=== PATIENT | male | born 1965 | race African-American/Black ===

== ENCOUNTER 2016-03-29 22:00 | Inpatient (IN) ==
[2016-03-29] MEDS ORDERED: 0.9 % Sodium Chloride 1,000 ML IVC ONE (22:26)
[2016-03-29] MEDS ORDERED: Ondansetron 4 MG/2 ML VIAL IVP ONE (22:26)
[2016-03-29 22:56] LABS: Basophils # 0.1 K/mcL (0.0-0.2); Basophils % 0.4 %; Eosinophils # 0.3 K/mcL (0.0-0.6); Eosinophils % 2.3 %; Hematocrit 42.6 % (37.5-50.1); Hemoglobin 14.6 g/dL (12.9-16.9); Immature Granulocytes % 0.2 % (0-4); Lymphocytes % 24.6 %; Mean Corpuscular HGB Conc 34.3 g/dL (31.6-35.5); Mean Corpuscular Hemoglobin 28.5 pg (28.0-33.3); Mean Platelet Volume 10.4 fL (9.4-12.4); Monocytes # 0.9 K/mcL (0.0-1.3); Monocytes % 7.5 %; Neutrophils # 7.9 K/mcL (1.6-8.9); Platelet Count 288 K/mcL (140-400); Red Blood Count 5.13 M/mcL (4.19-5.50); Red Cell Distribution Width 12.4 % (11.5-14.5)
[2016-03-29 23:09] LABS: Albumin 3.4 g/dL (3.5-5.0); Albumin/Globulin Ratio 0.7 (1.1-2.2); Bilirubin,Total 0.7 mg/dL (0.2-1.2); Calcium 10.3 mg/dL (8.6-10.8); Globulin 4.8 g/dL (2.4-3.5); Potassium 5.1 mEq/L (3.5-4.5); Total Protein 8.2 g/dL (6.0-8.3)
--- NOTE | 2016-03-29 23:47 | Emergency Department Note ---
Disposition Clinical Impression: Dehydration, Hyperglycemia, Viral syndrome, Elevated troponin Disposition: Admitted As Inpatient Referrals: Cy Turcios MD [Primary Care Provider] - Forms: ED Satisfaction Letter Time of Disposition: 00:40 General Adult HPI - General Chief complaint: ED Weakness Stated complaint: Weakness,vomiting Time Seen by Provider: 03/29/16 22:10 Source: patient Limitations: no limitations Nursing Notes Reviewed: Yes Vital Signs Reviewed: Yes - History of Present Illness HPI Narrative: Patient presents to emergency room with his for evaluation of generalized malaise of several days. He is at work and had weakness and felt like he was fatigued. He was not able to complete his work today and came home. He denies any other complaints. No chest pain or shortness of breath no headache vision changes no nausea vomiting or diarrhea. Main complaint is intermittent chills and generalized weakness is here for similar symptoms Onset (ago): day(s) Radiation: non-radiation Pain Severity: moderate Pain Scale: 8 Quality: aching Consistency: constant Improves with: nothing Worsens with: nothing Associated symptoms: Reports: fever/chills, malaise, weakness Treatments Prior to Arrival: none - Related Data Home Medications Medication Instructions Recorded Confirmed Albuterol Inhaler 03/20/16 Aliskiren/Amlodipine Besylate 03/20/16 Aspirin Buffered 325 mg Tab 03/20/16 Atorvastatin Calcium 03/20/16 03/20/16 Clopidogrel Bisulfate 03/20/16 Glucophage 03/20/16 Humalog Kwikpen U-100 03/20/16 Isosorbide Mononitrate 03/20/16 Lantus Solostar 03/20/16 Lisinopril-HCTZ 20-12.5 03/20/16 Neurontin 03/20/16 Nitroglycerin 03/20/16 Percocet 10-325 mg Tablet 03/20/16 Promethazine HCl 03/20/16 Promethazine HCl 03/20/16 Toprol Xl 03/20/16 Previous Rx's Medication Instructions Recorded Cefdinir [Omnicef] 300 mg PO DAILY #10 capsule 03/20/16 Ibuprofen [Motrin] 400 mg PO Q6-8H PRN #30 tablet 03/20/16 Polyethylene Glycol 3350 [MiraLAX] 17 gm PO DAILY #238 g 03/20/16 Allergies Allergy/AdvReac Type Severity Reaction Status Date / Time No Known Allergies Allergy Verified 03/29/16 22:08 All systems ED: reviewed and negative except as stated. Respiratory: Denies: dyspnea, wheezes Gastrointestinal: Denies: abdominal pain, nausea, vomiting, diarrhea Musculoskeletal: Denies: back pain, neck pain Neurological: Denies: headache, weakness Endocrine: Reports: fatigue Past Medical History - Past Medical History Attestation: Yes The following information was validated with the patient. Source: patient Medical history: Reports: arthritis, coronary artery disease, diabetes, hyperlipidemia, hypertension, renal disease Surgical history: Reports: angioplasty/stent, other Psychiatric history: Reports: no psych history - Social History Smoking Status: Never smoker Smokeless Tobacco Status: No Alcohol use: Reports: none Drug use: Reports: none Physical Exam - General Limitations: no limitations General appearance: alert, in no apparent distress - Neck Neck exam: Present: normal inspection - Chest Chest inspection: Present: normal inspection, symmetric chest wall rise - Respiratory Respiratory exam: Present: normal lung sounds bilaterally. Absent: respiratory distress, wheezes, accessory muscle use - Cardiovascular Cardiovascular exam: Present: regular rate, normal rhythm, normal heart sounds - Abdominal Exam Abdominal exam: Present: soft, Non-Tender, normal bowel sounds. Absent: tenderness, distention, guarding, rebound, rigidity, Pimentel's sign, Rovsing's sign, tenderness at McBurney's Point, mass, pulsatile mass - Extremities Exam Extremities exam: Present: normal inspection, full ROM, normal capillary refill. Absent: tenderness, pedal edema - Back Exam Back exam: Present: normal inspection, full ROM. Absent: tenderness - Neurological Exam Neurological exam: Present: alert, oriented X3, CN II-XII intact, normal gait - Psychiatric Psychiatric exam: Present: normal affect, normal mood - Skin Skin exam: Present: warm, dry, intact, normal color Course Course Narrative: Patient seen and examined on arrival. See history of present illness. 50-year- old male presents emergency room for evaluation of generalized malaise. Is also noted his glucose is been in the 400s over the last several days. He was at work today going up a ladder and fell he could not get up the ladder this is because he was so weak. He denied chest pain shortness of breath headache vision changes nausea vomiting or diarrhea. Denied fevers or chills. He does have generalized weakness according to him. There is no focal deficits on exam. Head is atraumatic pupils are equal round reactive to light. Extraocular muscles are intact his lungs are clear heart is regular. Abdomen is soft nontender nondistended no guarding no rigidity no peritoneal like symptoms. Capillary refill is appropriate. Good radial DP and PT pulses are noted bilaterally. Patient is mentating appropriately answering questions appropriately. He does appear to feel uncomfortable and looks generally ill. Patient is concerning for possible viral syndrome. Basic laboratory workup to address electrolytes along with EKG troponin and chest x-ray secondary to his weakness and symptoms. Patient does have a cardiac history. Disposition determined once his workup is completed. Nausea medications and fluid this time. We will continue to monitor as we continue medical management. Patient is stable resting codable in the bed afebrile - Reevaluation(s) Reevaluation #1: Markell have an elevated troponin at 0.4. This is the highest it ever been for this patient. Patient is denying any other symptoms and currently is still denying chest pain. Aspirin to be provided. Patient's vital signs are stable this point. We discussed the findings and concern for possible cardiac damage secondary to unknown etiology this time. Patient did say that he is cared for by Dr. Morataya and was requested to have a stress test performed as an outpatient. He did not complete that testing. At this point I discussed my recommendation for admission for cardiac evaluation and training of his troponins. Patient wished to think about being admitted at this time. We will reevaluate after patient has had time to think about his medical care. Aspirin to be provided this time. Time: 23:56 Reevaluation #2: Patient was discussed with the hospitalist . Reviewed the patient' s presentation symptoms and medical history. Only recommendation at this time is to have the patient get a BMP collected. Otherwise no other acute issues at this time the patient about the hospital for what appears to be a viral illness and elevated troponin of unknown etiology. Patient does not require aspirin at this time since he does not have chest pain does not appear to be acute coronary syndrome rule out. Patient stable he will be observed in the emergency room to the admission process is completed Time: 00:41 Vital Signs Temperature 98.0 F 03/29/16 22:04 Pulse Rate 95 03/29/16 22:04 Respiratory Rate 18 03/29/16 22:04 Blood Pressure 143/87 03/29/16 22:04 O2 Sat by Pulse Oximetry 98 03/29/16 22:04 Temperature 98.0 F 03/29/16 22:04 Pulse Rate 89 03/30/16 00:15 Respiratory Rate 14 03/30/16 00:15 Blood Pressure 160/101 03/30/16 00:15 O2 Sat by Pulse Oximetry 94 L 03/30/16 00:15 Oxygen Delivery Oxygen Delivery Room Air Medical Decision Making - MDM Narrative Medical decision making narrative: Generalized malaise, elevated troponin, hyperglycemia, viral syndrome - Medical Records Medical records reviewed: Yes I reviewed the patient's medical records. - Lab Data Lab results reviewed: Yes I reviewed the patient's lab results. Result diagrams: 03/29/16 22:48 03/29/16 22:48 Lab Results 03/29/16 03/29/16 03/29/16 Range/Units 22:19 22:48 22:48 WBC 12.1 H (4.3-11.1) K/mcL RBC 5.13 (4.19-5.50) M/mcL Hgb 14.6 (12.9-16.9) g/dL Hct 42.6 (37.5-50.1) % MCV 83.0 (83.0-100.0) fL MCH 28.5 (28.0-33.3) pg MCHC 34.3 (31.6-35.5) g/dL RDW 12.4 (11.5-14.5) % Plt Count 288 (140-400) K/mcL MPV 10.4 (9.4-12.4) fL Immature Gran % 0.2 (0-4) % Seg Neutrophils % 65.0 % Lymphocytes % 24.6 % Monocytes % 7.5 % Eosinophils % 2.3 % Basophils % 0.4 % Neutrophils # 7.9 (1.6-8.9) K/mcL Lymphocytes # 3.0 (0.6-4.6) K/mcL Monocytes # 0.9 (0.0-1.3) K/mcL Eosinophils # 0.3 (0.0-0.6) K/mcL Basophils # 0.1 (0.0-0.2) K/mcL Sodium 134 L (136-145) mEq/L Potassium 5.1 H (3.5-4.5) mEq/L Chloride 100 (98-109) mEq/L Carbon Dioxide 22 (19-29) mEq/L BUN 27 H (8-26) mg/dL Creatinine 2.07 H (0.72-1.25) mg/dL Est GFR ( Amer) 41 L (> 60) Est GFR (Non-Af Amer) 34 L (> 60) BUN/Creatinine Ratio 13 (6-26) Glucose 465 H (70-99) mg/dL POC Glucose 405 H* (58-89) Calculated Osmolality 303 H (280-300) Calcium 10.3 (8.6-10.8) mg/dL Total Bilirubin 0.7 (0.2-1.2) mg/dL AST 19 (5-34) Units/L ALT 22 (0-55) Units/L Alkaline Phosphatase 149 H (38-126) Units/L Troponin I (0-0.03) ng/mL Serum Total Protein 8.2 (6.0-8.3) g/dL Albumin 3.4 L (3.5-5.0) g/dL Globulin 4.8 H (2.4-3.5) g/dL Albumin/Globulin Ratio 0.7 L (1.1-2.2) Urine Color (Yellow) Urine Clarity (Clear) Urine pH (5.0-8.0) pH Units Ur Specific [place] (1.010-1.025) Urine Protein (Neg-Trace) mg/dL Urine Glucose (UA) (Normal) mg/dL Urine Ketones (Negative) mg/dL Urine Blood (Negative) Urine Nitrite (Negative) Urine Bilirubin (Negative) Urine Urobilinogen (Normal) mg/dL Ur Leukocyte Esterase (Negative) Urine Microscopic RBC (0-3) per hpf Urine Microscopic WBC (0-3) per hpf Ur Squamous Epith Cells (None-Few) per lpf Urine Bacteria (None-Few) per hpf Hyaline Casts (None-Few) per lpf Ur Culture Indicated? (NO) 03/29/16 03/30/16 Range/Units 22:48 00:05 WBC (4.3-11.1) K/mcL RBC (4.19-5.50) M/mcL Hgb (12.9-16.9) g/dL Hct (37.5-50.1) % MCV (83.0-100.0) fL MCH (28.0-33.3) pg MCHC (31.6-35.5) g/dL RDW (11.5-14.5) % Plt Count (140-400) K/mcL MPV (9.4-12.4) fL Immature Gran % (0-4) % Seg Neutrophils % % Lymphocytes % % Monocytes % % Eosinophils % % Basophils % % Neutrophils # (1.6-8.9) K/mcL Lymphocytes # (0.6-4.6) K/mcL Monocytes # (0.0-1.3) K/mcL Eosinophils # (0.0-0.6) K/mcL Basophils # (0.0-0.2) K/mcL Sodium (136-145) mEq/L Potassium (3.5-4.5) mEq/L Chloride (98-109) mEq/L Carbon Dioxide (19-29) mEq/L BUN (8-26) mg/dL Creatinine (0.72-1.25) mg/dL Est GFR ( Amer) (> 60) Est GFR (Non-Af Amer) (> 60) BUN/Creatinine Ratio (6-26) Glucose (70-99) mg/dL POC Glucose (58-89) Calculated Osmolality (280-300) Calcium (8.6-10.8) mg/dL Total Bilirubin (0.2-1.2) mg/dL AST (5-34) Units/L ALT (0-55) Units/L Alkaline Phosphatase (38-126) Units/L Troponin I 0.40 H* (0-0.03) ng/mL Serum Total Protein (6.0-8.3) g/dL Albumin (3.5-5.0) g/dL Globulin (2.4-3.5) g/dL Albumin/Globulin Ratio (1.1-2.2) Urine Color Yellow (Yellow) Urine Clarity Clear (Clear) Urine pH 5.5 (5.0-8.0) pH Units Ur Specific [place] > 1.030 H (1.010-1.025) Urine Protein >=300 H (Neg-Trace) mg/dL Urine Glucose (UA) >=1000 H (Normal) mg/dL Urine Ketones Negative (Negative) mg/dL Urine Blood Trace H (Negative) Urine Nitrite Negative (Negative) Urine Bilirubin Negative (Negative) Urine Urobilinogen Normal (Normal) mg/dL Ur Leukocyte Esterase Negative (Negative) Urine Microscopic RBC 3-5 H (0-3) per hpf Urine Microscopic WBC 0-3 (0-3) per hpf Ur Squamous Epith Cells Many H (None-Few) per lpf Urine Bacteria None Seen (None-Few) per hpf Hyaline Casts None Seen (None-Few) per lpf Ur Culture Indicated? NO (NO) - Radiology Data Radiology results reviewed: Yes I reviewed the patient's radiology results. Chest x-ray is stable no signs of acute pulmonary infiltrate. Reviewed by myself and confirmed by the radiologist - EKG Data EKG #1 EKG attestation: Yes I reviewed and interpreted this EKG. EKG shows normal: sinus rhythm, axis, intervals, QRS complexes, ST-T waves Rate: normal Rhythm: NSR [place]/QRS: normal When compared to previous EKG there are: no significant changes Interpretation: no acute changes, unchanged when compared to prior tracing (date ) (03/29/11) Attestation Statement - Attestation Attestation: I examined this patient and my medical decision-making was reviewed with the [facility]/PA/Advanced Practice Nurse/Resident Physician. I agree with the documented findings, disposition and treatment plan as described except to the extent set forth below. Patient presents to the emergency department the chief complaint of generalized weakness. Patient states he has not felt well today. He had to leave work early. Does complain of some mild epigastric tenderness but does not have a right now. On examination he is awake and alert pleasant conversant sitting in bed in no distress. He is eating goldfish crackers on my evaluation. His abdomen soft nontender. His lungs are clear. Plan. The patient has elevated troponin of 0.4. He is not having any chest pain or epigastric pain at this time. His lungs are clear. He is not tachycardic or hypoxic to suggest he has a pulmonary embolus. Patient be admitted for further workup.
[2016-03-29] MEDS ORDERED: 0.9 % Sodium Chloride 1,000 ML IV ONE (23:56)
[2016-03-29] MEDS ORDERED: Aspirin 81 MG TAB.CHEW PO ONE (23:56)
[2016-03-30 00:14] LABS: Bilirubin,Urine Negative (Negative); Blood,Urine Trace (Negative); Clarity,Urine Clear (Clear); Color,Urine Yellow (Yellow); Glucose,Urine (UA) >=1000 mg/dL (Normal); Ketones,Urine Negative (Negative); Leukocyte Esterase,Urine Negative (Negative); Nitrite,Urine Negative (Negative); PH,Urine 5.5 pH Units (5.0-8.0); Protein,Urine >=300 mg/dL (Neg-Trace); Specific Gravity,Urine > 1.030 (1.010-1.025); Urobilinogen,Urine Normal (Normal)
[2016-03-30 00:15] LABS: Bacteria,Urine None Seen per hpf (None-Few); Hyaline Casts,Urine None Seen per lpf (None-Few); Squamous Epithelial Cell,Urine Many per lpf (None-Few); WBC,Urine 0-3 per hpf (0-3)
[2016-03-30] MEDS ORDERED: Calcium Gluconate 1,000 MG in D5% in Water 100 ML IVPB ONE (01:32)
[2016-03-30] MEDS ORDERED: Pantoprazole 40 MG VIAL IVP SCH (03:00)
--- NOTE | 2016-03-30 03:00 | Internal Med History&Physical ---
Date of Encounter: 03/30/16 Time of Encounter: 02:54 Assessment and Plan (1) FREDDY (acute kidney injury) Current visit: Yes Status: Acute Will give the patient leader bolus of normal saline. Continuing normal saline 100 ml/hour. Patient is hyperkalemic potassium 5.2, this will be treated and rechecked in the morning (2) HHNC (hyperglycemic hyperosmolar nonketotic coma) Current visit: Yes Status: Acute Recheck his sugars is not improving he will be started on insulin drip. (3) NSTEMI (non-ST elevation myocardial infarction) Current visit: Yes Status: Acute He denies any active chest pain. EKG shows no ischemic changes. I suspect that this is NSTEMI type II due to acute renal failure. Serial troponin (4) Gastritis Current visit: Yes Status: Acute Likely related to recent ibuprofen use other possibilities include viral syndrome. However I suspect the former. I will place the patient IV Protonix. If no improvement in his symptoms would ask gastroenterology to see the patient for endoscopy. There is no evidence of G.I. bleeding. Qualifiers: Qualified Code(s): K29.70 - Gastritis, unspecified, without bleeding Internal Medicine - H&P: HPI Chief complaint: weakness and vomiting History of present illness: Mr. Ocasio is a 50 year old male with multiple medical problems presents to the emergency room today within plan of vomiting and weakness. For the past 2 days patient has been complaining over the gastric pain recurrent vomiting that was non-bloody nonbilous. He has been nauseous unable to eat to keep food down and even water. He has been getting progressively weak and lethargic. Was getting lightheaded when he stands up. He denies any diarrhea. He denies any hematemesis, melena or hematochezia. He has been having chills but no fever. He denies any change in the color of urine and stool or eyes. He denies any chest pain. No worsening shortness of breath or productive cough. He mentioned that on Friday 5 days ago he went to urgent care because of right hip pain and he was prescribed ibuprofen 400 mg of which she took 15 pills Past Med Surg Social Fam HX - Past Medical History Medical history: arthritis, coronary artery disease, diabetes, hyperlipidemia, hypertension, renal disease Psychiatric history: no psych history - Past Surgical History Surgical History: angioplasty/stent, other - Social History Smoking Status: Never smoker Smokeless Tobacco Status: No Alcohol use: none Drug use: none - Family History Brother Living Status: Still Living Hx Family Cardiac Disorders: No Hx Family Respiratory Disorders: No Hx Family Cancer: No Hx Family GI Disorders: No Hx Family Genitourinary Disorders: No Hx Family Endocrine Disorder: No Hx Family Musculoskeletal Disorders: Yes Hx Family Neuromuscular Disorders: No Hx Family Neurologic Disorders: No Hx Family HEENT Disorders: No Hx Family Autoimmune Disorders: No Hx Family Reproductive Disorders: No Hx Family Psychosocial Disorders: No Hx Family Medical Disorders: No Mother Adopted: No Family Member Ethnicity: Non- Living Status: Hx Family Cardiac Disorders: Yes (HTN) Hx Family Respiratory Disorders: No Hx Family Cancer: Yes (Colon) Hx Family GI Disorders: No Hx Family Genitourinary Disorders: No Hx Family Endocrine Disorder: Yes (DM) Hx Family Musculoskeletal Disorders: No Hx Family Neuromuscular Disorders: No Hx Family Neurologic Disorders: No Hx Family HEENT Disorders: No Hx Family Autoimmune Disorders: No Hx Family Reproductive Disorders: No Hx Family Psychosocial Disorders: No Hx Family Medical Disorders: No Father Living Status: Hx Family Cardiac Disorders: Yes (HTN) Hx Family Respiratory Disorders: No Hx Family Cancer: Yes (Lung) Hx Family GI Disorders: No Hx Family Endocrine Disorder: Yes (DM) Hx Family Neuromuscular Disorders: No Hx Family Neurologic Disorders: No Hx Family HEENT Disorders: No Hx Family Autoimmune Disorders: No Hx Family Reproductive Disorders: No Hx Family Psychosocial Disorders: No Hx Family Medical Disorders: No Internal Medicine - H&P: Meds Albuterol Inhaler 03/20/16 [History] Aliskiren/Amlodipine Besylate 03/20/16 [History] Aspirin Buffered 325 mg Tab 03/20/16 [History] Atorvastatin Calcium 03/20/16 [History] Cefdinir [Omnicef] 300 mg PO DAILY #10 capsule 03/20/16 [Rx] Clopidogrel Bisulfate 03/20/16 [History] Glucophage 03/20/16 [History] Humalog Kwikpen U-100 03/20/16 [History] Ibuprofen [Motrin] 400 mg PO Q6-8H PRN #30 tablet 03/20/16 [Rx] Isosorbide Mononitrate 03/20/16 [History] Lantus Solostar 03/20/16 [History] Lisinopril-HCTZ 20-12.5 03/20/16 [History] Neurontin 03/20/16 [History] Nitroglycerin 03/20/16 [History] Percocet 10-325 mg Tablet 03/20/16 [History] Polyethylene Glycol 3350 [MiraLAX] 17 gm PO DAILY #238 g 03/20/16 [Rx] Promethazine HCl 03/20/16 [History] Promethazine HCl 03/20/16 [History] Toprol Xl 03/20/16 [History] Allergies No Known Allergies Allergy (Verified 03/29/16 22:08) All Systems PM: A 10-system review of systems was performed and is negative for pertinent findings except as documented above in the HPI. Review of systems: 10 point ROS is negative except for HPI. - Constitutional Vitals: Temp Pulse Resp BP Pulse Ox 98.4 F 92 15 146/84 99 03/30/16 01:03 03/30/16 01:03 03/30/16 01:12 03/30/16 01:12 03/30/16 01:24 Exam: General: Alert and oriented x3. No distress Chest: Clear Abdomen: epigastric tenderness LE: Lax calf muscle Neuro: No focal deficits Pupil: 3 m reactive Internal Med - H&P Results - Labs CBC & Chem 7: 03/29/16 22:48 03/29/16 22:48
[2016-03-30] MEDS ORDERED: Insulin Human Regular 100 UNIT in 0.9 % Sodium Chloride 100 ML IVC SCH (03:15)
[2016-03-30] MEDS ORDERED: Insulin Regular, Human 100 UNIT/ML IV PRN (03:15)
[2016-03-30] MEDS: Pantoprazole 40 MG VIAL IVP SCH (03:56)
[2016-03-30] MEDS: 0.9 % Sodium Chloride 1,000 ML IVC SCH ×2 (04:06→12:18)
[2016-03-30] MEDS: *HR* HYDROcodone/Acet 5/325 mg TABLET PO PRN ×2 (04:24→22:54)
[2016-03-30 06:30] LABS: Basophils # 0.1 K/mcL (0.0-0.2); Basophils % 0.4 %; Eosinophils # 0.4 K/mcL (0.0-0.6); Eosinophils % 3.5 %; Hematocrit 36.6 % (37.5-50.1); Immature Granulocytes % 0.4 % (0-4); Lymphocytes # 3.6 K/mcL (0.6-4.6); Lymphocytes % 32.2 %; Mean Corpuscular HGB Conc 34.4 g/dL (31.6-35.5); Mean Corpuscular Hemoglobin 28.8 pg (28.0-33.3); Mean Corpuscular Volume 83.8 fL (83.0-100.0); Mean Platelet Volume 10.4 fL (9.4-12.4); Monocytes # 1.1 K/mcL (0.0-1.3); Monocytes % 9.4 %; Neutrophils # 6.1 K/mcL (1.6-8.9); Platelet Count 249 K/mcL (140-400); Red Blood Count 4.37 M/mcL (4.19-5.50); Red Cell Distribution Width 12.4 % (11.5-14.5); Segmented Neutrophils % 54.1 %
[2016-03-30 06:31] LABS: Hemoglobin 12.6 g/dL (12.9-16.9)
[2016-03-30 06:33] LABS: Beta-Hydroxybutyric Acid 0.16 mmol/L (0.02-0.27)
[2016-03-30 06:38] LABS: Hemoglobin A1C 13.4 %
[2016-03-30] MEDS: *HR* Heparin 5,000 UNIT/ML VIAL SQ SCH ×2 (06:38→17:03)
[2016-03-30 06:41] LABS: Calcium 9.3 mg/dL (8.6-10.8); Magnesium 1.6 mg/dL (1.6-2.6); Potassium 4.2 mEq/L (3.5-4.5)
[2016-03-30] MEDS ORDERED: *HR* Dextrose 50 % in Water (Syg) 50 ML SYRINGE IVP PRN (07:26)
[2016-03-30] MEDS ORDERED: D5% in Water 1,000 ML IV PRN (07:26)
[2016-03-30] MEDS ORDERED: Dextrose Gel 15 GM PO PRN ×2 (07:26)
[2016-03-30] MEDS: Insulin DETEMIR 100 UNIT/ML X5UNITS SQ SCH (08:30)
--- NOTE | 2016-03-30 09:59 | Event Note ---
Date of Encounter: 03/30/16 Time of Encounter: 09:43 50/M PMH : DM since last 15 years on insulin, CAD, CKD, HTN, HPI: Admitted with severe nausea and vomiting for last 36 hours. Recent consumption of more than 15 Ibuprofen along with some other OTC NSAIDs for back pain. Denies hematemesis, eran or chest pain. noted during past 12 hours his lood sugar was out of control and was placed on insulin drip. BHBA is normal and no evidence of acidosis. Vitals: 98.3, 82/m, 126/77, 15/m and 96%RA Examination : head,neck, oral cavity and cervical area with in normal limits. Air entry bilateral equal, S1S2 normal. abdominal examination is benign. brief neurological examination is woth innormal limits. Assessment : Severe gastritis secondary NSAID induced likely. Hyperglycemia ( uncontrolled blood sugar ) secondary to non compliance with insulin. Plan - since now his nausea and vomiting is well controlled, will d/c IV insulin and will resume home dose of insulin. ACHS - continue IV fluids - US abdomen. - Repeat labs in coming morning.
[2016-03-30] MEDS: Insulin LISPRO 300 UNITS/3 ML VIAL SQ SCH ×3 (12:14→17:04)
--- NOTE | 2016-03-30 13:07 | Cardiology Consult Note ---
<MeaganYrny R - Last Filed: 03/30/16 13:25> Date of Encounter: 03/30/16 Time of Encounter: 13:04 Assessment and Plan (1) NSTEMI (non-ST elevation myocardial infarction) Current Visit: Yes Status: Acute Troponin 0.40, 0.36. Could be secondary to demand ischemia from FREDDY on admission (now improved), n/v, but unable to rule out NSTEMI given pt's hx of CAD with PCI and multiple risk factors. Left heart catheterization 2011: 2 Vidhya placed in OM 2. 60-70% lesion noted in OM1 not intervened on. He then had Exercise nuclear stress test 02/2014. Imaging negative for ischemia or prior infarct. Exercise ECG borderline for ischemia at peak heart rate and positive for ischemia in recovery. Pt's diabetes is not well controlled. HGBA1C 13.4, Recommend [facility] to further evaluate ischemic cause of troponin elevation--pt agrees. R/B/A discussed. Resume ASA, Statin, BB, Plavix. Echocardiogram 02/2014: EF 60-65%. Mild concentric LVH. Mild diastolic dysfunction. No significant valvular disease. Recheck echo to evaluate EF. (2) CAD (coronary artery disease) Current Visit: Yes Status: Chronic ASA, Plavix, Statin, BB. Qualifiers: Coronary Disease-Associated Artery/Lesion type: [place] artery [place] vs. transplanted heart: [place] heart Associated angina: without angina Qualified Code(s): I25.10 - Atherosclerotic heart disease of [place] coronary artery without angina pectoris (3) CKD (chronic kidney disease) stage 3, GFR 30-59 ml/min Current Visit: Yes Status: Chronic FREDDY on admission with creatinine 2.07--was likely secondary to dehydration. Improved today with creatinine 1.54, near baseline. Discussion w patient/family: The assessment and plan as outlined above was discussed with the patient and/or family members who expressed understanding and agreement. All questions were answered. Thank you for involving us in the care of your patient. Please call with any questions. I will discuss all the above with Dr. Vasquez and make changes as necessary. History of Present Illness Consult date: 03/30/16 Requesting physician: Lei Bhagat Consult reason: Elevated troponon Chief complaint: n/v History of present illness: Mr. Ocasio is a 50 year old male with a significant history of CAD s/p PCI to OM2. Comorbidities include CKD, HTN, HLD, DM II. He presented with chief complaint of nausea/vomiting that started , has been unable to keep anything down. He was also experiencing epigastric pain. Denies chest pain or increased dyspnea from baseline. Was found to have glucose in 600s, was on insulin gtt overnight. HGBA1C 13.4. Troponins found to be 0.40, 0.36 and cardiology was consulted. FREDDY on admission with creatinine 2.07, now improved near baseline to 1.54. Pt last saw Dr. Morataya 01/2016, at which time he recommended a nuclear stress test that pt never had completed. Left heart catheterization 2011: 2 Vidhya placed in OM 2. 60-70% lesion noted in OM1. Exercise nuclear stress test 02/2014: Imaging negative for ischemia or prior infarct. Exercise ECG borderline for ischemia at peak heart rate and positive for ischemia in recovery. Echocardiogram 02/2014: EF 60-65%. Mild concentric LVH. Mild diastolic dysfunction. No significant valvular disease. Past Med Surg Social Fam HX - Past Medical History Medical history: arthritis, coronary artery disease, diabetes, hyperlipidemia, hypertension, renal disease Psychiatric history: no psych history - Past Surgical History Surgical History: angioplasty/stent, other - Social History Smoking Status: Never smoker Smokeless Tobacco Status: No Alcohol use: none Drug use: none - Family History Brother Living Status: Still Living Hx Family Cardiac Disorders: No Hx Family Respiratory Disorders: No Hx Family Cancer: No Hx Family GI Disorders: No Hx Family Genitourinary Disorders: No Hx Family Endocrine Disorder: No Hx Family Musculoskeletal Disorders: Yes Hx Family Neuromuscular Disorders: No Hx Family Neurologic Disorders: No Hx Family HEENT Disorders: No Hx Family Autoimmune Disorders: No Hx Family Reproductive Disorders: No Hx Family Psychosocial Disorders: No Hx Family Medical Disorders: No Mother Adopted: No Family Member Ethnicity: Non- Living Status: Hx Family Cardiac Disorders: Yes (HTN) Hx Family Respiratory Disorders: No Hx Family Cancer: Yes (Colon) Hx Family GI Disorders: No Hx Family Genitourinary Disorders: No Hx Family Endocrine Disorder: Yes (DM) Hx Family Musculoskeletal Disorders: No Hx Family Neuromuscular Disorders: No Hx Family Neurologic Disorders: No Hx Family HEENT Disorders: No Hx Family Autoimmune Disorders: No Hx Family Reproductive Disorders: No Hx Family Psychosocial Disorders: No Hx Family Medical Disorders: No Father Living Status: Hx Family Cardiac Disorders: Yes (HTN) Hx Family Respiratory Disorders: No Hx Family Cancer: Yes (Lung) Hx Family GI Disorders: No Hx Family Endocrine Disorder: Yes (DM) Hx Family Neuromuscular Disorders: No Hx Family Neurologic Disorders: No Hx Family HEENT Disorders: No Hx Family Autoimmune Disorders: No Hx Family Reproductive Disorders: No Hx Family Psychosocial Disorders: No Hx Family Medical Disorders: No Medications and Allergies Albuterol Inhaler 03/20/16 [History] Aliskiren/Amlodipine Besylate 03/20/16 [History] Aspirin Buffered 325 mg Tab 03/20/16 [History] Atorvastatin Calcium 03/20/16 [History] Cefdinir [Omnicef] 300 mg PO DAILY #10 capsule 03/20/16 [Rx] Clopidogrel Bisulfate 03/20/16 [History] Glucophage 03/20/16 [History] Humalog Kwikpen U-100 03/20/16 [History] Ibuprofen [Motrin] 400 mg PO Q6-8H PRN #30 tablet 03/20/16 [Rx] Isosorbide Mononitrate 03/20/16 [History] Lantus Solostar 03/20/16 [History] Lisinopril-HCTZ 20-12.5 03/20/16 [History] Neurontin 03/20/16 [History] Nitroglycerin 03/20/16 [History] Percocet 10-325 mg Tablet 03/20/16 [History] Polyethylene Glycol 3350 [MiraLAX] 17 gm PO DAILY #238 g 03/20/16 [Rx] Promethazine HCl 03/20/16 [History] Promethazine HCl 03/20/16 [History] Toprol Xl 03/20/16 [History] Allergies No Known Allergies Allergy (Verified 03/29/16 22:08) All Systems Review: A 10-system review of systems was performed and is negative for pertinent findings except as documented above in the HPI. - Constitutional Constitutional: chills, fatigue, weakness - Cardiovascular Cardiovascular: as per HPI, dyspnea on exertion - Gastrointestinal Gastrointestinal: abdominal pain, nausea Physical Examination Vital Signs, Last 4 Hours Temp Pulse Resp BP Pulse Ox 03/30/16 11:29 97.9 F 80 15 142/84 97 Vital Signs Temp Pulse Resp BP Pulse Ox 03/30/16 11:29 97.9 F 80 15 142/84 97 03/30/16 09:03 93 L 03/30/16 06:50 98.3 F 82 15 126/77 93 L 03/30/16 03:15 90 17 136/77 96 03/30/16 01:24 99 03/30/16 01:12 15 146/84 03/30/16 01:03 98.4 F 92 16 146/97 98 03/30/16 00:15 89 14 160/101 94 L 03/29/16 23:38 88 14 164/100 98 03/29/16 22:04 98.0 F 95 18 143/87 98 Intake and Output 03/29/16 03/30/16 03/30/16 23:59 07:59 15:59 Intake Total 806 / 806 1240 / 1240 Output Total 825 / 825 450 / 450 Balance -19 / -19 790 / 790 Intake: IV Fluids 6 / 6 1000 / 1000 0.9 % Sodium Chloride 1, 1000 / 1000 000 ML @ 100 mls/hr IVC . Q10H KHUSHI Rx#:[id number] HumuLIN R 100 UNIT In 0. 6 / 6 9 % Sodium Chloride 100 ML @ 0.1 UNIT/KG/HR 10.36 mls/hr IVC CONT KHUSHI Rx#: [id number] Oral 800 / 800 240 / 240 Output: Urine 825 / 825 450 / 450 Other: Meal Breakfast Percent of Meal Consumed 100% Weight 107.501 kg 102.6 kg Blood Glucose* 405 279 290 Patient Weight 03/30/16 23:59 Weight 102.6 kg General: Conversant, No Apparent Distress HEENT: Atraumatic, Normocephaly, Mucus Membranes Moist Neck: No JVD, Normal carotid pulses Cardiac: Reg Rate and Rhythm, Normal S1 and S2, No Murmur Lungs: Normal Breath Sounds, No Wheeze, Rales, Rhonchi Neuro: Alert and responsive, No focal deficits noted Abdomen: Soft, Non-Tender Skin: No rashes noted on visualized skin Musculoskeletal: No Chest Wall Tenderness Extremities: No Clubbing, No Cyanosis, No Edema, Normal Pulses Results 03/30/16 06:06 03/30/16 06:06 Lab Results 03/30/16 03/30/16 03/30/16 06:06 06:06 10:32 WBC 11.3 H Hgb 12.6 L D Hct 36.6 L Plt Count 249 Sodium 136 Potassium 4.2 Chloride 104 Carbon Dioxide 23 BUN 24 Creatinine 1.54 H Glucose 339 H Calcium 9.3 Magnesium 1.6 Troponin I 0.36 H* Short CBC 03/30/16 03/29/16 Range/Units 06:06 22:48 WBC 11.3 H 12.1 H (4.3-11.1) K/mcL Hgb 12.6 L D 14.6 (12.9-16.9) g/dL Hct 36.6 L 42.6 (37.5-50.1) % Plt Count 249 288 (140-400) K/mcL Neutrophils # 6.1 7.9 (1.6-8.9) K/mcL BMP 03/30/16 03/29/16 Range/Units 06:06 22:48 Sodium 136 134 L (136-145) mEq/L Potassium 4.2 5.1 H (3.5-4.5) mEq/L Chloride 104 100 (98-109) mEq/L Carbon Dioxide 23 22 (19-29) mEq/L BUN 24 27 H (8-26) mg/dL Creatinine 1.54 H 2.07 H (0.72-1.25) mg/dL Glucose 339 H 465 H (70-99) mg/dL Calcium 9.3 10.3 (8.6-10.8) mg/dL Cardiac Enzymes 03/30/16 03/29/16 Range/Units 10:32 22:48 Troponin I 0.36 H* 0.40 H* (0-0.03) ng/mL Liver Function 03/29/16 Range/Units 22:48 Total Bilirubin 0.7 (0.2-1.2) mg/dL AST 19 (5-34) Units/L ALT 22 (0-55) Units/L Alkaline Phosphatase 149 H (38-126) Units/L Albumin 3.4 L (3.5-5.0) g/dL Urine 03/30/16 Range/Units 00:05 Urine Color Yellow (Yellow) Urine Clarity Clear (Clear) Urine pH 5.5 (5.0-8.0) pH Units Ur Specific [place] > 1.030 H (1.010-1.025) Urine Protein >=300 H (Neg-Trace) mg/dL Urine Glucose (UA) >=1000 H (Normal) mg/dL Impressions Chest X-Ray 03/29/16 22:26 IMPRESSION: Chronic scarring at the right lung base. No acute cardiopulmonary disease. D/ / Edu Cook MD / Edu Cook MD Interpreting Provider: Edu Cook MD Abdomen Ultrasound 03/30/16 02:42 IMPRESSION: 1. Gallbladder sludge without evidence of acute cholecystitis. 2. Hepatic steatosis. D/ / 03/30/2016 10:17:36 Tobias Contreras MD / brandon Interpreting Provider: Tobias Contreras MD Active Medications Acetaminophen/Hydrocodone Bitart ([place] 5-325 Mg) 1 tab PO Q6HR PRN PRN Reason: Moderate Pain Stop: 09/29/16 04:14 Last Admin: 03/30/16 04:24 Dose: 1 tab Dextrose/Water (Dextrose 50% (Syg)) 25 ml IVP AD PRN PRN Reason: Hypoglycemia Stop: 09/29/16 07:27 Glucagon (Glucagen) 1 mg IM ONCE PRN PRN Reason: Hypoglycemia Stop: 09/29/16 07:27 Glucose (Gluctose) 15 gm PO ONCE PRN PRN Reason: Hypoglycemia Stop: 09/29/16 07:27 Glucose (Gluctose) 30 gm PO ONCE PRN PRN Reason: Hypoglycemia Stop: 09/29/16 07:27 Heparin Sodium (Porcine) (Heparin) 5,000 unit SQ Q8HCO KHUSHI Stop: 09/29/16 07:01 Last Admin: 03/30/16 06:38 Dose: 5,000 unit Sodium Chloride (0.9 % Sodium Chloride) 1,000 mls @ 100 mls/hr IVC .Q10H KHUSHI Stop: 09/29/16 02:46 Last Admin: 03/30/16 12:18 Dose: 100 mls/hr Dextrose (Dextrose 5%) 1,000 mls @ 100 mls/hr IV CONT PRN PRN Reason: HYPOGLYCEMIA Stop: 09/29/16 07:27 Insulin Detemir (Levemir) 70 unit SQ BID [facility] Stop: 09/29/16 09:01 Last Admin: 03/30/16 08:30 Dose: 70 unit Insulin Human Lispro (Humalog) 0 units SQ TIDAC KHUSHI PRN Reason: Protocol Stop: 09/29/16 07:31 Last Admin: 03/30/16 12:18 Dose: 10 units Insulin Human Lispro (Humalog) 0 units SQ HS KHUSHI PRN Reason: Protocol Stop: 09/29/16 21:01 Pantoprazole Sodium (Protonix) 40 mg IVP 0630 [facility] Stop: 09/29/16 03:01 Last Admin: 03/30/16 03:56 Dose: 40 mg - Imaging and Cardiology Chest Xray: report reviewed Stress Test: report reviewed Echo: report reviewed Cardiac cath: report reviewed - EKG Interpretation EKG results cardiology: personally reviewed, other (12 hour tele AVG HR 85, SR, no significant pauses or arrhythmias.) Consult Discharge Plan - Plan Referrals: Cy Turcios MD [Primary Care Provider] - <Solitario Vasquez - Last Filed: 03/30/16 13:32> Date of Encounter: 03/30/16 Assessment and Plan Discussion w patient/family: The assessment and plan as outlined above was discussed with the patient and/or family members who expressed understanding and agreement. All questions were answered. Thank you for involving us in the care of your patient. Please call with any questions. History of Present Illness History of present illness: Mr. Ocasio is a 50 year old male All Systems Review: A 10-system review of systems was performed and is negative for pertinent findings except as documented above in the HPI. Physical Examination Vital Signs, Last 4 Hours Temp Pulse Resp BP Pulse Ox 03/30/16 11:29 97.9 F 80 15 142/84 97 Results 03/30/16 06:06 03/30/16 06:06 Lab Results 03/30/16 03/30/16 03/30/16 06:06 06:06 10:32 WBC 11.3 H Hgb 12.6 L D Hct 36.6 L Plt Count 249 Sodium 136 Potassium 4.2 Chloride 104 Carbon Dioxide 23 BUN 24 Creatinine 1.54 H Glucose 339 H Calcium 9.3 Magnesium 1.6 Troponin I 0.36 H* Attestation: My signature below is to certify that this patient is under my care and that I, or nurse practitioner, or a physician's mail handler assistant working with me, has a face-to -face encounter with this patient. Patient seen and examined and agree with plan as outline. Elevated troponins in a poorly controlled diabetic Sxs seem aypical but in light of the troponins - recommend Angio Discussed in detail - risks/benefits/rationale and alternatives reviewed - patient is agreeable Cath later today Watch renal function closely.
[2016-03-30] MEDS: Aspirin 81 MG TAB.CHEW PO SCH (15:18)
[2016-03-30] MEDS: Metoprolol XL (24 HR) Succ 50 MG TAB.ER.24H PO SCH (15:18)
[2016-03-30] MEDS ORDERED: Heparin 1,000 UNITS/500 mL NS 500 ML ONE (17:31)
[2016-03-30] MEDS ORDERED: Nitroglycerin 1,000 MCG/10 ML VIAL IV ONE (17:31)
[2016-03-30] MEDS ORDERED: 0.9 % Sodium Chloride 1,000 ML ONE (17:31)
[2016-03-30] MEDS ORDERED: *HR* Heparin 10,000 UNIT/10 ML VIAL ONE (17:31)
[2016-03-30] MEDS ORDERED: *HR* FentaNYL (PF) 100 MCG/2 ML VIAL ONE (18:12)
[2016-03-30] MEDS ORDERED: *HR* Midazolam HCl 2 MG/2 ML VIAL ONE (18:12)
--- NOTE | 2016-03-30 18:12 | Pre-Sedation Evaluation ---
Pre-sedation evaluation - Pre-sedation checklist Date of procedure: 03/30/16 Procedure: Heart cath Recent Vitals: Last Vital Signs Temp 98.8 F 03/30/16 15:57 Pulse 86 03/30/16 15:57 Resp 15 03/30/16 15:57 BP 143/85 03/30/16 15:57 Pulse Ox 95 03/30/16 15:57 H&P (including ROS) documented in medical record: Yes Previous reaction to sedatives/anesthetics: No Dietary Status: No solid food in preceding 4 hrs and no liquid in preceding 2 hrs Dentition: No loose teeth or bridges Possible difficult airway: No ASA Classification *see protocol: CLASS II-Mild systemic disease Plan of Care: Pt appropriate candidate for procedure/moderate/conscious sedation , Risks/benefits of procedure/sedation discussed w/ patient/family, If not NPO; Risk of intake outweiged by necessity to perform procedure
[2016-03-30] MEDS ORDERED: *HR* Adenosine 6 MG/2 ML VIAL IVP ONE (18:52)
[2016-03-30] MEDS ORDERED: Nitroglycerin 0.4 MG TAB.SUBL SL PRN (19:08)
--- NOTE | 2016-03-30 19:20 | Invasive Diagnostic Lab ---
Name: Jeb Ocasio Date of Study: 03/30/2016 Date: 1965 Ht: 173.0 cm /68.1 in Medical Record#: [id number] Age: 50 Wt: 102. kg / 224.87 lb Account/Order#: [id number] Gender: Male BSA: 2.15 Order #: [id number] Fluoro Dose: 3553 mGy BMI: 34.08 Procedure Physician: Brant Connell MD Referring MD: Referring MD: Procedures Performed: CORONARY ANGIOGRAPHY Stent w/ PTCA Single Major Vessel IV Doppler BLD Flow 1st Vessel Indications: Non-Stemi Impressions: There is severe one vessel coronary artery disease. Patient had successful PTCA/Drug-Eluting Stent placement in the OM. FFR Measurement: 0.88 RCA Recommendations: Optimal medical therapy of patient's disease. Aggressive risk factor modification. History/Risk Factors: cad renal dx Diabetes Hypertension Dyslipidemia Procedure Access obtained in the right Femoral artery by percutaneous puncture Patient had successful PTCA/Drug-Eluting Stent placement in the OM. A pressure tipped wire was advanced through the catheter into the RCA. Measurements of FFR were made during hyperemia induced by intracoronary adenosine. FFR Measurement 0.88 Complications: None, None Contrast: Isovue 249ml Hemodynamics: Pressures Site Systolic/ A Wave Diastolic/ V Wave End Diastolic/ Mean HR AO 161 102 129 83 AO 136 96 116 89 AO 149 73 107 79 Wire 133 61 91 79 AO 0 Wire 0 AO 163 87 121 87 Wire 152 80 110 87 Coronary Dominance: right Lesion Findings/Interventions * Left Main Coronary Artery The LMCA is angiographically free of disease. * Left Anterior Descending There is a 20% stenosis in the Mid LAD. * Circumflex The 2nd Marginal has patent stents present from a previous procedure. There is a 24 mm long, 90% stenosis in the 1st Marginal. The lesion has no thrombus present. An intervention was performed on the 1st Marginal with a final stenosis of 0%. There were no lesion complications. * Right Coronary Artery There is a 60% stenosis in the Mid RCA. There is a 40% stenosis in the 1st RPL. Interventional Device(s) Vessel Segment Type Name Diameter (mm) Length (mm) 1st Marginal balloon Emerge Monorail 2 15 1st Marginal bioabsorbable stent Synergy 2.75 24 1st Marginal balloon NC Emerge 2.75 12 Mid RCA [place] Prime Wire Prestige Updated by RT Milo (R) on 03/30/2016 7:16:24 PM Brant Connell MD electronically signed on 03/30/2016 7:17:14 PM with status of Final
--- NOTE | 2016-03-30 19:33 | Invasive Diagnostic Lab Proc ---
Name: Jeb Ocasio Date of Study: 03/30/2016 Date: 1965 Ht: 68.1in Medical Record#: [id number] Age: 50 Wt: 224.87lb Gender: Male BSA: 2.15 Order #: [id number] BMI: 34.08 Physicians Procedure Physician: Brant Connell MD Referring MD: Cy Turcios MD Referring MD: Staff Name Position Time In Mar Lion RT Monitor 06:09 PM [facility], Shanta RT (R) Scrub 06:09 PM Nichelle Dominguez RN Material Specialist 06:09 PM Indications Indication Non-Stemi Procedures Performed Procedure CORONARY ARTERY ANGIO S\\T\\I PRQ CARD ANH STENT W/ANGIO 1 VSL IV Doppler BLD Flow 1st Vessel Pre-Procedure Checklist Informed consent is complete signed and on chart. H\\T\\P is on chart. ID band is on and ID verified with patient. Patient NPO for procedure The procedure was described for the patient and questions were answered. Blood Pressure: 169/99 ECG is on chart. Rhythm: NSR Plan of Care Patient will tolerate the procedure without complications. Adequate level of comfort will be maintained. Hemodynamics will remain stable Patient will recover from procedure without complications. Respiratory function will be maintained. Cardiac rhythm will remain stable. Patient temperature will be maintained. Patient and/or family have verbalized understanding of the procedure. Patient Education Chief Complaint/Reason for Test: Cardiac Cath Developmental Category: Geriatric (65+ years) Developmentally Appropriate for Age: Yes Learning Barriers: None Education Needs: Procedure Education Method: Verbal Information Taught: Cardiac Cath Educational Evaluation: Able to repeat information Intravenous Access Time IV Size Location DC'd Fluid/Drip Rate Units RN 05:38 PM 18g 1 02/20" Patent On Arrival Rt Antecubital 0.9NaCl Allergies No Known Allergies ketoconazole NO KNOWN DRUG ALLERGIES Vital Signs Time BP (mmHg) HR (bpm) O2 Sat. RR (bpm) LOC 05:39 PM 142 / 84 80 97 % 06:10 PM / % 5 = Fully awake and oriented or at pre-proc level 06:15 PM / % 5 = Fully awake and oriented or at pre-proc level 06:16 PM / % 4 = Oriented but drowsy 06:31 PM / % 4 = Oriented but drowsy 06:46 PM / % 4 = Oriented but drowsy 06:55 PM 174 / 102 85 98 % 15 07:00 PM 174 / 103 83 98 % 17 07:05 PM 169 / 99 84 99 % 07:10 PM 167 / 107 82 95 % 12 06:16 PM 182 / 107 90 98 % 26 06:20 PM 174 / 104 89 96 % 24 06:25 PM 184 / 107 87 96 % 06:30 PM 161 / 94 89 93 % 13 06:35 PM 138 / 97 87 95 % 22 06:40 PM 149 / 89 83 95 % 14 06:45 PM 160 / 105 85 97 % 16 06:50 PM 170 / 99 88 97 % 20 Procedural Medications Time Medication Dose Units Method Given By 06:15 PM Oxygen 2 L/min nasal cannula Nichelle Dominguez RN 06:16 PM Versed 1 mg Intravenous Nichelle Dominguez RN 06:17 PM Fentanyl 50 mcg Intravenous Nichelle Dominguez RN 06:24 PM Lidocaine 2% 18 ml Subcutaneous Brant Connell MD 06:26 PM Versed 1 mg Intravenous Nichelle Dominguez RN 06:26 PM Fentanyl 50 mcg Intravenous Nichelle Dominguez RN 06:30 PM Oxygen 4 L/min nasal cannula Nichelle Dominguez RN 06:33 PM Nitroglycerin 200 mcg Intracoronary Brant Connell MD 06:35 PM Angiomax 0.75mg/kg bolus: 16 ml Intravenous Nichelle Dominguez RN 06:37 PM Nitroglycerin 200 mcg Intracoronary Brant Connell MD 06:38 PM Angiomax 1.75mg/kg/hr: 37 ml Intravenous Nichelle Dominguez RN 06:59 PM Adenosine 80 mcg Intracoronary Brant Connell MD 07:03 PM Adenosine 80 mcg Intracoronary Brant Connell MD 07:03 PM Adenosine 80 mcg Intracoronary Brant Connell MD 07:08 PM Plavix 300 mg Orally Nichelle Dominguez RN ASA Classification: CLASS II- Mild systemic disease (i.e. well-controlled diabetes, hypertension, asthma, cigarette smoking) Naz[place]in Score Preprocedure Postprocedure Activity 2- Moves 4 extremities sustained head lift Activity 2- Moves 4 extremities sustained head lift Circulation 2- SBP +/= 20 points of pre-anesthetic level Circulation 2- SBP +/= 20 points of pre-anesthetic level Consciousness 2- Awake and alert oriented x 3 Consciousness 2- Awake and alert oriented x 3 O2 Saturation 2- Able to maintain O2 satruation of 92% on room air O2 Saturation 2- Able to maintain O2 satruation of 92% on room air Respiratory 2- Able to deep breathe and cough well Respiratory 2- Able to deep breathe and cough well Total Score 10 Total Score 10 Contrast Agent: Isovue Diagnostic Contrast: 249 ml Total Contrast: 249 ml Fluoro Dose: 3553 mGy Procedure Log Time Note Enter By 06:09 PM 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 scoates 06:10 PM Case Delayed No scoates 06:10 PM Hair removed from procedure site in procedure lab using clippers. Bilateral groin prepped with Chloraprep by Caitie Welch RN then patient draped. Skin intact. scoates 06:10 PM Physician arrived 18:10 scoates 06:10 PM ASA Class CLASS II- Mild systemic disease (i.e. well-controlled diabetes, hypertension, asthma, cigarette smoking) scoates 06:10 PM Meet and greet completed scoates 06:10 PM Sign in performed according to hospital policy. scoates 06:10 PM Procedure start 18:10 scoates 06:10 PM Time: 18:10 Patient comfortable and pain free: Yes scoates 06:10 PM Time: 18:10LOC: 5 = Fully awake and oriented or at pre-proc level scoates 06:11 PM CathStat 06:11 PM Clinical Presentation: Non-STEMI scoates 06:14 PM Vitals capture started with the following parameters, Patient=Adult, Interval=5 min, Initial Abggxsif=242 mmHg, Deflation Rate=5 mmHg, Cuff placed on Left Leg 06:15 PM Time: 18:15 Oxygen on at 2 L/min per nasal cannula by Nichelle Dominguez RN scoates 06:15 PM Time: 18:15 Patient comfortable and pain free: Yes 06:16 PM Time: 18:15LOC: 5 = Fully awake and oriented or at pre-proc level 06:16 PM HR=90 bpm, QSEG=942/107 mmhg, SpO2=98.0 %, Resp=26 B/min 06:17 PM Time: 18:16 Versed 1 mg Intravenous Given by Nichelle Dominguez RN 06:17 PM Time: 18:17 Fentanyl 50 mcg Intravenous Given by Nichelle Dominguez RN kathryn 06:20 PM HR=89 bpm, VVHO=887/104 mmhg, SpO2=96.0 %, Resp=24 B/min, Comment=sr 06:23 PM Time out performed according to hospital policy 06:25 PM Pressure channel 1 zeroed. 06:25 PM Time: 18:24 18 ml Lidocaine 2% to right groin Subcutaneous Given by Brant Connell MD 06:25 PM HR=87 bpm, IDKK=996/107 mmhg, SpO2=96.0 % 06:25 PM Access obtained by percutaneous puncture. 5Fr 10cm Terumo [place] sheath placed in right Femoral artery. [id number] :26 PM Time: 18:26 Versed 1 mg Intravenous Given by Nichelle Dominguez RN holly 06: PM 5Fr FL 4 catheter inserted over the wire [facility] 06: PM Time: 18:26 Fentanyl 50 mcg Intravenous Given by Nichelle Dominguez RN holly : PM wire removed :27 PM LCA angiography performed in multiple views. :27 PM Recorded Pressure: Ao, HR=83, Condition=Condition 1 (Aorta) Ao 161/102/129 06:30 PM Catheter removed 06:30 PM Time: 18:30 Oxygen on at 4 L/min per nasal cannula by Nichelle Dominguez RN holly 06:30 PM 5Fr FR 4 catheter inserted over the wire DNC 06:30 PM HR=89 bpm, AEKU=770/94 mmhg, SpO2=93.0 %, Resp=13 B/min 06:30 PM Recorded Pressure: Ao, HR=89, Condition=Condition 1 (Aorta) Ao 136/96/116 06:31 PM wire removed [email or web address] 06:31 PM Time: 18:16LOC: 4 = Oriented but drowsy kkallner 06:32 PM Catheter removed kkallner 06:32 PM 5Fr 3DRC catheter inserted over the wire [id number] kkallner 06:32 PM wire removed [email or web address] 06:32 PM Coronary Dominance: right [email or web address] 06:33 PM Lesion found in Mid LAD. Pre Stenosis: 20 Pre PAPO Flow: [email or web address] 06:33 PM Lesion found in 1st Marginal. Pre Stenosis: 90 Pre PAPO Flow: [email or web address] 06:33 PM Time: 18:33 Nitroglycerin 200 mcg Intracoronary Given by Brant Connell MD 06:34 PM Lesion found in Mid RCA. Pre Stenosis: 60 Pre PAPO Flow: [email or web address] 06:34 PM Lesion found in 1st RPL. Pre Stenosis: 40 Pre PAPO Flow: [email or web address] 06:35 PM Time: 18:35 Angiomax 0.75mg/kg bolus: 16 ml Intravenous Given by Nichelle Dominguez RN Watts pump kk 06:35 PM HR=87 bpm, NKSP=387/97 mmhg, SpO2=95.0 %, Resp=22 B/min 06:35 PM Catheter removed kkall 06:36 PM 6Fr XB3.5 [place] Bright-Tip guide catheter was used to cannulate the PCI vessel successfully. reused? No kkallner 06:36 PM wire removed kkallner 06:37 PM Mid/Distal Left Anterior Descending Coronary Artery and diagonal branches with 20% stenosis. If graft is supplying this area, % stenosis kkallner 06:37 PM Circumflex, Obtuse Marginal, Left Posterior Descending, and Left Posterolateral Coronary Arteries with 90 % stenosis. If graft is supplying this area, % stenosis kkallner 06:37 PM Right Coronary, Right Posterior Descending Arteries with Right Posterolateral and Acute Marginal branches with 70 % stenosis. If graft is supplying this area, % stenosis kkallner 06:37 PM Ramus with 40% stenosis. If graft is supplying this area, % stenosis kkallner 06:37 PM Time: 18:37 Nitroglycerin 200 mcg Intracoronary Given by Brant Connell MD 06:38 PM Time: 18:38 Angiomax 1.75mg/kg/hr: 37 ml Intravenous Given by Nichelle Dominguez RN Watts pump kkallner 06:39 PM .014 Prowater 180cm guide wire across target lesion- successful. reused? No OM kkallner 06:39 PM .014 Prowater 180cm guide wire across target lesion- successful. reused? No CIRC kkallner 06:40 PM HR=83 bpm, LRPK=766/89 mmhg, SpO2=95.0 %, Resp=14 B/min, Comment=sr 06:42 PM 2.0 mm x 15 mm Emerge Monorail balloon across target lesion- successful. reused? No kkallner 06:42 PM Balloon inflated @ 14 merissa for 9 seconds kkallner 06:43 PM Balloon inflated @ 12 merissa for 4 seconds kkallner 06:45 PM Balloon catheter removed intact. kkallner 06:45 PM HR=85 bpm, HALD=287/105 mmhg, SpO2=97.0 %, Resp=16 B/min, Comment=sr 06:46 PM 2.75mm x 24mm Synergy bioabsorbable stent across target lesion- successful Lot #[id number] [email or web address] 06:46 PM Time: 18:31 Patient comfortable and pain free: Yes [email or web address] 06:46 PM Time: 18:31LOC: 4 = Oriented but drowsy kkallner 06:47 PM Stent deployed @ 16 merissa for 9 seconds kkallner 06:50 PM 2.75 mm x 12mm NC Emerge balloon across target lesion- successful. reused? No kkallner 06:50 PM HR=88 bpm, XHXF=405/99 mmhg, SpO2=97.0 %, Resp=20 B/min 06:51 PM Balloon inflated @ 18 merissa for 10 seconds kkallner 06:52 PM Balloon inflated @ 18 merissa for 18 seconds kkallner 06:54 PM wire and balloon removed kkallner 06:54 PM Guide catheter removed intact. [email or web address] 06:54 PM 6Fr JR 4 [place] Bright-Tip guide catheter was used to cannulate the PCI vessel successfully. reused? No kkallner 06:54 PM wire removed kkallner 06:55 PM HR=85 bpm, ZAEZ=887/102 mmhg, SpO2=98 %, Resp=15 B/min 06:56 PM Pressure channel 1 zero failed. 06:56 PM Pressure channel 3 zeroed. 06:57 PM [place] Prime Wire Prestige advanced to target lesion. [email or web address] 06:59 PM Pressure channel 3 equalized to channel 1. 07:00 PM HR=83 bpm, KTSA=340/103 mmhg, SpO2=98 %, Resp=17 B/min 07:01 PM FFR: Value=0.72, Site=RCA Mid, Condition=Condition 1, Device=VOLCANO PRIME WIRE 07:01 PM Recorded Pressure: Ao, Wire, FFR=0.72, HR=79, Condition=Condition 1 (Aorta) Ao 149/73/107, (FFR Wire) Wire 133/61/91 07:02 PM Time: 18:59 Adenosine 80 mcg administered Intracoronary by Brant Connell MD [email or web address] 07:02 PM Time: 18:46 Patient comfortable and pain free: Yes [email or web address] 07:02 PM Time: 18:46LOC: 4 = Oriented but drowsy kkallner 07:02 PM Recorded Pressure: Ao, Wire, FFR=0.88, HR=84, Condition=Condition 1 (Aorta) Ao ?/?/?, (FFR Wire) Wire ?/?/? 07:02 PM FFR: Value=0.88, Condition=Condition 1, Device=VOLCANO PRIME WIRE 07:03 PM [ Incomplete Pressure Recording ] 07:03 PM [ Incomplete Pressure Recording ] 07:03 PM Time: 19:03 Adenosine 80 mcg administered Intracoronary by MD cris Leon 07:03 PM Time: 19:03 Adenosine 80 mcg administered Intracoronary by MD cris Leon 07:03 PM FFR Measurement: 0.88 [email or web address] 07:04 PM FFR: Value=0.90, Condition=Condition 1, Device=VOLCANO PRIME WIRE 07:04 PM Recorded Pressure: Ao, Wire, FFR=0.90, HR=87, Condition=Condition 1 (Aorta) Ao 163/87/121, (FFR Wire) Wire 152/80/110 07:04 PM FFR Measurement: 0.90 kkallner 07:04 PM Flow Wire removed intact kkallner 07:05 PM Bolus angiogram of right Femoral complete: 4 ml/sec for a total of 7 mls kkallner 07:05 PM Catheter removed kkallner 07:05 PM HR=84 bpm, ZBWU=833/99 mmhg, SpO2=99.0 %, Comment=sr 07:06 PM Procedure completed at 19:06 [email or web address] 07:06 PM Sign out completed: Radiation Dose 3553 mGy Fluoro Time: 8.8 Isovue 370 - 200ml contrast 249 ml given by Brant Connell MD. Complications: NoneCardiac Rehab Consult needed: YesConfirmed administered medications: Yes [email or web address] 07:07 PM Isovue 370 - 200ml,2 Bottle(s) used. [email or web address] 07:07 PM Sheath left in place to be pulled on floor/holding area kkallner 07:07 PM Post ECG NSR kkallner 07:08 PM Post Blood Pressure 169/99 kkallner 07:08 PM 19:08 Post Pulses Bilateral DP \\T\\ PT 1+ kkallner 07:08 PM Information taught Cardiac Cath and PCI kkallner 07:08 PM Education needs Procedure, Plan of Care, and Responsibilities of Patient in Care kkallner 07:08 PM Learning barriers :None kkallner 07:08 PM Education Methods Verbal kkallner 07:08 PM Education evaluation Able to repeat information [email or web address] 07:08 PM Site status No bleeding/hematoma - Rt Groin as reported by Sites, Shanta RT (R) at 19:08 [email or web address] 07:08 PM Opsite applied kkallner 07:08 PM Plavix, Effient or Brilinta given Yes kkall 07:08 PM Time: 19:08 Plavix 300 mg Orally Given by Nichelle Dominguez RN kkallner 07:09 PM Delay to floor No [email or web address] 07:09 PM Patient out of room: 19:09 kkallner 07:09 PM Family placed in consult room. [email or web address] 07:09 PM Complications: None kkallner 07:09 PM Fluoro Time: 8.8 kkallner 07:09 PM Isovue 370 - 200ml contrast 249 ml given by Brant Connell MD. kkallner 07:10 PM Radiation Dose 3553 mGy kkallner 07:10 PM HR=82 bpm, CPFM=236/107 mmhg, SpO2=95.0 %, Resp=12 B/min 07:20 PM Report given to Stephanie BLANCHARD Pt taken to 2N Room #13. 19:17 [email or web address] Complications Complication None None Hemodynamics Pressures Site Systolic/A Wave Diastolic/V Wave Mean AO 161 102 129 AO 136 96 116 AO 149 73 107 Wire 133 61 91 AO Wire AO 163 87 121 Wire 152 80 110 Post Procedure Information Blood Pressure: 169/99 mmHg Rhythm: NSR Post procedural instructions were given Site Checks Time Location Status Staff Sheath In? Note 07:08 PM Rt Groin No bleeding/hematoma Sites, Shanta RT (R) Pulses Time Site Pre-Procedure Post-Procedure Note 03/30/2016 5:39:00 PM Bilateral DP \\T\\ PT 2+ 7:08:00 PM Bilateral DP \\T\\ PT 1+ Updated by Mar Lion, RT (R) on 03/30/2016 7:26:10 PM electronically signed on 03/30/2016 7:27:23 PM with status of Final
[2016-03-30] MEDS ORDERED: Insulin LISPRO 300 UNITS/3 ML VIAL SQ SCH (21:00)
[2016-03-30] MEDS: *HR* Labetalol 20 MG/4 ML SYRINGE IVP PRN ×2 (22:16→23:58)
[2016-03-30] MEDS ORDERED: *HR* Atropine Sulfate 1 MG/10 ML SYRINGE ONE (22:45)
[2016-03-30] MEDS ORDERED: *HR* Morphine 2 MG/ML SYRINGE IVP ONE (23:18)
[2016-03-30] MEDS ORDERED: *HR* Morphine 2 MG/ML SYRINGE ONE (23:28)
[2016-03-31] MEDS: *HR* Heparin 5,000 UNIT/ML VIAL SQ SCH ×2 (05:09→06:40)
[2016-03-31] MEDS: Insulin DETEMIR 100 UNIT/ML X5UNITS SQ SCH ×2 (05:17→11:24)
[2016-03-31 06:34] LABS: Basophils % 0.4 %; Eosinophils # 0.4 K/mcL (0.0-0.6); Eosinophils % 3.5 %; Hematocrit 37.3 % (37.5-50.1); Hemoglobin 12.7 g/dL (12.9-16.9); Immature Granulocytes % 0.3 % (0-4); Lymphocytes # 3.1 K/mcL (0.6-4.6); Lymphocytes % 29.5 %; Mean Corpuscular Hemoglobin 28.7 pg (28.0-33.3); Mean Corpuscular Volume 84.4 fL (83.0-100.0); Mean Platelet Volume 10.2 fL (9.4-12.4); Monocytes # 0.8 K/mcL (0.0-1.3); Neutrophils # 6.1 K/mcL (1.6-8.9); Platelet Count 230 K/mcL (140-400); Red Blood Count 4.42 M/mcL (4.19-5.50); Red Cell Distribution Width 12.5 % (11.5-14.5); Segmented Neutrophils % 58.3 %
[2016-03-31] MEDS: Pantoprazole 40 MG VIAL IVP SCH (06:41)
[2016-03-31] MEDS: 0.9 % Sodium Chloride 1,000 ML IVC SCH ×2 (06:42→16:12)
[2016-03-31 07:01] LABS: Alanine Aminotransferase 16 Units/L (0-55); Albumin/Globulin Ratio 0.7 (1.1-2.2); Alkaline Phosphatase 114 Units/L (38-126); Aspartate Amino Transferase 17 Units/L (5-34); BUN/Creatinine Ratio 12 (6-26); Bilirubin,Total 0.5 mg/dL (0.2-1.2); Blood Urea Nitrogen 15 mg/dL (8-26); Calcium 9.2 mg/dL (8.6-10.8); Carbon Dioxide 22 mEq/L (19-29); Chloride 109 mEq/L (98-109); Globulin 3.8 g/dL (2.4-3.5); Glucose 160 mg/dL (70-99); Osmolality,Calculated 292 (280-300); Potassium 4.3 mEq/L (3.5-4.5); Sodium 139 mEq/L (136-145); eGFR For African Americans > 60 (> 60); eGFR For Non-African Americans > 60 (> 60)
[2016-03-31 07:18] LABS: Albumin 2.7 g/dL (3.5-5.0); Total Protein 6.5 g/dL (6.0-8.3)
[2016-03-31] MEDS ORDERED: Ondansetron 4 MG/2 ML VIAL IVP PRN (08:57)
[2016-03-31] MEDS ORDERED: Isosorbide MONOnitrate (24 HR) 60 MG TAB.ER.24H PO SCH (09:00)
[2016-03-31] MEDS ORDERED: Isosorbide MONOnitrate (24 HR) 30 MG TAB.ER.24H PO SCH (09:00)
--- NOTE | 2016-03-31 10:38 | Cardiology Progress Note ---
Date of Encounter: 03/31/16 Time of Encounter: 10:35 Assessment and Plan (1) NSTEMI (non-ST elevation myocardial infarction) Current Visit: Yes Status: Acute Troponin 0.40, 0.36. Left heart catheterization showed a 90% stenosis in his OM1 and he received a PTCA and drug-eluting stent with good results. There was a 20% stenosis in the mid LAD, 60% stenosis in the mid RCA (FFR 0.88) and a 40% stenosis in the first RPL remaining. Pt's diabetes is not well controlled. HGBA1C 13.4. Agressive risk factor modification. FREDDY resolved. Resume ASA, Statin, BB, Plavix. Importance of DAPT with asa and plavix for minimum of one year discussed and he voiced understanding. Echocardiogram 02/2014: EF 60-65%. Mild concentric LVH. Mild diastolic dysfunction. No significant valvular disease. Repeat echo pending. F/u in 7-10 days will be made by the cardiololgy office. Call with questions. (2) CAD (coronary artery disease) Current Visit: Yes Status: Chronic ASA, Plavix, Statin, BB. Qualifiers: Coronary Disease-Associated Artery/Lesion type: [place] artery [place] vs. transplanted heart: [place] heart Associated angina: without angina Qualified Code(s): I25.10 - Atherosclerotic heart disease of [place] coronary artery without angina pectoris (3) FREDDY (acute kidney injury) Current Visit: Yes Status: Acute FREDDY on CKD. Kidney function now back to normal. Discussion w patient/family: The assessment and plan as outlined above was discussed with the patient and/or family members who expressed understanding and agreement. All questions were answered. Thank you for involving us in the care of your patient. Please call with any questions. Subjective Principal diagnosis: NSTEMI Interval history: Mr. Ocasio is resting in bed quietly. He denies chest pain or shortness of breath. He denies problems with his right groin access site. Objective Vital Signs, Last 4 Hours Temp Pulse Resp BP Pulse Ox 03/31/16 08:04 82 03/31/16 07:28 98.2 F 82 16 169/99 92 L General: Conversant, No Apparent Distress HEENT: Atraumatic, Normocephaly, Mucus Membranes Moist Neck: No JVD, Normal carotid pulses Cardiac: Reg Rate and Rhythm, Normal S1 and S2, No Murmur Lungs: Normal Breath Sounds, No Wheeze, Rales, Rhonchi Neuro: Alert and responsive, No focal deficits noted Abdomen: Soft, Non-Tender Skin: No rashes noted on visualized skin Musculoskeletal: No Chest Wall Tenderness Extremities: No Clubbing, No Cyanosis, No Edema, Normal Pulses, Other (Right groin dressing removed no hematoma, redness, or drainage.) Results 03/31/16 05:59 03/31/16 05:59 Lab Results 03/30/16 03/31/16 03/31/16 10:32 05:59 05:59 WBC 10.4 Hgb 12.7 L Hct 37.3 L Plt Count 230 Sodium 139 Potassium 4.3 Chloride 109 Carbon Dioxide 22 BUN 15 Creatinine 1.21 Glucose 160 H Calcium 9.2 Total Bilirubin 0.5 AST 17 ALT 16 Alkaline Phosphatase 114 Troponin I 0.36 H* - Imaging and Cardiology Cardiac cath: report reviewed - EKG Interpretation EKG results cardiology: personally reviewed (Sinus rhythm with no acute ST changes.) Consult Discharge Plan - Plan Referrals: Cy Turcios MD [Primary Care Provider] -
[2016-03-31] MEDS: Insulin LISPRO 300 UNITS/3 ML VIAL SQ SCH ×2 (11:04→11:23)
[2016-03-31] MEDS: Metoprolol XL (24 HR) Succ 50 MG TAB.ER.24H PO SCH (11:24)
[2016-03-31] MEDS: Aspirin 81 MG TAB.CHEW PO SCH (11:24)
--- NOTE | 2016-03-31 13:48 | Electrocardiograph Report ---
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
--- NOTE | 2016-03-31 14:06 | Electrocardiograph Report ---
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
--- NOTE | 2016-03-31 15:18 | Discharge Summary ---
Date of Encounter: 03/31/16 Time of Encounter: 15:00 - Discharge Diagnosis (1) FREDDY (acute kidney injury) Priority: Primary Status: Acute (2) Dehydration Priority: Primary Status: Acute (3) Gastritis Priority: Primary Status: Acute Qualifiers: Gastritis type: other gastritis Chronicity: acute Gastritis bleeding: without bleeding Qualified Code(s): K29.00 - Acute gastritis without bleeding (4) Hyperglycemia Priority: Primary Status: Acute (5) NSTEMI (non-ST elevation myocardial infarction) Priority: Primary Status: Acute (6) Viral syndrome Priority: Primary Status: Acute (7) CAD (coronary artery disease) Priority: Primary Status: Chronic Qualifiers: Coronary Disease-Associated Artery/Lesion type: [place] artery [place] vs. transplanted heart: [place] heart Associated angina: without angina Qualified Code(s): I25.10 - Atherosclerotic heart disease of [place] coronary artery without angina pectoris - Discharge Medications Prescriptions: Ondansetron HCl [Zofran] 4 mg PO Q6H PRN #10 tablet PRN Reason: Nausea Home Medications: Albuterol Sulfate [Albuterol Inhaler] 2 puff IH Q4HR PRN 03/30/16 [History] Amlodipine [Norvasc] 10 mg PO DAILY 03/30/16 [History] Aspirin/Calcium Carbonate/Mag [Aspirin Buffered 325 mg Tab] 325 mg PO DAILY 01/03 [History] Atorvastatin Calcium [Lipitor] 80 mg PO DAILY 03/30/16 [History] Clopidogrel [Plavix] 75 mg PO DAILY 03/30/16 [History] Cyclobenzaprine [Flexeril] 5 mg PO TID PRN 03/30/16 [History] Dulaglutide [Trulicity] 1.5 mg SQ FR 03/30/16 [History] Gabapentin [Neurontin] 600 mg PO TID 03/30/16 [History] Insulin Glargine,Hum.rec.anlog [Lantus Solostar] 70 unit SQ BID 03/30/16 [ History] Insulin LISPRO [Humalog Kwikpen U-100] 30 - 38 unit SQ TIDWM 03/30/16 [History] Isosorbide MONOnitrate (24 HR) [Imdur] 120 mg PO DAILY 03/30/16 [History] Lisinopril/Hydrochlorothiazide [Zestoretic 20-12.5 mg Tablet] 2 tab PO DAILY 01/03 [History] Metformin [Glucophage] 1,000 mg PO BID 03/30/16 [History] Metoprolol XL (24 HR) Succ [Toprol Xl] 50 mg PO DAILY 03/30/16 [History] Nitroglycerin [Nitrostat] 0.4 mg SL Q5M PRN 03/30/16 [History] Oxycodone HCl/Acetaminophen [Percocet 10-325 mg Tablet] 1 - 2 tab PO QID PRN 01/03 [History] Promethazine [Phenergan] 12.5 mg PO Q6HR PRN 03/30/16 [History] Ondansetron HCl [Zofran] 4 mg PO Q6H PRN #10 tablet 03/31/16 [Rx] Allergies/Adverse Reactions: Allergies ketoconazole Adverse Reaction (Verified 03/30/16 15:11) Redness of Skin Procedures/tests Complete & Pending: Procedures Performed prior 72 hours Category Date Time Status CL Cardiac Catheterization [CL] 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 Bhagat Call Completed: Yes 03/30/16 13:35 Consult to Cardiac Rehabilitation-Phase1 [CONS] Routine Comment: Reason for Consult: NSTEMI Call Completed: No 03/30/16 19:08 Consult to Cardiac Rehabilitation-Phase1 [CONS] Routine Comment: Reason for Consult: post op cath Call Completed: Yes Discharging clinician: Beverley Madrigal Anticipated date of discharge: 03/31/16 - Patient Status Disposition: Home, Self-Care Condition: Good Functional capacity at discharge: independent ambulation Overall status at discharge: patient is back to baseline - Discharge Instructions Follow Up With: Cy Turcios MD [Primary Care Provider] - - Diet and Activity Activity: increase activity as tolerated Diet: diabetic diet Interval History: Mr. Ocasio is a 50 year old male with multiple medical problems presents to the emergency room today within plan of vomiting and weakness. For the past 2 days patient has been complaining over the gastric pain recurrent vomiting that was non-bloody nonbilous. He has been nauseous unable to eat to keep food down and even water. He has been getting progressively weak and lethargic. Was getting lightheaded when he stands up. He denies any diarrhea. He denies any hematemesis, melena or hematochezia. He has been having chills but no fever. He denies any change in the color of urine and stool or eyes. He denies any chest pain. No worsening shortness of breath or productive cough. He mentioned that on Friday 5 days ago he went to urgent care because of right hip pain and he was prescribed ibuprofen 400 mg of which she took 15 pills Hospital course: Mr. Ocasio is a 50 year old male admitted as nausea, vomiting. Patient has no abdominal pain or diarrhea. He was found uncontrolled diabetes, acute renal failure, and the severe dehydration. He was also found elevated troponin, cardiology consult was called and patient had catheterization and stent placement. Patient was also given IV fluid and insulin treatment. After treatment, his blood sugar is getting down, FREDDY has improved, creatinine level get down to normal. His symptoms has improved, has only minimal nausea, no further vomiting. Has fair appetite and eat generally well. Cardiology saw patient this morning and cleared to discharge patient home. Patient was discharged home today. I saw and examined patient, he is awake alert, oriented 3, eager to be discharged home. He had minimal nausea, no vomiting since this morning, denies abdominal pain or diarrhea. No chest pain or shortness of breath. BP is high but patient did not take his BP medication this morning. We will give him regular blood pressure medication now and place a conditional discharge order at systolic blood pressure lower than 150. Patient was educated that ibuprofen can cause gastritis or even GI bleeding. Patient promises he will hold ibuprofen use now. Patient will follow-up with his PCP as outpatient upon discharge. - Time Spent with Patient Total time spent providing and/or coordinating discharge services: 40 minutes Greater than 30 minutes - Constitutional Vitals: Temp Pulse Resp BP Pulse Ox 98.5 F 85 16 170/92 94 L 03/31/16 11:16 03/31/16 12:00 03/31/16 11:16 03/31/16 11:16 03/31/16 11:16 General appearance: Present: A&O X 3, no acute distress, answers questions appropriately - Head Head exam: Present: atraumatic, normocephalic - Eye Eye exam: Present: PERRL, conjuntiva pink, sclera anicteric Pupils: Present: PERRL - Neck Neck exam general surgery: Present: supple, trachea midline. Absent: lymphadenopathy - Respiratory Respiratory exam: Present: CTAB. Absent: accessory muscle use, rales, rhonchi, wheezes - Cardiovascular Cardiovascular exam: Present: RRR, +S1, +S2. Absent: diastolic murmur, gallop, rubs, systolic murmur - GI/Abdominal GI/Abdominal exam: Present: normal bowel sounds, soft, no peritoneal signs. Absent: distended, tenderness - Extremities Exam Extremities exam: Present: warm, radial pulses palpable and symetrical. Absent : calf tenderness, cyanotic, pedal edema - Neurological Exam Neurological exam: Present: CN II-XII intact, oriented X3, no focal deficits. Absent: pronater drift, facial droop, speech deficit - Skin Skin exam: Present: dry, intact
[2016-03-31] MEDS ORDERED: amLODIPine 5 MG TABLET PO SCH (15:30)
[2016-03-31] MEDS ORDERED: Lisinopril 20 MG TABLET PO ONE (15:44)
[2016-03-31 16:42] VITALS: BP 130/73
[2016-04-03 17:14] LABS: CK-BB (CK isoenzymes) 0 % (0-0); CK-MB (CK isoenzymes) 0 % (0-4); CK-MM (CK-isoenzymes) 100 % (96-100)
[2016-04-04 11:13] LABS: CK Total (Ck Isoenzymes) 124 U/L (20-200)
== END 2016-03-31 17:25 | disposition home or self-care (01) | DRG 174 ==
LOC: 2NENU 22:00 → EMEROO 22:00 → 2NENU 03-30 01:13 → SUATTDRO 03-30 02:40 → 2NNU 03-30 19:15
PROVIDERS: ADMIT Hospitalist; ATTEND Internal Medicine

== ENCOUNTER 2016-06-02 19:13 | Observation (INO) ==
[2016-06-02] MEDS ORDERED: *HR* HYDROmorphone 2 MG/ML SYRINGE IV ONE (19:41)
[2016-06-02] MEDS ORDERED: Ondansetron 4 MG/2 ML VIAL IVP ONE (19:42)
[2016-06-02 20:05] LABS: Basophils # 0.1 K/mcL (0.0-0.2); Basophils % 0.4 %; Eosinophils # 0.3 K/mcL (0.0-0.6); Eosinophils % 1.8 %; Hematocrit 33.7 % (37.5-50.1); Hemoglobin 11.2 g/dL (12.9-16.9); Immature Granulocytes % 0.5 % (0-4); Lymphocytes # 2.9 K/mcL (0.6-4.6); Lymphocytes % 19.7 %; Mean Corpuscular HGB Conc 33.2 g/dL (31.6-35.5); Mean Corpuscular Hemoglobin 28.4 pg (28.0-33.3); Mean Corpuscular Volume 85.3 fL (83.0-100.0); Mean Platelet Volume 9.6 fL (9.4-12.4); Monocytes # 1.7 K/mcL (0.0-1.3); Monocytes % 11.3 %; Neutrophils # 9.9 K/mcL (1.6-8.9); Platelet Count 309 K/mcL (140-400); Red Blood Count 3.95 M/mcL (4.19-5.50); Red Cell Distribution Width 12.3 % (11.5-14.5); Segmented Neutrophils % 66.3 %
[2016-06-02 20:22] LABS: Calcium 8.9 mg/dL (8.6-10.8)
--- NOTE | 2016-06-02 20:24 | Emergency Department Note ---
Disposition Clinical Impression: Gangrene of toe Sepsis Qualifiers: Sepsis type: sepsis due to unspecified organism Qualified Code(s): A41.9 - Sepsis, unspecified organism Disposition: Admitted As Inpatient Condition: Serious Time of Disposition: 21:03 Extremity Problem HPI - General Chief complaint: ED Extremity Problem,Nontraumatic Stated complaint: Right leg swelling Time Seen by Provider: 06/02/16 19:32 Source: patient Limitations: no limitations Nursing Notes Reviewed: Yes Vital Signs Reviewed: Yes - History of Present Illness HPI Narrative: History of present illness: Patient is a 50-year-old male history of diabetes, CAD [address] Morataya. Last stent was mopping a half ago. Patient presents with left lower extremity pain and swelling 5 days. Patient states that he had devitalized tissue of his right great toe for the past 2-3 weeks. No apparent infection was seen. Patient saw Dr. Roman 5 days ago and the debrided of devitalized tissue to prevent infection. Patient supposed to see Dr. Roman and 3 days. He started having pain in his leg 5 days ago has gone from slight irritation to 10 out of 10 pain with weightbearing. At rest pain is 6 out of 10. Patient states that he has been feeling warm and has nausea and vomiting several days ago. No nausea or vomiting today. Has not checked temperatures. Patient states he saw his PCP week ago and stated that he has some irregularities on his blood work that might be infectious but patient was not placed on any antibiotics. Pt Subjective Complaint: extremity pain, extremity swelling Consistency: Worsening Injury Location: right, lower extremity Pain Scale: 10 Quality: stabbing, sharp Improves with: nothing Worsens with: weight bearing, walking, palpation Associated symptoms: Reports: fever, swelling, redness. Denies: chest pain, shortness of breath, abdominal pain - Related Data Home Medications Medication Instructions Recorded Confirmed Albuterol Sulfate [Albuterol 2 puff IH Q4HR PRN 03/30/16 03/30/16 Inhaler] Amlodipine [Norvasc] 10 mg PO DAILY 03/30/16 03/30/16 Atorvastatin Calcium [Lipitor] 80 mg PO DAILY 03/30/16 03/30/16 Clopidogrel [Plavix] 75 mg PO DAILY 03/30/16 03/30/16 Cyclobenzaprine [Flexeril] 5 mg PO TID PRN 03/30/16 03/30/16 Dulaglutide [Trulicity] 1.5 mg SQ FR 03/30/16 03/30/16 Gabapentin [Neurontin] 600 mg PO TID 03/30/16 03/30/16 Insulin Glargine,Hum.rec.anlog 60 unit SQ BID 03/30/16 03/30/16 [Lantus Solostar] Insulin LISPRO [Humalog Kwikpen 30 - 38 unit SQ TIDWM 03/30/16 03/30/16 U-100] Isosorbide MONOnitrate (24 HR) 120 mg PO DAILY 03/30/16 03/30/16 [Imdur] Lisinopril/Hydrochlorothiazide 2 tab PO DAILY 03/30/16 03/30/16 [Zestoretic 20-12.5 mg Tablet] Metformin [Glucophage] 1,000 mg PO BID 03/30/16 03/30/16 Metoprolol XL (24 HR) Succ [Toprol 50 mg PO DAILY 03/30/16 03/30/16 Xl] Nitroglycerin [Nitrostat] 0.4 mg SL Q5M PRN 03/30/16 03/30/16 Oxycodone HCl/Acetaminophen 1 - 2 tab PO QID PRN 03/30/16 03/30/16 [Percocet 10-325 mg Tablet] Promethazine [Phenergan] 12.5 mg PO Q6HR PRN 03/30/16 03/30/16 Aspirin Enteric Coated [Aspirin EC] 325 mg PO DAILY 06/02/16 06/02/16 Furosemide [Lasix] 20 mg PO DAILY 06/02/16 06/02/16 Vitamin D 50,000 unit PO 2XW 06/02/16 06/02/16 Previous Rx's Medication Instructions Recorded Ondansetron HCl [Zofran] 4 mg PO Q6H PRN #10 tablet 03/31/16 Ondansetron ODT [Zofran ODT] 4 mg SL Q8HR PRN #15 tab.rapdis 05/27/16 Allergies Allergy/AdvReac Type Severity Reaction Status Date / Time ketoconazole AdvReac Redness of Verified 05/27/16 21:06 Skin All systems ED: reviewed and negative except as stated. Constitutional: Reports: fever, chills ENT ED: Denies: throat pain, congestion Cardiovascular: Denies: chest pain, palpitations Respiratory: Denies: cough, dyspnea, wheezes Gastrointestinal: Reports: nausea, vomiting. Denies: abdominal pain, diarrhea Genitourinary: Denies: urgency, dysuria Musculoskeletal: Denies: back pain, neck pain Integumentary: Denies: rash Neurological: Denies: headache, weakness Psychiatric: Denies: anxiety Endocrine: Reports: fatigue Past Medical History - Past Medical History Attestation: Yes The following information was validated with the patient. Source: patient Medical history: Reports: arthritis, coronary artery disease, diabetes, hyperlipidemia, hypertension, renal disease Surgical history: Reports: angioplasty/stent, other Psychiatric history: Reports: no psych history - Social History Smoking Status: Never smoker Smokeless Tobacco Status: No Alcohol use: Reports: none Drug use: Reports: none Physical Exam - General Limitations: no limitations General appearance: alert, in no apparent distress - Head Head exam: atraumatic, normocephalic, normal inspection - Eye Eye exam: Present: normal appearance, PERRL, EOMI - ENT ENT exam: normal exam, normal oropharynx, mucous membranes moist - Neck Neck exam: Present: normal inspection - Chest Chest inspection: Present: normal inspection, symmetric chest wall rise. Absent : tenderness - Respiratory Respiratory exam: Present: normal lung sounds bilaterally. Absent: respiratory distress, wheezes - Cardiovascular Cardiovascular exam: Present: regular rate, normal rhythm - Abdominal Exam Abdominal exam: Present: soft, Non-Tender. Absent: tenderness, distention, guarding, rebound, rigidity - Extremities Exam Extremities exam: Present: normal inspection (Left lower extremity), full ROM, normal capillary refill. Absent: pedal edema - Expanded Lower Extremity Exam Knee exam: Present: normal inspection, full ROM. Absent: tenderness Lower leg exam: Present: full ROM, tenderness, swelling (Right lower extremity at the Ear measures 39.5 cm compared to the left lower leg of 38.0 cm and has areas of erythema and is tender to palpation.) Foot/toe exam: Present: tenderness, swelling, other (Right great Toe has open area of ulceration with lateral areas of dark devitalized tissue concerning for gangrene. Toe has a very sickly sweet odor) Course - Reevaluation(s) Reevaluation #1: Assessment: Sepsis secondary to infection of right great toe with area of local cellulitis possible gangrene. Also assess for DKA and any cardiac issues secondary to patient's history of heart stents, osteomyelitis Plan: CBC, BMP, peripheral cultures, lactate, x-ray of the foot to assess for osteomyelitis, control patient's pain and start patient on IV antibiotics once cultures were drawn. IV normal saline as well. Patient is SIRS negative at this time but given his history I suspect possible sepsis. Patient is currently not fluid overloaded so plan to add fluids as necessary. He will receive 2 L normal saline initially and plan for third if patient tolerates fluid challenge if labs indicate septicemia Time: 19:41 Reevaluation #2: Patient's CBC shows an elevated as a CBC of 14.9, given patient's history and source of likely infection of great toe, in addition of elevated CRP and ESR. I think the patient has septicemia and will start on antibiotics. Cultures have already been drawn. Patient's pain currently under control after dose of Dilaudid. Patient will receive 2 L IV normal saline. If tolerates fluid challenge he will receive a third liter to give him the 30 ML's per kilogram per sepsis protocol. We will monitor patient. Time: 20:35 Reevaluation #3: Patient has no complaints at this time. He accepts decision to admit hospital. Patient has been admitted - Consultations Consultation #1: Dr. Morin's accepted patient for admission at 2102 hrs. Time: 21:02 Vital Signs Temperature 99.1 F 06/02/16 19:19 Pulse Rate 95 06/02/16 19:19 Respiratory Rate 14 06/02/16 19:19 Blood Pressure 133/79 06/02/16 19:19 O2 Sat by Pulse Oximetry 96 06/02/16 19:19 Temperature 98.5 F 06/02/16 22:41 Pulse Rate 86 06/02/16 22:41 Respiratory Rate 14 06/02/16 22:41 Blood Pressure 143/79 06/02/16 22:41 O2 Sat by Pulse Oximetry 95 06/02/16 22:41 Oxygen Delivery Oxygen Delivery Room Air Extremity Problem, Nontraumati - Medical Records Medical records reviewed: Yes I reviewed the patient's medical records. - Lab Data Lab results reviewed: Yes I reviewed the patient's lab results. Lab results narrative: Short CBC 06/02/16 Range/Units 19:55 WBC 14.9 H (4.3-11.1) K/mcL Hgb 11.2 L (12.9-16.9) g/dL Hct 33.7 L (37.5-50.1) % Plt Count 309 (140-400) K/mcL Neutrophils # 9.9 H (1.6-8.9) K/mcL BMP 06/02/16 Range/Units 19:55 Sodium 138 (136-145) mEq/L Potassium 4.0 (3.5-4.5) mEq/L Chloride 104 (98-109) mEq/L Carbon Dioxide 23 (19-29) mEq/L BUN 24 (8-26) mg/dL Creatinine 1.80 H (0.72-1.25) mg/dL Glucose 177 H (70-99) mg/dL Calcium 8.9 (8.6-10.8) mg/dL Result diagrams: 06/02/16 19:55 06/02/16 19:55 - Radiology Data Radiology results reviewed: Yes I reviewed the patient's radiology results. Foot X-Ray 06/02/16 19:47 IMPRESSION: No acute abnormality. D/ / Forrest José MD / Forrest José MD Interpreting Provider: Forrest José MD Chest X-Ray 06/02/16 20:36 IMPRESSION: 1. No acute cardiopulmonary disease. D/ / Anthony Ramon MD / Anthony Ramon MD Interpreting Provider: Anthony Ramon MD - EKG Data EKG attestation: Yes I reviewed and interpreted this EKG. EKG results narrative: EKG taken 06/02/2016 at 2046 hrs. shows a sinus rhythm at a rate of 90 bpm with no acute ST elevations or depressions in any leads EKG shows incomplete right bundle branch block. Previous EKG taken 03/30/2016 shows a sinus rhythm at a rate of 82 beats a minute with incomplete right bundle branch block and no ischemic changes. Attestation Statement - Attestation Attestation: I, Moses Black MD, personally evaluated this patient and discussed their management with the resident physician. I reviewed the resident's note and agree with the documented findings, medical decision making, and plan of care. 50-year-old male with history of diabetes presents with a complaint of pain and swelling of the right lower leg today. 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 This morning he noticed pain in the right anterior lower leg with increasing swelling and pain throughout the day. Examination patient is well-developed well-nourished male in no acute distress. He is alert and oriented 3. There is no diaphoresis. Breath sounds are clear and equal bilaterally. Heart regular rate and rhythm. Abdomen is soft and nontender with normal bowel sounds. There is some swelling of the right lower extremity with the right calf measuring 1.5 cm larger than the left. Swelling seems to be mostly over the anterior tibia. Neurovascular function intact distally. Large open ulceration over the right great toe. No drainage noted. Labs reviewed. Chest x-ray negative. X-ray of the right foot was negative. The hospitalist, Dr. Morin, was consulted and accepted admission of the patient.
[2016-06-02] MEDS ORDERED: Piperacillin/Tazobactam 3.375 GM in D5% in Water (Mini-Bag+) 100 ML IVPB ONE (20:35)
[2016-06-02] MEDS ORDERED: D5 IVPB ONE (20:35)
[2016-06-02] MEDS ORDERED: WATER IVPB ONE (20:35)
[2016-06-02] MEDS ORDERED: VANCOMYCIN IVPB ONE (20:35)
[2016-06-02] MEDS: 0.9 % Sodium Chloride 1,000 ML IVC SCH ×2 (20:52→23:27)
[2016-06-02] MEDS ORDERED: Vancomycin 1,500 MG in D5% in Water 250 ML IVPB ONE (21:00)
[2016-06-02 21:37] LABS: INR 1.1; Prothrombin Time 12.3 Seconds (9.4-12.1)
[2016-06-02 21:40] LABS: Activated Partial Thrombo Time 27.6 Seconds (26.0-36.0)
[2016-06-02 21:46] LABS: Albumin 2.6 g/dL (3.5-5.0); Albumin/Globulin Ratio 0.6 (1.1-2.2); Bilirubin,Direct 0.2 mg/dL (0.0-0.5); Bilirubin,Indirect 0.3 mg/dL (0.0-1.2); Bilirubin,Total 0.5 mg/dL (0.2-1.2); Globulin 4.6 g/dL (2.4-3.5); Magnesium 1.8 mg/dL (1.6-2.6); Phosphorous 3.2 mg/dL (2.3-4.7); Total Protein 7.2 g/dL (6.0-8.3)
[2016-06-02 22:14] LABS: Bilirubin,Urine Negative (Negative); Blood,Urine Negative (Negative); Clarity,Urine Clear (Clear); Color,Urine Yellow (Yellow); Glucose,Urine (UA) 100 mg/dL (Normal); Ketones,Urine Negative (Negative); Leukocyte Esterase,Urine Negative (Negative); Nitrite,Urine Negative (Negative); Protein,Urine >=300 mg/dL (Neg-Trace); Specific Gravity,Urine 1.019 (1.010-1.025); Urobilinogen,Urine Normal (Normal)
[2016-06-02] MEDS ORDERED: Benzonatate 100 MG CAPSULE PO PRN (22:16)
[2016-06-02] MEDS ORDERED: *HR* HYDROmorphone (PF) 1 MG/ML SYRINGE IVP PRN (22:16)
[2016-06-02] MEDS ORDERED: Naloxone 0.4 MG/ML INJ IVP PRN (22:16)
[2016-06-02] MEDS ORDERED: *HR* Dextrose 50 % in Water (Syg) 50 ML SYRINGE IVP PRN (22:16)
[2016-06-02] MEDS ORDERED: *HR* Promethazine 25 MG/ML VIAL IVP PRN (22:16)
[2016-06-02] MEDS ORDERED: Pantoprazole 40 MG VIAL IVP STA (22:16)
[2016-06-02] MEDS ORDERED: Acetaminophen 325 MG TABLET PO PRN (22:16)
[2016-06-02] MEDS ORDERED: D5% in Water 1,000 ML IVC PRN (22:16)
[2016-06-02] MEDS ORDERED: Ipratropium/Albuterol Neb 3 ML IH PRN (22:16)
[2016-06-02] MEDS ORDERED: Dextrose Gel 15 GM PO PRN ×2 (22:16)
[2016-06-02 22:18] LABS: Bacteria,Urine None Seen per hpf (None-Few); Hyaline Casts,Urine None Seen per lpf (None-Few); Squamous Epithelial Cell,Urine Many per lpf (None-Few); WBC,Urine 0-3 per hpf (0-3)
[2016-06-02] MEDS ORDERED: Nitroglycerin 0.4 MG TAB.SUBL SL PRN (22:26)
[2016-06-02] MEDS ORDERED: Insulin DETEMIR 100 UNIT/ML X5UNITS SQ SCH (22:30)
--- NOTE | 2016-06-02 22:32 | Internal Med History&Physical ---
Date of Encounter: 06/02/16 Time of Encounter: 22:00 Assessment and Plan (1) Great toe pain Current visit: Yes Status: Acute . Qualifiers: Laterality: right Qualified Code(s): M79.674 - Pain in right toe(s) (2) Gangrene associated with type 2 diabetes mellitus Current visit: Yes Status: Acute . (3) Gangrene of toe Current visit: Yes Status: Acute . (4) Sepsis Current visit: Yes Status: Acute . Qualifiers: Sepsis type: sepsis due to unspecified organism Qualified Code(s): A41.9 - Sepsis, unspecified organism (5) Onychomycosis Current visit: Yes Status: Chronic . (6) Pre-ulcerative calluses Current visit: Yes Status: Chronic . (7) CAD (coronary artery disease) Current visit: Yes Status: Chronic . Qualifiers: Coronary Disease-Associated Artery/Lesion type: [place] artery [place] vs. transplanted heart: [place] heart Associated angina: without angina Qualified Code(s): I25.10 - Atherosclerotic heart disease of [place] coronary artery without angina pectoris (8) CKD (chronic kidney disease) stage 3, GFR 30-59 ml/min Current visit: Yes Status: Chronic . (9) Hyperlipemia Current visit: Yes Status: Chronic . Qualifiers: Hyperlipidemia type: mixed hyperlipidemia Qualified Code(s): E78.2 - Mixed hyperlipidemia (10) Hypertension Current visit: Yes Status: Chronic . Qualifiers: Hypertension type: unspecified secondary hypertension Qualified Code(s): I15.9 - Secondary hypertension, unspecified; I15 - Secondary hypertension (11) Sleep apnea, obstructive Current visit: Yes Status: Suspected . (12) Obesity (BMI 30-39.9) Current visit: Yes Status: Chronic . (13) SIRS due to infectious process with acute organ dysfunction Current visit: Yes Status: Acute . Internal Medicine - H&P: HPI Chief complaint: Pain and swelling right leg and foot. Admitted From: Emergency Dept Plans for Post Hospital Care: Home History of present illness: Mr. Ocasio is a 50 year old male with history significant of type II DM, CKD III , ED, DM periheral neuropathy, hypertension, dyslipidemia, CAD/PTCA stentsx3/ CABG/AMIs, chronic MSK pain syndrome, osteoarthritis, vitamin D deficiency, secondary hyperparathyroidism, diabetic nephropathy with proteinuria, chronic sinusitis, DDD lumbar spine/ right sciatica, obesity, nonsmoker. Patient is admitted to the [facility] emergency department with complaints of right foot and leg swelling and pain. The patient reports right lower extremity pain and swelling of roughly 5 days duration. He acknowledges devitalized tissue of his great toe for the past 2-3 weeks. No apparent infection had been seen. He had been followed by podiatry in the else patient' s setting with an appointment approximately 5 days prior to this presentation and debridement of devitalized tissue infection or recurrence of infection was performed. He is scheduled to see his subspecialist in follow-up within the week however he started having pain in his left foot and leg beginning after the procedure 5 days ago with gradual progression. He now describes the pain as severe at a 10/10 in severity with any movement or weightbearing. Followed rest it still is a throbbing to sharp pain at a 5-6/10 level. His evaluation feeling of subjective warmth/fever, nauseous and and an episode of acute emesis. Denies nausea vomiting or abdominal distress today. He has not recorded any formal temperatures. Findings in the ED: Temperature 99.1. Pulse 95 respirations 14. BP 133/79. O2 saturation 96% on room air. WBC 14.9 hemoglobin 11.2 platelets 309,000. Differential showed an increase in neutrophils and monocytes. Sedimentation rate 106. CRP 89. PT 11.3 INR 1.1. PTT 27.6. Comprehensive metabolic panel normal except creatinine 1.8 with BUN 24. GFR 40. Glucose 177 with osmolality 294. Lactic acid 1.9. Albumin 2.6. Right foot x-ray series demonstrated no acute periostitis or bony destruction. Joint spaces and alignment appeared to be maintained. Minimal first MTP joint osteoarthritis noted. Chest x-ray demonstrated no active cardiopulmonary process. Preliminary impression suggests acute on chronic, worsening of diabetic foot wounds with gangrenous changes apparent of the right great toe. No acute evidence at x-ray for osteomyelitis. SIRS/sepsis criteria present at the time of admission. Patient presents risk for acute clinical decline given presenting comorbidities. Workup and treatment will proceed comprehensively. The patient was visited and interviewed and examined. Cumulative laboratory and radiographic database was reviewed and considered and discussed. Consultative opinions will be sought as clinical circumstances justify. Initial consultative opinion has been requested of podiatry. Plan of care has been discussed in detail with the patient. Questions addressed. Hospital course will be dependent upon clinical findings, treatment response and potential consultative interventions. Given the patient's presenting concerns, past medical history, clinical findings and symptoms, he is admitted at this time to undergo further evaluation and disposition. Orders were written as per the computerized physician order intravenous system Condition is serious. Prognosis is guarded. CODE STATUS is full. Past Med Surg Social Fam HX - Past Medical History Source: old records reviewed Medical history: arthritis, asthma, coronary artery disease, diabetes, GERD, hyperlipidemia, hypertension, myocardial infarction, osteoporosis (Vitamin D Deficiency.), peripheral artery disease, renal disease (CKD III. Secondary hyperparathyroidism.), other (DM peripheral neuropathy. Chronic MSK pain syndrome. ED. Chronic sinusitis) Psychiatric history: no psych history, other - Past Surgical History Surgical History: angioplasty/stent, other - Social History Smoking Status: Never smoker Smokeless Tobacco Status: No Alcohol use: none, unknown Drug use: none, unknown Occupational status: employed Current living situation: Home, With Family Activity Level: Independent ambulation, Mostly sedentary Recent Out of Country Travel Within the Last 8 Weeks: No Exposure or Possible Exposure to Illness During Travel: No - Family History Brother Living Status: Still Living Hx Family Cardiac Disorders: No Hx Family Respiratory Disorders: No Hx Family Cancer: No Hx Family GI Disorders: No Hx Family Endocrine Disorder: No Hx Family Neuromuscular Disorders: No Hx Family Neurologic Disorders: No Hx Family HEENT Disorders: No Hx Family Autoimmune Disorders: No Mother Adopted: No Family Member Ethnicity: Non- Living Status: Hx Family Cardiac Disorders: Yes (HTN) Hx Family Respiratory Disorders: No Hx Family Cancer: Yes (Colon) Hx Family GI Disorders: No Hx Family Endocrine Disorder: Yes (DM) Hx Family Neuromuscular Disorders: No Hx Family Neurologic Disorders: No Hx Family HEENT Disorders: No Hx Family Autoimmune Disorders: No Father Adopted: No Living Status: Hx Family Cardiac Disorders: Yes Hx Family Respiratory Disorders: Yes Hx Family Cancer: Yes (Liver/lung) Hx Family GI Disorders: No Hx Family Endocrine Disorder: Yes Hx Family Neuromuscular Disorders: No Hx Family Neurologic Disorders: No Hx Family HEENT Disorders: No Hx Family Autoimmune Disorders: No Internal Medicine - H&P: Meds Albuterol Sulfate [Albuterol Inhaler] 2 puff IH Q4HR PRN 03/30/16 [History] Amlodipine [Norvasc] 10 mg PO DAILY 03/30/16 [History] Atorvastatin Calcium [Lipitor] 80 mg PO DAILY 03/30/16 [History] Clopidogrel [Plavix] 75 mg PO DAILY 03/30/16 [History] Cyclobenzaprine [Flexeril] 5 mg PO TID PRN 03/30/16 [History] Dulaglutide [Trulicity] 1.5 mg SQ FR 03/30/16 [History] Gabapentin [Neurontin] 600 mg PO TID 03/30/16 [History] Insulin Glargine,Hum.rec.anlog [Lantus Solostar] 60 unit SQ BID 03/30/16 [ History] Insulin LISPRO [Humalog Kwikpen U-100] 30 - 38 unit SQ TIDWM 03/30/16 [History] Isosorbide MONOnitrate (24 HR) [Imdur] 120 mg PO DAILY 03/30/16 [History] Lisinopril/Hydrochlorothiazide [Zestoretic 20-12.5 mg Tablet] 2 tab PO DAILY 01/03 [History] Metformin [Glucophage] 1,000 mg PO BID 03/30/16 [History] Metoprolol XL (24 HR) Succ [Toprol Xl] 50 mg PO DAILY 03/30/16 [History] Nitroglycerin [Nitrostat] 0.4 mg SL Q5M PRN 03/30/16 [History] Oxycodone HCl/Acetaminophen [Percocet 10-325 mg Tablet] 1 - 2 tab PO QID PRN 01/03 [History] Promethazine [Phenergan] 12.5 mg PO Q6HR PRN 03/30/16 [History] Ondansetron HCl [Zofran] 4 mg PO Q6H PRN #10 tablet 03/31/16 [Rx] Ondansetron ODT [Zofran ODT] 4 mg SL Q8HR PRN #15 tab.rapdis 05/27/16 [Rx] Aspirin Enteric Coated [Aspirin EC] 325 mg PO DAILY 06/02/16 [History] Furosemide [Lasix] 20 mg PO DAILY 06/02/16 [History] Vitamin D 50,000 unit PO 2XW 06/02/16 [History] Allergies ketoconazole Adverse Reaction (Verified 05/27/16 21:06) Redness of Skin All Systems PM: A 10-system review of systems was performed and is negative for pertinent findings except as documented above in the HPI. - Constitutional Constitutional: as per HPI, chills, fatigue, fever(s), malaise, other, no night sweats - EENT Eyes: as per HPI, no change in vision, no discharge, no pain, no photophobia Ears: as per HPI, no ear discharge, no ear pain, no tinnitus Nose, mouth and throat: as per HPI, no dysphagia, no nasal discharge, no neck pain, no sore throat - Cardiovascular Cardiovascular ROS IM: as per HPI, no chest pain, no diaphoresis, no dyspnea, no lightheadedness, no palpitations, no syncope - Respiratory Respiratory: as per HPI, no cough, no dyspnea, no wheezing, no excessive phlegm production - Gastrointestinal Gastrointestinal: as per HPI, nausea, vomiting, no abdominal pain, no diarrhea, no hematemesis, no hematochezia, no melena - Genitourinary Genitourinary ROS male: as per HPI - Musculoskeletal Musculoskeletal ROS IM: as per HPI, other, no numbness, no tingling - Integumentary Integumentary IM: as per HPI, erythema, new lesions, non-healing lesions, skin ulcer, other, no rash, no unusual bruising - Neurological Neurological ROS: as per HPI, other, no confusion, no convulsions, no focal weakness, no numbness, no tingling, no tremor(s) - Psychiatric Psychiatric: as per HPI - Endocrine Endocrine IM: as per HPI, fatigue, other - Hematologic/Lymphatic Hematologic/Lymphatic: as per HPI, no easy bruising - Allergic/Immunologic Allergic/Immunologic: as per HPI - Constitutional Vitals: Temp Pulse Resp BP Pulse Ox 99.1 F 95 14 133/79 96 06/02/16 19:19 06/02/16 19:19 06/02/16 19:19 06/02/16 19:19 06/02/16 19:19 Vital Signs Temp Pulse Resp BP Pulse Ox 06/02/16 19:19 99.1 F 95 14 133/79 96 Intake and Output 06/02/16 06/02/16 06/02/16 07:59 15:59 23:59 Other: Weight 103.419 kg Patient Weight 06/02/16 23:59 Weight 103.419 kg General appearance: Present: cooperative, mild distress, A&O X 3, obese, answers questions appropriately - Head Head exam: Present: atraumatic, normal inspection, normocephalic - Eye Eye exam: Present: EOMI, PERRL, conjuntiva pink, sclera anicteric Pupils: Present: normal accommodation, PERRL - ENT ENT exam: Present: mucous membranes moist, normal external ear exam, normal oropharynx - Neck Neck exam general surgery: Present: full ROM, supple, trachea midline. Absent: lymphadenopathy, nuchal rigidity - Respiratory Respiratory exam: Present: decreased breath sounds, CTAB. Absent: accessory muscle use, rales, rhonchi, wheezes - Cardiovascular Cardiovascular exam: Present: distant heart sounds, RRR, +S1, +S2. Absent: diastolic murmur, gallop, rubs, systolic murmur - GI/Abdominal GI/Abdominal exam: Present: normal bowel sounds, soft, no peritoneal signs. Absent: distended, tenderness - Extremities Exam Extremities exam: Present: joint swelling (Right great toe edema with evident necrotic ulceration, necrotic base, erythema and tenderness. No active purulent drainage apparent.), pedal edema, tenderness, warm, radial pulses palpable and symetrical. Absent: calf tenderness, cyanotic, normal inspection - Expanded Lower Extremities Exam Lower Leg exam: Present: swelling. Absent: normal inspection Ankle exam: Present: swelling. Absent: normal inspection Foot/Toe exam: Present: crepitus, deformity, ecchymosis, erythema, swelling, tenderness. Absent: full ROM, normal inspection Gait: Present: not tested/not observed - Neurological Exam Neurological exam: Present: alert, CN II-XII intact, oriented X3, no focal deficits. Absent: pronater drift, facial droop, speech deficit - Psychiatric Psychiatric exam: Present: normal affect, normal mood - Skin Skin exam: Present: cyanosis, dry, erythema, intact, warm. Absent: urticaria, vesicles Internal Med - H&P Results - Labs CBC & Chem 7: 06/02/16 19:55 06/03/16 03:55 Labs: Urine 06/02/16 Range/Units 22:04 Urine Color Yellow (Yellow) Urine Clarity Clear (Clear) Urine pH 6.0 (5.0-8.0) pH Units Ur Specific [place] 1.019 (1.010-1.025) Urine Protein >=300 H (Neg-Trace) mg/dL Urine Glucose (UA) 100 H (Normal) mg/dL Short CBC 06/02/16 Range/Units 19:55 WBC 14.9 H (4.3-11.1) K/mcL Hgb 11.2 L (12.9-16.9) g/dL Hct 33.7 L (37.5-50.1) % Plt Count 309 (140-400) K/mcL Neutrophils # 9.9 H (1.6-8.9) K/mcL BMP 06/02/16 Range/Units 19:55 Sodium 138 (136-145) mEq/L Potassium 4.0 (3.5-4.5) mEq/L Chloride 104 (98-109) mEq/L Carbon Dioxide 23 (19-29) mEq/L BUN 24 (8-26) mg/dL Creatinine 1.80 H (0.72-1.25) mg/dL Glucose 177 H (70-99) mg/dL Calcium 8.9 (8.6-10.8) mg/dL Cardiac Enzymes 06/02/16 Range/Units 21:26 Troponin I 0.00 (0-0.03) ng/mL Liver Function 06/02/16 Range/Units 21:26 Total Bilirubin 0.5 (0.2-1.2) mg/dL Direct Bilirubin 0.2 (0.0-0.5) mg/dL AST 24 (5-34) Units/L ALT 32 (0-55) Units/L Alkaline Phosphatase 107 (38-126) Units/L Albumin 2.6 L (3.5-5.0) g/dL Urine 06/02/16 Range/Units 22:04 Urine Color Yellow (Yellow) Urine Clarity Clear (Clear) Urine pH 6.0 (5.0-8.0) pH Units Ur Specific [place] 1.019 (1.010-1.025) Urine Protein >=300 H (Neg-Trace) mg/dL Urine Glucose (UA) 100 H (Normal) mg/dL Abnormal lab results WBC 14.9 K/mcL (4.3-11.1) H 06/02/16 19:55 RBC 3.95 M/mcL (4.19-5.50) L 06/02/16 19:55 Hgb 11.2 g/dL (12.9-16.9) L 06/02/16 19:55 Hct 33.7 % (37.5-50.1) L 06/02/16 19:55 Neutrophils # 9.9 K/mcL (1.6-8.9) H 06/02/16 19:55 Monocytes # 1.7 K/mcL (0.0-1.3) H 06/02/16 19:55 ESR 106 mm/hr (0-10) H 06/02/16 19:55 PT 12.3 Seconds (9.4-12.1) H 06/02/16 21:26 Creatinine 1.80 mg/dL (0.72-1.25) H 06/02/16 19:55 Est GFR ( Amer) 48 (> 60) L 06/02/16 19:55 Est GFR (Non-Af Amer) 40 (> 60) L 06/02/16 19:55 Glucose 177 mg/dL (70-99) H 06/02/16 19:55 C-Reactive Protein 89 mg/L (Less than 5) H 06/02/16 19:55 Albumin 2.6 g/dL (3.5-5.0) L 06/02/16 21:26 Globulin 4.6 g/dL (2.4-3.5) H 06/02/16 21:26 Albumin/Globulin Ratio 0.6 (1.1-2.2) L 06/02/16 21:26 Urine Protein >=300 mg/dL (Neg-Trace) H 06/02/16 22:04 Urine Glucose (UA) 100 mg/dL (Normal) H 06/02/16 22:04 Urine Microscopic RBC 5-15 per hpf (0-3) H 06/02/16 22:04 Ur Squamous Epith Cells Many per lpf (None-Few) H 06/02/16 22:04 Laboratory Results WBC 14.9 K/mcL (4.3-11.1) H 06/02/16 19:55 RBC 3.95 M/mcL (4.19-5.50) L 06/02/16 19:55 Hgb 11.2 g/dL (12.9-16.9) L 06/02/16 19:55 Hct 33.7 % (37.5-50.1) L 06/02/16 19:55 MCV 85.3 fL (83.0-100.0) 06/02/16 19:55 MCH 28.4 pg (28.0-33.3) 06/02/16 19:55 MCHC 33.2 g/dL (31.6-35.5) 06/02/16 19:55 RDW 12.3 % (11.5-14.5) 06/02/16 19:55 Plt Count 309 K/mcL (140-400) 06/02/16 19:55 MPV 9.6 fL (9.4-12.4) 06/02/16 19:55 Immature Gran % 0.5 % (0-4) 06/02/16 19:55 Seg Neutrophils % 66.3 % 06/02/16 19:55 Lymphocytes % 19.7 % 06/02/16 19:55 Monocytes % 11.3 % 06/02/16 19:55 Eosinophils % 1.8 % 06/02/16 19:55 Basophils % 0.4 % 06/02/16 19:55 Neutrophils # 9.9 K/mcL (1.6-8.9) H 06/02/16 19:55 Lymphocytes # 2.9 K/mcL (0.6-4.6) 06/02/16 19:55 Monocytes # 1.7 K/mcL (0.0-1.3) H 06/02/16 19:55 Eosinophils # 0.3 K/mcL (0.0-0.6) 06/02/16 19:55 Basophils # 0.1 K/mcL (0.0-0.2) 06/02/16 19:55 ESR 106 mm/hr (0-10) H 06/02/16 19:55 PT 12.3 Seconds (9.4-12.1) H 06/02/16 21:26 INR 1.1 06/02/16 21:26 APTT 27.6 Seconds (26.0-36.0) 06/02/16 21:26 Sodium 138 mEq/L (136-145) 06/02/16 19:55 Potassium 4.0 mEq/L (3.5-4.5) 06/02/16 19:55 Chloride 104 mEq/L (98-109) 06/02/16 19:55 Carbon Dioxide 23 mEq/L (19-29) 06/02/16 19:55 BUN 24 mg/dL (8-26) 06/02/16 19:55 Creatinine 1.80 mg/dL (0.72-1.25) H 06/02/16 19:55 Est GFR ( Amer) 48 (> 60) L 06/02/16 19:55 Est GFR (Non-Af Amer) 40 (> 60) L 06/02/16 19:55 BUN/Creatinine Ratio 13 (6-26) 06/02/16 19:55 Glucose 177 mg/dL (70-99) H 06/02/16 19:55 Calculated Osmolality 294 (280-300) 06/02/16 19:55 Lactic Acid 1.9 mmol/L (0.5-2.2) 06/02/16 21:26 Calcium 8.9 mg/dL (8.6-10.8) 06/02/16 19:55 Phosphorus 3.2 mg/dL (2.3-4.7) 06/02/16 21:26 Magnesium 1.8 mg/dL (1.6-2.6) 06/02/16 21:26 Total Bilirubin 0.5 mg/dL (0.2-1.2) 06/02/16 21:26 Direct Bilirubin 0.2 mg/dL (0.0-0.5) 06/02/16 21:26 Indirect Bilirubin 0.3 mg/dL (0.0-1.2) 06/02/16 21:26 AST 24 Units/L (5-34) 06/02/16 21:26 ALT 32 Units/L (0-55) 06/02/16 21:26 Alkaline Phosphatase 107 Units/L (38-126) 06/02/16 21:26 Troponin I 0.00 ng/mL (0-0.03) 06/02/16 21:26 C-Reactive Protein 89 mg/L (Less than 5) H 06/02/16 19:55 Serum Total Protein 7.2 g/dL (6.0-8.3) 06/02/16 21:26 Albumin 2.6 g/dL (3.5-5.0) L 06/02/16 21:26 Globulin 4.6 g/dL (2.4-3.5) H 06/02/16 21:26 Albumin/Globulin Ratio 0.6 (1.1-2.2) L 06/02/16 21:26 Urine Color Yellow (Yellow) 06/02/16 22:04 Urine Clarity Clear (Clear) 06/02/16 22:04 Urine pH 6.0 pH Units (5.0-8.0) 06/02/16 22:04 Ur Specific [place] 1.019 (1.010-1.025) 06/02/16 22:04 Urine Protein >=300 mg/dL (Neg-Trace) H 06/02/16 22:04 Urine Glucose (UA) 100 mg/dL (Normal) H 06/02/16 22:04 Urine Ketones Negative mg/dL (Negative) 06/02/16 22:04 Urine Blood Negative (Negative) 06/02/16 22:04 Urine Nitrite Negative (Negative) 06/02/16 22:04 Urine Bilirubin Negative (Negative) 06/02/16 22:04 Urine Urobilinogen Normal mg/dL (Normal) 06/02/16 22:04 Ur Leukocyte Esterase Negative (Negative) 06/02/16 22:04 Urine Microscopic RBC 5-15 per hpf (0-3) H 06/02/16 22:04 Urine Microscopic WBC 0-3 per hpf (0-3) 06/02/16 22:04 Ur Squamous Epith Cells Many per lpf (None-Few) H 06/02/16 22:04 Urine Bacteria None Seen per hpf (None-Few) 06/02/16 22:04 Hyaline Casts None Seen per lpf (None-Few) 06/02/16 22:04 Ur Culture Indicated? NO (NO) 06/02/16 22:04 Impressions Foot X-Ray 06/02/16 19:47 IMPRESSION: No acute abnormality. D/ / Forrest José MD / Forrest José MD Interpreting Provider: Forrest José MD Chest X-Ray 06/02/16 20:36 IMPRESSION: 1. No acute cardiopulmonary disease. D/ / Anthony Ramon MD / Anthony Ramon MD Interpreting Provider: Anthony Ramon MD
[2016-06-02] MEDS ORDERED: Vancomycin 1,500 MG in D5% in Water 250 ML IVPB SCH (23:00)
[2016-06-03 00:46] LABS: Bilirubin,Urine Negative (Negative); Blood,Urine Trace (Negative); Clarity,Urine Clear (Clear); Color,Urine Yellow (Yellow); Glucose,Urine (UA) Normal (Normal); Ketones,Urine Negative (Negative); Leukocyte Esterase,Urine Negative (Negative); Nitrite,Urine Negative (Negative); Protein,Urine 100 mg/dL (Neg-Trace); Specific Gravity,Urine 1.014 (1.010-1.025); Urobilinogen,Urine Normal (Normal)
[2016-06-03 00:47] LABS: Bacteria,Urine None Seen per hpf (None-Few); Hyaline Casts,Urine None Seen per lpf (None-Few); RBC,Urine 0-3 per hpf (0-3); Squamous Epithelial Cell,Urine Moderate per lpf (None-Few); WBC,Urine 0-3 per hpf (0-3)
[2016-06-03] MEDS: 0.9 % Sodium Chloride 1,000 ML IVC SCH ×2 (00:54)
[2016-06-03 05:24] LABS: INR 1.1; Prothrombin Time 12.2 Seconds (9.4-12.1)
[2016-06-03 05:26] LABS: Activated Partial Thrombo Time 26.2 Seconds (26.0-36.0)
[2016-06-03 05:31] LABS: Hemoglobin A1C 8.2 %
[2016-06-03 05:36] LABS: Albumin 2.2 g/dL (3.5-5.0); Albumin/Globulin Ratio 0.5 (1.1-2.2); Bilirubin,Total 0.5 mg/dL (0.2-1.2); Calcium 8.2 mg/dL (8.6-10.8); Globulin 4.1 g/dL (2.4-3.5); Magnesium 1.6 mg/dL (1.6-2.6); Phosphorous 2.6 mg/dL (2.3-4.7); Potassium 3.9 mEq/L (3.5-4.5); Total Protein 6.3 g/dL (6.0-8.3)
[2016-06-03] MEDS: *HR* Enoxaparin 40 MG/0.4 ML SYRINGE SQ SCH (05:40)
[2016-06-03] MEDS: Piperacillin/Tazobactam 3.375 GM in D5% in Water (Mini-Bag+) 100 ML IVPB SCH ×3 (05:40→17:45)
[2016-06-03] MEDS: *HR* OxyCODONE Immed Rel 5 MG TABLET PO PRN (05:40)
[2016-06-03] MEDS: Isosorbide MONOnitrate (24 HR) 60 MG TAB.ER.24H PO SCH (07:53)
[2016-06-03] MEDS: amLODIPine 5 MG TABLET PO SCH (07:53)
[2016-06-03] MEDS: Lisinopril-HCTZ 20-12.5mg TABLET PO SCH (07:53)
[2016-06-03] MEDS: Gabapentin 300 MG CAPSULE PO SCH ×3 (07:53→20:33)
[2016-06-03] MEDS: Metoprolol XL (24 HR) Succ 50 MG TAB.ER.24H PO SCH (07:53)
[2016-06-03] MEDS: Insulin LISPRO 300 UNITS/3 ML VIAL SQ SCH ×3 (08:01→17:46)
[2016-06-03] MEDS ORDERED: Aspirin Enteric Coated 81 MG Tablet PO SCH (09:00)
--- NOTE | 2016-06-03 11:10 | Internal Med Progress Note ---
Date of Encounter: 06/03/16 Time of Encounter: 09:00 - Assessment and plan (1) Foot ulcer due to secondary DM Current Visit: No Status: Acute Assessment and plan: With leukocytosis. - Continue treatment with Vanco and Zosyn. - Follow up the blood culture. - Podiatry consult. High risk because of vancomycin use, needed close monitoring. (2) Hypertension Current Visit: Yes Status: Chronic Assessment and plan: BP is stable continue home medication Qualifiers: Hypertension type: unspecified secondary hypertension Qualified Code(s): I15.9 - Secondary hypertension, unspecified; I15 - Secondary hypertension (3) Diabetes Current Visit: No Status: Chronic Assessment and plan: Poorly controlled diabetes. Hemoglobin A1c 8.2 (improved from previous 13.4 on 03/30/16). Will continue basal and a sliding scale insulin. Qualifiers: Diabetes mellitus type: type 2 Diabetes mellitus complication status: with kidney complications Diabetes mellitus complication detail: with chronic kidney disease Diabetes mellitus nursing home insulin use: with nursing home use Chronic kidney disease stage: stage 3 (moderate) Qualified Code(s): E11.22 - Type 2 diabetes mellitus with diabetic chronic kidney disease; N18.3 - Chronic kidney disease, stage 3 (moderate); Z79.4 - skilled nursing (current) use of insulin (4) CAD (coronary artery disease) Current Visit: Yes Status: Chronic Assessment and plan: Stable. Continue home medication aspirin, Plavix, beta inocente, atorvastatin, and nitrate. Qualifiers: Coronary Disease-Associated Artery/Lesion type: [place] artery [place] vs. transplanted heart: [place] heart Associated angina: without angina Qualified Code(s): I25.10 - Atherosclerotic heart disease of [place] coronary artery without angina pectoris (5) Obesity (BMI 30-39.9) Current Visit: Yes Status: Chronic Assessment and plan: Patient in need lifestyle modification and diet control - Time Spent With Patient Greater than 35 minutes - Subjective Interval history: Patient is a 50-year-old male admitted for right foot toe pain and swelling. His past medical history is significant for diabetes with CKD and neuropathy, CAD. Patient was seen and examined. He is awake alert, oriented 3. No fever, not complaining of any pain. Vital signs stable. We will continue antibiotic treatment. Closely monitor and control blood sugar level. Will ask podiatry consult. - Constitutional Vitals: Temp Pulse Resp BP Pulse Ox 98.2 F 77 16 140/76 90 06/03/16 10:39 06/03/16 10:39 06/03/16 10:39 06/03/16 10:39 06/03/16 10:39 General appearance: Present: cooperative, mild distress, A&O X 3, obese, answers questions appropriately - Head Head exam: Present: atraumatic, normocephalic - Eye Eye exam: Present: PERRL, conjuntiva pink, sclera anicteric Pupils: Present: PERRL - Neck Neck exam general surgery: Present: supple, trachea midline. Absent: lymphadenopathy - Respiratory Respiratory exam: Present: CTAB. Absent: accessory muscle use, rales, rhonchi, wheezes - Cardiovascular Cardiovascular exam: Present: RRR, +S1, +S2. Absent: diastolic murmur, gallop, rubs, systolic murmur - GI/Abdominal GI/Abdominal exam: Present: normal bowel sounds, soft, no peritoneal signs. Absent: distended, tenderness - Extremities Exam Extremities exam: Present: warm, radial pulses palpable and symetrical. Absent : calf tenderness, cyanotic, pedal edema Additional comments: Right foot great toe swelling with ulcer, no discharge. - Neurological Exam Neurological exam: Present: CN II-XII intact, oriented X3, no focal deficits. Absent: pronater drift, facial droop, speech deficit - Skin Skin exam: Present: dry, intact Internal Medicine: Result - Labs CBC & Chem 7: 06/02/16 19:55 06/03/16 03:55 Labs: BMP 06/03/16 03:55 Sodium 137 Potassium 3.9 Chloride 108 Carbon Dioxide 21 BUN 21 Creatinine 1.56 H Glucose 168 H Calcium 8.2 L Liver Function 06/03/16 Range/Units 03:55 Total Bilirubin 0.5 (0.2-1.2) mg/dL AST 18 (5-34) Units/L ALT 27 (0-55) Units/L Alkaline Phosphatase 89 (38-126) Units/L Albumin 2.2 L (3.5-5.0) g/dL Urine 06/02/16 06/03/16 Range/Units 22:04 00:05 Urine Color Yellow Yellow (Yellow) Urine Clarity Clear Clear (Clear) Urine pH 6.0 6.0 (5.0-8.0) pH Units Ur Specific [place] 1.019 1.014 (1.010-1.025) Urine Protein >=300 H 100 H (Neg-Trace) mg/dL Urine Glucose (UA) 100 H Normal (Normal) mg/dL - ABG Interpretation ABG results: PT/INR, D-dimer PT 12.2 Seconds (9.4-12.1) H 06/03/16 03:55 Consult Discharge Plan - Plan Referrals: Lashaun Connor CNP [Primary Care Provider] - 06/11/16 10:00 am
--- NOTE | 2016-06-03 11:39 | Podiatry Consult Note ---
Date of Encounter: 06/03/16 Time of Encounter: 11:00 Assessment and Plan (1) Right calf pain Current visit: Yes Status: Acute Positive homans sign RLE, venous duplex ordered. (2) Foot ulcer due to secondary DM Current visit: No Status: Acute Xray of right foot negative for osteomyelitis. Will obtain ABIs of BLE, diminished pedal pulse to right foot with ulceration to right great toe. Loose edges removed with tissue nipper, surrounding skin is warm and dry, no pus , no odor, no ascending cellulitis, no fluctuance, no evidence of bacterial infection. Wound care: cleanse right great toe twice daily with mild soap and water pat dry , apply saline moistened gauze with nickel thick amount of Santyl to the ulcer of the right great toe. Will follow back up with patient tomorrow once ANUPAM results and venous duplex results are back. If everything is normal, will recommend patient follow up with Dr. Roman in wound care with in a week of discharge and the continuation of santyl ointment twice daily to the ulceration of the right great toe. History of Present Illness HPI: Mr. Ocasio is a 50 year old male admitted to [facility] with an open wound of the right great toe. Patient has a medical history significant for diabetes mellitus with neuropathy, hypertension, dyslipidemia, CAD, PTCA stent 3/CABG, AMI, OA, CKD stage III, DDD, chronic MSK pain syndrome. The patient was evaluated in wound care last week for a blister to the right great toe. Dr. Roman performed a bedside debridement to the right great toe on 05/29/2016. No evidence of bacterial infection at that time. Patient was instructed to use Santyl ointment to the ulceration of the right great toe twice daily to allow the wound to demarcate. Patient states he came to the ED last night due to calf pain of the right lower extremity. Rates pain currently at a 5 out of 10 and states that pain is a 10 out of 10 when he stands up. No fever, chills, n/v overnight. He states he had nausea prior to admission. Xray obtained in the ED , no evidence of osteomyelitis. ESR:106 and CRP: 89 upon arrival. Past Med Surg Social Fam HX - Past Medical History Medical history: arthritis, asthma, coronary artery disease, diabetes, GERD, hyperlipidemia, hypertension, myocardial infarction, osteoporosis (Vitamin D Deficiency.), peripheral artery disease, renal disease (CKD III. Secondary hyperparathyroidism.), other (DM peripheral neuropathy. Chronic MSK pain syndrome. ED. Chronic sinusitis) Psychiatric history: no psych history, other - Past Surgical History Surgical History: angioplasty/stent, other - Social History Smoking Status: Never smoker Smokeless Tobacco Status: No Alcohol use: none, unknown Drug use: none, unknown - Family History Brother Living Status: Still Living Hx Family Cardiac Disorders: No Hx Family Respiratory Disorders: No Hx Family Cancer: No Hx Family GI Disorders: No Hx Family Endocrine Disorder: No Hx Family Neuromuscular Disorders: No Hx Family Neurologic Disorders: No Hx Family HEENT Disorders: No Hx Family Autoimmune Disorders: No Mother Adopted: No Family Member Ethnicity: Non- Living Status: Hx Family Cardiac Disorders: Yes (HTN) Hx Family Respiratory Disorders: No Hx Family Cancer: Yes (Colon) Hx Family GI Disorders: No Hx Family Endocrine Disorder: Yes (DM) Hx Family Neuromuscular Disorders: No Hx Family Neurologic Disorders: No Hx Family HEENT Disorders: No Hx Family Autoimmune Disorders: No Father Adopted: No Living Status: Hx Family Cardiac Disorders: Yes Hx Family Respiratory Disorders: Yes Hx Family Cancer: Yes (Liver/lung) Hx Family GI Disorders: No Hx Family Endocrine Disorder: Yes Hx Family Neuromuscular Disorders: No Hx Family Neurologic Disorders: No Hx Family HEENT Disorders: No Hx Family Autoimmune Disorders: No Medications and Allergies Albuterol Sulfate [Albuterol Inhaler] 2 puff IH Q4HR PRN 03/30/16 [History] Amlodipine [Norvasc] 10 mg PO DAILY 03/30/16 [History] Atorvastatin Calcium [Lipitor] 80 mg PO DAILY 03/30/16 [History] Clopidogrel [Plavix] 75 mg PO DAILY 03/30/16 [History] Cyclobenzaprine [Flexeril] 5 mg PO TID PRN 03/30/16 [History] Dulaglutide [Trulicity] 1.5 mg SQ FR 03/30/16 [History] Gabapentin [Neurontin] 600 mg PO TID 03/30/16 [History] Insulin Glargine,Hum.rec.anlog [Lantus Solostar] 60 unit SQ BID 03/30/16 [ History] Insulin LISPRO [Humalog Kwikpen U-100] 30 - 38 unit SQ TIDWM 03/30/16 [History] Isosorbide MONOnitrate (24 HR) [Imdur] 120 mg PO DAILY 03/30/16 [History] Lisinopril/Hydrochlorothiazide [Zestoretic 20-12.5 mg Tablet] 2 tab PO DAILY 01/03 [History] Metformin [Glucophage] 1,000 mg PO BID 03/30/16 [History] Metoprolol XL (24 HR) Succ [Toprol Xl] 50 mg PO DAILY 03/30/16 [History] Nitroglycerin [Nitrostat] 0.4 mg SL Q5M PRN 03/30/16 [History] Oxycodone HCl/Acetaminophen [Percocet 10-325 mg Tablet] 1 - 2 tab PO QID PRN 01/03 [History] Promethazine [Phenergan] 12.5 mg PO Q6HR PRN 03/30/16 [History] Ondansetron ODT [Zofran ODT] 4 mg SL Q8HR PRN #15 tab.rapdis 05/27/16 [Rx] Aspirin Enteric Coated [Aspirin EC] 325 mg PO DAILY 06/02/16 [History] Ergocalciferol (VITAMIN D2) [Vitamin D2] 50,000 unit PO 2XW 06/02/16 [History] Furosemide [Lasix] 20 mg PO DAILY 06/02/16 [History] Diclofenac Sodium [Voltaren] 1 appl TP BID 06/03/16 [History] Allergies ketoconazole Adverse Reaction (Verified 05/27/16 21:06) Redness of Skin All Systems Reviewed: A 10-system review of systems was performed and is negative for pertinent findings except as documented above in the HPI. Physical Exam - Constitutional Vitals: Temp Pulse Resp BP Pulse Ox 98.2 F 77 16 140/76 90 06/03/16 10:39 06/03/16 10:39 06/03/16 10:39 06/03/16 10:39 06/03/16 10:39 General appearance: cooperative, no acute distress - Head Head exam: Present: atraumatic, normal inspection - Extremities Exam Extremities exam: Present: calf tenderness (right, no warmth, no erythema, no swelling to calf. ), normal capillary refill, pedal edema (+1/4) Additional comments: Unstageable deep tissue injury to the medial aspect of the right great toe measuring 3 cm in length x 4 cm in width x 0.1 cm in depth. Base of wound with eschar. Proximal wound edges are loose, no purulent drainage, no odor, no tunneling, no sinus tracts, no exposed bone, no ligament, no tendon, ascending cellulitis, no pus, no odor, no active drainage. - Neurological Exam Neurological exam: Present: alert, oriented X3 - Vascular Capillary Refill: less than 3 seconds Lower Extremity Vascular: pulse deficit (2+/4 left DP, 1+/4 DP right) - Ankle & Foot Tests: DVT tests: positive (+ homans sign right) Results - Labs Result Diagrams: 06/02/16 19:55 06/03/16 03:55 Labs: Abnormal lab results WBC 14.9 K/mcL (4.3-11.1) H 06/02/16 19:55 RBC 3.95 M/mcL (4.19-5.50) L 06/02/16 19:55 Hgb 11.2 g/dL (12.9-16.9) L 06/02/16 19:55 Hct 33.7 % (37.5-50.1) L 06/02/16 19:55 Neutrophils # 9.9 K/mcL (1.6-8.9) H 06/02/16 19:55 Monocytes # 1.7 K/mcL (0.0-1.3) H 06/02/16 19:55 ESR 80 mm/hr (0-10) H 06/03/16 03:55 PT 12.2 Seconds (9.4-12.1) H 06/03/16 03:55 Creatinine 1.56 mg/dL (0.72-1.25) H 06/03/16 03:55 Est GFR ( Amer) 57 (> 60) L 06/03/16 03:55 Est GFR (Non-Af Amer) 47 (> 60) L 06/03/16 03:55 Glucose 168 mg/dL (70-99) H 06/03/16 03:55 POC Glucose 166 (58-89) H 06/03/16 10:42 Hemoglobin A1c 8.2 % (-5.6) H 06/03/16 03:55 Calcium 8.2 mg/dL (8.6-10.8) L 06/03/16 03:55 C-Reactive Protein 87 mg/L (Less than 5) H 06/03/16 03:55 Albumin 2.2 g/dL (3.5-5.0) L 06/03/16 03:55 Globulin 4.1 g/dL (2.4-3.5) H 06/03/16 03:55 Albumin/Globulin Ratio 0.5 (1.1-2.2) L 06/03/16 03:55 LDL Cholesterol, Calc 104 mg/dL (0-99) H 06/03/16 03:55 HDL Cholesterol 25 mg/dL (40-59) L 06/03/16 03:55 Cholesterol/HDL Ratio 6.0 (0-4.9) H 06/03/16 03:55 Urine Protein 100 mg/dL (Neg-Trace) H 06/03/16 00:05 Urine Blood Trace (Negative) H 06/03/16 00:05 Ur Squamous Epith Cells Moderate per lpf (None-Few) H 06/03/16 00:05 All other labs normal. Consult Discharge Plan - Plan Referrals: Lashaun Connor, NICOLASA [Primary Care Provider] - 06/11/16 10:00 am
[2016-06-03] MEDS ORDERED: Vancomycin 1,750 MG in D5% in Water 500 ML IVPB SCH (18:00)
[2016-06-03] MEDS: Insulin DETEMIR 100 UNIT/ML X5UNITS SQ SCH (20:33)
[2016-06-03] MEDS ORDERED: Insulin LISPRO 300 UNITS/3 ML VIAL SQ SCH (21:00)
[2016-06-04 05:25] LABS: Basophils # 0.1 K/mcL (0.0-0.2); Basophils % 0.5 %; Eosinophils # 0.5 K/mcL (0.0-0.6); Eosinophils % 3.6 %; Hematocrit 31.8 % (37.5-50.1); Hemoglobin 10.5 g/dL (12.9-16.9); Immature Granulocytes % 0.9 % (0-4); Lymphocytes # 2.7 K/mcL (0.6-4.6); Lymphocytes % 21.4 %; Mean Corpuscular Hemoglobin 28.2 pg (28.0-33.3); Mean Corpuscular Volume 85.3 fL (83.0-100.0); Mean Platelet Volume 9.6 fL (9.4-12.4); Monocytes # 1.5 K/mcL (0.0-1.3); Monocytes % 11.9 %; Neutrophils # 7.9 K/mcL (1.6-8.9); Platelet Count 309 K/mcL (140-400); Red Blood Count 3.73 M/mcL (4.19-5.50); Red Cell Distribution Width 12.1 % (11.5-14.5); Segmented Neutrophils % 61.7 %
[2016-06-04 05:42] LABS: BUN/Creatinine Ratio 10 (6-26); Blood Urea Nitrogen 14 mg/dL (8-26); Calcium 9.1 mg/dL (8.6-10.8); Carbon Dioxide 24 mEq/L (19-29); Chloride 107 mEq/L (98-109); Glucose 200 mg/dL (70-99); Osmolality,Calculated 290 (280-300); Potassium 4.1 mEq/L (3.5-4.5); Sodium 137 mEq/L (136-145); eGFR For African Americans > 60 (> 60); eGFR For Non-African Americans 55 (> 60)
[2016-06-04] MEDS: 0.9 % Sodium Chloride 1,000 ML IVC SCH (06:33)
[2016-06-04] MEDS: *HR* Enoxaparin 40 MG/0.4 ML SYRINGE SQ SCH (06:34)
--- NOTE | 2016-06-04 06:35 | Electrocardiograph Report ---
[address] [place], [place] [address] Test Date: 2016-06-02 Pat Name: Jeb Ocasio Department: 104 Room: 3B45 Gender: M Employment Counselor: DEEPIKA : 1965 Requested By: Aníbal Valdes Order Number: [id number] Reading MD: Fidel Yanez MD Measurements Intervals [place] Rate: 90 P: 23 NE: 173 QRS: -9 QRSD: 105 T: 16 QT: 362 QTc: 409 Interpretive Statements SINUS RHYTHM INCOMPLETE RIGHT BUNDLE BRANCH BLOCK Electronically Signed On 06-04-2016 6:33:12 EDT by Fidel Yanez MD
[2016-06-04] MEDS ORDERED: Piperacillin/Tazobactam 3.375 GM in D5% in Water (Mini-Bag+) 100 ML IVPB SCH (07:00)
--- NOTE | 2016-06-04 07:23 | Venous Imaging Report ---
LE Venous Duplex Patient Name:Jeb Ocasio Order Number:[id number] Procedure Date:06/03/2016 Date:1965Age:50 yrs Gender:Male Location:[facility] Room #: 3B45 Service Writer Advisor:Barbara Paz Referring MD:Catarino Florence MD wet process miller head:Lashaun Connor, WATER TENDER Reading MD:Adonis Patel MD Primary Indications:right calf pain Secondary Indications: Risk Factors Yes/No Anticoagulants Yes Impressions: Right lower extremity: normal superficial and deep exam. Recommendations: After imaging the patient returned to their room. Findings Venous Duplex Results: Right: Venous imaging of the lower extremity reveals full patency and normal vessel compressibility of the right distal iliac, right common femoral, right superficial femoral, right popliteal, right posterior tibial, right peroneal, right great saphenous and right lesser saphenous. Doppler signals in the evaluated veins were normal. Left: Venous imaging of the lower extremity reveals full patency and normal vessel compressibility of the left common femoral. Doppler signals in the evaluated veins were normal. Lower Extremity Venous Duplex Side Vein Compress Spontaneous Flow Augment Diameter (cm) Depth (cm) Right Distal Iliac Normal Yes Phasic Yes Right Common Femoral Normal Yes Phasic Yes Right Superficial Femoral Normal Yes Phasic Yes Right Popliteal Normal Yes Phasic Yes Right Posterior Tibial Normal Yes Phasic Yes Right Peroneal Normal Yes Phasic Yes Right Great Saphenous Normal Yes Phasic Yes Right Lesser Saphenous Normal Yes Phasic Yes Left Common Femoral Normal Yes Phasic Yes Updated by Adonis Paetl MD on 06/04/2016 7:17:11 AM electronically signed on 06/04/2016 7:17:31 AM with status of Approved electronically signed on 06/04/2016 7:17:39 AM with status of Final
[2016-06-04] MEDS ORDERED: Aspirin Enteric Coated 81 MG Tablet PO SCH (09:00)
[2016-06-04] MEDS: Insulin LISPRO 300 UNITS/3 ML VIAL SQ SCH ×2 (09:33→12:07)
[2016-06-04] MEDS: Gabapentin 300 MG CAPSULE PO SCH (09:34)
[2016-06-04] MEDS: Metoprolol XL (24 HR) Succ 50 MG TAB.ER.24H PO SCH (09:35)
[2016-06-04] MEDS: Isosorbide MONOnitrate (24 HR) 60 MG TAB.ER.24H PO SCH (09:35)
[2016-06-04] MEDS: Lisinopril-HCTZ 20-12.5mg TABLET PO SCH (09:35)
[2016-06-04] MEDS: amLODIPine 5 MG TABLET PO SCH (09:36)
[2016-06-04] MEDS: Insulin DETEMIR 100 UNIT/ML X5UNITS SQ SCH (09:39)
--- NOTE | 2016-06-04 11:44 | Arterial Study Report ---
LE Arterial Physiologic Study Patient Name:Jeb Ocasio Order Number:[id number] Procedure Date:06/03/2016 Date:1965Age:50 yrs Gender:Male Lt BP:126 / mmHg Rt.BP:120 / mmHgHeart Rate: Location:[facility] Room #: [facility] Joiners Supervisor:Barbara Paz Referring MD:Catarino Florence MD veterans adviser:Lashaun Connor, PSYCHOLOGIST ENGINEERING Reading MD:Adonis Patel MD Primary Indications:ulcer of right great toe Impressions: 1) Bilateral lower extremities waveform demonstrates normal hemodynamics. 2) bilateral Ankle Brachial Index is normal. 3) Overall Impression: Arterial hemodynamics are well maintained at rest. Recommendations: After imaging the patient returned to their room. Findings LE Arterial Physiologic Exam: Segmental Pressures: Right: The right posterior tibial pressure is 190 mmHg with an index of 1.51. The right dorsalis pedis pressure is 163 mmHg with an index of 1.29. Left: The left posterior tibial pressure is 194 mmHg with an index of 1.54. The left dorsalis pedis pressure is 182 mmHg with an index of 1.44. PVR: Right: The PVR waveforms are normal in the right ankle. Left: The PVR waveforms are normal in the left ankle. Prior Study: No prior study available for comparison. Segmental Pressures Side Location Pressure Index Result Right Posterior Tibial 190 1.51 Right Dorsalis Pedis 163 1.29 Left Posterior Tibial 194 1.54 Left Dorsalis Pedis 182 1.44 Ankle Brachial Index Right Systolic Diastolic ANUPAM Brachial 120 1.51 Dorsalis Pedis 163 1.29 Posterior Tibial 190 1.51 Left Systolic Diastolic ANUPAM Brachial 126 1.54 Dorsalis Pedis 182 1.44 Posterior Tibial 194 1.54 Updated by Adonis Patel MD on 06/04/2016 11:39:56 AM with Status of Final electronically signed on 06/04/2016 11:40:14 AM with status of Final
--- NOTE | 2016-06-04 11:49 | Podiatry Progress Note ---
Date of Encounter: 06/04/16 Time of Encounter: 09:00 - Assessment and Plan (1) Right calf pain Current Visit: Yes Status: Acute Venous duplex negative for DVT of RLE. (2) Foot ulcer due to secondary DM Current Visit: No Status: Acute Ulcer of right great toe unchanged over the past 24 hours. Dry eschar present to wound bed. WBC trending down and 12.7 today. Xray of right foot negative for osteomyelitis. ABIs of BLE completed on 06/03/16 and abnormal: ANUPAM right-1.51 ANUPAM left-1.54 Due to ANUPAM >1.3, ANUPAM with toe pressures ordered and TCPO2. Vascular consulted and spoke with Dr. Patel. Continue wound care as ordered. Diabetic cast boot ordered for RLE. Will continue to follow patient closely. Subjective Interval history: Podiatry is lying in bed with a dressing intact to the right great toe. Podiatry was consulted yesterday for an ulcer to the right great toe. Wound care orders were written for BID dressing changes with Brad. ABIs were ordered of BLE came back abnormal, ANUPAM right-1.51 ANUPAM left-1.54. A venous duplex of the RLE was ordered due to right calf pain and was negative for a DVT. Ulcer is unchanged over the past 24 hours. Patient states he continue to have RLE pain medial aspect of the lower leg. No c/o fever, chills, n/v overnight. Objective - Vital Signs Vital Signs: Vital Signs Temp Pulse Resp BP Pulse Ox 06/04/16 10:49 98.4 F 83 16 148/88 93 06/04/16 07:53 98.1 F 81 17 144/78 06/04/16 04:16 99.1 F 81 17 128/77 94 06/03/16 23:46 98.8 F 81 14 145/71 95 06/03/16 19:41 95 06/03/16 19:16 98.4 F 80 15 124/64 93 06/03/16 14:55 98.1 F 83 16 160/81 94 Intake and Output 06/03/16 06/04/16 06/04/16 23:59 07:59 15:59 Intake Total 600 / 600 1000 / 1000 450 / 450 Output Total 600 / 600 700 / 700 650 / 650 Balance 0 / 0 300 / 300 -200 / -200 Intake: IV Fluids 600 / 600 1000 / 1000 0.9 % Sodium Chloride 1, 1000 / 1000 000 ML @ 75 mls/hr IVC . [id number] Rx#: [id number] Zosyn 3.375 GM In 100 / 100 Dextrose 5% (Minibag+) 100 ML 100 ML @ 25 mls/hr IVPB Q8HR KHUSHI Rx#: [id number] Vancocin 1,750 MG In 500 / 500 Dextrose 5% 500 ML @ 333. 34 mls/hr IVPB Q24H [facility] Rx#:[id number] Oral 0 / 0 450 / 450 Output: Urine 600 / 600 700 / 700 650 / 650 Other: Meal Breakfast Percent of Meal Consumed 100% Weight 105.4 kg Blood Glucose* 339 132 246 Patient Weight 06/04/16 23:59 Weight 105.4 kg - Exam Exam: General appearance: alert awake oriented X 3. Calm and pleasant, no acute distress.. Vascular: Pedal pulses +2/4 DP/PT left and +1/4 right , Skin Temperature warm, No calf pain with manual compression. capillary refill time is immediate to digits Ulcer: Unstageable deep tissue injury to the medial aspect of the right great toe measuring 3 cm in length x 4 cm in width x 0.1 cm in depth. Base of wound with eschar and dry. Wound edges are connected no purulent drainage, no odor, no tunneling, no sinus tracts, no exposed bone, no ligament, no tendon, no ascending cellulitis, no pus, no odor, no active drainage. Mild edema to the right foot and leg. - Lab Result Diagrams: 06/04/16 04:09 06/04/16 04:09 Labs: Abnormal lab results WBC 12.7 K/mcL (4.3-11.1) H 06/04/16 04:09 RBC 3.73 M/mcL (4.19-5.50) L 06/04/16 04:09 Hgb 10.5 g/dL (12.9-16.9) L 06/04/16 04:09 Hct 31.8 % (37.5-50.1) L 06/04/16 04:09 Monocytes # 1.5 K/mcL (0.0-1.3) H 06/04/16 04:09 ESR 80 mm/hr (0-10) H 06/03/16 03:55 PT 12.2 Seconds (9.4-12.1) H 06/03/16 03:55 Creatinine 1.37 mg/dL (0.72-1.25) H 06/04/16 04:09 Est GFR (Non-Af Amer) 55 (> 60) L 06/04/16 04:09 Glucose 200 mg/dL (70-99) H 06/04/16 04:09 POC Glucose 246 (58-89) H 06/04/16 10:46 Hemoglobin A1c 8.2 % (-5.6) H 06/03/16 03:55 C-Reactive Protein 87 mg/L (Less than 5) H 06/03/16 03:55 Albumin 2.2 g/dL (3.5-5.0) L 06/03/16 03:55 Globulin 4.1 g/dL (2.4-3.5) H 06/03/16 03:55 Albumin/Globulin Ratio 0.5 (1.1-2.2) L 06/03/16 03:55 LDL Cholesterol, Calc 104 mg/dL (0-99) H 06/03/16 03:55 HDL Cholesterol 25 mg/dL (40-59) L 06/03/16 03:55 Cholesterol/HDL Ratio 6.0 (0-4.9) H 06/03/16 03:55 Urine Protein 100 mg/dL (Neg-Trace) H 06/03/16 00:05 Urine Blood Trace (Negative) H 06/03/16 00:05 Ur Squamous Epith Cells Moderate per lpf (None-Few) H 06/03/16 00:05 Consult Discharge Plan - Plan Referrals: Lashaun Connor, TENTER FEEDER [Primary Care Provider] - 06/11/16 10:00 am
[2016-06-04] MEDS: *HR* OxyCODONE Immed Rel 5 MG TABLET PO PRN (12:07)
--- NOTE | 2016-06-04 13:57 | Vascular/Endovasc Consult Note ---
Date of Encounter: 06/04/16 Time of Encounter: 13:50 Assessment and Plan (1) Foot ulcer due to secondary DM Current Visit: No Status: Acute With currrent ANUPAM's and waveforms, arterial flow to the foot is within normal limits. I would recommend antibiotic and well as local wound care with debridement. No further arterial workup is necessary. Likely local pressure on an area of neuropathy as the etiology with poor healing due to diabetes - History of Present Illness Consult date: 06/04/16 Requesting physician: Cy Roman Consult reason: Right Great Toe Ulcer Chief complaint: Right Great toe ulcer History of present illness: Mr. Ocasio is a 50 year old male diabetic with forefoot neuropathy. He recently developed an escgar on the medial aspect of his right great toe. He is admitted for treatment of diabetic foot infection. As part of his evaluation, ANUPAM"s were ordered. The right ANUPAM is 1.4 and the left ANUPAM is 1.5. He does have edema of the right ankle , but the pedal pulses are palpable. No previous history of diabetic foot infections or tissue loss. No previous vascular surgery. Past Med Surg Social Fam HX - Past Medical History Medical history: arthritis, asthma, coronary artery disease, diabetes, GERD, hyperlipidemia, hypertension, myocardial infarction, osteoporosis (Vitamin D Deficiency.), peripheral artery disease, renal disease (CKD III. Secondary hyperparathyroidism.), other (DM peripheral neuropathy. Chronic MSK pain syndrome. ED. Chronic sinusitis) Psychiatric history: no psych history, other - Past Surgical History Surgical History: angioplasty/stent, other - Social History Smoking Status: Never smoker Smokeless Tobacco Status: No Alcohol use: none, unknown Drug use: none, unknown - Family History Brother Living Status: Still Living Hx Family Cardiac Disorders: No Hx Family Respiratory Disorders: No Hx Family Cancer: No Hx Family GI Disorders: No Hx Family Endocrine Disorder: No Hx Family Neuromuscular Disorders: No Hx Family Neurologic Disorders: No Hx Family HEENT Disorders: No Hx Family Autoimmune Disorders: No Mother Adopted: No Family Member Ethnicity: Non- Living Status: Hx Family Cardiac Disorders: Yes (HTN) Hx Family Respiratory Disorders: No Hx Family Cancer: Yes (Colon) Hx Family GI Disorders: No Hx Family Endocrine Disorder: Yes (DM) Hx Family Neuromuscular Disorders: No Hx Family Neurologic Disorders: No Hx Family HEENT Disorders: No Hx Family Autoimmune Disorders: No Father Adopted: No Living Status: Hx Family Cardiac Disorders: Yes Hx Family Respiratory Disorders: Yes Hx Family Cancer: Yes (Liver/lung) Hx Family GI Disorders: No Hx Family Endocrine Disorder: Yes Hx Family Neuromuscular Disorders: No Hx Family Neurologic Disorders: No Hx Family HEENT Disorders: No Hx Family Autoimmune Disorders: No Medications and Allergies Albuterol Sulfate [Albuterol Inhaler] 2 puff IH Q4HR PRN 03/30/16 [History] Amlodipine [Norvasc] 10 mg PO DAILY 03/30/16 [History] Atorvastatin Calcium [Lipitor] 80 mg PO DAILY 03/30/16 [History] Clopidogrel [Plavix] 75 mg PO DAILY 03/30/16 [History] Cyclobenzaprine [Flexeril] 5 mg PO TID PRN 03/30/16 [History] Dulaglutide [Trulicity] 1.5 mg SQ FR 03/30/16 [History] Gabapentin [Neurontin] 600 mg PO TID 03/30/16 [History] Insulin Glargine,Hum.rec.anlog [Lantus Solostar] 60 unit SQ BID 03/30/16 [ History] Insulin LISPRO [Humalog Kwikpen U-100] 30 - 38 unit SQ TIDWM 03/30/16 [History] Isosorbide MONOnitrate (24 HR) [Imdur] 120 mg PO DAILY 03/30/16 [History] Lisinopril/Hydrochlorothiazide [Zestoretic 20-12.5 mg Tablet] 2 tab PO DAILY 01/03 [History] Metformin [Glucophage] 1,000 mg PO BID 03/30/16 [History] Metoprolol XL (24 HR) Succ [Toprol Xl] 50 mg PO DAILY 03/30/16 [History] Nitroglycerin [Nitrostat] 0.4 mg SL Q5M PRN 03/30/16 [History] Oxycodone HCl/Acetaminophen [Percocet 10-325 mg Tablet] 1 - 2 tab PO QID PRN 01/03 [History] Promethazine [Phenergan] 12.5 mg PO Q6HR PRN 03/30/16 [History] Ondansetron ODT [Zofran ODT] 4 mg SL Q8HR PRN #15 tab.rapdis 05/27/16 [Rx] Aspirin Enteric Coated [Aspirin EC] 325 mg PO DAILY 06/02/16 [History] Ergocalciferol (VITAMIN D2) [Vitamin D2] 50,000 unit PO 2XW 06/02/16 [History] Furosemide [Lasix] 20 mg PO DAILY 06/02/16 [History] Diclofenac Sodium [Voltaren] 1 appl TP BID 06/03/16 [History] Allergies ketoconazole Adverse Reaction (Verified 05/27/16 21:06) Redness of Skin All Systems Review: A 10-system review of systems was performed and is negative for pertinent findings except as documented above in the HPI. Exam Vital Signs, Last 4 Hours Temp Pulse Resp BP Pulse Ox 06/04/16 10:49 98.4 F 83 16 148/88 93 General: Present: No Apparent Distress HEENT: Present: Trachea midline, Pupils equal Cardiac: Present: Reg Rate and Rhythm, Normal S1 and S2, No Murmur Lungs: Present: Normal Breath Sounds, No Wheeze, Rales, Rhonchi Neuro: Present: Alert and responsive, No focal deficits noted, Other (Forefoot neuropathy) Abdomen: Present: Soft, Non-tender Vascular: Present: Pulse, normal (Palpable DP/PT both lower extremities), Edema (right ankle) Consult Discharge Plan - Plan Referrals: Lashaun Connor CNP [Primary Care Provider] - 06/11/16 10:00 am
--- NOTE | 2016-06-04 14:20 | Discharge Summary ---
Date of Encounter: 06/04/16 Time of Encounter: 09:30 - Discharge Diagnosis (1) Foot ulcer due to secondary DM Priority: Primary Status: Acute Comments: Podiatry was on board during this admission. Vascular brought on board as well and cleared him for outpatient follow-up. Of note, there were no indications of sepsis or SIRS during this admission. Heart rate and blood pressure remained stable. Leukocytosis trended down. No lactic acidosis. (2) Right calf pain Priority: Primary Status: Acute Comments: DVT ruled out (3) Hypertension Priority: Secondary Status: Chronic Comments: controlled/borderline hypertensive at times. No indication to adjust his medications at this time, recommend daily blood pressure checks at home, keeping a log, and following up outpatient Qualifiers: Hypertension type: unspecified secondary hypertension Qualified Code(s): I15.9 - Secondary hypertension, unspecified; I15 - Secondary hypertension (4) Diabetes Priority: Secondary Status: Chronic Comments: Relatively well controlled with an A1c of 8.2%. He was seen by educator senior clinical during this admission, follow-up outpatient Qualifiers: Diabetes mellitus type: type 2 Diabetes mellitus complication status: with kidney complications Diabetes mellitus complication detail: with chronic kidney disease Diabetes mellitus billet driller insulin use: with penitentiary use Chronic kidney disease stage: stage 3 (moderate) Qualified Code(s): E11.22 - Type 2 diabetes mellitus with diabetic chronic kidney disease; N18.3 - Chronic kidney disease, stage 3 (moderate); Z79.4 - assisted (current) use of insulin (5) Leukocytosis Priority: Primary Status: Acute Comments: Trended down throughout this admission. Mild. Treated with vancomycin and Zosyn while admitted, will discharge with 1 week's worth of Keflex (6) Hyperlipemia Priority: Secondary Status: Chronic Comments: Lipid panel unremarkable, recommend continue high-dose statin and low cholesterol diet Qualifiers: Hyperlipidemia type: mixed hyperlipidemia Qualified Code(s): E78.2 - Mixed hyperlipidemia (7) CAD (coronary artery disease) Priority: Secondary Status: Chronic Qualifiers: Coronary Disease-Associated Artery/Lesion type: [place] artery [place] vs. transplanted heart: [place] heart Associated angina: without angina Qualified Code(s): I25.10 - Atherosclerotic heart disease of [place] coronary artery without angina pectoris (8) Sleep apnea, obstructive Priority: Secondary Status: Chronic (9) CKD (chronic kidney disease) stage 3, GFR 30-59 ml/min Priority: Secondary Status: Chronic Comments: Initial acute kidney injury superimposed on chronic kidney disease resolved, consistent with his baseline on day of discharge (10) Obesity (BMI 30-39.9) Priority: Secondary Status: Chronic - Discharge Medications Prescriptions: Cephalexin [Keflex] 500 mg PO BID #14 capsule Collagenase Oint [Santyl] 30 appl TP BID #1 tube Home Medications: Albuterol Sulfate [Albuterol Inhaler] 2 puff IH Q4HR PRN 03/30/16 [History] Amlodipine [Norvasc] 10 mg PO DAILY 03/30/16 [History] Atorvastatin Calcium [Lipitor] 80 mg PO DAILY 03/30/16 [History] Clopidogrel [Plavix] 75 mg PO DAILY 03/30/16 [History] Cyclobenzaprine [Flexeril] 5 mg PO TID PRN 03/30/16 [History] Dulaglutide [Trulicity] 1.5 mg SQ FR 03/30/16 [History] Gabapentin [Neurontin] 600 mg PO TID 03/30/16 [History] Insulin Glargine,Hum.rec.anlog [Lantus Solostar] 60 unit SQ BID 03/30/16 [ History] Insulin LISPRO [Humalog Kwikpen U-100] 30 - 38 unit SQ TIDWM 03/30/16 [History] Isosorbide MONOnitrate (24 HR) [Imdur] 120 mg PO DAILY 03/30/16 [History] Lisinopril/Hydrochlorothiazide [Zestoretic 20-12.5 mg Tablet] 2 tab PO DAILY 01/03 [History] Metformin [Glucophage] 1,000 mg PO BID 03/30/16 [History] Metoprolol XL (24 HR) Succ [Toprol Xl] 50 mg PO DAILY 03/30/16 [History] Nitroglycerin [Nitrostat] 0.4 mg SL Q5M PRN 03/30/16 [History] Oxycodone HCl/Acetaminophen [Percocet 10-325 mg Tablet] 1 - 2 tab PO QID PRN 01/03 [History] Promethazine [Phenergan] 12.5 mg PO Q6HR PRN 03/30/16 [History] Ondansetron ODT [Zofran ODT] 4 mg SL Q8HR PRN #15 tab.rapdis 05/27/16 [Rx] Aspirin Enteric Coated [Aspirin EC] 325 mg PO DAILY 06/02/16 [History] Ergocalciferol (VITAMIN D2) [Vitamin D2] 50,000 unit PO 2XW 06/02/16 [History] Furosemide [Lasix] 20 mg PO DAILY 06/02/16 [History] Diclofenac Sodium [Voltaren] 1 appl TP BID 06/03/16 [History] Cephalexin [Keflex] 500 mg PO BID #14 capsule 06/04/16 [Rx] Collagenase Oint [Santyl] 30 appl TP BID #1 tube 06/04/16 [Rx] Allergies/Adverse Reactions: Allergies ketoconazole Adverse Reaction (Verified 05/27/16 21:06) Redness of Skin Procedures/tests Complete & Pending: Procedures Performed prior 72 hours Category Date Time Status EV ankle brachial index Routine Y 06/03/16 Completed EV ankle brachial index Stat Y 06/04/16 09:37 Ordered EV tcpo2 Stat Y 06/04/16 09:34 Ordered Venous Doppler [EV venous imaging LE RT] Stat Y 06/03/16 11:36 Completed Date of admission: 06/02/16 21:41 Primary care physician: Lashaun Connor CNP Consults: 06/02/16 22:16 Consult to Food Service Counter Clerk [CONS] Routine Comment: 06/03/16 08:00 Consult to Physician [CONS] Routine Consulting Provider: Cy Roman Reason for Consult: Poorly controlled diabetes mellitus with presentation of diabetic foot wound and gangrene on for right great toe. Please evaluate and advise. Time Notified: 22:23 Call Completed: Yes 06/03/16 09:00 Consult to Wound Care [CONS] Routine Reason for Consult: Diabetic foot wound with gangrenous changes. Please evaluate and advise. Time Notified: 22:59 Call Completed: No 06/04/16 09:45 Consult to Physician [CONS] Routine Consulting Provider: Adonis Patel Reason for Consult: Elevated ANUPAM, right great toe ulcer. Time Notified: 09:45 Call Completed: Yes Discharging clinician: Natalie Baird Anticipated date of discharge: 06/04/16 - Patient Status Disposition: Home, Self-Care Condition: Fair Functional capacity at discharge: independent ambulation Overall status at discharge: patient is progressing back to baseline - Discharge Instructions Follow Up With: Lashaun Connor CNP [Primary Care Provider] - 06/11/16 10:00 am Cy Roman DPM [Partnered Physician] - Additional Instructions: Follow-up with primary care provider as scheduled. Follow-up with Dr. Roman in the wound clinic next Friday as scheduled - Diet and Activity Activity: increase activity as tolerated Diet: diabetic diet, low fat, low cholesterol, low salt diet Hospital course: Mr. Ocasio is a 50 year old male with past medical history of diabetes, chronic kidney disease stage III, ED, DM with peripheral neuropathy, hypertension, hyperlipidemia, CAD status post stents and CABG, chronic musculoskeletal pain. Patient was admitted to the emergency department chief complaint right foot and leg pain associated with swelling. Patient reported his right lower extremity pain and swelling started 5 days prior to presentation. He also neurologist devitalized tissue of his great toe for the past 2-3 weeks. Patient stating the pain was severe with any movement or weightbearing activities. Workup in the emergency department unremarkable except for an elevated ESR. Plain films of foot negative. Chest x-ray negative. No indication of SIRS or sepsis. Mild leukocytosis noted however heart rate and blood pressure were stable. No lactic acidosis. Blood cultures were negative. Urinalysis negative. He had right calf pain and venous Doppler examination ruled out a DVT. ABIs were obtained per podiatry recommendations. Vascular was then brought on board who cleared the patient for outpatient follow-up. Podiatry was on board during this admission and the patient was fitted with a diabetic cast boot prior to discharge. He will also follow-up with wound clinic within 1 week of discharge. He was discharged home in stable condition with close outpatient follow-up recommended. Of note, he was not given a prescription for pain medication at discharge as his OAR[facility] report indicates he received a 22 day supply of Endocet 10 mg on 06/01/16. ITS Impressions Foot X-Ray 06/02/16 19:47 IMPRESSION: No acute abnormality. D/ / Forrest José MD / Forrest José MD Interpreting Provider: Forrest José MD Chest X-Ray 04/16/17 20:36 IMPRESSION: 1. No acute cardiopulmonary disease. D/ / Anthony Ramon MD / Anthony Ramon MD Interpreting Provider: Anthony Ramon MD - Time Spent with Patient Total time spent providing and/or coordinating discharge services: - Constitutional Vitals: Temp Pulse Resp BP Pulse Ox 98.4 F 83 16 148/88 93 06/04/16 10:49 06/04/16 10:49 06/04/16 10:49 06/04/16 10:49 06/04/16 10:49 General appearance: Present: cooperative, A&O X 3, pleasant, no acute distress, obese, answers questions appropriately - Head Head exam: Present: atraumatic, normocephalic - Eye Eye exam: Present: PERRL, conjuntiva pink, sclera anicteric Pupils: Present: PERRL - Neck Neck exam general surgery: Present: supple, trachea midline. Absent: lymphadenopathy - Respiratory Respiratory exam: Present: CTAB. Absent: accessory muscle use, rales, respiratory distress, rhonchi, wheezes - Cardiovascular Cardiovascular exam: Present: RRR, +S1, +S2. Absent: diastolic murmur, gallop, rubs, systolic murmur - GI/Abdominal GI/Abdominal exam: Present: normal bowel sounds, soft, no peritoneal signs. Absent: distended, tenderness - Extremities Exam Extremities exam: Present: warm, radial pulses palpable and symetrical. Absent : calf tenderness, cyanotic, pedal edema - Neurological Exam Neurological exam: Present: alert, CN II-XII intact, oriented X3, no focal deficits, strengths equal and symetr throughout. Absent: pronater drift, facial droop, speech deficit - Skin Skin exam: Present: dry, intact, normal color, warm
[2016-06-04 14:35] VITALS: BP 114/66
[2016-06-04] MEDS ORDERED: Aminoglycoside Consult 1 EACH MC ONE (17:11)
== END 2016-06-04 17:12 | disposition home or self-care (01) ==
LOC: 3BNU 19:13 → EMEROO 19:13 → SUATTDRO 21:41 → 3BNU 22:15
PROVIDERS: ADMIT Internal Medicine; ATTEND Nurse Practitioner Family

== ENCOUNTER 2016-06-19 14:18 | Inpatient (IN) ==
[2016-06-19 19:51] LABS: Basophils # 0.1 K/mcL (0.0-0.2); Basophils % 0.5 %; Eosinophils # 0.4 K/mcL (0.0-0.6); Eosinophils % 2.9 %; Hematocrit 37.1 % (37.5-50.1); Hemoglobin 12.1 g/dL (12.9-16.9); Immature Granulocytes % 0.4 % (0-4); Lymphocytes # 3.4 K/mcL (0.6-4.6); Lymphocytes % 23.6 %; Mean Corpuscular HGB Conc 32.6 g/dL (31.6-35.5); Mean Corpuscular Hemoglobin 27.4 pg (28.0-33.3); Mean Corpuscular Volume 83.9 fL (83.0-100.0); Mean Platelet Volume 9.1 fL (9.4-12.4); Monocytes # 1.4 K/mcL (0.0-1.3); Monocytes % 9.7 %; Platelet Count 493 K/mcL (140-400); Red Blood Count 4.42 M/mcL (4.19-5.50); Red Cell Distribution Width 12.4 % (11.5-14.5); Segmented Neutrophils % 62.9 %
[2016-06-19 20:20] LABS: Calcium 10.3 mg/dL (8.6-10.8); Potassium 4.3 mEq/L (3.5-4.5)
[2016-06-20] MEDS ORDERED: Nitroglycerin 0.4 MG TAB.SUBL SL PRN ×2 (00:48→11:59)
[2016-06-20] MEDS ORDERED: *HR* OxyCODONE/APAP 10/325 TABLET PO PRN ×2 (00:48→11:59)
[2016-06-20] MEDS ORDERED: D5% in Water 1,000 ML IVC PRN ×2 (00:51→11:59)
[2016-06-20] MEDS ORDERED: *HR* Dextrose 50 % in Water (Syg) 50 ML SYRINGE IVP PRN ×2 (00:51→11:59)
[2016-06-20] MEDS ORDERED: Dextrose Gel 15 GM PO PRN ×4 (00:51→11:59)
--- NOTE | 2016-06-20 00:54 | Internal Medicine Consult Note ---
Date of Encounter: 06/20/16 Time of Encounter: 00:53 - Assessment and Plan (1) Osteomyelitis of toe of right foot Current Visit: Yes Status: Acute Assessment and plan: Pt is suspected to have osteomyelitis of the distal phalanx of the 1st toe. Resin Coater is expected to surgically explore. No antibiotics at this time per software quality assurance analyst (2) Foot ulcer Current Visit: Yes Status: Chronic Qualifiers: Laterality: right Non-pressure ulcer stage: unspecified non-pressure ulcer stage Qualified Code(s): L97.519 - Non-pressure chronic ulcer of other part of right foot with unspecified severity (3) CKD (chronic kidney disease) stage 3, GFR 30-59 ml/min Current Visit: Yes Status: Chronic Assessment and plan: Monitor renal function (4) Diabetes Current Visit: Yes Status: Chronic Assessment and plan: Sliding scale insulin; can resume insulin at home dose, post surgery. Qualifiers: Diabetes mellitus type: type 2 Diabetes mellitus complication status: with kidney complications Diabetes mellitus complication detail: with chronic kidney disease Diabetes mellitus penitentiary insulin use: with associate store manager use Chronic kidney disease stage: stage 3 (moderate) Qualified Code(s): E11.22 - Type 2 diabetes mellitus with diabetic chronic kidney disease; N18.3 - Chronic kidney disease, stage 3 (moderate); Z79.4 - mixing machine tender cork gasket (current) use of insulin (5) Hyperlipemia Current Visit: Yes Status: Chronic Assessment and plan: Continue home medications Qualifiers: Hyperlipidemia type: mixed hyperlipidemia Qualified Code(s): E78.2 - Mixed hyperlipidemia (6) Hypertension Current Visit: Yes Status: Chronic Assessment and plan: Continue antihypertensives Qualifiers: Hypertension type: unspecified secondary hypertension Qualified Code(s): I15.9 - Secondary hypertension, unspecified; I15 - Secondary hypertension (7) Obesity (BMI 30-39.9) Current Visit: Yes Status: Chronic Assessment and plan: Supportive care (8) DVT prophylaxis Current Visit: Yes Status: Acute Assessment and plan: subcutaneous heparin Internal Medicine - CN: HPI - Data of Consult Patient: known to practice within the last 3 years Consult date: 06/20/16 Requesting Physician: Cy Roman, - Consult Narrative Reason for consult: Medical management History of present illness: Mr. Ocasio is a 50 year old male with past medical history of diabetes mellitus, chronic kidney disease stage III, peripheral neuropathy, hypertension, hyperlipidemia, CAD status post stents. He has h/o ulcer over the right great toe. X-ray of the right toes reported comminuted intra-articular fracture of the first toe distal phalanx and proximal phalanx in near anatomic alignment. Bony resorption of the first toe distal phalanx along the plantar surface, suspicious for osteomyelitis. He is admitted to the Podiatry service for possible surgery / amputation. Hospitalist team is consulted for medical management. Resin Coater recommended not to start antibiotics at this time. Pt denies chest pain, shortness of breath, cough, expectation, fever, chills, nausea, vomiting, abdominal pain, dysuria, hematuria, change in bowel habits. He has a dressing to the right foot and denies significant pain at this time. Past Med Surg Social Fam HX - Past Medical History Medical history: arthritis, asthma, coronary artery disease, diabetes, GERD, hyperlipidemia, hypertension, peripheral artery disease, renal disease, valvular heart disease Psychiatric history: no psych history - Past Surgical History Surgical History: angioplasty/stent - Social History Smoking Status: Never smoker Smokeless Tobacco Status: No Alcohol use: none Drug use: none - Family History Brother Living Status: Still Living Hx Family Cardiac Disorders: No Hx Family Respiratory Disorders: No Hx Family Cancer: No Hx Family GI Disorders: No Hx Family Endocrine Disorder: No Hx Family Neuromuscular Disorders: No Hx Family Neurologic Disorders: No Hx Family HEENT Disorders: No Hx Family Autoimmune Disorders: No Mother Adopted: [place]: zenia ocasio Family Member Ethnicity: Non- Living Status: Age at : 63 Cause of : cancer Hx Family Cardiac Disorders: Yes (HTN) Hx Family Respiratory Disorders: No Hx Family Cancer: Yes (colon) Hx Family GI Disorders: No Hx Family Endocrine Disorder: Yes (DM) Hx Family Neuromuscular Disorders: No Hx Family Neurologic Disorders: No Hx Family HEENT Disorders: No Hx Family Autoimmune Disorders: No Father Adopted: [place]: [facility] bimal Family Member Ethnicity: Non- Living Status: Age at : 66 Cause of : cancer Hx Family Cardiac Disorders: Yes Hx Family Respiratory Disorders: Yes Hx Family Cancer: Yes (lung cancer) Hx Family GI Disorders: No Hx Family Endocrine Disorder: Yes Hx Family Neuromuscular Disorders: No Hx Family Neurologic Disorders: No Hx Family HEENT Disorders: No Hx Family Autoimmune Disorders: No Review of systems: 10 point review of systems done and is negative except for those mentioned in the HPI Internal Medicine - CN: Meds Albuterol Sulfate [Albuterol Inhaler] 2 puff IH Q4HR PRN 03/30/16 [History] Amlodipine [Norvasc] 10 mg PO DAILY 03/30/16 [History] Atorvastatin Calcium [Lipitor] 80 mg PO DAILY 03/30/16 [History] Clopidogrel [Plavix] 75 mg PO DAILY 03/30/16 [History] Dulaglutide [Trulicity] 1.5 mg SQ FR 03/30/16 [History] Gabapentin [Neurontin] 600 mg PO TID 03/30/16 [History] Insulin Glargine,Hum.rec.anlog [Lantus Solostar] 60 unit SQ BID 03/30/16 [ History] Insulin LISPRO [Humalog Kwikpen U-100] 30 - 38 unit SQ TIDWM 03/30/16 [History] Isosorbide MONOnitrate (24 HR) [Imdur] 120 mg PO DAILY 03/30/16 [History] Lisinopril/Hydrochlorothiazide [Zestoretic 20-12.5 mg Tablet] 2 tab PO DAILY 01/03 [History] Metformin [Glucophage] 1,000 mg PO BID 03/30/16 [History] Metoprolol XL (24 HR) Succ [Toprol Xl] 50 mg PO DAILY 03/30/16 [History] Nitroglycerin [Nitrostat] 0.4 mg SL Q5M PRN 03/30/16 [History] Oxycodone HCl/Acetaminophen [Percocet 10-325 mg Tablet] 1 - 2 tab PO QID PRN 01/03 [History] Ondansetron ODT [Zofran ODT] 4 mg SL Q8HR PRN #15 tab.rapdis 05/27/16 [Rx] Aspirin Enteric Coated [Aspirin EC] 325 mg PO DAILY 06/02/16 [History] Ergocalciferol (VITAMIN D2) [Vitamin D2] 50,000 unit PO 2XW 06/02/16 [History] Furosemide [Lasix] 20 mg PO DAILY 06/02/16 [History] Collagenase Oint [Santyl] 30 appl TP BID #1 tube 06/04/16 [Rx] Clindamycin [Cleocin] 300 mg PO Q6HR 06/19/16 [History] Levofloxacin [Levofloxacin] 500 mg PO DAILY 06/19/16 [History] Allergies ketoconazole Adverse Reaction (Verified 06/19/16 20:48) Redness of Skin Internal Medicine - CN: Exam - Constitutional Vitals: Temp Pulse Resp BP Pulse Ox 98.7 F 95 16 152/84 94 06/20/16 00:10 06/20/16 00:10 06/20/16 00:10 06/20/16 00:10 06/20/16 00:10 Exam: General: Not in acute distress at the time of my evaluation HEENT: Oral mucosa is moist. No conjunctival palor or scleral icterus Neck: No obvious neck swellings Lungs: Clear to auscultation Cardiac: Regular rate and rhythm. No significant murmurs Abdomen: Soft, non tender. Bowel sounds present Genitourinary: No mai catheter Neurological: Alert and oriented. No gross localizing deficits Psych: Not aggressive or agitated Extremities: There is dressing over the right foot Skin: No generalized rash Internal Medicine - CN: Reslt - Labs CBC & Chem 7: 06/19/16 19:24 06/19/16 19:24 Labs: Short CBC 06/19/16 Range/Units 19:24 WBC 14.3 H (4.3-11.1) K/mcL Hgb 12.1 L (12.9-16.9) g/dL Hct 37.1 L (37.5-50.1) % Plt Count 493 H (140-400) K/mcL Neutrophils # 9.0 H (1.6-8.9) K/mcL BMP 06/19/16 19:24 Sodium 140 Potassium 4.3 Chloride 107 Carbon Dioxide 23 BUN 24 Creatinine 1.57 H Glucose 97 Calcium 10.3 - EKG Data -: EKG Interpreted by Myself EKG shows normal: sinus rhythm - EKG Data EKG comments: No acute ST-T changes 06/20/16 05:00 Consult Discharge Plan - Plan Referrals: Lashaun Connor, LACQUER MACHINE FEEDER [Primary Care Provider] -
[2016-06-20] MEDS ORDERED: Insulin DETEMIR 100 UNIT/ML X5UNITS SQ ONE (06:00)
--- NOTE | 2016-06-20 07:16 | Podiatry History & Physical ---
History of Present Illness Chief complaint: right great toe ulcer HPI: Mr. Wallis is a 50 year old male admitted to [facility] for cellulitis of the right great toe with a necrotic ulceration. Patient has a medical history significant for diabetes mellitus with neuropathy, hypertension, dyslipidemia, CAD, PAD, PTCA stent 3/CABG, AMI, OA, CKD stage III, DDD, chronic MSK pain syndrome, chronic sinusitis, secondary hyperparathyroidism, CAD, asthma, and GERD. Patient was admitted two weeks ago for cellulitis and ulceration of the right great toe after patient had a bedside debridement performed by Dr. Roman on 05/29/16 in Wound Care. X-rays at that time were within normal limits. Patient was instructed on daily wound care with Santyl ointment to apply to the ulceration to the medial aspect of the right great toe. Patient was discharged on oral antibiotics and was instructed to follow up in wound care with Dr. Roman. Patient states he was seen by Dr. Roman in wound care on Friday06/17/16 and had Xrays of the right great toe taken due to regression in ulceration. X- ray of the right great toe showed a comminuted minimally displaced fracture of the first toe proximal phalanx and comminuted intra articular fracture first toe distal phalanx, right foot. Patient was evaluated in wound care yesterday and sent over for admission to the hospital for an amputation of the right great toe. Patient denies any fever, chills, chest pain, shortness of breath, or flu like symptoms. Patient denies any injury or trauma, to the right great toe over the past 2 weeks. Patient denies any pain to the right great toe. Patient states he has pain to the right anterior tibial region of the right lower extremity rates it an 8 out of 10. Patient had a venous duplex of the right lower extremity 2 weeks ago for right calf pain and was negative for a DVT. Patient denies any complications with anesthesia in the past. No family history of complications from anesthesia, no family pr medical history of malignant hypertension. All Systems Reviewed: A 10-system review of systems was performed and is negative for pertinent findings except as documented above in the HPI. - Constitutional Constitutional: as per HPI Past Med Surg Social Fam HX - Past Medical History Medical history: arthritis, asthma, coronary artery disease, diabetes, GERD, hyperlipidemia, hypertension, peripheral artery disease, renal disease, valvular heart disease Psychiatric history: no psych history - Past Surgical History Surgical History: angioplasty/stent - Social History Smoking Status: Never smoker Smokeless Tobacco Status: No Alcohol use: none Drug use: none - Family History Brother Living Status: Still Living Hx Family Cardiac Disorders: No Hx Family Respiratory Disorders: No Hx Family Cancer: No Hx Family GI Disorders: No Hx Family Endocrine Disorder: No Hx Family Neuromuscular Disorders: No Hx Family Neurologic Disorders: No Hx Family HEENT Disorders: No Hx Family Autoimmune Disorders: No Mother Adopted: [place]: zenia wallis Family Member Ethnicity: Non- Living Status: Age at : 63 Cause of : cancer Hx Family Cardiac Disorders: Yes (HTN) Hx Family Respiratory Disorders: No Hx Family Cancer: Yes (colon) Hx Family GI Disorders: No Hx Family Endocrine Disorder: Yes (DM) Hx Family Neuromuscular Disorders: No Hx Family Neurologic Disorders: No Hx Family HEENT Disorders: No Hx Family Autoimmune Disorders: No Father Adopted: [place]: yanni wallis Family Member Ethnicity: Non- Living Status: Age at : 66 Cause of : cancer Hx Family Cardiac Disorders: Yes Hx Family Respiratory Disorders: Yes Hx Family Cancer: Yes (lung cancer) Hx Family GI Disorders: No Hx Family Endocrine Disorder: Yes Hx Family Neuromuscular Disorders: No Hx Family Neurologic Disorders: No Hx Family HEENT Disorders: No Hx Family Autoimmune Disorders: No Medications and Allergies Albuterol Sulfate [Albuterol Inhaler] 2 puff IH Q4HR PRN 03/30/16 [History] Amlodipine [Norvasc] 10 mg PO DAILY 03/30/16 [History] Atorvastatin Calcium [Lipitor] 80 mg PO DAILY 03/30/16 [History] Clopidogrel [Plavix] 75 mg PO DAILY 03/30/16 [History] Dulaglutide [Trulicity] 1.5 mg SQ FR 03/30/16 [History] Gabapentin [Neurontin] 600 mg PO TID 03/30/16 [History] Insulin Glargine,Hum.rec.anlog [Lantus Solostar] 60 unit SQ BID 03/30/16 [ History] Insulin LISPRO [Humalog Kwikpen U-100] 30 - 38 unit SQ TIDWM 03/30/16 [History] Isosorbide MONOnitrate (24 HR) [Imdur] 120 mg PO DAILY 03/30/16 [History] Lisinopril/Hydrochlorothiazide [Zestoretic 20-12.5 mg Tablet] 2 tab PO DAILY 01/03 [History] Metformin [Glucophage] 1,000 mg PO BID 03/30/16 [History] Metoprolol XL (24 HR) Succ [Toprol Xl] 50 mg PO DAILY 03/30/16 [History] Nitroglycerin [Nitrostat] 0.4 mg SL Q5M PRN 03/30/16 [History] Oxycodone HCl/Acetaminophen [Percocet 10-325 mg Tablet] 1 - 2 tab PO QID PRN 01/03 [History] Ondansetron ODT [Zofran ODT] 4 mg SL Q8HR PRN #15 tab.rapdis 05/27/16 [Rx] Aspirin Enteric Coated [Aspirin EC] 325 mg PO DAILY 06/02/16 [History] Ergocalciferol (VITAMIN D2) [Vitamin D2] 50,000 unit PO 2XW 06/02/16 [History] Furosemide [Lasix] 20 mg PO DAILY 06/02/16 [History] Collagenase Oint [Santyl] 30 appl TP BID #1 tube 06/04/16 [Rx] Clindamycin [Cleocin] 300 mg PO Q6HR 06/19/16 [History] Levofloxacin [Levofloxacin] 500 mg PO DAILY 06/19/16 [History] Allergies ketoconazole Adverse Reaction (Verified 06/19/16 20:48) Redness of Skin Physical Exam - Constitutional Vitals: Temp Pulse Resp BP Pulse Ox 98.7 F 95 16 152/84 94 06/20/16 00:10 06/20/16 00:10 06/20/16 00:10 06/20/16 00:10 06/20/16 00:10 General appearance: no acute distress - Head Head exam: Present: atraumatic, normal inspection - Eye Eye exam: Present: EOMI, normal appearance, PERRL - ENT ENT exam: Present: normal exam - Neck Neck exam: Present: full ROM - Respiratory Respiratory exam: Present: CTAB - Cardiovascular Cardiovascular exam: Present: RRR, +S1, +S2 - GI/Abdominal GI/Abdominal exam: Present: normal bowel sounds, soft - Extremities Exam Extremities exam: Present: normal capillary refill, pedal edema (1+) - Neurological Exam Neurological exam: Present: oriented X3, strengths equal and symetr throughout - Vascular Capillary Refill: less than 3 seconds - Ankle & Foot Exam: Ulcer: necrotic ulceration to the dorsal, medial, plantar aspect of the right great toe. Malodorous, with scant amount of purulent drainage. Right great toe is globally erythematous and edematous. Results - Labs Result Diagrams: 06/19/16 19:24 06/19/16 19:24 Labs: Abnormal lab results WBC 14.3 K/mcL (4.3-11.1) H 06/19/16 19:24 Hgb 12.1 g/dL (12.9-16.9) L 06/19/16 19:24 Hct 37.1 % (37.5-50.1) L 06/19/16 19:24 MCH 27.4 pg (28.0-33.3) L 06/19/16 19:24 Plt Count 493 K/mcL (140-400) H 06/19/16 19:24 MPV 9.1 fL (9.4-12.4) L 06/19/16 19:24 Neutrophils # 9.0 K/mcL (1.6-8.9) H 06/19/16 19:24 Monocytes # 1.4 K/mcL (0.0-1.3) H 06/19/16 19:24 ESR >= 130 mm/hr (0-10) H 06/19/16 19:24 Creatinine 1.57 mg/dL (0.72-1.25) H 06/19/16 19:24 Est GFR ( Amer) 57 (> 60) L 06/19/16 19:24 Est GFR (Non-Af Amer) 47 (> 60) L 06/19/16 19:24 POC Glucose 346 (58-89) H 06/20/16 01:35 C-Reactive Protein 63 mg/L (Less than 5) H 06/19/16 19:24 H & H 06/19/16 Range/Units 19:24 Hgb 12.1 L (12.9-16.9) g/dL Hct 37.1 L (37.5-50.1) % All other labs normal. Assessment and Plan (1) Toe ulcer Current visit: No Status: Acute Necrotic ulceration to the right great toe with fractures to the distal and proximal phalanx secondary to infection. Admit for empiric IV antibiotics. Dr. Roman to plan on taking patient to surgery today for amputation of the right great toe. Continue NPO order. Qualifiers: Laterality: right Non-pressure ulcer stage: unspecified non-pressure ulcer stage Qualified Code(s): L97.519 - Non-pressure chronic ulcer of other part of right foot with unspecified severity (2) CKD (chronic kidney disease) stage 3, GFR 30-59 ml/min Current visit: Yes Status: Chronic (3) Hyperlipemia Current visit: Yes Status: Chronic Qualifiers: Hyperlipidemia type: mixed hyperlipidemia Qualified Code(s): E78.2 - Mixed hyperlipidemia (4) Hypertension Current visit: Yes Status: Chronic Qualifiers: Hypertension type: unspecified secondary hypertension Qualified Code(s): I15.9 - Secondary hypertension, unspecified; I15 - Secondary hypertension
[2016-06-20] MEDS ORDERED: Insulin LISPRO 300 UNITS/3 ML VIAL SQ SCH ×2 (07:30→21:00)
[2016-06-20] MEDS: amLODIPine 5 MG TABLET PO SCH ×2 (07:58→08:01)
[2016-06-20] MEDS ORDERED: Naloxone 0.4 MG/ML INJ IVP PRN ×2 (08:17→11:59)
[2016-06-20] MEDS ORDERED: *HR* Midazolam HCl 2 MG/2 ML VIAL ONE (08:51)
[2016-06-20] MEDS ORDERED: *HR* FentaNYL (PF) 100 MCG/2 ML VIAL ONE (08:51)
[2016-06-20] MEDS ORDERED: Lidocaine -MPF 2% 2 ML VIAL ONE (08:51)
[2016-06-20] MEDS ORDERED: Propofol 500 MG/50 ML INFUS..BTL ONE (08:51)
[2016-06-20] MEDS ORDERED: Ondansetron 4 MG/2 ML VIAL ONE (08:51)
[2016-06-20] MEDS ORDERED: Metoprolol XL (24 HR) Succ 50 MG TAB.ER.24H PO SCH (09:00)
[2016-06-20] MEDS ORDERED: Aspirin Enteric Coated 325 MG Tablet PO SCH (09:00)
[2016-06-20] MEDS ORDERED: Gabapentin 300 MG CAPSULE PO SCH (09:00)
[2016-06-20] MEDS ORDERED: Isosorbide MONOnitrate (24 HR) 60 MG TAB.ER.24H PO SCH (09:00)
[2016-06-20] MEDS ORDERED: Insulin DETEMIR 100 UNIT/ML X5UNITS SQ SCH (09:00)
--- NOTE | 2016-06-20 09:10 | Anesthesia Evaluation PreOp ---
Date of Encounter: 06/20/16 Time of Encounter: 09:08 - Past History Planned Operation: amp r great toe Cardiac History: HTN, Hyperlipidemia, Cardiac Stent (x 2 2011), Other (PAD) Pulmonary History: [employer]ore [employer] DEVELOPER History: Denies Any Significant HX Other Medical History: Renal (stage III), Diabetes Type II (231 at 7:11), GERD, Other (OA) Anesthesia History: No Prior Anesthetic Complications, Past Anesthesia Alcohol Use: none Drug use: none Medications and Allergies Albuterol Sulfate [Albuterol Inhaler] 2 puff IH Q4HR PRN 03/30/16 [History] Amlodipine [Norvasc] 10 mg PO DAILY 03/30/16 [History] Atorvastatin Calcium [Lipitor] 80 mg PO DAILY 03/30/16 [History] Clopidogrel [Plavix] 75 mg PO DAILY 03/30/16 [History] Dulaglutide [Trulicity] 1.5 mg SQ FR 03/30/16 [History] Gabapentin [Neurontin] 600 mg PO TID 03/30/16 [History] Insulin Glargine,Hum.rec.anlog [Lantus Solostar] 60 unit SQ BID 03/30/16 [ History] Insulin LISPRO [Humalog Kwikpen U-100] 30 - 38 unit SQ TIDWM 03/30/16 [History] Isosorbide MONOnitrate (24 HR) [Imdur] 120 mg PO DAILY 03/30/16 [History] Lisinopril/Hydrochlorothiazide [Zestoretic 20-12.5 mg Tablet] 2 tab PO DAILY 01/03 [History] Metformin [Glucophage] 1,000 mg PO BID 03/30/16 [History] Metoprolol XL (24 HR) Succ [Toprol Xl] 50 mg PO DAILY 03/30/16 [History] Nitroglycerin [Nitrostat] 0.4 mg SL Q5M PRN 03/30/16 [History] Oxycodone HCl/Acetaminophen [Percocet 10-325 mg Tablet] 1 - 2 tab PO QID PRN 01/03 [History] Ondansetron ODT [Zofran ODT] 4 mg SL Q8HR PRN #15 tab.rapdis 05/27/16 [Rx] Aspirin Enteric Coated [Aspirin EC] 325 mg PO DAILY 06/02/16 [History] Ergocalciferol (VITAMIN D2) [Vitamin D2] 50,000 unit PO 2XW 06/02/16 [History] Furosemide [Lasix] 20 mg PO DAILY 06/02/16 [History] Collagenase Oint [Santyl] 30 appl TP BID #1 tube 06/04/16 [Rx] Clindamycin [Cleocin] 300 mg PO Q6HR 06/19/16 [History] Levofloxacin [Levofloxacin] 500 mg PO DAILY 06/19/16 [History] Allergies ketoconazole Adverse Reaction (Verified 06/19/16 20:48) Redness of Skin - Meds/Allergy Pre-op Review Medications Reviewed: Yes Allergies Reviewed: Yes Beta Blockers on Current Med List: Yes If Beta Blockers taken, Date/Time (Last Dose taken): metoprolol at 08:01 Anesthesia Results - Labs 06/19/16 19:24 06/19/16 19:24 - Imaging EKG: report reviewed (sr) Anesthesia Exam Vital Signs/O2 Sat/Glucose, Most Current Temp Pulse Resp BP Pulse Ox 06/20/16 07:11 98.3 F 80 16 169/88 94 Height: 1.73 Weight: 103 NPO (# of Hours): >8 - HEENT Pupil (Motor): Pupils equal, EOMI Mallampati: III Teeth: Poor dentition Oral Opening: Greater than 3 - LEAD [employer] DEVELOPER LOC: Oriented [employer]PLICATION DEVELOPER Motor: Normal RUE, Normal LUE, Normal RLE, Normal LLE, Normal Face [employer] DEVELOPER Sensory: Normal: RUE, LUE, RLE, LLE, Face - Cardiac Rhythm: Regular Murmur: None - Pulmonary Breath Sounds: bilateral Clear Respiratory Effort: Symmetrical Anesthesia Assess/Plan ASA Score: 3 Modified [place] Scale for Level of Consciousness: Cooperative, oriented, and tranquil Anesthetic Plan: Regional, MAC Monitoring Plan: Standard Monitors Recovery Plan: Other
[2016-06-20] MEDS ORDERED: 0.9 % Sodium Chloride 1,000 ML IVC SCH ×2 (09:30→11:59)
[2016-06-20] MEDS ORDERED: Lidocaine 1% 20 ML MDV ONE (09:55)
[2016-06-20] MEDS ORDERED: Bupivacaine/Clonidine Syringe 1 EACH SYRINGE ONE (09:56)
--- NOTE | 2016-06-20 10:37 | Electrocardiograph Report ---
[place] [id number] Test Date: 2016-06-20 Pat Name: Jeb Ocasio Department: 114 Room: [facility] Gender: M Section Maintainer: [facility] : 1965 Requested By: Barrera Briceño Order Number: [id number] Reading MD: Cy Fish Measurements Intervals [place] Rate: 84 P: 32 VA: 181 QRS: -2 QRSD: 86 T: 9 QT: 370 QTc: 411 Interpretive Statements SINUS RHYTHM Electronically Signed On 06-20-2016 10:36:10 EDT by Cy Fish
[2016-06-20] MEDS ORDERED: Piperacillin/Tazobactam 3.375 GM in D5% in Water (Mini-Bag+) 100 ML IVPB ONE ×2 (11:00→11:59)
--- NOTE | 2016-06-20 11:50 | Orthopedic Operative Note ---
Date of procedure: 06/20/16 Pre-op diagnosis: #1 gangrene right great toe. #2 osteomyelitis right great toe Post-op diagnosis: same Procedure: 06/20/16 11:42 #1 incision to bone/cortex for osteomyelitis #2 amputation right great toe at level of MTPJ Implants: None Complications: None Anesthesia: MAC, local Local Anesthetics: 0.25% Sensorcaine HCL SubQ (cc) Surgeon: Cy Roman Estimated blood loss (cc): 10 Tourniquet Time (Minutes): 0 Specimen: Right great toe. Bone for culture. Aerobic and anaerobe swabs for culture Condition: stable Disposition: floor Procedure in Detail: 06/20/16 11:43 Details in summary of procedure: Patient brought to surgical suite. A sign in procedure was performed. Patient was then positioned properly safely and securely on the bed. The right foot was elevated on a foam block. The right ankle was then prepped with alcohol 3 times. Anesthetic timeout was taken. Patient underwent modified ankle block without difficulty or complication. The right foot was then prepped and draped in usual sterile manner. Surgical timeout was taken. The right great toe was identified because clinically infected with necrosis of the soft tissue, seeing the dorsal medial and medial plantar aspect of the right great toe. Anticipated incision line was drawn with a skin scribe beginning at the medial aspect first MTPJ and brought distally and dorsally across the aspect of the IPJ of the right great toe just proximal to the line of necrosis and then at the junction of the lateral plantar skin was brought proximally to the webspace. The plantar incision was then planned and drawn distally and proximally beginning at the medial aspect of the first MTPJ distally laterally and then meeting the dorsal incision in the first webspace. Satisfied with profound anesthesia the operation began. Using a #15 scalpel blade the incisions were placed dorsal incision first Gianni down to bone distally and then transversely across the great toe bleeding at the lateral webspace plan incision was then made creating a dorsal and plantar flap. The extensor flexor tendons were divided cleanly. The bone which noted to be have a pathologic fracture secondary to the infection on the distal aspect of proximal phalanx was not abnormal color texture and density. It was friable and zaragoza. Dividing the soft tissue and the bone cleanly with a # 15 scalpel blade the toe was then extirpated. This leave the distal aspect of the proximal phalanx exposed within the wound. Small amount of purulent exudate was noted on the dorsal lateral aspect of the wound itself and was immediately cultured aerobic and anaerobic. The proximal phalanx was then isolated at the level of periosteum to the metatarsophalangeal joint. The capsular structures were divided cleanly with a fresh 15 scalpel blade not scoring the capsular structure whatsoever. After extirpation of the proximal phalanx it was then sent for culture. The bone was obviously not abnormal color texture density or would be considered normal character of the bone itself. The remainder of the wound was unremarkable and free of any purulent drainage. Any nonviable tissue or suspicious tissue was gently debrided using Metzenbaum and pickup. At that juncture a ultrasonic Misonix debrider was used to completely debride the wound. No complications ensued bleeders encountered were bovied and tied with a 4-0 Vicryl ligature. Satisfied the soft tissue was completely clean and devoid of any suspicious nonviable tissue the wound was then remodeled the dorsal flap was then placed against the plantar flap and any redundant tissue was then removed accordingly with a #15 scalpel blade creating a fresh skin edge. There is no redundancy of the tissue. Skin edges were noted to coapt without tension. The wound was flushed with copious amounts sterile saline and inspection of the soft tissue once again revealed no complications or suspicious tissue. The wound was sprayed with PRP closure was uneventful using 3-0 Prolene running sutures. Skin edges were coaptated without tension Or rebound time of the skin edges was normal as and 3 seconds. There is no active bleeding hemostasis was achieved prior to closure. The wound was dressed with Adaptic 4 x 4's and Kerlix and a mild compressive dressing complications encountered none estimated blood loss less than 10 mL. Patient was sent to holding room in good condition with vital signs stable. Cultures aerobic and anaerobic Gram stain and bone culture. The patient was then given appropriate antibiotics after the toe was amputated and cultures were performed.
[2016-06-20] MEDS ORDERED: Ondansetron 4 MG/2 ML VIAL IVP PRN (12:24)
--- NOTE | 2016-06-20 14:35 | Event Note ---
Date of Encounter: 06/20/16 Time of Encounter: 14:35 50-year-old male with history of diabetes, hypertension, CAD, PVD, chronic kidney disease, was referred by podiatry clinic due to worsening right great toe infection. Right foot x-ray shows possible osteomyelitis in the distal phalanx with pathological intra-articular fractures involving right great toe. Patient has been admitted to podiatry service and underwent amputation of right great toe today, postoperative day 0. Intraoperative wound cultures have been sent. Patient is seen and examined. Resting comfortably in bed, denies right foot pain. Chest-S1-S2 heard. Lungs are clear to auscultation. Right great toe osteomyelitis- status post amputation of right great toe. Local wound care per podiatry. Follow-up blood and intraoperative wound cultures. Patient has been started on IV Zosyn after surgery. We will consult infectious disease for recommendations on duration of IV antibiotics. Continue management of other medical comorbidities.
[2016-06-20] MEDS: Gabapentin 300 MG CAPSULE PO SCH ×2 (15:18→20:57)
[2016-06-20] MEDS: Insulin LISPRO 300 UNITS/3 ML VIAL SQ SCH ×2 (16:59→20:56)
[2016-06-20] MEDS: *HR* Heparin 5,000 UNIT/ML VIAL SQ SCH (17:00)
[2016-06-20] MEDS ORDERED: *HR* Heparin 5,000 UNIT/ML VIAL SQ SCH (18:00)
[2016-06-20] MEDS: Insulin DETEMIR 100 UNIT/ML X5UNITS SQ SCH (20:56)
[2016-06-21 04:09] LABS: Basophils # 0.1 K/mcL (0.0-0.2); Basophils % 0.5 %; Eosinophils # 0.4 K/mcL (0.0-0.6); Eosinophils % 3.3 %; Hematocrit 32.3 % (37.5-50.1); Immature Granulocytes % 0.5 % (0-4); Lymphocytes # 3.3 K/mcL (0.6-4.6); Lymphocytes % 25.4 %; Mean Corpuscular HGB Conc 32.5 g/dL (31.6-35.5); Mean Corpuscular Hemoglobin 27.3 pg (28.0-33.3); Mean Corpuscular Volume 83.9 fL (83.0-100.0); Monocytes # 1.3 K/mcL (0.0-1.3); Monocytes % 10.1 %; Neutrophils # 7.8 K/mcL (1.6-8.9); Platelet Count 418 K/mcL (140-400); Red Blood Count 3.85 M/mcL (4.19-5.50); Red Cell Distribution Width 12.3 % (11.5-14.5); Segmented Neutrophils % 60.2 %
[2016-06-21 04:15] LABS: Hemoglobin 10.5 g/dL (12.9-16.9)
[2016-06-21 04:32] LABS: BUN/Creatinine Ratio 14 (6-26); Blood Urea Nitrogen 18 mg/dL (8-26); Calcium 9.3 mg/dL (8.6-10.8); Carbon Dioxide 24 mEq/L (19-29); Chloride 107 mEq/L (98-109); Glucose 165 mg/dL (70-99); Osmolality,Calculated 292 (280-300); Potassium 4.4 mEq/L (3.5-4.5); Sodium 138 mEq/L (136-145); eGFR For African Americans > 60 (> 60); eGFR For Non-African Americans 56 (> 60)
[2016-06-21] MEDS: *HR* Heparin 5,000 UNIT/ML VIAL SQ SCH ×3 (06:30→21:58)
[2016-06-21] MEDS: Insulin LISPRO 300 UNITS/3 ML VIAL SQ SCH ×4 (07:46→21:55)
[2016-06-21] MEDS ORDERED: Dulaglutide [Trulicity] 1.5 MG SQ SCH ×2 (09:00)
[2016-06-21] MEDS: Aspirin Enteric Coated 325 MG Tablet PO SCH (09:29)
[2016-06-21] MEDS: Cholecalciferol (D-3) 1,000 UNIT TABLET PO SCH (09:29)
[2016-06-21] MEDS: Isosorbide MONOnitrate (24 HR) 60 MG TAB.ER.24H PO SCH (09:29)
[2016-06-21] MEDS: Metoprolol XL (24 HR) Succ 50 MG TAB.ER.24H PO SCH (09:29)
[2016-06-21] MEDS: Gabapentin 300 MG CAPSULE PO SCH ×3 (09:29→21:49)
[2016-06-21] MEDS: amLODIPine 5 MG TABLET PO SCH (09:29)
[2016-06-21] MEDS: Insulin DETEMIR 100 UNIT/ML X5UNITS SQ SCH ×2 (09:30→21:58)
--- NOTE | 2016-06-21 11:38 | Infectious Disease Consult ---
Date of Encounter: 06/21/16 Time of Encounter: 11:34 Assessment and Plan (1) Osteomyelitis of toe of right foot Status: Acute Assessment and plan: Location: Right foot, great toe. Causative organism unclear. Likely E. faecalis and C. koseri based on wound culture obtained 06/17/16. Toe x-ray completed 06/17/16 showed comminuted fracture of the 1st toe distal phalanx and proximal phalanx in neat-anatomic alignment and OM of the 1st toe distal phalanx. Started oral Clindamycin 06/17/16 by the podiatry team. Status post incision to bone/cortex for OM and amputation of the right great toe at the MTPJ 06/20/[address] Roman. Operative report reviewed. Distal aspect of the proximal phalanx was friable and [place] and a small amount of purulent exudate was norted on the dorsal lateral aspect of the wound. Intra-operative cultures obtained and are pending. Gram stain shows abundant GNR. Await final ID and sensitivities. Given that the patient does have leukocytosis and evidence of infection, recommened starting broad-spectrum IV antibiotics until cultures come back. Start Zosyn 3.375 grams IV Q8H. Start Vancomycin IV. Pharmacy to dose. Goal trough approximately 15. De-escalate based on intra-operative cultures. Duration of treatment based on the clinical picture. IV vs. PO at discharge to be determined based on clinical picture. Will discuss with Dr. Roman. Monitor renal function and for drug toxicity and dose-adjust antibiotics. Wound care and activity restrictions as outlined by the primary team. (2) Right calf pain Status: Resolved Assessment and plan: Likely secondary to the right foot infection. Resolved. (3) Diabetic foot ulcer Status: Acute Assessment and plan: Location: Right great toe. Etiology unknown. Wound care as outlined by the podiatry team. Qualifiers: Diabetic foot ulcer location: toe Diabetes mellitus type: type 2 Laterality: right Non-pressure ulcer stage: unspecified non-pressure ulcer stage Qualified Code(s): E11.621 - Type 2 diabetes mellitus with foot ulcer; L97.519 - Non-pressure chronic ulcer of other part of right foot with unspecified severity (4) CKD (chronic kidney disease) stage 3, GFR 30-59 ml/min Status: Chronic Assessment and plan: Appears at baseline. Avoid nephrotoxins as able. Monitor renal function and dose-adjust antibiotics. (5) Obesity (BMI 30-39.9) Status: Chronic (6) Diabetes Status: Chronic Assessment and plan: Most recent A1C 8.2. Recommend aggressive glucose monitoring and treatment to promote wound healing and prevent re-infection. Management per the hospitalist team. 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 Ocasio is a 50 year old male with a past medical history of diabetes, see Avis stage III, peripheral neuropathy, hypertension, hyperlipidemia, GERD, PAD , and degenerative disc disease. The patient was admitted to the hospital June 21 for right great toe osteomyelitis. We are consulted June 21 for further evaluation and treatment recommendations regarding right great toe osteomyelitis. The patient's 50-year-old male with past medical history as stated above. The patient states that approximately 2 weeks ago he developed a blister of unknown etiology to the plantar aspect of his right great toe. He states he was seen by Dr. Roman in the wound clinic and ultimately ended up being admitted to the hospital. He received a short course of IV antibiotics and was subsequent switch to by mouth Keflex on discharge. The patient CT follow-up with Dr. Roman the wound clinic and underwent a toe x-ray that showed a comminuted intra- articular fracture of the first toe distal phalanx and proximal phalanx in near anatomic alignment. There was also evidence of bony resorption of the first toe distal phalanx along the plantar surface, suspicious for osteomyelitis. Wound culture obtained in the wound clinic was positive for Enterococcus faecalis and Citrobacter koseri. The patient was contacted by the podiatry service and instructed to come to the hospital for admission an amputation of the toe. Upon arrival, the patient was afebrile and was hemodynamically stable. Laboratory studies revealed a white blood cell count of 14.3 thousand with an ESR of greater than 130. The patient was taken to the operating room on June 20 and underwent incision to bone/cortex for osteomyelitis and amputation of the right great toe at the MTP joint. Intraoperative cultures were obtained and Gram stain shows gram-negative rods. The patient received 1 dose of IV Zosyn postoperatively. His white blood cell count is down to 13,000 today. He is currently not on any antibiotics. We've been asked to evaluate make further recommendations. During my exam today, the patient endorses a history as stated above. He reported some subjective fevers as well as chills and shivers prior to admission. He denied any headache or neck pain. He denies any chest pain, shortness of breath, or cough. He denied any nausea, vomiting, diarrhea, or constipation. He denied any elevation of his blood sugars and states that his fasting blood glucose has been less than 130. He reports that he was not having any pain in the foot, but was having pain in the distal portion of the lower extremity. He states that there are some swelling and discoloration of the affected toe, but no purulent drainage or foul odor. He states that since surgery, the pain in his lower extremity has resolved. He denies any new rashes or skin lesions. The patient lives at home with his and son and grandchild. He reports he has one outside dog. He denies recent travel. He denies any tobacco, alcohol, or illicit drug use. CC: Lexie Steele MD Past Med Surg Social Fam HX - Past Medical History Attestation: Yes The following information was validated with the patient. Source: patient, old records reviewed, nursing notes reviewed Medical history: arthritis, asthma, coronary artery disease, diabetes, GERD, hyperlipidemia, hypertension, peripheral artery disease, renal disease, valvular heart disease Psychiatric history: no psych history - Past Surgical History Surgical History: angioplasty/stent, other (Right lung decortication) - Social History Smoking Status: Never smoker Smokeless Tobacco Status: No Alcohol use: none Drug use: none Occupational status: disabled Current living situation: Home - Independent Activity Level: Independent ambulation Recent Out of Country Travel Within the Last 8 Weeks: No Exposure or Possible Exposure to Illness During Travel: No - Family History Brother Living Status: Still Living Hx Family Cardiac Disorders: No Hx Family Respiratory Disorders: No Hx Family Cancer: No Hx Family GI Disorders: No Hx Family Endocrine Disorder: No Hx Family Neuromuscular Disorders: No Hx Family Neurologic Disorders: No Hx Family HEENT Disorders: No Hx Family Autoimmune Disorders: No Mother Adopted: [place]: zenia ocasio Family Member Ethnicity: Non- Living Status: Age at : 63 Cause of : cancer Hx Family Cardiac Disorders: Yes (HTN) Hx Family Respiratory Disorders: No Hx Family Cancer: Yes (colon) Hx Family GI Disorders: No Hx Family Endocrine Disorder: Yes (DM) Hx Family Neuromuscular Disorders: No Hx Family Neurologic Disorders: No Hx Family HEENT Disorders: No Hx Family Autoimmune Disorders: No Father Adopted: [place]: yanni ocasio Family Member Ethnicity: Non- Living Status: Age at : 66 Cause of : cancer Hx Family Cardiac Disorders: Yes Hx Family Respiratory Disorders: Yes Hx Family Cancer: Yes (lung cancer) Hx Family GI Disorders: No Hx Family Endocrine Disorder: Yes Hx Family Neuromuscular Disorders: No Hx Family Neurologic Disorders: No Hx Family HEENT Disorders: No Hx Family Autoimmune Disorders: No Infectious Disease-CN:Meds Albuterol Sulfate [Albuterol Inhaler] 2 puff IH Q4HR PRN 03/30/16 [History] Amlodipine [Norvasc] 10 mg PO DAILY 03/30/16 [History] Atorvastatin Calcium [Lipitor] 80 mg PO DAILY 03/30/16 [History] Clopidogrel [Plavix] 75 mg PO DAILY 03/30/16 [History] Dulaglutide [Trulicity] 1.5 mg SQ FR 03/30/16 [History] Gabapentin [Neurontin] 600 mg PO TID 03/30/16 [History] Insulin Glargine,Hum.rec.anlog [Lantus Solostar] 60 unit SQ BID 03/30/16 [ History] Insulin LISPRO [Humalog Kwikpen U-100] 30 - 38 unit SQ TIDWM 03/30/16 [History] Isosorbide MONOnitrate (24 HR) [Imdur] 120 mg PO DAILY 03/30/16 [History] Lisinopril/Hydrochlorothiazide [Zestoretic 20-12.5 mg Tablet] 2 tab PO DAILY 01/03 [History] Metformin [Glucophage] 1,000 mg PO BID 03/30/16 [History] Metoprolol XL (24 HR) Succ [Toprol Xl] 50 mg PO DAILY 03/30/16 [History] Nitroglycerin [Nitrostat] 0.4 mg SL Q5M PRN 03/30/16 [History] Oxycodone HCl/Acetaminophen [Percocet 10-325 mg Tablet] 1 - 2 tab PO QID PRN 01/03 [History] Ondansetron ODT [Zofran ODT] 4 mg SL Q8HR PRN #15 tab.rapdis 05/27/16 [Rx] Aspirin Enteric Coated [Aspirin EC] 325 mg PO DAILY 06/02/16 [History] Ergocalciferol (VITAMIN D2) [Vitamin D2] 50,000 unit PO 2XW 06/02/16 [History] Furosemide [Lasix] 20 mg PO DAILY 06/02/16 [History] Collagenase Oint [Santyl] 30 appl TP BID #1 tube 06/04/16 [Rx] Clindamycin [Cleocin] 300 mg PO Q6HR 06/19/16 [History] Levofloxacin [Levofloxacin] 500 mg PO DAILY 06/19/16 [History] Allergies ketoconazole Adverse Reaction (Verified 06/19/16 20:48) Redness of Skin All systems: reviewed and no additional remarkable complaints except as stated Exam - Constitutional Vitals: Temp Pulse Resp BP Pulse Ox 98.1 F 78 16 134/79 97 06/21/16 11:29 06/21/16 11:29 06/21/16 11:29 06/21/16 11:29 06/21/16 11:29 General appearance: cooperative, no acute distress, obese - Head Head exam: Present: atraumatic, normal inspection, normocephalic - Eye Eye exam: Present: EOMI, normal appearance, PERRL Pupils: Present: normal accommodation - ENT ENT exam: Present: mucous membranes moist - Neck Neck exam: Present: normal inspection - Respiratory Respiratory exam: Present: CTAB. Absent: rales, respiratory distress, rhonchi, wheezes - Cardiovascular Cardiovascular exam: Present: RRR, +S1, +S2 - GI/Abdominal GI/Abdominal exam: Present: normal bowel sounds, soft. Absent: distended, tenderness - Extremities Exam Extremities exam: Present: normal inspection. Absent: joint swelling, pedal edema, tenderness Additional comments: Right foot post-op dressing with moderate amount of shadow drainage noted over the surgical site. No tenderness noted. No edema noted of the surrounding portions of the extremity. - Neurological Exam Neurological exam: Present: alert, oriented X3, no focal deficits - Psychiatric Psychiatric exam: Present: normal affect, normal mood - Skin Skin exam: Present: dry, intact, normal color, warm Infectious Disease CN: Results - Labs CBC & Chem 7: 06/21/16 03:49 06/21/16 03:49 Cultures: Cultures 06/20/16 11:05 Wound Culture - Preliminary Right Great Toe Gram Negative Slava - VTE Documentation of Mechanical Device: Venous foot pump, device Consult Discharge Plan - Plan Referrals: Lashaun Connor, USER EXPERIENCE RESEARCHER [Primary Care Provider] -
[2016-06-21] MEDS: Vancomycin 1,500 MG in D5% in Water 250 ML IVPB SCH (15:13)
--- NOTE | 2016-06-21 16:48 | Internal Med Progress Note ---
Date of Encounter: 06/21/16 Time of Encounter: 14:00 - Assessment and plan (1) Osteomyelitis of toe of right foot Current Visit: Yes Status: Acute Assessment and plan: Patient has been following with podiatry for chronic right great toe ulcer. Recent right foot x-ray showed possible osteomyelitis of distal phalanx of great toe. Patient has been admitted by podiatry and underwent amputation of right great toe. Outpatient wound culture from 06/17/2016 grew Citrobacter koseri and Enterococcus faecalis. Intraoperative wound culture from 06/20/2016 so far grows abundant gram-negative rods, follow up final culture. Patient has been started on IV Zosyn after surgery. ID consult appreciated, recommend adding IV vancomycin until culture results are available. Duration of antibiotics to be determined. Continue pain control and supportive care. (2) Hypertension Current Visit: Yes Status: Chronic Assessment and plan: Blood pressure noted to be well controlled. Continue home medications. Qualifiers: Hypertension type: essential hypertension Qualified Code(s): I10 - Essential (primary) hypertension (3) Diabetes Current Visit: Yes Status: Chronic Assessment and plan: Blood sugars noted to be uncontrolled as patient has not been receiving his home insulin dose. Will increase Levemir to 70 units twice daily per his home regimen and continue sliding scale insulin. Accu-Chek blood glucose monitoring. Diabetic diet. Qualifiers: Diabetes mellitus type: type 2 Diabetes mellitus complication status: with kidney complications Diabetes mellitus complication detail: with chronic kidney disease Diabetes mellitus penitentiary insulin use: with penitentiary use Chronic kidney disease stage: stage 3 (moderate) Qualified Code(s): E11.22 - Type 2 diabetes mellitus with diabetic chronic kidney disease; N18.3 - Chronic kidney disease, stage 3 (moderate); Z79.4 - penitentiary (current) use of insulin (4) CAD (coronary artery disease) Current Visit: Yes Status: Chronic Assessment and plan: Continue home medications. Qualifiers: Coronary Disease-Associated Artery/Lesion type: [place] artery [place] vs. transplanted heart: [place] heart Associated angina: without angina Qualified Code(s): I25.10 - Atherosclerotic heart disease of [place] coronary artery without angina pectoris (5) CKD (chronic kidney disease) stage 3, GFR 30-59 ml/min Current Visit: Yes Status: Chronic Assessment and plan: Serum creatinine noted to be stable, at baseline. Avoid nephrotoxic agents and dose antibiotics according to current creatinine clearance. (6) Obesity (BMI 30-39.9) Current Visit: Yes Status: Chronic - Subjective Interval history: No new complaints. No nausea, vomiting, improved right foot pain. - Constitutional Vitals: Temp Pulse Resp BP Pulse Ox 98.1 F 85 16 126/69 94 06/21/16 15:14 06/21/16 15:14 06/21/16 15:14 06/21/16 15:14 06/21/16 15:14 General appearance: Present: A&O X 3, answers questions appropriately - Respiratory Respiratory exam: Present: CTAB. Absent: accessory muscle use, rales, rhonchi, wheezes - Cardiovascular Cardiovascular exam: Present: RRR, +S1, +S2. Absent: diastolic murmur, gallop, rubs, systolic murmur - GI/Abdominal GI/Abdominal exam: Present: normal bowel sounds, soft, no peritoneal signs. Absent: distended, tenderness - Extremities Exam Extremities exam: Present: warm, radial pulses palpable and symetrical. Absent : calf tenderness, cyanotic, pedal edema Additional comments: Right foot surgical dressing intact. Noted to be in special boot; Internal Medicine: Result - Labs CBC & Chem 7: 06/21/16 03:49 06/21/16 03:49 Labs: Short CBC 06/21/16 Range/Units 03:49 WBC 13.0 H (4.3-11.1) K/mcL Hgb 10.5 L D (12.9-16.9) g/dL Hct 32.3 L (37.5-50.1) % Plt Count 418 H (140-400) K/mcL Neutrophils # 7.8 (1.6-8.9) K/mcL BMP 06/21/16 03:49 Sodium 138 Potassium 4.4 Chloride 107 Carbon Dioxide 24 BUN 18 Creatinine 1.33 H Glucose 165 H Calcium 9.3 - VTE Documentation of Mechanical Device: Venous foot pump, device Consult Discharge Plan - Plan Referrals: Lashaun Connor CNP [Primary Care Provider] -
[2016-06-21] MEDS: Piperacillin/Tazobactam 3.375 GM in D5% in Water (Mini-Bag+) 100 ML IVPB SCH ×2 (16:52→21:50)
--- NOTE | 2016-06-21 16:54 | Podiatry Progress Note ---
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) use of insulin (2) Foot ulcer Current Visit: Yes Status: Chronic Dressing removed Incision line intact Cleansed with saline adaptic 4x4 and kerlex applied May ambulate with CAM boot when able to tolerate Await cultures prior to discharge ID recommendations for antibiotic coverage is appreciated Will follow up in 1 week with or LAPELER's in clinic Call with any issues or concerns Qualifiers: Laterality: right Non-pressure ulcer stage: unspecified non-pressure ulcer stage Qualified Code(s): L97.519 - Non-pressure chronic ulcer of other part of right foot with unspecified severity Subjective Interval history: Patient day 1 post op #1 incision to bone/cortex for osteomyelitis #2 amputation right great toe at level of MTPJ per On arrival patient is sleeping and dressing intact Patient denies any pain, states everything feels fine Patient denies any fevers, chills, n/v or flu like symptoms Denies any calf pain Objective - Vital Signs Vital Signs: Vital Signs Temp Pulse Resp BP Pulse Ox 06/21/16 15:14 98.1 F 85 16 126/69 94 06/21/16 11:29 98.1 F 78 16 134/79 97 06/21/16 07:09 98.3 F 74 16 146/87 97 06/21/16 05:12 98.2 F 80 16 137/77 96 06/21/16 01:07 98.6 F 79 16 145/83 97 06/20/16 21:09 98.9 F 84 16 150/87 93 Intake and Output 06/21/16 06/21/16 06/21/16 07:59 15:59 23:59 Output Total 750 / 750 Balance -750 / -750 Output: Urine 750 / 750 Other: Blood Glucose* 134 342 295 - Exam Exam: Podiatry General Exam: General appearance: alert awake oriented X 3. Calm and pleasant, no acute distress.. Vascular: Pedal pulses +2/4 DP/PT , No evidence of cyanosis, pallor or rubor, Edema graded at 1+/4, Skin Temperature warm, No calf pain with manual compression. capillary refill time is immediate to digits. Neurologic: Sensation intact with light touch to foot. . Postop Exam: S/P #1 incision to bone/cortex for osteomyelitis #2 amputation right great toe at level of MTPJ Sutures intact to incision line, no signs of dehiscence. Slight area of maceration noted to medial aspect of incision line. No open area, no drainage, no odor, no erythema, no streaking. Minimal edema. No pain with palpation. - Lab Result Diagrams: 06/21/16 03:49 06/21/16 03:49 Labs: Abnormal lab results WBC 13.0 K/mcL (4.3-11.1) H 06/21/16 03:49 RBC 3.85 M/mcL (4.19-5.50) L 06/21/16 03:49 Hgb 10.5 g/dL (12.9-16.9) L D 06/21/16 03:49 Hct 32.3 % (37.5-50.1) L 06/21/16 03:49 MCH 27.3 pg (28.0-33.3) L 06/21/16 03:49 Plt Count 418 K/mcL (140-400) H 06/21/16 03:49 MPV 9.0 fL (9.4-12.4) L 06/21/16 03:49 ESR >= 130 mm/hr (0-10) H 06/19/16 19:24 Creatinine 1.33 mg/dL (0.72-1.25) H 06/21/16 03:49 Est GFR (Non-Af Amer) 56 (> 60) L 06/21/16 03:49 Glucose 165 mg/dL (70-99) H 06/21/16 03:49 POC Glucose 295 (58-89) H 06/21/16 16:10 C-Reactive Protein 63 mg/L (Less than 5) H 06/19/16 19:24 Microbiology, Last 48 Hours 05/04/17 11:05 Wound Culture - Preliminary Right Great Toe Gram Negative Slava - VTE Documentation of Mechanical Device: Venous foot pump, device Consult Discharge Plan - Plan Referrals: Lashaun Connor, RESIDENTIAL DRIVER [Primary Care Provider] -
[2016-06-22] MEDS: Vancomycin 1,500 MG in D5% in Water 250 ML IVPB SCH ×3 (01:36→14:39)
[2016-06-22 04:43] LABS: Basophils # 0.1 K/mcL (0.0-0.2); Basophils % 0.4 %; Eosinophils # 0.5 K/mcL (0.0-0.6); Eosinophils % 3.9 %; Hematocrit 29.8 % (37.5-50.1); Immature Granulocytes % 0.5 % (0-4); Lymphocytes # 3.3 K/mcL (0.6-4.6); Lymphocytes % 27.2 %; Mean Corpuscular HGB Conc 33.6 g/dL (31.6-35.5); Mean Corpuscular Hemoglobin 28.1 pg (28.0-33.3); Mean Corpuscular Volume 83.7 fL (83.0-100.0); Mean Platelet Volume 9.3 fL (9.4-12.4); Monocytes # 1.4 K/mcL (0.0-1.3); Monocytes % 11.3 %; Neutrophils # 6.9 K/mcL (1.6-8.9); Platelet Count 388 K/mcL (140-400); Red Blood Count 3.56 M/mcL (4.19-5.50); Red Cell Distribution Width 12.3 % (11.5-14.5); Segmented Neutrophils % 56.7 %
[2016-06-22] MEDS: Piperacillin/Tazobactam 3.375 GM in D5% in Water (Mini-Bag+) 100 ML IVPB SCH ×2 (06:08→14:17)
[2016-06-22] MEDS: *HR* Heparin 5,000 UNIT/ML VIAL SQ SCH ×3 (06:09→21:58)
[2016-06-22] MEDS: Insulin LISPRO 300 UNITS/3 ML VIAL SQ SCH ×5 (08:04→21:59)
[2016-06-22] MEDS: Gabapentin 300 MG CAPSULE PO SCH ×3 (08:56→21:58)
[2016-06-22] MEDS: Metoprolol XL (24 HR) Succ 50 MG TAB.ER.24H PO SCH (08:57)
[2016-06-22] MEDS: Isosorbide MONOnitrate (24 HR) 60 MG TAB.ER.24H PO SCH (08:57)
[2016-06-22] MEDS: Aspirin Enteric Coated 325 MG Tablet PO SCH (08:57)
[2016-06-22] MEDS: Cholecalciferol (D-3) 1,000 UNIT TABLET PO SCH (08:57)
[2016-06-22] MEDS: amLODIPine 5 MG TABLET PO SCH (08:57)
[2016-06-22] MEDS: Insulin DETEMIR 100 UNIT/ML X5UNITS SQ SCH ×2 (09:05→21:59)
--- NOTE | 2016-06-22 15:18 | Internal Med Progress Note ---
Date of Encounter: 06/22/16 Time of Encounter: 12:00 - Assessment and plan (1) Osteomyelitis of toe of right foot Current Visit: Yes Status: Acute Assessment and plan: Patient has been following with podiatry for chronic right great toe ulcer. Recent right foot x-ray showed possible osteomyelitis of distal phalanx of great toe. Patient has been admitted by podiatry and underwent amputation of right great toe, postoperative day 2. Outpatient wound culture from 06/17/2016 grew Citrobacter koseri and Enterococcus faecalis. Intraoperative wound culture from 06/20/2016 grows Citrobacter koseri, bone culture grows gram- positive cocci and gram-negative rods so far, probably Citrobacter and enterococcus. Continue IV vancomycin and Zosyn for now. Leukocytosis noted to be improving. Case discussed with ID, patient may be able to be discharged home on oral antibiotics given that he underwent complete amputation of great toe. Follow up final cultures. Continue pain control and supportive care. (2) Hypertension Current Visit: Yes Status: Chronic Assessment and plan: Blood pressure noted to be well controlled. Continue home medications. Qualifiers: Hypertension type: essential hypertension Qualified Code(s): I10 - Essential (primary) hypertension (3) Diabetes Current Visit: Yes Status: Chronic Assessment and plan: Blood sugars noted to be better controlled. Continue basal bolus insulin regimen and Accu-Chek blood glucose monitoring. Accu-Chek blood glucose monitoring. Diabetic diet. 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 transplanted heart: [place] heart Associated angina: without angina Qualified Code(s): I25.10 - Atherosclerotic heart disease of [place] coronary artery without angina pectoris (5) CKD (chronic kidney disease) stage 3, GFR 30-59 ml/min Current Visit: Yes Status: Chronic (6) Obesity (BMI 30-39.9) Current Visit: Yes Status: Chronic - Subjective Interval history: No new complaints. No nausea, vomiting, improved right foot pain. Anxious to be discharged as he wants to be at the [employer] [facility] [employer] in [place]. - Constitutional Vitals: Temp Pulse Resp BP Pulse Ox 98.2 F 79 18 158/84 97 06/22/16 15:08 06/22/16 15:08 06/22/16 15:08 06/22/16 15:08 06/22/16 15:08 General appearance: Present: A&O X 3, answers questions appropriately - Respiratory Respiratory exam: Present: CTAB. Absent: accessory muscle use, rales, rhonchi, wheezes - Cardiovascular Cardiovascular exam: Present: RRR, +S1, +S2. Absent: diastolic murmur, gallop, rubs, systolic murmur - GI/Abdominal GI/Abdominal exam: Present: normal bowel sounds, soft, no peritoneal signs. Absent: distended, tenderness Internal Medicine: Result - Labs CBC & Chem 7: 06/22/16 04:19 06/21/16 03:49 Labs: Short CBC 06/22/16 Range/Units 04:19 WBC 12.2 H (4.3-11.1) K/mcL Hgb 10.0 L (12.9-16.9) g/dL Hct 29.8 L (37.5-50.1) % Plt Count 388 (140-400) K/mcL Neutrophils # 6.9 (1.6-8.9) K/mcL - VTE Documentation of Mechanical Device: Venous foot pump, device Consult Discharge Plan - Plan Referrals: Lashaun Connor, CASE FINISHING MACHINE ADJUSTER [Primary Care Provider] -
--- NOTE | 2016-06-22 21:12 | Discharge Summary ---
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 transplanted heart: [place] heart Associated angina: without angina Qualified Code(s): I25.10 - Atherosclerotic heart disease of [place] coronary artery without angina pectoris (5) Sleep apnea, obstructive Priority: Secondary Status: Chronic (6) CKD (chronic kidney disease) stage 3, GFR 30-59 ml/min Priority: Secondary Status: Chronic (7) Near syncope Priority: Secondary Status: Acute (8) Hypotension Priority: Secondary Status: Acute Qualifiers: Hypotension type: unspecified hypotension type Qualified Code(s): I95.9 - Hypotension, unspecified (9) Pre-ulcerative calluses Priority: Secondary Status: Chronic (10) Ingrown right big toenail Priority: Secondary Status: Acute (11) Ingrown toenail without infection Priority: Secondary Status: Acute (12) Onychomycosis Priority: Secondary Status: Chronic (13) Foot ulcer Priority: Secondary Status: Chronic Qualifiers: Laterality: right Non-pressure ulcer stage: unspecified non-pressure ulcer stage Qualified Code(s): L97.519 - Non-pressure chronic ulcer of other part of right foot with unspecified severity (14) Foot ulcer due to secondary DM Priority: Secondary Status: Acute (15) Dehydration Priority: Secondary Status: Acute (16) Hyperglycemia Priority: Secondary Status: Acute (17) Viral syndrome Priority: Secondary Status: Acute (18) Elevated troponin Priority: Secondary Status: Acute (19) FREDDY (acute kidney injury) Priority: Secondary Status: Acute (20) HHNC (hyperglycemic hyperosmolar nonketotic coma) Priority: Secondary Status: Acute (21) NSTEMI (non-ST elevation myocardial infarction) Priority: Secondary Status: Acute (22) Gastritis Priority: Secondary Status: Acute Qualifiers: Gastritis type: other gastritis Chronicity: acute Gastritis bleeding: without bleeding Qualified Code(s): K29.00 - Acute gastritis without bleeding (23) Toe ulcer Priority: Secondary Status: Acute Qualifiers: Laterality: right Non-pressure ulcer stage: unspecified non-pressure ulcer stage Qualified Code(s): L97.519 - Non-pressure chronic ulcer of other part of right foot with unspecified severity (24) Sepsis Priority: Secondary Status: Acute Qualifiers: Sepsis type: sepsis due to unspecified organism Qualified Code(s): A41.9 - Sepsis, unspecified organism (25) Gangrene of toe Priority: Secondary Status: Acute (26) Great toe pain Priority: Secondary Status: Acute Qualifiers: Laterality: right Qualified Code(s): M79.674 - Pain in right toe(s) (27) Gangrene associated with type 2 diabetes mellitus Priority: Secondary Status: Acute (28) Obesity (BMI 30-39.9) Priority: Secondary Status: Chronic (29) SIRS due to infectious process with acute organ dysfunction Priority: Secondary Status: Acute (31) Osteomyelitis of toe of right foot Priority: Secondary Status: Acute (32) DVT prophylaxis Priority: Secondary Status: Acute (33) Diabetic foot ulcer Priority: Primary Status: Acute Qualifiers: Diabetic foot ulcer location: toe Diabetes mellitus type: type 2 Laterality: right Non-pressure ulcer stage: unspecified non-pressure ulcer stage Qualified Code(s): E11.621 - Type 2 diabetes mellitus with foot ulcer; L97.519 - Non-pressure chronic ulcer of other part of right foot with unspecified severity - Discharge Medications Prescriptions: Sulfamethoxazole/Trimeth DS [Bactrim DS] 1 each PO BID #20 tablet Home Medications: Albuterol Sulfate [Albuterol Inhaler] 2 puff IH Q4HR PRN 03/30/16 [History] Amlodipine [Norvasc] 10 mg PO DAILY 03/30/16 [History] Atorvastatin Calcium [Lipitor] 80 mg PO DAILY 03/30/16 [History] Clopidogrel [Plavix] 75 mg PO DAILY 03/30/16 [History] Dulaglutide [Trulicity] 1.5 mg SQ FR 03/30/16 [History] Gabapentin [Neurontin] 600 mg PO TID 03/30/16 [History] Insulin Glargine,Hum.rec.anlog [Lantus Solostar] 60 unit SQ BID 03/30/16 [ History] Insulin LISPRO [Humalog Kwikpen U-100] 30 - 38 unit SQ TIDWM 03/30/16 [History] Isosorbide MONOnitrate (24 HR) [Imdur] 120 mg PO DAILY 03/30/16 [History] Lisinopril/Hydrochlorothiazide [Zestoretic 20-12.5 mg Tablet] 2 tab PO DAILY 01/03 [History] Metformin [Glucophage] 1,000 mg PO BID 03/30/16 [History] Metoprolol XL (24 HR) Succ [Toprol Xl] 50 mg PO DAILY 03/30/16 [History] Nitroglycerin [Nitrostat] 0.4 mg SL Q5M PRN 03/30/16 [History] Oxycodone HCl/Acetaminophen [Percocet 10-325 mg Tablet] 1 - 2 tab PO QID PRN 01/03 [History] Ondansetron ODT [Zofran ODT] 4 mg SL Q8HR PRN #15 tab.rapdis 05/27/16 [Rx] Aspirin Enteric Coated [Aspirin EC] 325 mg PO DAILY 06/02/16 [History] Ergocalciferol (VITAMIN D2) [Vitamin D2] 50,000 unit PO 2XW 06/02/16 [History] Furosemide [Lasix] 20 mg PO DAILY 06/02/16 [History] Collagenase Oint [Santyl] 30 appl TP BID #1 tube 06/04/16 [Rx] Clindamycin [Cleocin] 300 mg PO Q6HR 06/19/16 [History] Levofloxacin 500 mg PO DAILY 06/19/16 [History] Sulfamethoxazole/Trimeth DS [Bactrim DS] 1 each PO BID #20 tablet 06/22/16 [Rx] Allergies/Adverse Reactions: Allergies ketoconazole Adverse Reaction (Verified 06/19/16 20:48) Redness of Skin Labs on day of discharge: Labs from last 24 hours 06/22/16 06/22/16 06/22/16 16:43 11:23 07:54 WBC RBC Hgb Hct MCV MCH MCHC RDW Plt Count MPV Immature Gran % Seg Neutrophils % Lymphocytes % Monocytes % Eosinophils % Basophils % Neutrophils # Lymphocytes # Monocytes # Eosinophils # Basophils # POC Glucose 376 H 246 H 129 H 06/22/16 06/21/16 04:19 19:57 WBC 12.2 H RBC 3.56 L Hgb 10.0 L Hct 29.8 L MCV 83.7 MCH 28.1 MCHC 33.6 RDW 12.3 Plt Count 388 MPV 9.3 L Immature Gran % 0.5 Seg Neutrophils % 56.7 Lymphocytes % 27.2 Monocytes % 11.3 Eosinophils % 3.9 Basophils % 0.4 Neutrophils # 6.9 Lymphocytes # 3.3 Monocytes # 1.4 H Eosinophils # 0.5 Basophils # 0.1 POC Glucose 315 H Preliminary micro results at discharge 06/20/16 11:05 Wound Culture - Preliminary Right Great Toe Gram Negative Slava Gram Positive Cocci - Impressions Patient improving, cultures are back and we will send him on PO antibiotics. - Additional Comments Minimize weightbearing and use cam boot. Keep dressings intact. Follow up in one week. Take Bactrim. Date of admission: 06/19/16 18:51 Primary care physician: Lashaun Connor CNP Consults: 06/19/16 19:51 Consult to Nutrition [CONS] Routine Comment: Consulting Provider: NUTRITION Reason for Dietary Consult: Diet Education 06/20/16 14:35 Consult to Infectious Diseases [CONS] Routine Consulting Provider: Infectious Disease [place] Reason for Consult: Right great toe osteomyelitis Call Completed: Yes Discharging clinician: Bryan Monk Anticipated date of discharge: 06/22/16 - Patient Status Disposition: Home, Self-Care Condition: Good Functional capacity at discharge: independent ambulation Overall status at discharge: patient is back to baseline - Discharge Instructions Follow Up With: Lashaun Connor CNP [Primary Care Provider] - Additional Instructions: Follow up with Dr. Roman in 1 week. Keep dressings clean, dry, and intact, do not remove. Use CAM boot for ambulation. Use Bactrim DS BID until follow up. - Diet and Activity Activity: resume usual activities as tolerated Diet: diabetic diet - Hospital Course Hospital course: Mr. Ocasio is a 50 year old male - Time Spent with Patient Total time spent providing and/or coordinating discharge services: - VTE Documentation of Mechanical Device: Venous foot pump, device
[2016-06-22 21:20] VITALS: BP 150/86
[2016-06-22] MEDS ORDERED: Aminoglycoside Consult 1 EACH MC ONE (22:16)
== END 2016-06-22 22:17 | disposition home or self-care (01) | DRG 314 ==
LOC: SUATTDRO 18:51 → 3NENU 18:51
PROVIDERS: ADMIT Podiatrist Foot Surgery; ATTEND Internal Medicine

== ENCOUNTER 2016-07-29 16:07 | Inpatient (IN) ==
[~2016-07-29 16:07] MED LIST: Adenosine 90 MG/30 ML MLS IV ONE
--- NOTE | 2016-07-29 16:15 | Emergency Department Note ---
Disposition Clinical Impression: NSTEMI (non-ST elevation myocardial infarction) Chest pain Qualifiers: Chest pain type: unspecified Qualified Code(s): R07.9 - Chest pain, unspecified Disposition: Admitted As Inpatient Condition: Fair Referrals: Lashaun Connor CNP [Primary Care Provider] - Forms: ED Satisfaction Letter General Adult HPI - General Chief complaint: ED Chest Pain Stated complaint: Chest Pain Time Seen by Provider: 07/29/16 16:11 Source: patient, EMS Limitations: no limitations Nursing Notes Reviewed: Yes Vital Signs Reviewed: Yes - History of Present Illness Pain Scale: 2 - Related Data Home Medications Medication Instructions Recorded Confirmed Albuterol Sulfate [Albuterol 2 puff IH Q4HR PRN 03/30/16 07/29/16 Inhaler] Atorvastatin Calcium [Lipitor] 80 mg PO DAILY 03/30/16 07/29/16 Clopidogrel [Plavix] 75 mg PO DAILY 03/30/16 07/29/16 Dulaglutide [Trulicity] 1.5 mg SQ FR 03/30/16 07/29/16 Gabapentin [Neurontin] 600 mg PO TID 03/30/16 07/29/16 Insulin Glargine,Hum.rec.anlog 60 unit SQ BID 03/30/16 07/29/16 [Lantus Solostar] Insulin LISPRO [Humalog Kwikpen 30 - 38 unit SQ TIDWM 03/30/16 07/29/16 U-100] Isosorbide MONOnitrate (24 HR) 120 mg PO DAILY 03/30/16 07/29/16 [Imdur] Lisinopril/Hydrochlorothiazide 2 tab PO DAILY 03/30/16 07/29/16 [Zestoretic 20-12.5 mg Tablet] Metoprolol XL (24 HR) Succ [Toprol 50 mg PO DAILY 03/30/16 07/29/16 Xl] Nitroglycerin [Nitrostat] 0.4 mg SL Q5M PRN 03/30/16 07/29/16 Oxycodone HCl/Acetaminophen 1 - 2 tab PO QID PRN 03/30/16 07/29/16 [Percocet 10-325 mg Tablet] amLODIPine [Norvasc] 10 mg PO DAILY 03/30/16 07/29/16 metFORMIN [Glucophage] 1,000 mg PO BID 03/30/16 07/29/16 Aspirin Enteric Coated [Aspirin EC] 325 mg PO DAILY 06/02/16 07/29/16 Ergocalciferol (VITAMIN D2) 50,000 unit PO 2XW 06/02/16 07/29/16 [Vitamin D2] Allergies Allergy/AdvReac Type Severity Reaction Status Date / Time ketoconazole AdvReac Redness of Verified 06/19/16 20:48 Skin Past Medical History - Past Medical History Medical history: Reports: arthritis, asthma, coronary artery disease, diabetes, GERD, hyperlipidemia, hypertension, peripheral artery disease, renal disease, valvular heart disease Surgical history: Reports: angioplasty/stent, other Psychiatric history: Reports: no psych history - Social History Smoking Status: Never smoker Smokeless Tobacco Status: No Alcohol use: Reports: none Drug use: Reports: none Physical Exam - General Limitations: no limitations General appearance: alert, in no apparent distress Course Vital Signs Temperature 98.6 F 07/29/16 16:08 Pulse Rate 76 07/29/16 16:08 Respiratory Rate 16 07/29/16 16:08 Blood Pressure 143/78 07/29/16 16:08 O2 Sat by Pulse Oximetry 96 07/29/16 16:08 Temperature 98.6 F 07/29/16 16:08 Pulse Rate 78 07/29/16 17:30 Respiratory Rate 16 07/29/16 17:30 Blood Pressure 149/83 07/29/16 17:30 O2 Sat by Pulse Oximetry 96 07/29/16 17:30 Oxygen Delivery Oxygen Delivery Room Air Medical Decision Making - MDM Narrative Medical decision making narrative: I examined this patient and my medical decision-making was reviewed with the DAIRY NUTRITIONIST/PA/Advanced Practice Nurse/Resident Physician. I agree with the documented findings, disposition and treatment plan as described except to the extent set forth below. Patient arrived by EMS, was seen on arrival by Dr. Matias and myself, I agree with his evaluation and management plan, I supervised the care of the patient states. Patient had chest pressure and fluttering started about 30 minutes prior to arrival while he was getting blood drawn. He stated that he was stressed by the blood drawn does not think has a negative visit. The symptoms are resolved. He has a history of diabetes and coronary disease, he does have 3 stents were placed in the past by cardiology here. He states right now he is having no symptoms. Medics did not administer medication time. He does state he takes is aspirin daily. Going to check an EKG a cardiac workup and reassess. His plan. 1715 hrs.: Going to repeat an EKG on him. His pain is gone. He said he also chest pain and Friday used one nitroglycerin make ago and its likely may have had some chest pressure yesterday also. His troponin is positive here. He did have aspirin here, today so not repeat that. He does see cardiology here and has stents in place. This was done probably in 2009 and his estimate. When repeat EKG bring him into the hospital for admission he is in agreement impression is non-STEMI. With history of ACS in the past. And cardiac stents. And diabetes. With elevated troponin today. 1720 hrs. patient had a repeat EKG showed a sinus rhythm, rate is 74, QRS is 104 , QTC is 404, no signs of acute ischemia still has a flattening of the T waves in II, III, and F aVF. Patient cardiology discuss case and then most likely admission through hospitalist. 1745 hrs.: Went ahead and spoke with Dr. Fish is on for cardiology he agreed with admission with hospitalist will start him on heparin here repeat EKG was done patient pain-free in agreement with plan impression is #1 is chest pain with N STEMI, #2 is hypertension, #3 is diabetes in both of those conditions are chronic. Patient's critical care time excised separately billable procedures is 35 minutes. 1843 hrs: Patient has been accepted for admission by Dr. garza the hospitalist patient's in agreement with plan and is pain-free at this time. - Lab Data Result diagrams: 07/29/16 16:24 07/29/16 16:24 Lab Results 07/29/16 07/29/16 07/29/16 Range/Units 16:24 16:24 16:24 WBC 9.7 (4.3-11.1) K/mcL RBC 3.92 L (4.19-5.50) M/mcL Hgb 11.0 L (12.9-16.9) g/dL Hct 33.7 L (37.5-50.1) % MCV 86.0 (83.0-100.0) fL MCH 28.1 (28.0-33.3) pg MCHC 32.6 (31.6-35.5) g/dL RDW 13.8 (11.5-14.5) % Plt Count 294 (140-400) K/mcL MPV 9.9 (9.4-12.4) fL Immature Gran % 0.4 (0-4) % Seg Neutrophils % 57.8 % Lymphocytes % 29.3 % Monocytes % 9.2 % Eosinophils % 2.9 % Basophils % 0.4 % Neutrophils # 5.6 (1.6-8.9) K/mcL Lymphocytes # 2.9 (0.6-4.6) K/mcL Monocytes # 0.9 (0.0-1.3) K/mcL Eosinophils # 0.3 (0.0-0.6) K/mcL Basophils # 0.0 (0.0-0.2) K/mcL PT (9.4-12.1) Seconds INR APTT (26.0-36.0) Seconds Sodium 139 (136-145) mEq/L Potassium 4.2 (3.5-4.5) mEq/L Chloride 107 (98-109) mEq/L Carbon Dioxide 24 (19-29) mEq/L BUN 23 (8-26) mg/dL Creatinine 1.58 H (0.72-1.25) mg/dL Est GFR ( Amer) 56 L (> 60) Est GFR (Non-Af Amer) 46 L (> 60) BUN/Creatinine Ratio 15 (6-26) Glucose 200 H (70-99) mg/dL Calculated Osmolality 297 (280-300) Calcium 9.2 (8.6-10.8) mg/dL Troponin I 0.50 H* (0-0.03) ng/mL 07/29/16 Range/Units 16:24 WBC (4.3-11.1) K/mcL RBC (4.19-5.50) M/mcL Hgb (12.9-16.9) g/dL Hct (37.5-50.1) % MCV (83.0-100.0) fL MCH (28.0-33.3) pg MCHC (31.6-35.5) g/dL RDW (11.5-14.5) % Plt Count (140-400) K/mcL MPV (9.4-12.4) fL Immature Gran % (0-4) % Seg Neutrophils % % Lymphocytes % % Monocytes % % Eosinophils % % Basophils % % Neutrophils # (1.6-8.9) K/mcL Lymphocytes # (0.6-4.6) K/mcL Monocytes # (0.0-1.3) K/mcL Eosinophils # (0.0-0.6) K/mcL Basophils # (0.0-0.2) K/mcL PT 11.9 (9.4-12.1) Seconds INR 1.1 APTT 26.8 (26.0-36.0) Seconds Sodium (136-145) mEq/L Potassium (3.5-4.5) mEq/L Chloride (98-109) mEq/L Carbon Dioxide (19-29) mEq/L BUN (8-26) mg/dL Creatinine (0.72-1.25) mg/dL Est GFR ( Amer) (> 60) Est GFR (Non-Af Amer) (> 60) BUN/Creatinine Ratio (6-26) Glucose (70-99) mg/dL Calculated Osmolality (280-300) Calcium (8.6-10.8) mg/dL Troponin I (0-0.03) ng/mL
[2016-07-29 16:48] LABS: Basophils % 0.4 %; Eosinophils # 0.3 K/mcL (0.0-0.6); Eosinophils % 2.9 %; Hematocrit 33.7 % (37.5-50.1); Immature Granulocytes % 0.4 % (0-4); Lymphocytes # 2.9 K/mcL (0.6-4.6); Lymphocytes % 29.3 %; Mean Corpuscular HGB Conc 32.6 g/dL (31.6-35.5); Mean Corpuscular Hemoglobin 28.1 pg (28.0-33.3); Mean Platelet Volume 9.9 fL (9.4-12.4); Monocytes # 0.9 K/mcL (0.0-1.3); Monocytes % 9.2 %; Neutrophils # 5.6 K/mcL (1.6-8.9); Platelet Count 294 K/mcL (140-400); Red Blood Count 3.92 M/mcL (4.19-5.50); Red Cell Distribution Width 13.8 % (11.5-14.5); Segmented Neutrophils % 57.8 %
[2016-07-29 16:58] LABS: Calcium 9.2 mg/dL (8.6-10.8); Potassium 4.2 mEq/L (3.5-4.5)
--- NOTE | 2016-07-29 17:31 | Emergency Department Note ---
Disposition Clinical Impression: NSTEMI (non-ST elevation myocardial infarction) Chest pain Qualifiers: Chest pain type: unspecified Qualified Code(s): R07.9 - Chest pain, unspecified Disposition: Admitted As Inpatient Condition: Fair Referrals: Lashaun Connor CNP [Primary Care Provider] - Forms: ED Satisfaction Letter General Adult HPI - General Chief complaint: ED Chest Pain Stated complaint: Chest Pain Time Seen by Provider: 07/29/16 16:11 Source: patient, EMS Limitations: no limitations Nursing Notes Reviewed: Yes Vital Signs Reviewed: Yes - History of Present Illness HPI Narrative: Patient here for evaluation of palpitations. Patient states that he had chest pain described as palpitations 30 minutes prior to arrival. Chest pain symptoms currently resolved. Patient had an episode 2 days ago that was similar in nature and relieved with nitroglycerin. Different from previous WI symptoms in regards to the characteristic of the pain. Previous WI described as a pressure. He feels this is "flipping and flopping of his heart. No associated diaphoresis or shortness of breath. Pain Scale: 2 - Related Data Home Medications Medication Instructions Recorded Confirmed Albuterol Sulfate [Albuterol 2 puff IH Q4HR PRN 03/30/16 07/10/16 Inhaler] Atorvastatin Calcium [Lipitor] 80 mg PO DAILY 03/30/16 07/10/16 Clopidogrel [Plavix] 75 mg PO DAILY 03/30/16 07/10/16 Dulaglutide [Trulicity] 1.5 mg SQ FR 03/30/16 07/10/16 Gabapentin [Neurontin] 600 mg PO TID 03/30/16 07/10/16 Insulin Glargine,Hum.rec.anlog 60 unit SQ BID 03/30/16 07/10/16 [Lantus Solostar] Insulin LISPRO [Humalog Kwikpen 30 - 38 unit SQ TIDWM 03/30/16 07/10/16 U-100] Isosorbide MONOnitrate (24 HR) 120 mg PO DAILY 03/30/16 07/10/16 [Imdur] Lisinopril/Hydrochlorothiazide 2 tab PO DAILY 03/30/16 07/10/16 [Zestoretic 20-12.5 mg Tablet] Metoprolol XL (24 HR) Succ [Toprol 50 mg PO DAILY 03/30/16 07/10/16 Xl] Nitroglycerin [Nitrostat] 0.4 mg SL Q5M PRN 03/30/16 07/10/16 Oxycodone HCl/Acetaminophen 1 - 2 tab PO QID PRN 03/30/16 07/10/16 [Percocet 10-325 mg Tablet] amLODIPine [Norvasc] 10 mg PO DAILY 03/30/16 07/10/16 metFORMIN [Glucophage] 1,000 mg PO BID 03/30/16 07/10/16 Aspirin Enteric Coated [Aspirin EC] 325 mg PO DAILY 06/02/16 07/10/16 Ergocalciferol (VITAMIN D2) 50,000 unit PO 2XW 06/02/16 07/10/16 [Vitamin D2] Clindamycin [Cleocin] 300 mg PO Q6HR 06/19/16 07/10/16 Previous Rx's Medication Instructions Recorded Ondansetron ODT [Zofran ODT] 4 mg SL Q8HR PRN #15 tab.rapdis 05/27/16 Allergies Allergy/AdvReac Type Severity Reaction Status Date / Time ketoconazole AdvReac Redness of Verified 06/19/16 20:48 Skin Review of Systems: CONSTITUTIONAL: No weight loss, fever, chills, weakness or fatigue. HEENT: Eyes: No visual changes. Ears, Nose, Throat: No hearing loss, difficulty talking or unable to swallow. SKIN: No rash or itching. CARDIOVASCULAR: Palpitations and chest pain RESPIRATORY: No shortness of breath, cough or sputum. GASTROINTESTINAL: No anorexia, nausea, vomiting or diarrhea. No abdominal pain or blood. GENITOURINARY: No burning on urination or hematuria. NEUROLOGICAL: No headache, dizziness, syncope, paralysis, ataxia, numbness or tingling in the extremities. No change in bowel or bladder control. MUSCULOSKELETAL: No muscle pain, back pain, joint pain or stiffness. Past Medical History - Past Medical History Medical history: Reports: arthritis, asthma, coronary artery disease, diabetes, GERD, hyperlipidemia, hypertension, peripheral artery disease, renal disease, valvular heart disease Surgical history: Reports: angioplasty/stent, other Psychiatric history: Reports: no psych history - Social History Smoking Status: Never smoker Smokeless Tobacco Status: No Alcohol use: Reports: none Drug use: Reports: none Physical Exam General appearance: NAD, conversant Eyes: anicteric sclerae, moist conjunctivae; PERRL HENT: Atraumatic; oropharynx clear with moist mucous membranes and no mucosal ulcerations Neck: Normal inspection; Trachea midline; FROM, supple Lungs: CTA, with normal respiratory effort and no intercostal retractions CV: RRR, no MRGs Abdomen: Soft, non-tender; no rebound or gaurding Extremities: No peripheral edema or extremity lymphadenopathy Skin: Normal temperature; no rash, ulcers or lesions Psych: Appropriate mood and affect Neuro: alert and oriented to person, place and time - General Limitations: no limitations General appearance: alert, in no apparent distress Course - Reevaluation(s) Reevaluation #1: Patient with elevated troponin. Coags ordered. Dr. Casillas will talk with cardiology as well as the hospitalist. Patient signed out to Dr. Casillas. Vital Signs Temperature 98.6 F 07/29/16 16:08 Pulse Rate 76 07/29/16 16:08 Respiratory Rate 16 07/29/16 16:08 Blood Pressure 143/78 07/29/16 16:08 O2 Sat by Pulse Oximetry 96 07/29/16 16:08 Temperature 98.6 F 07/29/16 16:08 Pulse Rate 73 07/29/16 16:45 Respiratory Rate 16 07/29/16 16:45 Blood Pressure 130/83 07/29/16 16:45 O2 Sat by Pulse Oximetry 96 07/29/16 16:45 Oxygen Delivery Oxygen Delivery Room Air Medical Decision Making - Lab Data Result diagrams: 07/29/16 16:24 07/29/16 16:24 Lab Results 07/29/16 07/29/16 07/29/16 Range/Units 16:24 16:24 16:24 WBC 9.7 (4.3-11.1) K/mcL RBC 3.92 L (4.19-5.50) M/mcL Hgb 11.0 L (12.9-16.9) g/dL Hct 33.7 L (37.5-50.1) % MCV 86.0 (83.0-100.0) fL MCH 28.1 (28.0-33.3) pg MCHC 32.6 (31.6-35.5) g/dL RDW 13.8 (11.5-14.5) % Plt Count 294 (140-400) K/mcL MPV 9.9 (9.4-12.4) fL Immature Gran % 0.4 (0-4) % Seg Neutrophils % 57.8 % Lymphocytes % 29.3 % Monocytes % 9.2 % Eosinophils % 2.9 % Basophils % 0.4 % Neutrophils # 5.6 (1.6-8.9) K/mcL Lymphocytes # 2.9 (0.6-4.6) K/mcL Monocytes # 0.9 (0.0-1.3) K/mcL Eosinophils # 0.3 (0.0-0.6) K/mcL Basophils # 0.0 (0.0-0.2) K/mcL Sodium 139 (136-145) mEq/L Potassium 4.2 (3.5-4.5) mEq/L Chloride 107 (98-109) mEq/L Carbon Dioxide 24 (19-29) mEq/L BUN 23 (8-26) mg/dL Creatinine 1.58 H (0.72-1.25) mg/dL Est GFR ( Amer) 56 L (> 60) Est GFR (Non-Af Amer) 46 L (> 60) BUN/Creatinine Ratio 15 (6-26) Glucose 200 H (70-99) mg/dL Calculated Osmolality 297 (280-300) Calcium 9.2 (8.6-10.8) mg/dL Troponin I 0.50 H* (0-0.03) ng/mL
[2016-07-29] MEDS ORDERED: *HR* Heparin 5,000 UNIT/ML VIAL IVP ONE (17:44)
[2016-07-29] MEDS ORDERED: Heparin 25,000 UNIT/500 ML D5W 25,000 UNIT/500 ML MLS IVC SCH (17:45)
[2016-07-29 17:51] LABS: INR 1.1; Prothrombin Time 11.9 Seconds (9.4-12.1)
[2016-07-29 17:53] LABS: Activated Partial Thrombo Time 26.8 Seconds (26.0-36.0)
[2016-07-29] MEDS ORDERED: *HR* OxyCODONE/APAP 10/325 TABLET PO PRN (19:46)
[2016-07-29] MEDS ORDERED: Nitroglycerin 0.4 MG TAB.SUBL SL PRN (19:46)
[2016-07-29] MEDS ORDERED: Ipratropium/Albuterol Neb 3 ML IH PRN (19:48)
[2016-07-29] MEDS ORDERED: Dextrose Gel 15 GM PO PRN ×2 (19:49)
[2016-07-29] MEDS ORDERED: Ondansetron 4 MG/2 ML VIAL IVP PRN (19:49)
[2016-07-29] MEDS ORDERED: *HR* Dextrose 50 % in Water (Syg) 50 ML SYRINGE IVP PRN (19:49)
[2016-07-29] MEDS ORDERED: D5% in Water 1,000 ML IVC PRN (19:49)
[2016-07-29] MEDS ORDERED: *HR* Morphine 2 MG/ML SYRINGE IVP PRN (19:49)
[2016-07-29] MEDS ORDERED: Acetaminophen 325 MG TABLET PO PRN (19:49)
[2016-07-29] MEDS ORDERED: Naloxone 0.4 MG/ML INJ IVP PRN (19:49)
--- NOTE | 2016-07-29 19:59 | Internal Med History&Physical ---
Date of Encounter: 07/29/16 Time of Encounter: 19:57 Assessment and Plan (1) NSTEMI (non-ST elevation myocardial infarction) Current visit: Yes Status: Acute Continue aspirin, metoprolol, heparin drip, Lipitor, check lipid panel Continue Imdur, nitroglycerin glycerin as needed, morphine as needed Cardiology consult Nothing by mouth after midnight for possible cardiac catheterization Trend troponins, continue telemetry Omeprazole for GI prophylaxis and heparin drip for DVT prophylaxis. The patient will be admitted as inpatient, expected stay more than 2 midnights. Full code. Time spent on this admission 45 minutes (2) Chronic kidney disease, stage III (moderate) Current visit: Yes Status: Acute Stable (3) Diabetes Current visit: No Status: Chronic Continue insulin sliding scale and home dose of long-acting insulin Hold metformin Qualifiers: Diabetes mellitus type: type 2 Diabetes mellitus complication status: with kidney complications Diabetes mellitus complication detail: with chronic kidney disease Diabetes mellitus breakfast hostess insulin use: with custodial use Chronic kidney disease stage: stage 3 (moderate) Qualified Code(s): E11.22 - Type 2 diabetes mellitus with diabetic chronic kidney disease; N18.3 - Chronic kidney disease, stage 3 (moderate); Z79.4 - alf (current) use of insulin (4) Hyperlipemia Current visit: No Status: Chronic Qualifiers: Hyperlipidemia type: mixed hyperlipidemia Qualified Code(s): E78.2 - Mixed hyperlipidemia (5) Hypertension Current visit: No Status: Chronic Accelerated hypertension Order hydralazine as needed Qualifiers: Hypertension type: essential hypertension Qualified Code(s): I10 - Essential (primary) hypertension (6) Obesity (BMI 30-39.9) Current visit: No Status: Chronic Internal Medicine - H&P: HPI Chief complaint: Chest pain Admitted From: Emergency Dept History of present illness: Mr. Ocasio is a 51 year old male with a past medical history of diabetes type 2 insulin-dependent, CAD status post 3 stents, peripheral artery disease, chronic kidney disease stage III. Patient came complaining of chest pressure that started at 2:30 AM and today. It lasted for about 20 minutes and he was very similar to his prior events. He describes this episode as left chest pressure radiating to his head and felt like flattering. His troponin is 0.5 Dr. Fish was called by the ER physician and recommended starting heparin drip. The patient's creatinine is 1.58 at baseline. EKG shows flattening of the T waves inferior leads. Chest x-ray is unremarkable with no acute changes. Patient received aspirin in the emergency room. He describes he took nitroglycerin the other day which helped with the pain. Blood pressure is 149/83. He complained of some dizziness and lightheadedness as well. Past Med Surg Social Fam HX - Past Medical History Medical history: arthritis, asthma, coronary artery disease (Status post 3 stents), diabetes (Insulin-dependent), GERD, hyperlipidemia, hypertension, peripheral artery disease, renal disease (Chronic kidney disease stage III), valvular heart disease, other (Obstructive sleep apnea, foot ulcer, hyperglycemic hyper osmolar nonketotic state, toe gangrene, GERD, PAD, vitamin D deficiency) Psychiatric history: no psych history - Past Surgical History Surgical History: angioplasty/stent, other (Right-sided thoracotomy due to prior empyema, chest tube removed) - Social History Smoking Status: Never smoker Smokeless Tobacco Status: No Alcohol use: none Drug use: none - Family History Brother Living Status: Still Living Hx Family Cardiac Disorders: No Hx Family Respiratory Disorders: No Hx Family Cancer: No Hx Family GI Disorders: No Hx Family Endocrine Disorder: No Hx Family Neuromuscular Disorders: No Hx Family Neurologic Disorders: No Hx Family HEENT Disorders: No Hx Family Autoimmune Disorders: No Mother Adopted: No Family Member Ethnicity: Non- Living Status: Hx Family Cardiac Disorders: Yes (HTN) Hx Family Respiratory Disorders: No Hx Family Cancer: Yes (Colon) Hx Family GI Disorders: No Hx Family Endocrine Disorder: Yes (DM) Hx Family Neuromuscular Disorders: No Hx Family Neurologic Disorders: No Hx Family HEENT Disorders: No Hx Family Autoimmune Disorders: No Father Adopted: No Family Member Ethnicity: Non- Living Status: Hx Family Cardiac Disorders: Yes Hx Family Respiratory Disorders: Yes Hx Family Cancer: Yes (Liver/lung) Hx Family GI Disorders: No Hx Family Endocrine Disorder: Yes Hx Family Neuromuscular Disorders: No Hx Family Neurologic Disorders: No Hx Family HEENT Disorders: No Hx Family Autoimmune Disorders: No - Additional Family History Additional family history: Father with a myocardial infarction, lung cancer. Mother with hypertension and diabetes Internal Medicine - H&P: Meds Albuterol Sulfate [Albuterol Inhaler] 2 puff IH Q4HR PRN 03/30/16 [History] Atorvastatin Calcium [Lipitor] 80 mg PO DAILY 03/30/16 [History] Clopidogrel [Plavix] 75 mg PO DAILY 03/30/16 [History] Dulaglutide [Trulicity] 1.5 mg SQ FR 03/30/16 [History] Gabapentin [Neurontin] 600 mg PO TID 03/30/16 [History] Insulin Glargine,Hum.rec.anlog [Lantus Solostar] 60 unit SQ BID 03/30/16 [ History] Insulin LISPRO [Humalog Kwikpen U-100] 30 - 38 unit SQ TIDWM 03/30/16 [History] Isosorbide MONOnitrate (24 HR) [Imdur] 120 mg PO DAILY 03/30/16 [History] Lisinopril/Hydrochlorothiazide [Zestoretic 20-12.5 mg Tablet] 2 tab PO DAILY 01/03 [History] Metoprolol XL (24 HR) Succ [Toprol Xl] 50 mg PO DAILY 03/30/16 [History] Nitroglycerin [Nitrostat] 0.4 mg SL Q5M PRN 03/30/16 [History] Oxycodone HCl/Acetaminophen [Percocet 10-325 mg Tablet] 1 - 2 tab PO QID PRN 01/03 [History] amLODIPine [Norvasc] 10 mg PO DAILY 03/30/16 [History] metFORMIN [Glucophage] 1,000 mg PO BID 03/30/16 [History] Aspirin Enteric Coated [Aspirin EC] 325 mg PO DAILY 06/02/16 [History] Ergocalciferol (VITAMIN D2) [Vitamin D2] 50,000 unit PO 2XW 06/02/16 [History] Allergies ketoconazole Adverse Reaction (Verified 06/19/16 20:48) Redness of Skin All Systems PM: A 10-system review of systems was performed and is negative for pertinent findings except as documented above in the HPI. Review of systems: Denies any chest pain at the moment. Other systems out of the 10 reviewed were negative - Constitutional Vitals: Temp Pulse Resp BP Pulse Ox 98.6 F 74 20 127/87 97 07/29/16 16:08 07/29/16 19:00 07/29/16 19:49 07/29/16 19:49 07/29/16 19:00 General appearance: Present: A&O X 3 - Head Head exam: Present: atraumatic, normocephalic - Eye Eye exam: Present: PERRL, conjuntiva pink, sclera anicteric Pupils: Present: PERRL - Neck Neck exam general surgery: Present: supple, trachea midline. Absent: lymphadenopathy - Respiratory Respiratory exam: Present: decreased breath sounds, CTAB. Absent: accessory muscle use, rales, rhonchi, wheezes - Cardiovascular Cardiovascular exam: Present: RRR, +S1, +S2. Absent: diastolic murmur, gallop, rubs, systolic murmur - GI/Abdominal GI/Abdominal exam: Present: normal bowel sounds, soft, no peritoneal signs. Absent: distended, tenderness - Extremities Exam Extremities exam: Present: warm, radial pulses palpable and symetrical. Absent : calf tenderness, cyanotic, pedal edema - Neurological Exam Neurological exam: Present: CN II-XII intact, oriented X3, no focal deficits. Absent: pronater drift, facial droop, speech deficit - Skin Skin exam: Present: dry. Absent: intact (Right foot wound last ulcer covered by dressing) Internal Med - H&P Results - Labs CBC & Chem 7: 07/29/16 16:24 07/29/16 16:24
[2016-07-29] MEDS: Gabapentin 300 MG CAPSULE PO SCH (22:32)
[2016-07-29] MEDS: Insulin LISPRO 300 UNITS/3 ML VIAL SQ SCH (22:33)
[2016-07-29] MEDS: 0.9 % Sodium Chloride 1,000 ML IVC SCH (22:34)
[2016-07-30 03:39] LABS: Calcium 9.1 mg/dL (8.6-10.8); Chol/HDL Ratio 8.3 (0-4.9); Potassium 3.9 mEq/L (3.5-4.5)
[2016-07-30] MEDS ORDERED: *HR* Heparin 5,000 UNIT/ML VIAL IVP PRN ×2 (04:39→04:56)
[2016-07-30] MEDS ORDERED: *HR* Heparin 10,000 UNIT/10 ML VIAL IVP PRN (04:43)
[2016-07-30] MEDS ORDERED: Perflutren Lipid Microsphere 1.3 ML in 0.9 % Sodium Chloride 8.7 ML IVP ONE (08:19)
[2016-07-30] MEDS ORDERED: Aspirin Enteric Coated 325 MG Tablet PO SCH (09:00)
--- NOTE | 2016-07-30 09:17 | Internal Med Progress Note ---
<Samara Ceja - Last Filed: 07/30/16 09:15> Date of Encounter: 07/30/16 Time of Encounter: 09:15 - Assessment and plan (1) NSTEMI (non-ST elevation myocardial infarction) Current Visit: Yes Status: Acute Assessment and plan: cardio consulted [facility] planned for today trop. .52>.43 flattening of T waves in inferior leads continue heparin drip, nitro, morphin, imdur as needed continue tele monitoring (2) Chronic kidney disease, stage III (moderate) Current Visit: Yes Status: Acute Assessment and plan: 1.53, near baseline (3) Diabetes Current Visit: No Status: Chronic Assessment and plan: monitor and sliding scale currently NPO for [facility] Qualifiers: Diabetes mellitus type: type 2 Diabetes mellitus complication status: with kidney complications Diabetes mellitus complication detail: with chronic kidney disease Diabetes mellitus senior care insulin use: with intermediate accountant use Chronic kidney disease stage: stage 3 (moderate) Qualified Code(s): E11.22 - Type 2 diabetes mellitus with diabetic chronic kidney disease; N18.3 - Chronic kidney disease, stage 3 (moderate); Z79.4 - prison (current) use of insulin (4) Hyperlipemia Current Visit: No Status: Chronic Qualifiers: Hyperlipidemia type: mixed hyperlipidemia Qualified Code(s): E78.2 - Mixed hyperlipidemia (5) Hypertension Current Visit: No Status: Chronic Assessment and plan: 138/83, currently controlled continue telemetry Qualifiers: Hypertension type: essential hypertension Qualified Code(s): I10 - Essential (primary) hypertension (6) Obesity (BMI 30-39.9) Current Visit: No Status: Chronic (7) DVT prophylaxis Current Visit: No Status: Acute Assessment and plan: on heparin drip - Subjective Interval history: Mr. Ocasio is a 51 yo m with a PMHx of diabetes type 2 insulin-dependent, CAD status post 3 stents, peripheral artery disease, chronic kidney disease stage III. Patient came complaining of chest pressure that started at 2:30 AM and today. It lasted for about 20 minutes and he was very similar to his prior events. With toponin elevation .52>.43, cariology consulted and started heparin drip. EKG shows flattening of the T waves inferior leads. Cardiac cath planned for today. - Constitutional Vitals: Temp Pulse Resp BP Pulse Ox 98.1 F 71 18 138/83 95 07/30/16 06:47 07/30/16 06:47 07/30/16 06:47 07/30/16 06:47 07/30/16 04:00 General appearance: Present: A&O X 3 - Head Head exam: Present: atraumatic, normocephalic - Eye Eye exam: Present: PERRL, conjuntiva pink, sclera anicteric Pupils: Present: PERRL - Neck Neck exam general surgery: Present: supple, trachea midline. Absent: lymphadenopathy - Respiratory Respiratory exam: Present: CTAB. Absent: accessory muscle use, rales, rhonchi, wheezes - Cardiovascular Cardiovascular exam: Present: RRR, +S1, +S2. Absent: diastolic murmur, gallop, rubs, systolic murmur - GI/Abdominal GI/Abdominal exam: Present: normal bowel sounds, soft, no peritoneal signs. Absent: distended, tenderness - Extremities Exam Extremities exam: Present: warm, radial pulses palpable and symetrical. Absent : calf tenderness, cyanotic, pedal edema - Neurological Exam Neurological exam: Present: CN II-XII intact, oriented X3, no focal deficits. Absent: pronater drift, facial droop, speech deficit - Skin Skin exam: Present: dry, intact Internal Medicine: Result - Labs CBC & Chem 7: 07/29/16 16:24 07/30/16 01:14 Labs: BMP 07/30/16 01:14 Sodium 134 L Potassium 3.9 Chloride 102 Carbon Dioxide 24 BUN 23 Creatinine 1.61 H Glucose 375 H Calcium 9.1 Cardiac Enzymes 07/30/16 Range/Units 01:14 Troponin I 0.43 H* (0-0.03) ng/mL - ABG Interpretation ABG results: PT/INR, D-dimer PT 11.9 Seconds (9.4-12.1) 07/29/16 16:24 Consult Discharge Plan - Plan Referrals: Lashaun Connor, DIRECTOR OF SPECIAL SERVICES [Primary Care Provider] - <Jules Patel - Last Filed: 07/30/16 14:27> Date of Encounter: 07/30/16 - Assessment and plan (1) NSTEMI (non-ST elevation myocardial infarction) Current Visit: Yes Status: Acute (2) Hypertension Current Visit: No Status: Chronic Qualifiers: Hypertension type: essential hypertension Qualified Code(s): I10 - Essential (primary) hypertension (3) Sleep apnea, obstructive Current Visit: No Status: Chronic (4) Chronic kidney disease, stage III (moderate) Current Visit: Yes Status: Acute (5) Obesity (BMI 30-39.9) Current Visit: No Status: Chronic (6) Hyperlipemia Current Visit: No Status: Chronic Qualifiers: Hyperlipidemia type: mixed hyperlipidemia Qualified Code(s): E78.2 - Mixed hyperlipidemia - Constitutional Vitals: Temp Pulse Resp BP Pulse Ox 97.6 F 78 16 135/85 98 07/30/16 11:58 07/30/16 11:58 07/30/16 11:58 07/30/16 11:58 07/30/16 11:58 Internal Medicine: Result - Labs CBC & Chem 7: 07/29/16 16:24 07/30/16 01:14 Labs: BMP 07/30/16 01:14 Sodium 134 L Potassium 3.9 Chloride 102 Carbon Dioxide 24 BUN 23 Creatinine 1.61 H Glucose 375 H Calcium 9.1 Cardiac Enzymes 07/30/16 07/30/16 Range/Units 01:14 09:50 Troponin I 0.43 H* 0.49 H* (0-0.03) ng/mL - ABG Interpretation ABG results: PT/INR, D-dimer PT 11.9 Seconds (9.4-12.1) 07/29/16 16:24 - Attending Attestation I examined this patient and my medical decision-making was reviewed with the Resident Physician on 07/30/16. I agree with the documented findings, disposition and treatment plan as described except to the extent set forth below. Mr. Ocasio is currently admitted for acute NSTEMI. He is moderate to high risk due to potential for worsening cardiac symptoms. Mr. Ocasio feels OK. He has no CP at this time. No fever or chills. No cough. No dyspnea. He has agreed to have cardiac cath and is waiting for the procedure. Exam Alert. Comfortable Heart reg No wheeze I/P 1. Acute NSTEMI Cath today Further diagnoses and plan as above.
[2016-07-30] MEDS: Isosorbide MONOnitrate (24 HR) 60 MG TAB.ER.24H PO SCH (09:36)
[2016-07-30] MEDS: Metoprolol XL (24 HR) Succ 50 MG TAB.ER.24H PO SCH (09:36)
[2016-07-30] MEDS: Insulin LISPRO 300 UNITS/3 ML VIAL SQ SCH ×2 (09:36→16:50)
[2016-07-30] MEDS: amLODIPine 5 MG TABLET PO SCH (09:36)
[2016-07-30] MEDS: Gabapentin 300 MG CAPSULE PO SCH ×3 (09:37→23:31)
[2016-07-30] MEDS: Lisinopril-HCTZ 20-12.5mg TABLET PO SCH (09:37)
[2016-07-30] MEDS: Insulin DETEMIR 100 UNIT/ML X5UNITS SQ SCH (09:37)
--- NOTE | 2016-07-30 09:52 | Cardiology Consult Note ---
Date of Encounter: 07/30/16 Time of Encounter: 09:00 Assessment and Plan (1) NSTEMI (non-ST elevation myocardial infarction) Current Visit: Yes Status: Acute Peak troponin 0.54, no acute ischemic ECG changes noted. Reports chest "fluttering" for the past 3-4 days, related with exertion. Pain free upon exam. Echocardiogram pending. On heparin gtt, asa, statin, betablocker, and nitrates. Cardiac rehab ordered placed. Recommend C with possible PCI; patient is agreeable to proceed. Will start IVF prior to cath given hx of CKD. Kidney function stable. Further recommendations to follow. (2) CKD (chronic kidney disease) stage 3, GFR 30-59 ml/min Current Visit: Yes Status: Chronic Stable, SCr range 1.3-1.6. Kidney function within baseline. Discussion w patient/family: The assessment and plan as outlined above was discussed with the patient and/or family members who expressed understanding and agreement. All questions were answered. Thank you for involving us in the care of your patient. Please call with any questions. The patient will be discussed and reviewed with Dr. Cy Fish; changes to be made accordingly. History of Present Illness Consult date: 07/30/16 Requesting physician: Leeroy Apodaca Consult reason: NSTEMI Chief complaint: Chest fluttering History of present illness: Mr. Ocasio is a 51 year old male with PMHx significant for CAD s/p PCI (most recent 03/2016), CKD, HTN, HLD, DM II., and recent right great toe amputation who presented to the ED with 2-3 day history of intermittent "chest fluttering. " Denies assoicated symptoms, states symptoms are different from previous NC. Chest "fluttering" seems to occur with exertion and improves with rest. Upon arrival to ED, troponin was 0.50. Reports compliance with all medications including DAPT, states A1c has went from 13 to 8 due to lifestyle modification. Upon exam, he is chest pain free. Previous cardiovascular studies: Left heart catheterization 2012: 2 Vidhya placed in OM 2. 60-70% lesion noted in OM1. Exercise nuclear stress test 02/2014: Imaging negative for ischemia or prior infarct. Exercise ECG borderline for ischemia at peak heart rate and positive for ischemia in recovery. Echocardiogram 02/2014: EF 60-65%. Mild concentric LVH. Mild diastolic dysfunction. No significant valvular disease. [facility] 03/31/2016: Left main normal. LAD mid 20% stenosis. OM 2 patent stents. OM1 90% stenosis (bioabsorbable placed). RCA mid 60% stenosis (FFR 0.88). RPL 40 % stenosis. Past Med Surg Social Fam HX - Past Medical History Attestation: Yes The following information was validated with the patient. Source: patient, old records reviewed Medical history: arthritis, asthma, coronary artery disease, diabetes, GERD, hyperlipidemia, hypertension, peripheral artery disease, renal disease, valvular heart disease Psychiatric history: no psych history - Past Surgical History Surgical History: angioplasty/stent, other (right great toe amputation) - Social History Smoking Status: Never smoker Smokeless Tobacco Status: No Alcohol use: none Drug use: none - Family History Brother Living Status: Still Living Hx Family Cardiac Disorders: No Hx Family Respiratory Disorders: No Hx Family Cancer: No Hx Family GI Disorders: No Hx Family Endocrine Disorder: No Hx Family Neuromuscular Disorders: No Hx Family Neurologic Disorders: No Hx Family HEENT Disorders: No Hx Family Autoimmune Disorders: No Mother Adopted: [place]: Rosaura ocasio Family Member Ethnicity: Non- Living Status: Age at : 63 Cause of : cancer Hx Family Cardiac Disorders: Yes (HTN) Hx Family Respiratory Disorders: No Hx Family Cancer: Yes (Colon) Hx Family GI Disorders: No Hx Family Endocrine Disorder: Yes (DM) Hx Family Neuromuscular Disorders: No Hx Family Neurologic Disorders: No Hx Family HEENT Disorders: No Hx Family Autoimmune Disorders: No Father Adopted: [place]: [facility] Family Member Ethnicity: Non- Living Status: Age at : 63 Cause of : cancer Hx Family Cardiac Disorders: Yes Hx Family Respiratory Disorders: Yes Hx Family Cancer: Yes (Liver/lung) Hx Family GI Disorders: No Hx Family Endocrine Disorder: Yes Hx Family Neuromuscular Disorders: No Hx Family Neurologic Disorders: No Hx Family HEENT Disorders: No Hx Family Autoimmune Disorders: No Medications and Allergies Albuterol Sulfate [Albuterol Inhaler] 2 puff IH Q4HR PRN 03/30/16 [History] Atorvastatin Calcium [Lipitor] 80 mg PO DAILY 03/30/16 [History] Clopidogrel [Plavix] 75 mg PO DAILY 03/30/16 [History] Dulaglutide [Trulicity] 1.5 mg SQ FR 03/30/16 [History] Gabapentin [Neurontin] 600 mg PO TID 03/30/16 [History] Insulin Glargine,Hum.rec.anlog [Lantus Solostar] 60 unit SQ BID 03/30/16 [ History] Insulin LISPRO [Humalog Kwikpen U-100] 30 - 38 unit SQ TIDWM 03/30/16 [History] Isosorbide MONOnitrate (24 HR) [Imdur] 120 mg PO DAILY 03/30/16 [History] Lisinopril/Hydrochlorothiazide [Zestoretic 20-12.5 mg Tablet] 2 tab PO DAILY 01/03 [History] Metoprolol XL (24 HR) Succ [Toprol Xl] 50 mg PO DAILY 03/30/16 [History] Nitroglycerin [Nitrostat] 0.4 mg SL Q5M PRN 03/30/16 [History] Oxycodone HCl/Acetaminophen [Percocet 10-325 mg Tablet] 1 - 2 tab PO QID PRN 01/03 [History] amLODIPine [Norvasc] 10 mg PO DAILY 03/30/16 [History] metFORMIN [Glucophage] 1,000 mg PO BID 03/30/16 [History] Aspirin Enteric Coated [Aspirin EC] 325 mg PO DAILY 06/02/16 [History] Ergocalciferol (VITAMIN D2) [Vitamin D2] 50,000 unit PO 2XW 06/02/16 [History] Allergies ketoconazole Adverse Reaction (Verified 06/19/16 20:48) Redness of Skin All Systems Review: A 10-system review of systems was performed and is negative for pertinent findings except as documented above in the HPI. - Cardiovascular Cardiovascular: as per HPI Physical Examination Vital Signs, Last 4 Hours Temp Pulse Resp BP 07/30/16 06:47 98.1 F 71 18 138/83 General: Conversant, No Apparent Distress HEENT: Atraumatic, Normocephaly Neck: No JVD Cardiac: Reg Rate and Rhythm, Normal S1 and S2 Lungs: Normal Breath Sounds Neuro: Alert and responsive Abdomen: Soft Skin: No rashes noted on visualized skin Musculoskeletal: No Chest Wall Tenderness Extremities: No Edema, Normal Pulses, Other (right great toe amputation) Results 07/29/16 16:24 07/30/16 01:14 Lab Results 07/30/16 07/30/16 07/30/16 01:14 01:14 01:14 APTT 40.6 H D Sodium 134 L Potassium 3.9 Chloride 102 Carbon Dioxide 24 BUN 23 Creatinine 1.61 H Glucose 375 H Calcium 9.1 Troponin I 0.43 H* Active Medications Acetaminophen (Tylenol) 650 mg PO Q6HR PRN PRN Reason: Mild Pain (1-3) Stop: 01/28/17 19:50 Albuterol/Ipratropium (Duoneb) 3 ml IH [id number] PRN; Protocol PRN Reason: Shortness Of Breath/Wheezing Stop: 01/28/17 19:49 Amlodipine Besylate (Norvasc) 10 mg PO DAILY [facility]HI PRN Reason: Protocol Stop: 01/29/17 09:01 Last Admin: 07/30/16 09:36 Dose: 10 mg Aspirin (Aspirin Ec) 325 mg PO DAILY KHUSHI Stop: 01/29/17 09:01 Last Admin: 07/30/16 09:36 Dose: 325 mg Atorvastatin Calcium (Lipitor) 80 mg PO DAILY [facility] Stop: 01/29/17 09:01 Last Admin: 07/30/16 09:37 Dose: 80 mg Clopidogrel Bisulfate (Plavix) 75 mg PO DAILY K[facility]USHI Stop: 01/29/17 09:01 Last Admin: 07/30/16 09:37 Dose: 75 mg Dextrose/Water (Dextrose 50% (Syg)) 25 ml IVP AD PRN PRN Reason: Hypoglycemia Stop: 01/28/17 19:50 Gabapentin (Neurontin) 600 mg PO TID [facility] Stop: 01/28/17 21:01 Last Admin: 07/30/16 09:37 Dose: 600 mg Glucagon (Glucagen) 1 mg IM ONCE PRN PRN Reason: Hypoglycemia Stop: 01/28/17 19:50 Glucose (Gluctose) 15 gm PO ONCE PRN PRN Reason: Hypoglycemia Stop: 01/28/17 19:50 Glucose (Gluctose) 30 gm PO ONCE PRN PRN Reason: Hypoglycemia Stop: 01/28/17 19:50 Lisinopril/HCTZ (Prinzide 20-12.5) 2 each PO DAILY K[facility]USHI Stop: 01/29/17 09:01 Last Admin: 07/30/16 09:37 Dose: 2 each Heparin Sodium (Porcine) (Heparin) 4,000 unit IVP Q8HCO PRN PRN Reason: Per low dose heparin protocol Stop: 01/29/17 06:01 Last Admin: 07/30/16 04:58 Dose: 4,000 unit Heparin Sodium (Porcine) (Heparin) 2,000 unit IVP PROTOCOL PRN PRN Reason: Per low dose heparin protocol Stop: 01/29/17 04:46 Hydralazine HCl (Hydralazine) 10 mg IVP Q6HR PRN PRN Reason: Hypertension Stop: 01/28/17 19:49 Heparin Sodium/Dextrose (Heparin 25,000 Unit/500 Ml D5w) 25,000 unit in 500 mls @ 19.992 mls/hr IVC .Q24H KHUSHI; 9.54 UNIT/KG/HR PRN Reason: Protocol Stop: 01/28/17 17:46 Last Titration: 07/30/16 10:43 Dose: 13.53 unit/kg/hr, 28.374 mls/hr Sodium Chloride (0.9 % Sodium Chloride) 1,000 mls @ 75 mls/hr IVC .[id number] [facility] Stop: 01/28/17 20:01 Last Admin: 07/29/16 22:34 Dose: 75 mls/hr Dextrose (Dextrose 5%) 1,000 mls @ 100 mls/hr IVC .Q10H PRN PRN Reason: HYPOGLYCEMIA Stop: 01/28/17 19:50 Insulin Detemir (Levemir) 60 unit SQ BID [facility] Stop: 01/29/17 09:01 Last Admin: 07/30/16 09:37 Dose: 60 unit Insulin Human Lispro (Humalog) 0 units SQ TIDAC [facility] PRN Reason: Protocol Stop: 01/29/17 07:31 Last Admin: 07/30/16 09:36 Dose: 8 units Insulin Human Lispro (Humalog) 0 units SQ HS [facility] PRN Reason: Protocol Stop: 01/28/17 21:01 Last Admin: 07/29/16 22:33 Dose: 4 units Isosorbide Mononitrate (Imdur) 120 mg PO DAILY [facility] Stop: 01/29/17 09:01 Last Admin: 07/30/16 09:36 Dose: 120 mg Metoprolol Succinate (Toprol Xl) 50 mg PO DAILY [facility] Stop: 01/29/17 09:01 Last Admin: 07/30/16 09:36 Dose: 50 mg Morphine Sulfate (Morphine Sulfate) 4 mg IVP Q3H PRN PRN Reason: Severe Pain (7-10) Stop: 01/28/17 19:50 Naloxone HCl (Narcan) 0.4 mg IVP Q2MIN PRN PRN Reason: Opioid Reversal Stop: 01/28/17 19:50 Nitroglycerin (Nitroglycerin) 0.4 mg SL Q5M PRN PRN Reason: Chest Pain Stop: 01/28/17 19:47 Omeprazole (Prilosec) 40 mg PO DAILY@0630 [facility] PRN Reason: Protocol Stop: 01/29/17 06:31 Last Admin: 07/30/16 05:34 Dose: Not Given Ondansetron HCl (Zofran) 4 mg IVP Q8HR PRN PRN Reason: Nausea And Vomiting Stop: 01/28/17 19:50 Oxycodone/Acetaminophen (Percocet 10/325) 1 each PO QID PRN PRN Reason: moderate pain Stop: 01/28/17 19:47 - Imaging and Cardiology Echo: pending, report reviewed Cardiac cath: report reviewed Other Results: 12 hour tele: avg HR=77 SR. No significant event noted. - EKG Interpretation EKG results cardiology: personally reviewed Consult Discharge Plan - Plan Referrals: Lashaun Connor, [employer]IC[employer] INSPECTOR [Primary Care Provider] -
--- NOTE | 2016-07-30 11:14 | Electrocardiograph Report ---
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
--- NOTE | 2016-07-30 11:17 | Electrocardiograph Report ---
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
[2016-07-30] MEDS ORDERED: Heparin 1,000 UNITS/500 mL NS 500 ML ONE (12:29)
[2016-07-30] MEDS ORDERED: Nitroglycerin 1,000 MCG/10 ML VIAL IV ONE (12:29)
[2016-07-30] MEDS ORDERED: 0.9 % Sodium Chloride 1,000 ML ONE (12:29)
[2016-07-30] MEDS ORDERED: *HR* Heparin 10,000 UNIT/10 ML VIAL ONE (12:29)
--- NOTE | 2016-07-30 13:11 | Pre-Sedation Evaluation ---
Pre-sedation evaluation - Pre-sedation checklist Date of procedure: 07/30/16 Procedure: Heart cath Recent Vitals: Last Vital Signs Temp 97.6 F 07/30/16 11:58 Pulse 78 07/30/16 11:58 Resp 16 07/30/16 11:58 BP 135/85 07/30/16 11:58 Pulse Ox 98 07/30/16 11:58 H&P (including ROS) documented in medical record: Yes Previous reaction to sedatives/anesthetics: No Dietary Status: No solid food in preceding 4 hrs and no liquid in preceding 2 hrs Airway Assessment: Patient can open mouth completely, TMJ function normal, Micrognathia (under-bite, receding chin) absent, Neck with adequate range of motion Dentition: No loose teeth or bridges Possible difficult airway: No ASA Classification *see protocol: CLASS II-Mild systemic disease Plan of Care: Pt appropriate candidate for procedure/moderate/conscious sedation , Risks/benefits of procedure/sedation discussed w/ patient/family
[2016-07-30] MEDS ORDERED: *HR* Midazolam HCl 2 MG/2 ML VIAL ONE ×2 (13:13→13:47)
[2016-07-30] MEDS ORDERED: *HR* FentaNYL (PF) 100 MCG/2 ML VIAL ONE (13:14)
[2016-07-30] MEDS ORDERED: *HR* Bivalirudin 250 MG VIAL IVC ONE ×2 (13:47→14:12)
[2016-07-30] MEDS ORDERED: 0.9 % Sodium Chloride 1,000 ML IVC SCH (15:15)
--- NOTE | 2016-07-30 15:21 | Invasive Diagnostic Lab Proc ---
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 H\\T\\P is on chart. ID band is on and ID verified with patient. Patient NPO for procedure The procedure was described for the patient and questions were answered. Blood Pressure: 138/83 ECG is on chart. Rhythm: NSR Plan of Care Patient will tolerate the procedure without complications. Adequate level of comfort will be maintained. Hemodynamics will remain stable Patient will recover from procedure without complications. Respiratory function will be maintained. Cardiac rhythm will remain stable. Patient temperature will be maintained. Patient and/or family have verbalized understanding of the procedure. Patient Education Chief Complaint/Reason for Test: Cardiac Cath Developmental Category: Adult (18-64 years) Developmentally Appropriate for Age: Yes Learning Barriers: None Education Needs: Procedure Education Method: Verbal Information Taught: Cardiac Cath Educational Evaluation: Able to repeat information Intravenous Access Time IV Size Location DC'd Fluid/Drip Rate Units RN 18g 1 02/20" Patent On Arrival Rt Arm 0.9NaCl 25 ml/hr Nichelle Dominguez RN Allergies ketoconazole Vital Signs Time BP (mmHg) HR (bpm) O2 Sat. RR (bpm) LOC 138 / 83 71 96 % 16 5 = Fully awake and oriented or at pre-proc level 01:17 PM / % 4 = Oriented but drowsy Procedural Medications Time Medication Dose Units Method Given By 01:17 PM Versed 2 mg Intravenous Nichelle Dominguez RN 01:17 PM Fentanyl 50 mcg Intravenous Nichelle Dominguez RN 01:17 PM Oxygen 2 L/min nasal cannula Nichelle Dominguez RN 01:29 PM Lidocaine 2% 17 ml Subcutaneous Heidi Fish MD, FAC 01:45 PM Versed 1 mg Intravenous Nichelle Dominguez RN 01:45 PM Fentanyl 25 mcg Intravenous Nichelle Dominguez RN 01:49 PM Angiomax 0.75mg/kg bolus: 22.5 ml Intravenous Nichelle Dominguez RN 01:50 PM Angiomax 1.75mg/kg/hr: 52.5 ml Intravenous Nichelle Dominguez RN 02:04 PM Nitroglycerin 200 mcg Intracoronary Heidi Fish MD, FAC 02:15 PM Adenosine 882 ml/hr Intravenous Nichelle Dominguez RN 02:36 PM Nitroglycerin 200 mcg Intracoronary Heidi Fish MD, FACC 02:44 PM Nitroglycerin 200 mcg Intracoronary Heidi Fish MD, FAC 02:48 PM Plavix 600 mg Orally Fidel Yanez MD ASA Classification: CLASS II- Mild systemic disease (i.e. well-controlled diabetes, hypertension, asthma, cigarette smoking) Naz[place]in Score Preprocedure Postprocedure Activity 2- Moves 4 extremities sustained head lift Activity 2- Moves 4 extremities sustained head lift Circulation 2- SBP +/= 20 points of pre-anesthetic level Circulation 2- SBP +/= 20 points of pre-anesthetic level Consciousness 2- Awake and alert oriented x 3 Consciousness 2- Awake and alert oriented x 3 O2 Saturation 2- Able to maintain O2 satruation of 92% on room air O2 Saturation 2- Able to maintain O2 satruation of 92% on room air Respiratory 2- Able to deep breathe and cough well Respiratory 2- Able to deep breathe and cough well Total Score 10 Total Score 10 Contrast Agent: Isovue Diagnostic Contrast: 212 ml Total Contrast: 212 ml Fluoro Dose: 2731 mGy Procedure Log Time Note Enter By 01:16 PM 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 Professor Of Economics Time in: 13:17 tsites 01:17 PM Time: 13:17 Versed 2 mg Intravenous Given by Nichelle Dominguez RN 01:17 PM Time: 13:17 Fentanyl 50 mcg Intravenous Given by Nichelle Dominguez RN 01:17 PM Time: 13:17 Oxygen on at 2 L/min per nasal cannula by Nichelle Dominguez RN 01:17 PM Time: 13:17 Patient comfortable and pain free: Yes 01:17 PM Time: 13:17LOC: 4 = Oriented but drowsy [email or web address] 01:29 PM Time out performed according to hospital policy [email or web address] 01:30 PM Time: 13:29 17 ml Lidocaine 2% to right groin Subcutaneous Given by Heidi Fish MD, [facility] [email or web address] 01:31 PM Access obtained by percutaneous puncture. 5Fr 10cm Terumo [place] sheath placed in right Femoral artery. [id number] [email or web address] 01:31 PM 0.035 145cm Navilyst 3mmJ wire [id number] [email or web address] 01:31 PM 5Fr FL 4 catheter inserted over the wire DN [email or web address] 01:32 PM LCA angiography performed in multiple views. [email or web address] 01:33 PM Lesion found in Proximal Circumflex. Pre Stenosis: 80 Pre PAPO Flow: [email or web address] 01:34 PM Catheter removed [email or web address] 01:34 PM 5Fr FR 4 catheter inserted over the wire DN [email or web address] 01:36 PM RCA angiography performed in multiple views. [email or web address] 01:37 PM Catheter removed [email or web address] 01:43 PM Sheath exchanged for a 6 Fr 11 cm Cordis Mily sheath [id number] [email or web address] 01:43 PM 6Fr XB LAD 3.5 [place] Bright-Tip guide catheter was used to cannulate the PCI vessel successfully. reused? No [email or web address] 01:44 PM .014 [place] 180cm guide wire across target lesion Ramus- successful. reused? No [email or web address] 01:44 PM Inflation device was opened. [email or web address] 01:45 PM Time: 13:45 Versed 1 mg Intravenous Given by Nichelle Dominguez RN [email or web address] 01:45 PM Time: 13:45 Fentanyl 25 mcg Intravenous Given by Nichelle Dominguez RN [email or web address] 01:47 PM .014 PT Graphix 182cm guide wire across target lesion LAD- successful. reused? No [email or web address] 01:49 PM Time: 13:49 Angiomax 0.75mg/kg bolus: 22.5 ml Intravenous Given by Nichelle Dominguez RN Watts pump [email or web address] 01:50 PM Time: 13:50 Angiomax 1.75mg/kg/hr: 37.0 ml Intravenous Given by Nichelle Dominguez RN Watts pump [email or web address] 01:52 PM .014 [place] 180cm guide wire across target lesion CX- successful. reused? No [email or web address] 01:56 PM 2.0 mm x 12 mm Emerge Monorail balloon across target lesion- successful. reused? No [email or web address] 01:56 PM Balloon inflated @ 8 merissa for 20 seconds [email or web address] 01:58 PM Balloon catheter removed intact. [email or web address] 01:59 PM 2.75mm x 16mm Synergy drug-eluting stent across target lesion- successful Lot #[id number] to CIRC on marvel [email or web address] 02:02 PM Stent deployed @ 11 merissa for 30 seconds [email or web address] 02:03 PM Stent balloon reinflated @ 14 merissa for 10 seconds [email or web address] 02:03 PM PT Graphix removed [email or web address] 02:04 PM Stent delivery system removed intact. [email or web address] 02:04 PM Time: 14:04 Nitroglycerin 200 mcg Intracoronary Given by Heidi Fish MD, [facility] [email or web address] 02:07 PM wires removed [email or web address] 02:10 PM Guide catheter removed intact. [email or web address] 02:11 PM 6Fr IM Runway guide catheter was used to cannulate the PCI vessel successfully. reused? No [email or web address] 02:12 PM wire removed [email or web address] 02:16 PM [employer] Comet wire advanced to target lesion. [email or web address] 02:18 PM FFR Measurement: 0.90 prior to Adenosine [email or web address] 02:19 PM Time: 14:15 Adenosine 882 ml/hr Intravenous Given by Nichelle Dominguez RN [email or web address] 02:21 PM FFR Measurement: 0.79 [email or web address] 02:21 PM Adenosine d/c [email or web address] 02:25 PM 2.0 X 12 compliant balloon reinserted [email or web address] 02:25 PM Balloon inflated @ 8 merissa for 20 seconds [email or web address] 02:26 PM Balloon catheter removed intact. [email or web address] 02:27 PM 2.5mm x 38mm Synergy drug-eluting stent across target lesion- successful Lot #[id number] [email or web address] 02:29 PM Stent removed intact. [email or web address] 02:30 PM 6Fr Guidezilla advanced [email or web address] 02:32 PM Synergy Stent reinserted [email or web address] 02:34 PM Stent deployed @ 14 merissa for 30 seconds [email or web address] 02:35 PM Stent balloon reinflated @ 18 merissa for 15 seconds [email or web address] 02:36 PM Stent delivery system removed intact. [email or web address] 02:36 PM Time: 14:36 Nitroglycerin 200 mcg Intracoronary Given by Heidi Fish MD, [facility] [email or web address] 02:38 PM 2.75 mm x 12mm NC Emerge balloon across target lesion- successful. reused? No [email or web address] 02:40 PM Balloon inflated @ 20 merissa for 20 seconds [email or web address] 02:41 PM Balloon inflated @ 20 merissa for 15 seconds [email or web address] 02:41 PM Balloon inflated @ 20 merissa for 13 seconds [email or web address] 02:41 PM Balloon inflated @ 20 merissa for 11 seconds [email or web address] 02:42 PM Balloon inflated @ 20 merissa for 10 seconds [email or web address] 02:42 PM Balloon inflated @ 20 merissa for 15 seconds [email or web address] 02:43 PM Balloon catheter removed intact. [email or web address] 02:43 PM Guideliner removed. [email or web address] 02:44 PM Time: 14:44 Nitroglycerin 200 mcg Intracoronary Given by Heidi Fish MD, [facility] [email or web address] 02:48 PM Time: 14:48 Plavix 600 mg Orally Given by Fidel Yanez MD [email or web address] 02:53 PM Catheter removed [email or web address] 02:53 PM Wire removed [email or web address] 02:53 PM Procedure completed at 14:53 [email or web address] 02:53 PM Sign out completed: Radiation Dose 2730.85 mGy Fluoro Time: 17.3 Isovue 370 - 200ml contrast 212 ml given by Heidi Fish MD, [facility]. Complications: NoneCardiac Rehab Consult needed: YesConfirmed administered medications: Yes [email or web address] 02:53 PM Sheath left in place to be pulled on floor/holding areaV+Pad [email or web address] 02:54 PM Post ECG NSR [email or web address] 02:54 PM Post Blood Pressure 135/81 [email or web address] 02:54 PM Information taught Cardiac Cath and PCI [email or web address] 02:54 PM Education needs Procedure, Plan of Care, and Disease Process [email or web address] 02:54 PM Learning barriers :None [email or web address] 02:54 PM Education Methods Verbal [email or web address] 02:54 PM Education evaluation Able to repeat information [email or web address] 02:54 PM Site status No bleeding/hematoma - Rt Groin as reported by Shanta Thomas RT (R) at 14:54 [email or web address] 02:54 PM Opsite applied [email or web address] 02:54 PM Delay to floor No [email or web address] 02:54 PM Family placed in consult room. [email or web address] 02:54 PM Complications: None [email or web address] 02:55 PM Fluoro Time: 17.3 [email or web address] 02:55 PM Isovue 370 - 200ml contrast 212 ml given by Heidi Fish MD, [facility]. [email or web address] 02:55 PM Radiation Dose 2730.85 mGy [email or web address] 03:04 PM Report given to Brunilda BLANCHARD Pt taken to Holding room Room #4. 15:04 [email or web address] 03:14 PM Patient out of room: 15:14 [email or web address] Complications Complication None None Hemodynamics Pressures Site Systolic/A Wave Diastolic/V Wave Mean AO 131 102 117 AO 89 70 80 AO 117 92 104 AO 143 95 114 Post Procedure Information Blood Pressure: 135/81 mmHg Rhythm: NSR Post procedural instructions were not given Site Checks Time Location Status Staff Sheath In? Note 02:54 PM Rt Groin No bleeding/hematoma Shanta Thomas RT (R) Pulses Time Site Pre-Procedure Post-Procedure Note Bilateral DP \\T\\ PT 1+ 1+ Bilateral radial 2+ 2+ Updated by Yael Lewis RT(R) on 07/30/2016 3:14:19 PM electronically signed on 07/30/2016 3:15:15 PM with status of Final
--- NOTE | 2016-07-30 16:22 | Invasive Diagnostic Lab ---
Name: Jeb Ocasio Date of Study: 07/30/2016 Date: 1965 Ht: 173.0 cm /68.1 in Medical Record#: [id number] Age: 51 Wt: 105. kg / 231.49 lb Account/Order#: [id number] Gender: Male BSA: 2.18 Order #: [id number] Fluoro Dose: 2731 mGy BMI: 35.08 Procedure Physician: Heidi Fish MD, [facility] Referring MD: Referring MD: Procedures Performed: CORONARY ANGIOGRAPHY IV Doppler BLD Flow 1st Vessel Stent w/ PTCA Single Major Vessel Stent w/ PTCA Single Major Vessel Indications: Non-Stemi Impressions: Triple vessel coronary artery disease. Previous stents in ramus and OM1 widely patent. Patient had successful PTCA/Drug-Eluting Stent placement in the ostial/proximal Circ. FFR Measurement: 0.79 in Mid RCA Patient had successful PTCA/Drug-Eluting Stent placement in the mid RCA. Recommendations: DAPT for one year minimum uninterrupted. Optimal medical therapy of patient's disease. Aggressive risk factor modification. History/Risk Factors: renal dx nstemi Diabetes Hypertension Dyslipidemia Current/Recent Smoker Peripheral Vascular Disease Previous PCI Procedure Access obtained in the right Femoral artery by percutaneous puncture Patient had successful PTCA/Drug-Eluting Stent placement in the proximal Circ. A pressure tipped wire was advanced through the catheter into the RCA. Measurements of FFR were made during hyperemia induced by intravenous adenosine. FFR Measurement 0.79. Patient had successful PTCA/Drug-Eluting Stent placement in the mid RCA. Complications: None, None Contrast: Isovue 212ml Hemodynamics: Pressures Site Systolic/ A Wave Diastolic/ V Wave End Diastolic/ Mean HR AO 131 102 117 AO 89 70 80 AO 117 92 104 AO 143 95 114 Coronary Dominance: Right Lesion Findings/Interventions * Left Main Coronary Artery There is a 30% stenosis in the LMCA. * Left Anterior Descending There is a 30% stenosis in the Proximal LAD. There is a 25% stenosis in the Mid LAD. There is a 25% stenosis in the Distal LAD. There is a 65% stenosis in the 1st diagonal branch. * Circumflex There is a 16 mm long, 99% stenosis in the Ostial/proximal Circumflex. The lesion has a PAPO flow of 2, has no thrombus present, and is a bifurcation lesion. An intervention was performed on the Ostial/Proximal Circumflex with a final stenosis of 0%. There were no lesion complications. The final PAPO flow was 3. There is a 15% instent restenosis in the 1st Marginal. * Ramus There is a 15% instent restenosis in the Ramus. * Right Coronary Artery There is a 38 mm long, 60% stenosis in the Mid RCA- FFR 0.79. The lesion has no thrombus present. An intervention was performed on the Mid RCA with a final stenosis of 0%. There were no lesion complications. There is a 50% stenosis in the Distal RCA. Interventional Device(s) Vessel Segment Type Name Diameter (mm) Length (mm) Proximal Circumflex Drug Eluting Stent Synergy 2.75 16 Proximal Circumflex Balloon Emerge Monorail 2 12 Mid RCA Drug Eluting Stent Synergy 2.5 38 Mid RCA Balloon NC Emerge 2.75 12 Updated by Yael Lewis RT(R) on 07/30/2016 3:10:52 PM Heidi Fish MD, FACC electronically signed on 07/30/2016 4:15:58 PM with status of Final
[2016-07-30] MEDS ORDERED: *HR* Atropine Sulfate 1 MG/10 ML SYRINGE ONE (17:58)
[2016-07-30] MEDS: 0.9 % Sodium Chloride 1,000 ML IVC SCH (23:32)
[2016-07-31] MEDS: Insulin DETEMIR 100 UNIT/ML X5UNITS SQ SCH ×2 (00:05→09:09)
[2016-07-31 04:52] LABS: Hematocrit 32.8 % (37.5-50.1); Hemoglobin 10.9 g/dL (12.9-16.9); Mean Corpuscular HGB Conc 33.2 g/dL (31.6-35.5); Mean Corpuscular Hemoglobin 28.3 pg (28.0-33.3); Mean Corpuscular Volume 85.2 fL (83.0-100.0); Platelet Count 286 K/mcL (140-400); Red Blood Count 3.85 M/mcL (4.19-5.50); Red Cell Distribution Width 13.8 % (11.5-14.5)
[2016-07-31 04:53] LABS: Basophils % 0.3 %; Eosinophils # 0.4 K/mcL (0.0-0.6); Eosinophils % 3.2 %; Hematocrit 33.2 % (37.5-50.1); Hemoglobin 10.8 g/dL (12.9-16.9); Immature Granulocytes % 0.2 % (0-4); Lymphocytes # 2.7 K/mcL (0.6-4.6); Lymphocytes % 24.6 %; Mean Corpuscular HGB Conc 32.5 g/dL (31.6-35.5); Mean Corpuscular Hemoglobin 27.3 pg (28.0-33.3); Mean Corpuscular Volume 83.8 fL (83.0-100.0); Mean Platelet Volume 9.8 fL (9.4-12.4); Monocytes % 9.4 %; Neutrophils # 6.8 K/mcL (1.6-8.9); Platelet Count 292 K/mcL (140-400); Red Blood Count 3.96 M/mcL (4.19-5.50); Red Cell Distribution Width 13.5 % (11.5-14.5); Segmented Neutrophils % 62.3 %
[2016-07-31 04:57] LABS: BUN/Creatinine Ratio 13 (6-26); Blood Urea Nitrogen 16 mg/dL (8-26); Calcium 8.9 mg/dL (8.6-10.8); Carbon Dioxide 24 mEq/L (19-29); Chloride 105 mEq/L (98-109); Glucose 220 mg/dL (70-99); Osmolality,Calculated 288 (280-300); Potassium 3.9 mEq/L (3.5-4.5); Sodium 135 mEq/L (136-145); eGFR For African Americans > 60 (> 60); eGFR For Non-African Americans > 60 (> 60)
[2016-07-31] MEDS: Insulin LISPRO 300 UNITS/3 ML VIAL SQ SCH ×3 (06:06→09:13)
[2016-07-31 07:21] VITALS: BP 140/80
[2016-07-31] MEDS ORDERED: Aspirin 81 MG TAB.CHEW PO SCH (09:00)
[2016-07-31] MEDS: Gabapentin 300 MG CAPSULE PO SCH (09:09)
[2016-07-31] MEDS: Lisinopril-HCTZ 20-12.5mg TABLET PO SCH (09:10)
[2016-07-31] MEDS: Metoprolol XL (24 HR) Succ 50 MG TAB.ER.24H PO SCH (09:11)
[2016-07-31] MEDS: Isosorbide MONOnitrate (24 HR) 60 MG TAB.ER.24H PO SCH (09:12)
[2016-07-31] MEDS: amLODIPine 5 MG TABLET PO SCH (09:12)
--- NOTE | 2016-07-31 10:10 | Cardiology Progress Note ---
Date of Encounter: 07/31/16 Time of Encounter: 09:00 Assessment and Plan (1) NSTEMI (non-ST elevation myocardial infarction) Current Visit: Yes Status: Acute Peak troponin 0.54, no acute ischemic ECG changes noted. Reports chest "fluttering" for the past 3-4 days, related to exertion. Cardiac rehab ordered. [facility] 07/30/16: previously stented ramus, OM1 widely patent; s/p successful PTCA/ ANH to ostial/pLCx stenosis and PTCA/ANH to mRCA (FFR 0.79 mRCA). TTE 07/30/16: LVEF 45-50%, hypokinesis of the basal-mid inferolateral wall, mild cLVH, normal RV structure and function, mild MR. Post PCI discharge instructions discussed including emphasis on the importance of uninterrupted DAPT (asa + plavix) for at least 1 year. Continue statin, betablocker, nitrates, and ACEi. Follow-up in the outpatient setting, will coordinate appt. All questions and concerns were addressed. (2) CKD (chronic kidney disease) stage 3, GFR 30-59 ml/min Current Visit: Yes Status: Chronic Stable, SCr range 1.3-1.6. Kidney function improved from baseline today. Discussion w patient/family: The assessment and plan as outlined above was discussed with the patient and/or family members who expressed understanding and agreement. All questions were answered. Thank you for involving us in the care of your patient. Please call with any questions. The patient was discussed and reviewed with Dr. Cy Fish; Cardiology will sign-off, please call with questions. Will coordinate appt in the outpatient setting. Subjective Principal diagnosis: NSTEMI Interval history: Seen and examined. No issues with right groin cath site. Has been chest pain "aching" free since PCI yesterday afternoon. Post PCI, DAPT education provided. Objective Vital Signs, Last 4 Hours Temp Pulse Resp BP Pulse Ox 07/31/16 07:10 97.8 F 77 18 140/80 95 General: Conversant, No Apparent Distress HEENT: Atraumatic, Normocephaly, Mucus Membranes Moist Neck: No JVD, Normal carotid pulses Cardiac: Reg Rate and Rhythm, Normal S1 and S2, No Murmur Lungs: Normal Breath Sounds, No Wheeze, Rales, Rhonchi Neuro: Alert and responsive, No focal deficits noted Abdomen: Soft, Non-Tender Skin: No rashes noted on visualized skin Musculoskeletal: No Chest Wall Tenderness Extremities: No Edema, Normal Pulses Other: right groin cath site: dressing, clean, dry and intact. No hematoma, oozing, or ecchymosis noted. +2 DP/PT pulses bilaterally. Results 07/31/16 04:01 07/31/16 04:01 Lab Results 07/30/16 07/30/16 07/30/16 09:50 09:50 17:15 WBC Hgb Hct Plt Count APTT 70.6 H D 64.5 H Sodium Potassium Chloride Carbon Dioxide BUN Creatinine Glucose Calcium Troponin I 0.49 H* 07/31/16 07/31/16 07/31/16 04:01 04:01 04:01 WBC 11.0 Hgb 10.9 L Hct 32.8 L Plt Count 286 APTT 25.6 L D Sodium 135 L Potassium 3.9 Chloride 105 Carbon Dioxide 24 BUN 16 Creatinine 1.23 Glucose 220 H Calcium 8.9 Troponin I 07/31/16 04:01 WBC 10.9 Hgb 10.8 L Hct 33.2 L Plt Count 292 APTT Sodium Potassium Chloride Carbon Dioxide BUN Creatinine Glucose Calcium Troponin I Active Medications Acetaminophen (Tylenol) 650 mg PO Q6HR PRN PRN Reason: Mild Pain (1-3) Stop: 01/28/17 19:50 Albuterol/Ipratropium (Duoneb) 3 ml IH [id number] PRN; Protocol PRN Reason: Shortness Of Breath/Wheezing Stop: 01/28/17 19:49 Amlodipine Besylate (Norvasc) 10 mg PO DAILY [id number] PRN Reason: Protocol Stop: 01/29/17 09:01 Last Admin: 07/31/16 09:12 Dose: 10 mg Aspirin (Aspirin) 81 mg PO DAILY [facility] Stop: 01/30/17 09:01 Last Admin: 07/31/16 09:12 Dose: 81 mg Atorvastatin Calcium (Lipitor) 80 mg PO DAILY [facility] Stop: 01/29/17 09:01 Last Admin: 07/31/16 09:10 Dose: 80 mg Clopidogrel Bisulfate (Plavix) 75 mg PO DAILY [facility] Stop: 01/29/17 09:01 Last Admin: 07/31/16 09:12 Dose: 75 mg Dextrose/Water (Dextrose 50% (Syg)) 25 ml IVP AD PRN PRN Reason: Hypoglycemia Stop: 01/28/17 19:50 Gabapentin (Neurontin) 600 mg PO TID [facility] Stop: 01/28/17 21:01 Last Admin: 07/31/16 09:09 Dose: 600 mg Glucagon (Glucagen) 1 mg IM ONCE PRN PRN Reason: Hypoglycemia Stop: 01/28/17 19:50 Glucose (Gluctose) 15 gm PO ONCE PRN PRN Reason: Hypoglycemia Stop: 01/28/17 19:50 Glucose (Gluctose) 30 gm PO ONCE PRN PRN Reason: Hypoglycemia Stop: 01/28/17 19:50 Lisinopril/HCTZ (Prinzide 20-12.5) 2 each PO DAILY [facility] Stop: 01/29/17 09:01 Last Admin: 07/31/16 09:10 Dose: 2 each Hydralazine HCl (Hydralazine) 10 mg IVP Q6HR PRN PRN Reason: Hypertension Stop: 01/28/17 19:49 Sodium Chloride (0.9 % Sodium Chloride) 1,000 mls @ 75 mls/hr IVC .[id number] [facility] Stop: 01/28/17 20:01 Last Infusion: 07/31/16 09:14 Dose: 75 mls/hr Dextrose (Dextrose 5%) 1,000 mls @ 100 mls/hr IVC .Q10H PRN PRN Reason: HYPOGLYCEMIA Stop: 01/28/17 19:50 Insulin Detemir (Levemir) 60 unit SQ BID [facility] Stop: 01/29/17 09:01 Last Admin: 07/31/16 09:09 Dose: 60 unit Insulin Human Lispro (Humalog) 0 units SQ TIDAC [facility] PRN Reason: Protocol Stop: 01/29/17 07:31 Last Admin: 07/31/16 09:13 Dose: 8 units Insulin Human Lispro (Humalog) 0 units SQ HS [facility] PRN Reason: Protocol Stop: 01/28/17 21:01 Last Admin: 07/31/16 06:06 Dose: Not Given Isosorbide Mononitrate (Imdur) 120 mg PO DAILY [facility] Stop: 01/29/17 09:01 Last Admin: 07/31/16 09:12 Dose: 120 mg Metoprolol Succinate (Toprol Xl) 50 mg PO DAILY [facility] Stop: 01/29/17 09:01 Last Admin: 07/31/16 09:11 Dose: 50 mg Morphine Sulfate (Morphine Sulfate) 4 mg IVP Q3H PRN PRN Reason: Severe Pain (7-10) Stop: 01/28/17 19:50 Naloxone HCl (Narcan) 0.4 mg IVP Q2MIN PRN PRN Reason: Opioid Reversal Stop: 01/28/17 19:50 Nitroglycerin (Nitroglycerin) 0.4 mg SL Q5M PRN PRN Reason: Chest Pain Stop: 01/28/17 19:47 Omeprazole (Prilosec) 40 mg PO DAILY@0630 [facility] PRN Reason: Protocol Stop: 01/29/17 06:31 Last Admin: 07/31/16 06:06 Dose: 40 mg Ondansetron HCl (Zofran) 4 mg IVP Q8HR PRN PRN Reason: Nausea And Vomiting Stop: 01/28/17 19:50 Oxycodone/Acetaminophen (Percocet 10/325) 1 each PO QID PRN PRN Reason: moderate pain Stop: 01/28/17 19:47 - Imaging and Cardiology Echo: report reviewed Cardiac cath: report reviewed Other Results: 12 hour tele: avg HR=73 SR. No significant event noted. - EKG Interpretation EKG results cardiology: personally reviewed Consult Discharge Plan - Plan Referrals: Balaji Calle DO [Partnered Physician] - 08/09/16 9:15 am Lashaun Connor CNP [Primary Care Provider] - 08/09/16 3:00 pm
--- NOTE | 2016-07-31 10:38 | Discharge Summary ---
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 transplanted heart: [place] heart Associated angina: without angina Qualified Code(s): I25.10 - Atherosclerotic heart disease of [place] coronary artery without angina pectoris (6) CKD (chronic kidney disease) stage 3, GFR 30-59 ml/min Priority: Secondary Status: Chronic (7) Foot ulcer due to secondary DM Priority: Secondary Status: Chronic (8) Obesity (BMI 30-39.9) Priority: Secondary Status: Chronic - Discharge Medications Home Medications: Albuterol Sulfate [Albuterol Inhaler] 2 puff IH Q4HR PRN 03/30/16 [History] Atorvastatin Calcium [Lipitor] 80 mg PO DAILY 03/30/16 [History] Clopidogrel [Plavix] 75 mg PO DAILY 03/30/16 [History] Dulaglutide [Trulicity] 1.5 mg SQ FR 03/30/16 [History] Gabapentin [Neurontin] 600 mg PO TID 03/30/16 [History] Insulin Glargine,Hum.rec.anlog [Lantus Solostar] 60 unit SQ BID 03/30/16 [ History] Insulin LISPRO [Humalog Kwikpen U-100] 30 - 38 unit SQ TIDWM 03/30/16 [History] Isosorbide MONOnitrate (24 HR) [Imdur] 120 mg PO DAILY 03/30/16 [History] Lisinopril/Hydrochlorothiazide [Zestoretic 20-12.5 mg Tablet] 2 tab PO DAILY 01/03 [History] Metoprolol XL (24 HR) Succ [Toprol Xl] 50 mg PO DAILY 03/30/16 [History] Nitroglycerin [Nitrostat] 0.4 mg SL Q5M PRN 03/30/16 [History] Oxycodone HCl/Acetaminophen [Percocet 10-325 mg Tablet] 1 - 2 tab PO QID PRN 01/03 [History] amLODIPine [Norvasc] 10 mg PO DAILY 03/30/16 [History] metFORMIN [Glucophage] 1,000 mg PO BID 03/30/16 [History] Aspirin Enteric Coated [Aspirin EC] 325 mg PO DAILY 06/02/16 [History] Ergocalciferol (VITAMIN D2) [Vitamin D2] 50,000 unit PO 2XW 06/02/16 [History] Allergies/Adverse Reactions: Allergies ketoconazole Adverse Reaction (Verified 06/19/16 20:48) Redness of Skin Procedures/tests Complete & Pending: Procedures Performed prior 72 hours Category Date Time Status CL Cardiac Catheterization [CL] Routine Paratransit Operator 07/30/16 10:58 Completed Date of admission: 07/29/16 22:48 Primary care physician: Lashaun Connor CNP Discharging clinician: Eric Alegria Anticipated date of discharge: 07/31/16 - Patient Status Disposition: Home, Self-Care Condition: Fair Functional capacity at discharge: independent ambulation Overall status at discharge: patient is progressing back to baseline - Discharge Instructions Follow Up With: Balaji Calle DO [Partnered Physician] - 08/09/16 9:15 am Lashaun Connor CNP [Primary Care Provider] - 08/09/16 3:00 pm - Diet and Activity Activity: resume usual activities as tolerated Diet: diabetic diet, low fat, low cholesterol, low salt diet, other (renal diet) Interval History: See below Hospital course: Mr. Ocasio is a 51 year old male with PMH of CAD s/p TN, CKD III, DM with CKD and peripheral neuropathy and foot ulcers, HTN, HLD Patient came complaining of chest pressure that started on day of presentation and lasted for about 20 minutes and he was very similar to his prior events. With toponin elevation .52>.43, and EKG showing flattening of the T waves inferior leads. He was started on hepari drip, he was already on BB, ACEI, Statin at home, these were continued. Cardiology evaluated and planned him for LHC. CXR was unremarkable for any acute processes. LHC 07/30/16 showed previously stented ramus, OM1 widely patent; he is s/p successful PTCA/ANH to ostial/pLCx stenosis and PTCA/ANH to mRCA (FFR 0.79 mRCA) . TTE 07/30/16: LVEF 45-50%, hypokinesis of the basal-mid inferolateral wall, mild cLVH, normal RV structure and function, mild MR. Seen and evaluated at bedside this morning, denies new complains, clinically stable Educated about need for compliance with medications, verbalized understanding Patient decline home health nurse for extensive education, he states " I dont want nobody in my home", this was made on recommendation by medicare biller. His other chronic medical conditions are stable None of his medications were changed or altered Follow up with PCP, cardiology, enal, Podiatry. Plan of care discussed, verbalized understanding - Time Spent with Patient Total time spent providing and/or coordinating discharge services: Less than 30 minutes - Constitutional Vitals: Temp Pulse Resp BP Pulse Ox 97.8 F 77 18 140/80 95 07/31/16 07:10 07/31/16 07:10 07/31/16 07:10 07/31/16 07:10 07/31/16 07:10 General appearance: Present: A&O X 3, pleasant, no acute distress, obese - Head Head exam: Present: atraumatic, normocephalic - Eye Eye exam: Present: PERRL, conjuntiva pink, sclera anicteric Pupils: Present: PERRL - Neck Neck exam general surgery: Present: supple, trachea midline. Absent: lymphadenopathy - Respiratory Respiratory exam: Present: CTAB. Absent: accessory muscle use, rales, rhonchi, wheezes - Cardiovascular Cardiovascular exam: Present: RRR, +S1, +S2. Absent: diastolic murmur, gallop, rubs, systolic murmur - GI/Abdominal GI/Abdominal exam: Present: normal bowel sounds, soft, no peritoneal signs. Absent: distended, tenderness - Extremities Exam Extremities exam: Present: warm, radial pulses palpable and symetrical. Absent : calf tenderness, cyanotic, pedal edema - Neurological Exam Neurological exam: Present: alert, CN II-XII intact, oriented X3, no focal deficits. Absent: pronater drift, facial droop, speech deficit - Skin Skin exam: Present: dry
== END 2016-07-31 11:26 | disposition home or self-care (01) | DRG 174 ==
LOC: EMEROO 16:07 → 2NENU 16:07 → 2NNU 07-30 15:52
PROVIDERS: ADMIT Internal Medicine; ATTEND Internal Medicine

== ENCOUNTER 2017-02-11 05:21 | Observation (INO) ==
--- NOTE | 2017-02-11 05:27 | Emergency Department Note ---
Disposition Clinical Impression: History of coronary artery disease, Acute kidney injury Chest pain Qualifiers: Chest pain type: unspecified Qualified Code(s): R07.9 - Chest pain, unspecified Disposition: Admitted As Inpatient Condition: Good Referrals: Lashaun Connor CNP [Primary Care Provider] - Forms: ED Satisfaction Letter General Adult HPI - General Chief complaint: ED Chest Pain Stated complaint: CP Time Seen by Provider: 02/11/17 05:24 Source: patient Mode of arrival: EMS Limitations: no limitations Nursing Notes Reviewed: Yes Vital Signs Reviewed: Yes - History of Present Illness HPI Narrative: 51-year-old male who reports that he had an MN back in July. He reports that his prior to arrival he was woke up from sleep by left-sided chest pain. He states initially it was a 9 out of 10 on the pain scale but after nitroglycerin is down to a 7 out of 10. He states that it feels similar to when he had his heart attack back in July. He denies any nausea or vomiting. No diaphoresis. He has a past medical history diabetes, hypertension, hyperlipidemia. He denies any modifying factors. He reports that he has a mild headache now after the nitroglycerin. He denies dyspnea. Radiation: non-radiation Pain Severity: moderate Consistency: constant Improves with: nothing Worsens with: nothing Associated symptoms: Reports: denies other symptoms Treatments Prior to Arrival: none - Related Data Home Medications Medication Instructions Recorded Confirmed Atorvastatin Calcium [Lipitor] 80 mg PO DAILY 03/30/16 01/15/17 Clopidogrel [Plavix] 75 mg PO DAILY 03/30/16 01/15/17 Dulaglutide [Trulicity] 1.5 mg SQ FR 03/30/16 01/15/17 Gabapentin [Neurontin] 600 mg PO TID 03/30/16 01/15/17 Insulin Glargine,Hum.rec.anlog 55 unit SQ BID 03/30/16 01/15/17 [Lantus Solostar] Insulin LISPRO [Humalog Kwikpen 24 unit SQ TIDWM 03/30/16 01/15/17 U-100] Isosorbide MONOnitrate (24 HR) 120 mg PO DAILY 03/30/16 01/15/17 [Imdur] Lisinopril/Hydrochlorothiazide 2 tab PO DAILY 03/30/16 01/15/17 [Zestoretic 20-12.5 mg Tablet] Metoprolol XL (24 HR) Succ [Toprol 50 mg PO DAILY 03/30/16 01/15/17 Xl] Nitroglycerin [Nitrostat] 0.4 mg SL Q5M PRN 03/30/16 01/15/17 amLODIPine [Norvasc] 10 mg PO DAILY 03/30/16 01/15/17 metFORMIN [Glucophage] 1,000 mg PO BID 03/30/16 01/15/17 Aspirin Enteric Coated [Aspirin EC] 325 mg PO DAILY 06/02/16 01/15/17 Ergocalciferol (VITAMIN D2) 50,000 unit PO 2XW 06/02/16 01/15/17 [Vitamin D2] Previous Rx's Medication Instructions Recorded Cyclobenzaprine [Flexeril] 10 mg PO HS #5 tablet 11/22/16 Allergies Allergy/AdvReac Type Severity Reaction Status Date / Time ketoconazole AdvReac Redness of Verified 02/11/17 05:24 Skin All systems ED: reviewed and negative except as stated. Constitutional: Denies: fever ENT ED: Denies: throat pain Cardiovascular: Reports: chest pain. Denies: dyspnea on exertion Respiratory: Denies: cough, dyspnea Gastrointestinal: Denies: abdominal pain, nausea, vomiting Integumentary: Denies: rash Neurological: Reports: headache Past Medical History - Past Medical History Medical history: Reports: coronary artery disease, diabetes, GERD, hyperlipidemia, hypertension, myocardial infarction, renal disease Surgical history: Reports: angioplasty/stent, other Psychiatric history: Reports: no psych history - Social History Smoking Status: Never smoker Smokeless Tobacco Status: No Alcohol use: Reports: none Drug use: Reports: none Physical Exam - General Limitations: no limitations General appearance: alert, in no apparent distress - Head Head exam: atraumatic - Eye Eye exam: Present: normal appearance, PERRL - ENT ENT exam: normal exam, normal oropharynx - Neck Neck exam: Present: normal inspection - Chest Chest inspection: Present: normal inspection - Respiratory Respiratory exam: Present: normal lung sounds bilaterally. Absent: respiratory distress - Cardiovascular Cardiovascular exam: Present: regular rate, normal rhythm - Abdominal Exam Abdominal exam: Present: soft, Non-Tender - Extremities Exam Extremities exam: Present: normal inspection - Back Exam Back exam: Present: normal inspection - Neurological Exam Neurological exam: Present: alert, oriented X3 - Psychiatric Psychiatric exam: Present: normal affect, normal mood - Skin Skin exam: Present: warm, dry Course Course Narrative: He has a stent from back in July. EKG shows NSR w/o ischemic changes. Will get labwork and admit. He already received aspirin by EMS. Symptoms not consistent w/ dissection as this pain is similar to his last MN, it does not radiate to the back, and he is in no acute distress. Pulses are equal in both upper extremities. Not consistent w/ PE as he has no dyspnea and is not hypoxic. Accepted by [facility] for admission for CP rule out Vital Signs Temperature 98.3 F 02/11/17 05:25 Pulse Rate 81 02/11/17 05:25 Respiratory Rate 18 02/11/17 05:25 Blood Pressure 174/106 02/11/17 05:25 O2 Sat by Pulse Oximetry 95 02/11/17 05:25 Temperature 98.3 F 02/11/17 05:25 Pulse Rate 81 02/11/17 05:25 Respiratory Rate 18 02/11/17 05:25 Blood Pressure 174/106 02/11/17 05:25 O2 Sat by Pulse Oximetry 95 02/11/17 05:31 Oxygen Delivery Oxygen Delivery Nasal Cannula Medical Decision Making - Medical Records Medical records reviewed: Yes I reviewed the patient's medical records. - Lab Data Lab results reviewed: Yes I reviewed the patient's lab results. Result diagrams: 02/11/17 05:26 02/11/17 05:26 Lab Results 02/11/17 02/11/17 02/11/17 Range/Units 05:26 05:26 05:26 WBC 11.0 (4.3-11.1) K/mcL RBC 4.15 L (4.19-5.50) M/mcL Hgb 11.6 L (12.9-16.9) g/dL Hct 36.0 L (37.5-50.1) % MCV 86.7 (83.0-100.0) fL MCH 28.0 (28.0-33.3) pg MCHC 32.2 (31.6-35.5) g/dL RDW 13.0 (11.5-14.5) % Plt Count 302 (140-400) K/mcL MPV 9.8 (9.4-12.4) fL Immature Gran % 0.9 (0-4) % Seg Neutrophils % 49.6 % Lymphocytes % 34.6 % Monocytes % 11.2 % Eosinophils % 3.2 % Basophils % 0.5 % Neutrophils # 5.5 (1.6-8.9) K/mcL Lymphocytes # 3.8 (0.6-4.6) K/mcL Monocytes # 1.2 (0.0-1.3) K/mcL Eosinophils # 0.4 (0.0-0.6) K/mcL Basophils # 0.1 (0.0-0.2) K/mcL PT 10.8 (9.4-12.1) Seconds INR 1.0 APTT 25.7 L (26.0-36.0) Seconds Sodium 138 (136-145) mEq/L Potassium 4.9 (3.5-5.1) mEq/L Chloride 106 (98-107) mEq/L Carbon Dioxide 26 (23-29) mEq/L BUN 26 H (6-20) mg/dL Creatinine 2.01 H (0.70-1.30) mg/dL Est GFR ( Amer) 42 L (> 60) Est GFR (Non-Af Amer) 35 L (> 60) BUN/Creatinine Ratio 13 (6-26) Glucose 293 H (70-105) mg/dL Calculated Osmolality 302 H (280-300) Calcium 9.2 (8.6-10.3) mg/dL Troponin I (< 0.04) ng/mL 02/11/17 Range/Units 05:26 WBC (4.3-11.1) K/mcL RBC (4.19-5.50) M/mcL Hgb (12.9-16.9) g/dL Hct (37.5-50.1) % MCV (83.0-100.0) fL MCH (28.0-33.3) pg MCHC (31.6-35.5) g/dL RDW (11.5-14.5) % Plt Count (140-400) K/mcL MPV (9.4-12.4) fL Immature Gran % (0-4) % Seg Neutrophils % % Lymphocytes % % Monocytes % % Eosinophils % % Basophils % % Neutrophils # (1.6-8.9) K/mcL Lymphocytes # (0.6-4.6) K/mcL Monocytes # (0.0-1.3) K/mcL Eosinophils # (0.0-0.6) K/mcL Basophils # (0.0-0.2) K/mcL PT (9.4-12.1) Seconds INR APTT (26.0-36.0) Seconds Sodium (136-145) mEq/L Potassium (3.5-5.1) mEq/L Chloride (98-107) mEq/L Carbon Dioxide (23-29) mEq/L BUN (6-20) mg/dL Creatinine (0.70-1.30) mg/dL Est GFR ( Amer) (> 60) Est GFR (Non-Af Amer) (> 60) BUN/Creatinine Ratio (6-26) Glucose (70-105) mg/dL Calculated Osmolality (280-300) Calcium (8.6-10.3) mg/dL Troponin I < 0.03 (< 0.04) ng/mL - Radiology Data Radiology results reviewed: Yes I reviewed the patient's radiology results. - EKG Data EKG #1 EKG attestation: Yes I reviewed and interpreted this EKG. EKG shows normal: sinus rhythm Rate: normal Rhythm: NSR [place]/QRS: normal When compared to previous EKG there are: no significant changes Interpretation: no acute changes
[2017-02-11 05:39] LABS: Basophils # 0.1 K/mcL (0.0-0.2); Basophils % 0.5 %; Eosinophils # 0.4 K/mcL (0.0-0.6); Eosinophils % 3.2 %; Hemoglobin 11.6 g/dL (12.9-16.9); Immature Granulocytes % 0.9 % (0-4); Lymphocytes # 3.8 K/mcL (0.6-4.6); Lymphocytes % 34.6 %; Mean Corpuscular HGB Conc 32.2 g/dL (31.6-35.5); Mean Corpuscular Volume 86.7 fL (83.0-100.0); Mean Platelet Volume 9.8 fL (9.4-12.4); Monocytes # 1.2 K/mcL (0.0-1.3); Monocytes % 11.2 %; Neutrophils # 5.5 K/mcL (1.6-8.9); Platelet Count 302 K/mcL (140-400); Red Blood Count 4.15 M/mcL (4.19-5.50); Segmented Neutrophils % 49.6 %
[2017-02-11 05:42] LABS: Prothrombin Time 10.8 Seconds (9.4-12.1)
[2017-02-11 05:45] LABS: Activated Partial Thrombo Time 25.7 Seconds (26.0-36.0)
[2017-02-11 05:49] LABS: Calcium 9.2 mg/dL (8.6-10.3); Potassium 4.9 mEq/L (3.5-5.1)
--- NOTE | 2017-02-11 05:51 | Emergency Department Note ---
START Narrative - START START: I examined this patient and my medical decision-making was reviewed with the Resident Physician. I agree with the documented findings, disposition and treatment plan as described except to the extent set forth below. 51 year old male presents to the ED with complaints of chest pain and states taht this is very simlair to his episode that he had in mar 2016 which required catherizationand stent placement. He has multiple risk facotrs for ACS. wE will do cardiopulmonary workup and treat with ASA, and admit ot medicine.
[2017-02-11] MEDS ORDERED: 0.9 % Sodium Chloride 1,000 ML IVC ONE (05:53)
[2017-02-11] MEDS ORDERED: Naloxone 0.4 MG/ML INJ IVP PRN (06:11)
[2017-02-11] MEDS ORDERED: *HR* HYDROcodone/Acet 5/325 mg TABLET PO PRN (06:11)
[2017-02-11] MEDS ORDERED: Acetaminophen 325 MG TABLET PO PRN (06:11)
[2017-02-11] MEDS ORDERED: Nitroglycerin 0.4 MG TAB.SUBL SL PRN (06:14)
[2017-02-11] MEDS ORDERED: Dextrose Gel 15 GM PO PRN ×2 (06:16)
[2017-02-11] MEDS ORDERED: D5% in Water 1,000 ML IVC PRN (06:16)
[2017-02-11] MEDS ORDERED: *HR* Dextrose 50 % in Water (Syg) 50 ML SYRINGE IVP PRN (06:16)
--- NOTE | 2017-02-11 06:25 | Internal Med History&Physical ---
Date of Encounter: 02/11/17 Time of Encounter: 06:00 Assessment and Plan (1) Hypertension Current visit: No Status: Chronic Poorly controlled hypertension. We will place back home medication. Hydralazine IV when necessary. Qualifiers: Hypertension type: essential hypertension Qualified Code(s): I10 - Essential (primary) hypertension (2) Diabetes Current visit: No Status: Chronic patient to use high-dose insulin at home (Humalog 100 units in AM and 90 units in PM). Will place patient on basal, prandial, and sliding-scale insulin. Close monitor glucose level. 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 Patient has stent in 2009 and this Febrary. Continue DAPT, BB, Statin, and imdur. Qualifiers: Coronary Disease-Associated Artery/Lesion type: [place] artery [place] vs. transplanted heart: [place] heart Associated angina: without angina Qualified Code(s): I25.10 - Atherosclerotic heart disease of [place] coronary artery without angina pectoris (4) CKD (chronic kidney disease) stage 3, GFR 30-59 ml/min Current visit: No Status: Chronic Stable Cr level at baseline (5) DVT prophylaxis Current visit: No Status: Acute Heparin subcutaneously (6) Chest pain Current visit: Yes Status: Acute Pt has squeezing chest pain. Hx of NSTEMI. Need to r/o ACS. - Place pt on continuous cardiac monitoring. - Track 3 set of troponin. - May consider stress test if troponin negative and pt is pain free. - NTG PRN. - May consider cardio consult if there is positive troponin or positive stress test. Qualifiers: Chest pain type: chest pain due to myocardial ischemia Ischemic chest pain type: unstable angina pectoris Qualified Code(s): I20.0 - Unstable angina Internal Medicine - H&P: HPI Chief complaint: Chest pain Admitted From: Home Plans for Post Hospital Care: Home History of present illness: Mr. Ocasio is a 51 year old male with history of with diabetes, hypertension, CAD S/P stent, presented to ER for acute onset chest pain since this morning 5 AM. Patient said pain is squeezing, located on the left side of chest, 8-9 out of 10, and wake patient up from sleep. No radiation. Patient has a shortness of breath. Denies nausea or diaphoresis. Patient takes sublingual nitroglycerin and the pain subsided after treatment. When I saw patient in ER, his pain is 5 out of 10. Patient complain mild headache caused by nitroglycerin. Past Med Surg Social Fam HX - Past Medical History Medical history: coronary artery disease, diabetes, GERD, hyperlipidemia, hypertension, myocardial infarction, renal disease Psychiatric history: no psych history - Past Surgical History Surgical History: angioplasty/stent, other - Social History Smoking Status: Never smoker Smokeless Tobacco Status: No Alcohol use: none Drug use: none - Family History Brother Living Status: Still Living Hx Family Cardiac Disorders: No Hx Family Respiratory Disorders: No Hx Family Cancer: No Hx Family GI Disorders: No Hx Family Endocrine Disorder: No Hx Family Neuromuscular Disorders: No Hx Family Neurologic Disorders: No Hx Family HEENT Disorders: No Hx Family Autoimmune Disorders: No Mother Adopted: No Family Member Ethnicity: Non- Living Status: Hx Family Cardiac Disorders: Yes (HTN) Hx Family Respiratory Disorders: No Hx Family Cancer: Yes (Colon) Hx Family GI Disorders: No Hx Family Endocrine Disorder: Yes (DM) Hx Family Neuromuscular Disorders: No Hx Family Neurologic Disorders: No Hx Family HEENT Disorders: No Hx Family Autoimmune Disorders: No Father Adopted: No Family Member Ethnicity: Non- Living Status: Hx Family Cardiac Disorders: Yes (mother,father,grandparents) Hx Family Respiratory Disorders: No Hx Family Cancer: Yes (father,mother,grandfather) Hx Family GI Disorders: Yes (GERD) Hx Family Endocrine Disorder: Yes (mother,father,grandparents) Hx Family Neuromuscular Disorders: No Hx Family Neurologic Disorders: Yes (father CVA) Hx Family HEENT Disorders: No Hx Family Autoimmune Disorders: No Internal Medicine - H&P: Meds Atorvastatin Calcium [Lipitor] 80 mg PO DAILY 03/30/16 [History] Clopidogrel [Plavix] 75 mg PO DAILY 03/30/16 [History] Dulaglutide [Trulicity] 1.5 mg SQ FR 03/30/16 [History] Gabapentin [Neurontin] 600 mg PO TID 03/30/16 [History] Insulin Glargine,Hum.rec.anlog [Lantus Solostar] 55 unit SQ BID 03/30/16 [ History] Insulin LISPRO [Humalog Kwikpen U-100] 24 unit SQ TIDWM 03/30/16 [History] Isosorbide MONOnitrate (24 HR) [Imdur] 120 mg PO DAILY 03/30/16 [History] Lisinopril/Hydrochlorothiazide [Zestoretic 20-12.5 mg Tablet] 2 tab PO DAILY 01/03 [History] Metoprolol XL (24 HR) Succ [Toprol Xl] 50 mg PO DAILY 03/30/16 [History] Nitroglycerin [Nitrostat] 0.4 mg SL Q5M PRN 03/30/16 [History] amLODIPine [Norvasc] 10 mg PO DAILY 03/30/16 [History] metFORMIN [Glucophage] 1,000 mg PO BID 03/30/16 [History] Aspirin Enteric Coated [Aspirin EC] 325 mg PO DAILY 06/02/16 [History] Ergocalciferol (VITAMIN D2) [Vitamin D2] 50,000 unit PO 2XW 06/02/16 [History] Cyclobenzaprine [Flexeril] 10 mg PO HS #5 tablet 11/22/16 [Rx] 3 Allergy/AdvReac Type Severity Reaction Status Date / Time ketoconazole AdvReac Redness of Verified 02/11/17 05:24 Skin All Systems PM: A 10-system review of systems was performed and is negative for pertinent findings except as documented above in the HPI. - Constitutional Vitals: Temp Pulse Resp BP Pulse Ox 98.3 F 81 18 174/106 95 02/11/17 05:25 02/11/17 05:25 02/11/17 05:25 02/11/17 05:25 02/11/17 05:31 General appearance: Present: A&O X 3, pleasant, no acute distress, answers questions appropriately - Head Head exam: Present: atraumatic, normocephalic - Eye Eye exam: Present: PERRL, conjuntiva pink, sclera anicteric Pupils: Present: PERRL - Neck Neck exam general surgery: Present: supple, trachea midline. Absent: lymphadenopathy - Respiratory Respiratory exam: Present: CTAB. Absent: accessory muscle use, rales, rhonchi, wheezes - Cardiovascular Cardiovascular exam: Present: RRR, +S1, +S2. Absent: diastolic murmur, gallop, rubs, systolic murmur - GI/Abdominal GI/Abdominal exam: Present: normal bowel sounds, soft, no peritoneal signs. Absent: distended, tenderness - Extremities Exam Extremities exam: Present: warm, radial pulses palpable and symmetrical. Absent : calf tenderness, cyanotic, pedal edema - Neurological Exam Neurological exam: Present: CN II-XII intact, oriented X3, no focal deficits. Absent: pronater drift, facial droop, speech deficit - Skin Skin exam: Present: dry, intact Internal Med - H&P Results - Labs CBC & Chem 7: 02/11/17 05:26 02/11/17 05:26 - EKG Data -: EKG Interpreted by Myself EKG shows normal: sinus rhythm Rate: normal
[2017-02-11] MEDS: amLODIPine 5 MG TABLET PO SCH (09:49)
[2017-02-11] MEDS: Lisinopril-HCTZ 20-12.5mg TABLET PO SCH (09:50)
[2017-02-11] MEDS: Aspirin Enteric Coated 325 MG Tablet PO SCH (09:50)
[2017-02-11] MEDS: Metoprolol XL (24 HR) Succ 50 MG TAB.ER.24H PO SCH (09:50)
[2017-02-11] MEDS: Isosorbide MONOnitrate (24 HR) 60 MG TAB.ER.24H PO SCH (09:50)
[2017-02-11] MEDS: Insulin DETEMIR 100 UNIT/ML X5UNITS SQ SCH ×2 (09:51→21:51)
[2017-02-11] MEDS: Insulin LISPRO 300 UNITS/3 ML VIAL SQ SCH ×6 (09:54→18:31)
--- NOTE | 2017-02-11 16:28 | Event Note ---
Date of Encounter: 02/11/17 Time of Encounter: 16:27 Seen and examined at bedside. Patient is new to me, information obtained from chart review and patient report. Patient still with intermittent chest pain, he describes as an ache. It occurs with activity and at rest. No shortness of breath. Considering his significant cardiac history, will consult cardiology for further recommendations. Patient is agreeable
--- NOTE | 2017-02-11 16:54 | Electrocardiograph Report ---
[place] [address] Test Date: 2017-02-11 Pat Name: Jeb Ocasio Department: 104 Room: 3B Gender: M Imaging Engineer: : [id number] Requested By: Lance Rajput Order Number: [id number] Reading MD: Fidel Yanez MD Measurements Intervals [place] Rate: 91 P: 32 CA: 173 QRS: 7 QRSD: 102 T: 38 QT: 367 QTc: 416 Interpretive Statements SINUS RHYTHM Electronically Signed On 02-11-2017 16:53:29 EST by Fidel Yanez MD
[2017-02-11] MEDS: *HR* Heparin 5,000 UNIT/ML VIAL SQ SCH (18:29)
[2017-02-11] MEDS ORDERED: Insulin LISPRO 300 UNITS/3 ML VIAL SQ SCH (21:00)
[2017-02-12] MEDS ORDERED: Insulin LISPRO 300 UNITS/3 ML VIAL SQ ONE (00:37)
[2017-02-12] MEDS: *HR* Heparin 5,000 UNIT/ML VIAL SQ SCH (06:26)
[2017-02-12 07:24] VITALS: BP 166/89
--- NOTE | 2017-02-12 09:13 | Cardiology Consult Note ---
<Wm Carrion - Last Filed: 02/12/17 09:15> Date of Encounter: 02/12/17 Time of Encounter: 08:45 Assessment and Plan (1) Chest pain Current Visit: Yes Status: Acute Per Cardiology: Atypical chest pain symptoms reportedly occurred one time at rest. Troponins negative 3. ECG with no signs of ischemia. I discussed with patient further evaluation in terms of stress test versus optimizing antianginals. Patient agreeable to continue to monitor at this point and follow-up in outpatient setting-- can re-evaluate then possible increase of Imdur/adding Ranexa vs. possible ST. Discussed with Dr. Guzman, will s/o re-consult PRN, f/u scheduled. Qualifiers: Chest pain type: chest pain due to myocardial ischemia Ischemic chest pain type: unstable angina pectoris Qualified Code(s): I20.0 - Unstable angina (2) History of coronary artery disease Current Visit: Yes Status: Chronic Per Cardiology: Known history of CAD with last heart catheterization July 2016 with PTCA/drug- eluting stent to ostial/proximal circumflex 99% lesion and mid RCA 60% lesion with FFR 0.79. Has left main 30%, approximately the 30%, mid LAD 25%, distal LAD 25%, diagonal 1 65%, OM 1 15% ISR, , ramus 15% ISR, and distal RCA 50% lesions. On aspirin, Plavix, statin, WESLEY inhibitor, beta inocente, long-acting nitrate. (3) Cardiomyopathy Current Visit: Yes Status: Chronic Per Cardiology: Last echo 07/2016: Impressions: LVEF 45-50%. There is hypokinesis of the basal-mid inferolateral wall. Mild concentric left ventricular hypertrophy. Normal right ventricular size and function. Mild mitral regurgitation. Unable to estimate RVSP due to lack of TR jet. Left Ventricular Wall Motion: Rest Echo Findings The mid inferior lateral and basal inferior lateral [place] were hypokinetic. All other wall segments showed normal motion. BNP - at 74. Euvolemic on exam. On beta inocente and WESLEY inhibitor. Qualifiers: Cardiomyopathy type: unspecified Qualified Code(s): I42.9 - Cardiomyopathy , unspecified Discussion w patient/family: The assessment and plan as outlined above was discussed with the patient who expressed understanding and agreement. All questions were answered. Thank you for involving us in the care of your patient. Please call with any questions. History of Present Illness Consult date: 02/12/17 Requesting physician: Mckenna Grover Consult reason: CP Chief complaint: CP at rest History of present illness: Mr. Ocasio is a 51 year old male with PMHx significant for CAD s/p PCI (most recent 07/2016), CKD, HTN, HLD, DM II. Cardiology consult for chest pain symptoms. Patient reports his normal state of health until [place]. He reports he was "laying on his side about half asleep he rolled over and noticed left sided chest stabbing sensation that lasted for about 3 minutes and subsided". He reports he took a total of 2 sublingual nitroglycerin pills and reports "all of it was give him a headache". He denies any previous chest pain symptoms. He denies any chest pain with exertion, denies any dyspnea on exertion, denies any increasing fatigue. He reports he decided to come to the ER yesterday morning to be evaluated "just to be safe". He reports compliance with medications. Takes long-acting nitrate. Past Med Surg Social Fam HX - Past Medical History Attestation: Yes The following information was validated with the patient. Source: patient, old records reviewed Medical history: coronary artery disease, diabetes, GERD, hyperlipidemia, hypertension, myocardial infarction, renal disease Psychiatric history: no psych history - Past Surgical History Surgical History: angioplasty/stent, other - Social History Smoking Status: Never smoker Smokeless Tobacco Status: No Alcohol use: none Drug use: none - Family History Brother Living Status: Still Living Hx Family Cardiac Disorders: No Hx Family Respiratory Disorders: No Hx Family Cancer: No Hx Family GI Disorders: No Hx Family Endocrine Disorder: No Hx Family Neuromuscular Disorders: No Hx Family Neurologic Disorders: No Hx Family HEENT Disorders: No Hx Family Autoimmune Disorders: No Mother Adopted: No Family Member Ethnicity: Non- Living Status: Hx Family Cardiac Disorders: Yes (HTN) Hx Family Respiratory Disorders: No Hx Family Cancer: Yes (Colon) Hx Family GI Disorders: No Hx Family Endocrine Disorder: Yes (DM) Hx Family Neuromuscular Disorders: No Hx Family Neurologic Disorders: No Hx Family HEENT Disorders: No Hx Family Autoimmune Disorders: No Father Adopted: No Family Member Ethnicity: Non- Living Status: Hx Family Cardiac Disorders: Yes (mother,father,grandparents) Hx Family Respiratory Disorders: No Hx Family Cancer: Yes (father,mother,grandfather) Hx Family GI Disorders: Yes (GERD) Hx Family Endocrine Disorder: Yes (mother,father,grandparents) Hx Family Neuromuscular Disorders: No Hx Family Neurologic Disorders: Yes (father CVA) Hx Family HEENT Disorders: No Hx Family Autoimmune Disorders: No Medications and Allergies Atorvastatin Calcium [Lipitor] 80 mg PO DAILY 03/30/16 [History] Clopidogrel [Plavix] 75 mg PO DAILY 03/30/16 [History] Gabapentin [Neurontin] 600 mg PO TID 03/30/16 [History] Isosorbide MONOnitrate (24 HR) [Imdur] 120 mg PO DAILY 03/30/16 [History] Lisinopril/Hydrochlorothiazide [Zestoretic 20-12.5 mg Tablet] 2 tab PO DAILY 01/03 [History] Metoprolol XL (24 HR) Succ [Toprol Xl] 50 mg PO DAILY 03/30/16 [History] Nitroglycerin [Nitrostat] 0.4 mg SL Q5M PRN 03/30/16 [History] amLODIPine [Norvasc] 10 mg PO DAILY 03/30/16 [History] metFORMIN [Glucophage] 1,000 mg PO BID 03/30/16 [History] Aspirin Enteric Coated [Aspirin EC] 325 mg PO DAILY 06/02/16 [History] Amoxicillin 875 mg PO BID 02/11/17 [History] Cholecalciferol (D-3) [Vitamin D] 5,000 unit PO DAILY 02/11/17 [History] Insulin Regular U-500 [HumuLIN R U-500] 0 - 150 unit SQ BID PRN 02/11/17 [ History] Oxycodone HCl/Acetaminophen [Percocet 10-325 mg Tablet] 1 tab PO Q4H PRN [History] 3 Allergy/AdvReac Type Severity Reaction Status Date / Time ketoconazole AdvReac Redness of Verified 02/11/17 05:24 Skin All Systems Review: A 10-system review of systems was performed and is negative for pertinent findings except as documented above in the HPI. - Cardiovascular Cardiovascular: as per HPI, chest pain at rest Physical Examination Vital Signs, Last 4 Hours Temp Pulse Resp BP Pulse Ox 02/12/17 07:20 97.7 F 75 20 166/89 96 General: Conversant, No Apparent Distress HEENT: Atraumatic, Normocephaly, Mucus Membranes Moist Neck: No JVD, Normal carotid pulses Cardiac: Reg Rate and Rhythm, Normal S1 and S2, No Murmur Lungs: Normal Breath Sounds, No Wheeze, Rales, Rhonchi Neuro: Alert and responsive, No focal deficits noted Abdomen: Soft, Non-Tender Skin: No rashes noted on visualized skin Musculoskeletal: No Chest Wall Tenderness Extremities: No Clubbing, No Cyanosis, No Edema, Normal Pulses Results 02/11/17 05:26 02/11/17 05:26 Lab Results Laboratory Tests 02/11/17 02/11/17 02/11/17 05:26 05:26 05:26 INR 1.0 Troponin I < 0.03 B-Natriuretic Peptide 74 02/11/17 02/11/17 11:19 17:43 INR Troponin I < 0.03 < 0.03 B-Natriuretic Peptide ITS Impressions Chest X-Ray 02/11/17 05:24 IMPRESSION: Bibasilar atelectasis or, less likely, pneumonia. D/ / Perico Fernandez MD / Perico Fernandez MD Interpreting Provider: Perico Fernandez MD Active Medications Acetaminophen (Tylenol) 650 mg PO Q6HR PRN PRN Reason: Mild Pain (1-3) Stop: 08/13/17 06:12 Hydrocodone Bitart/Acetaminophen ([place] 5-325 Mg) 1 tab PO Q4HR PRN PRN Reason: Moderate Pain (4-6) Stop: 08/13/17 06:12 Amlodipine Besylate (Norvasc) 10 mg PO DAILY [facility] PRN Reason: Protocol Stop: 08/13/17 09:01 Last Admin: 02/11/17 09:49 Dose: 10 mg Aspirin (Aspirin Ec) 325 mg PO DAILY [facility] Stop: 08/13/17 09:01 Last Admin: 02/11/17 09:50 Dose: 325 mg Atorvastatin Calcium (Lipitor) 80 mg PO DAILY [facility] Stop: 08/13/17 09:01 Last Admin: 02/11/17 09:49 Dose: 80 mg Clopidogrel Bisulfate (Plavix) 75 mg PO DAILY [facility] Stop: 08/13/17 09:01 Last Admin: 02/11/17 09:50 Dose: 75 mg Dextrose/Water (Dextrose 50% (Syg)) 25 ml IVP AD PRN PRN Reason: Hypoglycemia Stop: 08/13/17 06:17 Glucagon (Glucagen) 1 mg IM ONCE PRN PRN Reason: Hypoglycemia Stop: 08/13/17 06:17 Glucose (Gluctose) 15 gm PO ONCE PRN PRN Reason: Hypoglycemia Stop: 08/13/17 06:17 Glucose (Gluctose) 30 gm PO ONCE PRN PRN Reason: Hypoglycemia Stop: 08/13/17 06:17 Lisinopril/HCTZ (Prinzide 20-12.5) 2 each PO DAILY [facility] Stop: 08/13/17 09:01 Last Admin: 02/11/17 09:50 Dose: 2 each Heparin Sodium (Porcine) (Heparin) 5,000 unit SQ Q12HCO [facility] Stop: 08/13/17 18:01 Last Admin: 02/12/17 06:26 Dose: 5,000 unit Hydralazine HCl (Hydralazine) 10 mg IVP Q6HR PRN PRN Reason: Hypertension Stop: 08/13/17 06:21 Dextrose (Dextrose 5%) 1,000 mls @ 100 mls/hr IVC .Q10H PRN PRN Reason: HYPOGLYCEMIA Stop: 08/13/17 06:17 Insulin Detemir (Levemir) 55 unit SQ BID [facility] Stop: 08/13/17 09:01 Last Admin: 02/11/17 21:51 Dose: 55 unit Insulin Human Lispro (Humalog) 0 units SQ HS [facility] PRN Reason: Protocol Stop: 08/13/17 21:01 Last Admin: 02/11/17 21:51 Dose: 9 units Insulin Human Lispro (Humalog) 0 units SQ TIDAC [facility] PRN Reason: Protocol Stop: 08/13/17 07:31 Last Admin: 02/11/17 18:31 Dose: 10 units Insulin Human Lispro (Humalog) 12 units SQ TIDWM [facility] Stop: 08/13/17 08:01 Last Admin: 02/11/17 18:30 Dose: 12 units Isosorbide Mononitrate (Imdur) 120 mg PO DAILY [facility] Stop: 08/13/17 09:01 Last Admin: 02/11/17 09:50 Dose: 120 mg Metoprolol Succinate (Toprol Xl) 50 mg PO DAILY [facility] Stop: 08/13/17 09:01 Last Admin: 02/11/17 09:50 Dose: 50 mg Naloxone HCl (Narcan) 0.4 mg IVP Q2MIN PRN PRN Reason: Opioid Reversal Stop: 08/13/17 06:12 Nitroglycerin (Nitroglycerin) 0.4 mg SL Q5MIN PRN PRN Reason: CHEST PAIN Stop: 08/13/17 06:15 - Imaging and Cardiology Cardiac cath: report reviewed - EKG Interpretation EKG results cardiology: personally reviewed (Sinus rhythm in the 90s), normal ECG, sinus rhythm, no diagnostic ischemia, other (Sinus rhythm on telemetry) Consult Discharge Plan - Plan Instructions: Coronary Artery Disease (DC), Chest Pain (DC) Referrals: Lashaun Connor, [employer] [Primary Care Provider] - <Ermias Guzman - Last Filed: 02/12/17 12:16> Date of Encounter: 02/12/17 Time of Encounter: 20:00 - Attending Attestation I have personally performed a face to face evaluation on this patient. I have reviewed and agree with the care plan. History and Exam by me shows: 1. Chest pain: occurred at rest, while lying on left side, started with palpitations, then developed chest heaviness, 3/10 at most severe, palpitations resolved, but continued with chest heaviness, developed stabbing type pain after trying to sit up, took two sequential sl ntg, without change in symptoms. Lasted approx twenty minutes total. Pt reports these symptoms are similar to previous presentation for unstable angina with chest heaviness, but not stabbing type pain. Pt thought about event for several hours, became concerned , called squad, transported to ER. He notes no reoccurrence of chest pain since admission. Also notes sl ntg are at least two years old sice first opened. He has ruled out for acute coronary syndrome, no new EKG changes suggestive of ischemia. Pt is at low risk for hospital discharge, with RX for new sl ntg, continue other current medicatkions, will see in office in next week or two, arrange for outpatient stress imaging. 2. CAD ; known CAD, post PCI with ANH Cx and RCA 07/2016, residual 30% LMT, 25% mid LAD. 3. Mild Ischemic cardiomyopathy, last EF 07/2016 45% with mild LVH, MR, basal- mid inferior hypokinesis consistent with previous infarct, appears well compensated chronic systolic heart failure on current meds. Assessment and Plan Discussion w patient/family: The assessment and plan as outlined above was discussed with the patient and/or family members who expressed understanding and agreement. All questions were answered. Thank you for involving us in the care of your patient. Please call with any questions. History of Present Illness History of present illness: Mr. Ocasio is a 51 year old male All Systems Review: A 10-system review of systems was performed and is negative for pertinent findings except as documented above in the HPI. Results 02/11/17 05:26 02/12/17 10:45 Lab Results 02/11/17 02/11/17 02/12/17 11:19 17:43 10:45 Sodium 135 L Potassium 4.2 Chloride 104 Carbon Dioxide 25 BUN 18 Creatinine 1.25 Glucose 299 H Calcium 9.4 Troponin I < 0.03 < 0.03
[2017-02-12] MEDS: Aspirin Enteric Coated 325 MG Tablet PO SCH (09:48)
[2017-02-12] MEDS: Lisinopril-HCTZ 20-12.5mg TABLET PO SCH (09:49)
[2017-02-12] MEDS: amLODIPine 5 MG TABLET PO SCH (09:49)
[2017-02-12] MEDS: Insulin LISPRO 300 UNITS/3 ML VIAL SQ SCH ×2 (09:49→09:50)
[2017-02-12] MEDS: Metoprolol XL (24 HR) Succ 50 MG TAB.ER.24H PO SCH (09:49)
[2017-02-12] MEDS: Isosorbide MONOnitrate (24 HR) 60 MG TAB.ER.24H PO SCH (09:49)
[2017-02-12] MEDS: Insulin DETEMIR 100 UNIT/ML X5UNITS SQ SCH (10:00)
--- NOTE | 2017-02-12 10:36 | Discharge Summary ---
Date of Encounter: 02/12/17 Time of Encounter: 10:33 - Discharge Diagnosis (1) Atypical chest pain Priority: Primary Status: Resolved Comments: presented with atypical chest pain; symptoms occurred one time at rest. Serial troponins negative, EKG without acute ST changes. Evaluated by cardiology who discussed I discussed stress test versus optimizing antianginals with patient and patient prefers continue to monitor at this time and follow-up cardiology outpatient. Can re-evaluate possible increase of Imdur/adding Ranexa vs. possible ST at that time. Chest pain resolved at time of discharge. Follow-up with cardiology as scheduled. (2) CAD (coronary artery disease) Priority: Secondary Status: Chronic Comments: Known history of CAD. 08/2016 [facility] with PTCA/drug-eluting stent to ostial/ proximal circumflex 99% lesion and mid RCA 60% lesion with FFR 0.79. Has left main 30%, approximately the 30%, mid LAD 25%, distal LAD 25%, diagonal 1 65%, OM 1 15% ISR, , ramus 15% ISR, and distal RCA 50% lesions. Cont ASA, Plavix, WESLEY , BB, nitrate, statin Qualifiers: Coronary Disease-Associated Artery/Lesion type: [place] artery [place] vs. transplanted heart: inupiat heart Associated angina: without angina Qualified Code(s): I25.10 - Atherosclerotic heart disease of inupiat coronary artery without angina pectoris (3) Chronic kidney disease, stage III (moderate) Priority: Secondary Status: Chronic Comments: per hx. Cr 2.0 on arrival which appears slightly worse than baseline. Repeat creatinine improved to baseline without intervention. Cr 1.25 at discharge. Can follow up with nephrology outpatient as previously planned. (4) Diabetes Priority: Primary Status: Chronic Comments: per hx. Uncontrolled. Hgb 10.6%. Secondary to dietary noncompliance and patient reports recent insulin changes. He declines medication changes at this time. States she will follow-up with PCP. Strongly encouraged dietary compliance. 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 BP variable but acceptable. Cont home BP medication. Qualifiers: Hypertension type: essential hypertension Qualified Code(s): I10 - Essential (primary) hypertension - Discharge Medications Home Medications: Atorvastatin Calcium [Lipitor] 80 mg PO DAILY 03/30/16 [History] Clopidogrel [Plavix] 75 mg PO DAILY 03/30/16 [History] Gabapentin [Neurontin] 600 mg PO TID 03/30/16 [History] Isosorbide MONOnitrate (24 HR) [Imdur] 120 mg PO DAILY 03/30/16 [History] Lisinopril/Hydrochlorothiazide [Zestoretic 20-12.5 mg Tablet] 2 tab PO DAILY 01/03 [History] Metoprolol XL (24 HR) Succ [Toprol Xl] 50 mg PO DAILY 03/30/16 [History] Nitroglycerin [Nitrostat] 0.4 mg SL Q5M PRN 03/30/16 [History] amLODIPine [Norvasc] 10 mg PO DAILY 03/30/16 [History] metFORMIN [Glucophage] 1,000 mg PO BID 03/30/16 [History] Aspirin Enteric Coated [Aspirin EC] 325 mg PO DAILY 06/02/16 [History] Amoxicillin 875 mg PO BID 02/11/17 [History] Cholecalciferol (D-3) [Vitamin D] 5,000 unit PO DAILY 02/11/17 [History] Insulin Regular U-500 [HumuLIN R U-500] 0 - 150 unit SQ BID PRN 02/11/17 [ History] Oxycodone HCl/Acetaminophen [Percocet 10-325 mg Tablet] 1 tab PO Q4H PRN [History] Allergies/Adverse Reactions: 3 Allergy/AdvReac Type Severity Reaction Status Date / Time ketoconazole AdvReac Redness of Verified 02/11/17 05:24 Skin Date of admission: 02/11/17 06:05 Primary care physician: Lashaun Connor CNP Consults: 02/11/17 16:28 Consult to Cardiology [CONS] Routine Comment: Consulting Provider: Cardiology Mary Reason for Consult: Hx [place] and stents this year. Now with recurrent chest pain Call Completed: Yes Discharging clinician: Mckenna Grover Anticipated date of discharge: 02/12/17 - Patient Status Disposition: Home, Self-Care Condition: Good Functional capacity at discharge: independent ambulation Overall status at discharge: patient is back to baseline - Discharge Instructions Instructions: Coronary Artery Disease (DC), Chest Pain (DC), Diabetes Mellitus Type 2 in Adults (DC), Meal Planning with the Plate Model (DC) Follow Up With: Lashaun Connor CNP [Primary Care Provider] - - Diet and Activity Activity: increase activity as tolerated Diet: diabetic diet, low fat, low cholesterol Interval History: Seen and examined at bedside. Patient is new to me, information obtained from chart review and patient report. Says he feels better when to go home today if possible. No further chest pain or shortness of breath recurrence. Discussed with him at length the importance of dietary and medication compliance regarding his diabetes and high blood pressure. He reports recent insulin changes per his PCP and has not been following his diet due to the holidays. He is aware of need to follow-up with PCP and cardiology. Hospital course: See assessment and plan for hospital course. - Time Spent with Patient Total time spent providing and/or coordinating discharge services: - Constitutional Vitals: Temp Pulse Resp BP Pulse Ox 97.7 F 75 20 166/89 96 02/12/17 07:20 02/12/17 07:20 02/12/17 07:20 02/12/17 07:20 02/12/17 07:20 General appearance: Present: A&O X 3, morbidly obese, pleasant, no acute distress, answers questions appropriately - Head Head exam: Present: atraumatic, normocephalic - Eye Eye exam: Present: PERRL, conjuntiva pink, sclera anicteric Pupils: Present: PERRL - Neck Neck exam general surgery: Present: supple, trachea midline. Absent: lymphadenopathy - Respiratory Respiratory exam: Present: CTAB. Absent: accessory muscle use, rales, rhonchi, wheezes - Cardiovascular Cardiovascular exam: Present: RRR, +S1, +S2. Absent: diastolic murmur, gallop, rubs, systolic murmur - GI/Abdominal GI/Abdominal exam: Present: normal bowel sounds, soft, no peritoneal signs. Absent: distended, tenderness - Extremities Exam Extremities exam: Present: warm, radial pulses palpable and symmetrical. Absent : calf tenderness, cyanotic, pedal edema - Neurological Exam Neurological exam: Present: CN II-XII intact, oriented X3, no focal deficits. Absent: pronater drift, facial droop, speech deficit - Skin Skin exam: Present: dry, intact
[2017-02-12 11:28] LABS: BUN/Creatinine Ratio 14 (6-26); Blood Urea Nitrogen 18 mg/dL (6-20); Calcium 9.4 mg/dL (8.6-10.3); Carbon Dioxide 25 mEq/L (23-29); Chloride 104 mEq/L (98-107); Glucose 299 mg/dL (70-105); Hemoglobin A1C 10.6 %; Osmolality,Calculated 293 (280-300); Potassium 4.2 mEq/L (3.5-5.1); Sodium 135 mEq/L (136-145); eGFR For African Americans > 60 (> 60); eGFR For Non-African Americans > 60 (> 60)
== END 2017-02-12 12:46 | disposition home or self-care (01) ==
LOC: 3BNU 05:21 → EMEROO 05:21 → 3BNU 06:39
PROVIDERS: ADMIT Internal Medicine; ATTEND Registered Nurse

== ENCOUNTER 2017-10-23 12:52 | Inpatient (IN) ==
--- NOTE | 2017-10-23 13:26 | Cardiology History & Physical ---
<Pranav Rhodes R - Last Filed: 10/23/17 13:22> Date of Encounter: 10/23/17 Time of Encounter: 13:22 Assessment and Plan (1) Ventricular tachycardia Current Visit: Yes Status: Acute Exercise induced VT during outpt exercise nuclear stress test today. Symptoms of fatigue and dyspnea. Known history of CAD, prior PCI to CX territory 07/2016. Residual 65% stenosis reported in D1. Recommended pt be directly admitted for [facility] to evaluate for ischemic cause of VT. R/B/A of C discussed. Pt agrees to proceed. Check CBC, BMP, electrolytes. On Toprol XL 50mg daily. Plan to increase to 100mg daily. TTE pending to evaluate structure and function. Further recs pending [facility]. Will discuss and review with Dr. Cy Fish. The assessment and plan as outlined above was discussed with the patient and/or family members who expressed understanding and agreement. All questions were answered. (2) Diabetes Current Visit: No Status: Chronic Hold Metformin inpt. Will order sliding scale coverage. The assessment and plan as outlined above was discussed with the patient and/or family members who expressed understanding and agreement. All questions were answered. Qualifiers: Diabetes mellitus type: type 2 Diabetes mellitus fpc insulin use: with fpc use Diabetes mellitus complication status: with kidney complications Diabetes mellitus complication detail: with chronic kidney disease Chronic kidney disease stage: stage 3 (moderate) Qualified Code(s): E11.22 - Type 2 diabetes mellitus with diabetic chronic kidney disease; N18.3 - Chronic kidney disease, stage 3 (moderate); N18.3 - Chronic kidney disease, stage 3 (moderate); Z79.4 - long term (current) use of insulin; Z79.4 - long term (current) use of insulin; Z79.4 - long term (current) use of insulin; Z79.4 - assisted (current) use of insulin (3) CAD (coronary artery disease) Current Visit: Yes Status: Chronic C 07/2016 PCI to CX territory. Residual 65% stenosis reported in D1. Continue ASA, Statin, Plavix, BB, ACEi. C today for exercise induced VT as above. The assessment and plan as outlined above was discussed with the patient and/or family members who expressed understanding and agreement. All questions were answered. Qualifiers: Coronary Disease-Associated Artery/Lesion type: [place] artery [place] vs. transplanted heart: [place] heart Associated angina: angina presence unspecified Qualified Code(s): I25.10 - Atherosclerotic heart disease of [place] coronary artery without angina pectoris History of Present Illness Chief complaint: Dyspnea, fatigue HPI: Mr. Ocasio is a 52 year old male with a history of CAD s/p PCI to OM2. Comorbidities include CKD, HTN, HLD, DM II. Most recent [facility] 08/03/2016 resulted in ANH x1 to Cx and RCA. Pt was recently seen outpt by Dr. Morataya and reported activity has been limited due to dyspnea, fatigue. No exertional chest pain. He did wake up one night with chest discomfort - left sided ached, improved with NTG. No radiation/N/V. Outpt nuclear exercise stress was done today and while on the treadmill pt developed exercise induced ventricular tachycardia. Symptoms of fatigue and dyspnea. No chest pain. VT resolved in recovery. ECGs reviewed with Dr. Mckenzie and Dr. Cy Fish. It was recommended he be admitted for a [facility] to evaluate for ischemia cause given his CAD hx. Pt agreed. Previous cardiovascular studies: [facility] 07/29/2016: LM 30%. LAD proximal 30%, mid 25%, and distal 25%. D1 65%. Ramus 15% ISR. CX ostial 99% (ANH x1 placed). OM1 15% ISR. RCA mid 60% (FFR 0.79, ANH x1 placed), distal 50%. Exercise nuclear stress test 02/2014: Imaging negative for ischemia or prior infarct. Exercise ECG borderline for ischemia at peak heart rate and positive for ischemia in recovery. Echocardiogram 02/2014: EF 60-65%. Mild concentric LVH. Mild diastolic dysfunction. No significant valvular disease. Past Med Surg Social Fam HX - Past Medical History Medical history: coronary artery disease, diabetes, GERD, hyperlipidemia, hypertension, myocardial infarction, renal disease Additional medical history: vit d edf., sleep apnea, neuropathy, sinusitis Psychiatric history: no psych history - Past Surgical History Surgical History: angioplasty/stent, other Additional surgical history: amputation of right great toe, CARDIAC STENTS X 2 - Social History Smoking Status: Never smoker Smokeless Tobacco Status: No Alcohol use: none Drug use: none - Family History Brother Living Status: Still Living Hx Family Cardiac Disorders: No Hx Family Respiratory Disorders: No Hx Family Cancer: No Hx Family GI Disorders: No Hx Family Endocrine Disorder: No Hx Family Neuromuscular Disorders: No Hx Family Neurologic Disorders: No Hx Family HEENT Disorders: No Hx Family Autoimmune Disorders: No Mother Adopted: No Family Member Ethnicity: Non- Living Status: Hx Family Cardiac Disorders: Yes (HTN) Hx Family Respiratory Disorders: No Hx Family Cancer: Yes (Colon) Hx Family GI Disorders: No Hx Family Endocrine Disorder: Yes (DM) Hx Family Neuromuscular Disorders: No Hx Family Neurologic Disorders: No Hx Family HEENT Disorders: No Hx Family Autoimmune Disorders: No Father Adopted: No Family Member Ethnicity: Non- Living Status: Hx Family Cardiac Disorders: Yes (mother,father,grandparents) Hx Family Respiratory Disorders: No Hx Family Cancer: Yes (father,mother,grandfather) Hx Family GI Disorders: Yes (GERD) Hx Family Endocrine Disorder: Yes (mother,father,grandparents) Hx Family Neuromuscular Disorders: No Hx Family Neurologic Disorders: Yes (father CVA) Hx Family HEENT Disorders: No Hx Family Autoimmune Disorders: No Medications and Allergies Atorvastatin Calcium [Lipitor] 80 mg PO DAILY 03/30/16 [History] Clopidogrel [Plavix] 75 mg PO DAILY 03/30/16 [History] Gabapentin [Neurontin] 600 mg PO TID 03/30/16 [History] Isosorbide MONOnitrate (24 HR) [Imdur] 120 mg PO DAILY 03/30/16 [History] Lisinopril/Hydrochlorothiazide [Zestoretic 20-12.5 mg Tablet] 2 tab PO DAILY 01/03 [History] Metoprolol XL (24 HR) Succ [Toprol Xl] 50 mg PO DAILY 03/30/16 [History] Nitroglycerin [Nitrostat] 0.4 mg SL Q5M PRN 03/30/16 [History] amLODIPine [Norvasc] 10 mg PO DAILY 03/30/16 [History] metFORMIN [Glucophage] 1,000 mg PO BID 03/30/16 [History] Aspirin Enteric Coated [Aspirin EC] 325 mg PO DAILY 06/02/16 [History] Amoxicillin 875 mg PO BID 02/11/17 [History] Cholecalciferol (D-3) [Vitamin D] 5,000 unit PO DAILY 02/11/17 [History] Insulin Regular U-500 [HumuLIN R U-500] 0 - 150 unit SQ BID PRN 02/11/17 [ History] Oxycodone HCl/Acetaminophen [Percocet 10-325 mg Tablet] 1 tab PO Q4H PRN [History] Indomethacin 50 mg PO BID PRN #10 capsule 10/11/17 [Rx] 3 Allergy/AdvReac Type Severity Reaction Status Date / Time ketoconazole AdvReac Redness of Verified 02/11/17 05:24 Skin All Systems Review: The remainder of the systems were reviewed and are negative - Constitutional Constitutional: fatigue - Cardiovascular Cardiovascular: as per HPI, chest pain at rest, dyspnea on exertion - Respiratory Respiratory: dyspnea Physical Examination General: Conversant, No Apparent Distress HEENT: Atraumatic, Normocephaly, Mucus Membranes Moist Neck: No JVD, Normal carotid pulses Cardiac: Reg Rate and Rhythm, Normal S1 and S2, No Murmur Lungs: Normal Breath Sounds, No Wheeze, Rales, Rhonchi Neuro: Alert and responsive, No focal deficits noted Abdomen: Soft, Non-Tender Skin: No rashes noted on visualized skin Musculoskeletal: No Chest Wall Tenderness Extremities: No Clubbing, No Cyanosis, No Edema, Normal Pulses Results - Imaging and Cardiology Stress Test: report reviewed Echo: report reviewed Cardiac cath: report reviewed <Cy Fish - Last Filed: 10/23/17 13:50> Date of Encounter: 10/23/17 - Attending Attestation I have personally performed a face to face evaluation on this patient. I have reviewed and agree with the care plan. History and Exam by me shows:\ Exercise induced VT. Known CAD. Would recommed left heart cath. History of Present Illness HPI: Mr. Ocasio is a 52 year old male All Systems Review: The remainder of the systems were reviewed and are negative Physical Examination Vital Signs, Last 4 Hours Pulse Resp BP 10/23/17 13:31 87 18 176/107
[2017-10-23] MEDS ORDERED: Nitroglycerin 0.4 MG TAB.SUBL SL PRN (13:35)
[2017-10-23] MEDS ORDERED: *HR* OxyCODONE/APAP 10/325 TABLET PO PRN (13:35)
[2017-10-23] MEDS ORDERED: Indomethacin 25 MG CAPSULE PO PRN (13:35)
[2017-10-23] MEDS ORDERED: D5% in Water 1,000 ML IVC PRN (13:38)
[2017-10-23] MEDS ORDERED: *HR* Dextrose 50 % in Water (Syg) 50 ML SYRINGE IVP PRN (13:38)
[2017-10-23] MEDS ORDERED: Dextrose Gel 15 GM/37.5 ML TUBE PO PRN ×2 (13:38)
[2017-10-23] MEDS ORDERED: *HR* Heparin 10,000 UNIT/10 ML VIAL ONE (14:07)
[2017-10-23 14:08] LABS: Basophils # 0.1 K/mcL (0.0-0.2); Basophils % 0.7 %; Eosinophils # 0.4 K/mcL (0.0-0.6); Eosinophils % 3.1 %; Hematocrit 39.2 % (37.5-50.1); Hemoglobin 12.7 g/dL (12.9-16.9); Immature Granulocytes % 0.5 % (0-4); Lymphocytes # 2.7 K/mcL (0.6-4.6); Lymphocytes % 22.4 %; Mean Corpuscular HGB Conc 32.4 g/dL (31.6-35.5); Mean Corpuscular Hemoglobin 28.8 pg (28.0-33.3); Mean Corpuscular Volume 88.9 fL (83.0-100.0); Mean Platelet Volume 9.7 fL (9.4-12.4); Monocytes # 1.1 K/mcL (0.0-1.3); Monocytes % 8.8 %; Neutrophils # 7.9 K/mcL (1.6-8.9); Platelet Count 291 K/mcL (140-400); Red Blood Count 4.41 M/mcL (4.19-5.50); Red Cell Distribution Width 13.2 % (11.5-14.5); Segmented Neutrophils % 64.5 %
[2017-10-23] MEDS ORDERED: Nitroglycerin 1,000 MCG/10 ML VIAL IV ONE (14:08)
[2017-10-23] MEDS ORDERED: Heparin 1,000 UNITS/500 mL 500 ML ONE (14:08)
[2017-10-23] MEDS ORDERED: 0.9 % Sodium Chloride 1,000 ML ONE ×2 (14:08→15:00)
[2017-10-23] MEDS ORDERED: ISOVUE-370 200 ML INFUS..BTL IV ONE (14:08)
[2017-10-23] MEDS ORDERED: amLODIPine 5 MG TABLET PO STA (14:11)
[2017-10-23 14:13] LABS: Prothrombin Time 11.8 Seconds (9.4-12.1)
[2017-10-23] MEDS ORDERED: Metoprolol XL (24 HR) Succ 50 MG TAB.ER.24H PO STA (14:13)
[2017-10-23 14:24] LABS: Calcium 9.5 mg/dL (8.6-10.3); Potassium 4.5 mEq/L (3.5-5.1)
[2017-10-23 14:26] LABS: Magnesium 1.8 mg/dL (1.6-2.6)
[2017-10-23 14:27] LABS: Troponin I < 0.03 ng/mL (< 0.04)
[2017-10-23 14:40] LABS: Thyroid Stimulating Hormone 2.126 mcIU/mL (0.340-5.600)
[2017-10-23] MEDS ORDERED: Gabapentin 300 MG CAPSULE PO SCH (15:00)
--- NOTE | 2017-10-23 15:05 | Pre-Sedation Evaluation ---
Pre-sedation evaluation - Pre-sedation checklist Date of procedure: 10/23/17 Procedure: [facility] Recent Vitals: Last Vital Signs Pulse 87 10/23/17 13:31 Resp 18 10/23/17 13:31 BP 176/107 10/23/17 13:31 H&P (including ROS) documented in medical record: Yes Previous reaction to sedatives/anesthetics: No Dietary Status: NPO 6 hours prior to procedure Airway Assessment: Patient can open mouth completely, TMJ function normal Dentition: No loose teeth or bridges, poor dentition Possible difficult airway: No ASA Classification *see protocol: CLASS IV-Severe systemic disease/constant threat to pt's life Plan of Care: Pt appropriate candidate for procedure/moderate/conscious sedation , Risks/benefits of procedure/sedation discussed w/ patient/family, If not NPO; Risk of intake outweiged by necessity to perform procedure Cardiac Registry (Cardio Only) - Functional Capacity Functional Capacity: >=4 METS with symptoms - Clincal Frailty Scale Clinical Frailty Scale: Vulnerable
[2017-10-23] MEDS ORDERED: *HR* Midazolam HCl 2 MG/2 ML VIAL ONE ×2 (15:06→15:19)
--- NOTE | 2017-10-23 16:01 | Invasive Diagnostic Lab Proc ---
Name: Jeb Ocasio Date of Study: 10/23/2017 Date: 1965 Ht: 68.0in Medical Record#: [id number] Age: 52 Wt: 242.51lb Gender: Male BSA: 2.22 Order #: [id number] BMI: 36.88 Physicians Procedure Physician: Ermias Guzman DO Referring MD: Referring MD: Staff Name Position Time In ChiragHerbie mcclelland RN Milking Machine Technician 02:56 PM Thania Hogan RN Monitor 02:56 PM Shanta Vincent RT (R) Scrub 02:56 PM Procedures Performed Procedure L HRT ARTERY/VENTRICLE ANGIO Pre-Procedure Checklist Pt not NPO for procedure and MD aware. Plan of Care Patient will tolerate the procedure without complications. Adequate level of comfort will be maintained. Hemodynamics will remain stable Patient will recover from procedure without complications. Respiratory function will be maintained. Cardiac rhythm will remain stable. Patient temperature will be maintained. Patient and/or family have verbalized understanding of the procedure. Patient Education Chief Complaint/Reason for Test: Cardiac Cath Developmental Category: Adult (18-64 years) Developmentally Appropriate for Age: Yes Learning Barriers: None Education Needs: Procedure Education Method: Verbal Information Taught: Cardiac Cath Educational Evaluation: Able to repeat information Intravenous Access Time IV Size Location DC'd Fluid/Drip Rate Units RN 03:03 PM 18g 1 /" Patent On Arrival Rt Antecubital 0.9NaCl Allergies ketoconazole Vital Signs Time BP (mmHg) HR (bpm) O2 Sat. RR (bpm) LOC 02:58 PM / % 5 = Fully awake and oriented or at pre-proc level 02:58 PM / % 4 = Oriented but drowsy 03:13 PM / % 4 = Oriented but drowsy 03:02 PM 188 / 108 82 99 % 30 03:07 PM 169 / 103 78 100 % 19 03:12 PM 162 / 98 76 97 % 22 03:17 PM 153 / 98 75 99 % 19 03:22 PM 154 / 94 73 100 % 21 03:27 PM 153 / 90 72 97 % 19 03:32 PM 161 / 92 75 100 % 13 03:37 PM 147 / 97 71 99 % 15 03:42 PM 143 / 87 71 99 % 8 03:47 PM 143 / 92 70 100 % 14 Procedural Medications Time Medication Dose Units Method Given By 02:58 PM Oxygen 2 L/min nasal cannula Herbie Beard RN 03:09 PM Versed 2 mg Intravenous Herbie Beard RN 03:19 PM Lidocaine 2% 10 ml Subcutaneous Ermias Guzman DO 03:20 PM Versed 1 mg Intravenous Herbie Beard RN ASA Classification: CLASS III- Severe systemic disease (i.e. prior AMI, diabetes with vascular complications, morbid obesity) [place] Score Preprocedure Postprocedure Activity 2- Moves 4 extremities sustained head lift Activity 2- Moves 4 extremities sustained head lift Circulation 2- SBP +/= 20 points of pre-anesthetic level Circulation 2- SBP +/= 20 points of pre-anesthetic level Consciousness 2- Awake and alert oriented x 3 Consciousness 2- Awake and alert oriented x 3 O2 Saturation 2- Able to maintain O2 satruation of 92% on room air O2 Saturation 2- Able to maintain O2 satruation of 92% on room air Respiratory 2- Able to deep breathe and cough well Respiratory 2- Able to deep breathe and cough well Total Score 10 Total Score 10 Contrast Agent: Isovue Diagnostic Contrast: 100 ml Total Contrast: 100 ml Fluoro Dose: 4920 mGy Procedure Log Time Note Enter By 02:56 PM Pt arrived to hatchery laborer 2 at 14:56 [facility] 02:56 PM Physician arrived 14:56 [facility] 02:56 PM Madhav and greet completed nome 02:56 PM Sign in performed according to hospital policy. [facility] 02:56 PM Procedure start 14:56 [facility] 02:56 PM Herbie Beard RN Position: Milking Machine Technician Time in: 14:56 [facility] 02:56 PM Thania Hogan RN Position: Monitor Time in: 14:56 [facility] 02:56 PM Shanta Vincent RT (R) Position: Scrub Time in: 14:56 [facility] 02:57 PM Patient charges- Angio tray pack, Navilyst 3mm J, Pulse Oximetry and ACIST tubing and transducer [facility] 02:57 PM ASA Class CLASS III- Severe systemic disease (i.e. prior AMI, diabetes with vascular complications, morbid obesity) [facility] 02:58 PM Hair removed from procedure site in holding area using clippers. Bilateral groin prepped with Chloraprep by Shanta Vincent RT (R), then patient was draped. Skin intact. [facility] 02:58 PM Time: 14:58 Oxygen on at 2 L/min per nasal cannula by [facility]ard [facility] 02:[facility] PM Time: 14:58 Patient comfortable and pain free: Yes [facility] 02:58 PM Time: 14:58LOC: 5 = Fully awake and oriented or at pre-proc level [facility] 02:59 PM Case Start 02:59 PM CathStat 03:00 PM Recorded ECG: HR=83 Condition=Condition 1 03:01 PM Vitals capture started with the following parameters, Patient=Adult, Interval=5 min, Initial Lmvvmrsr=328 mmHg, Deflation Rate=5 mmHg, Cuff placed on Right Arm 03:02 PM HR=82 bpm, VWTA=579/108 mmhg, SpO2=99.0 %, Resp=30 B/min, EtCO2=36 mmHg, Comment=NSR 03:07 PM HR=78 bpm, ZVVD=533/103 mmhg, XnV3=445.0 %, Resp=19 B/min, EtCO2=36 mmHg, Comment=NSR 03:09 PM Time: 15:09 Versed 2 mg Intravenous Given by Herbie Beard [facility] 03:09 PM Pressure channel 2 zeroed. 03:12 PM HR=76 bpm, RAEP=080/98 mmhg, SpO2=97.0 %, Resp=22 B/min, EtCO2=38 mmHg, Comment=NSR 03:13 PM Time: 14:58 Patient comfortable and pain free: Yes [facility] 03:13 PM Time: 14:58LOC: 4 = Oriented but drowsy [facility] 03:17 PM HR=75 bpm, EKCT=863/98 mmhg, SpO2=99.0 %, Resp=19 B/min, EtCO2=39 mmHg, Comment=NSR 03:18 PM Time out performed according to hospital policy [facility] 03:19 PM Time: 15:19 10 ml Lidocaine 2% to right groin Subcutaneous Given by Ermias Guzman DO [facility] 03:20 PM Time: 15:20 Versed 1 mg Intravenous Given by Herbie [facility]ard RN [facility] 03:22 PM HR=73 bpm, JAIE=674/94 mmhg, VqP6=601.0 %, Resp=21 B/min, EtCO2=35 mmHg, Comment=NSR 03:22 PM Micro-Introducer Kit utilized for sheath placement [facility] 03:23 PM Access obtained by percutaneous puncture. 6Fr 10cm [place] sheath placed in right Femoral artery. [id number] [facility] 03:24 PM 6Fr FR 4 catheter inserted over the wire DN [facility] 03:24 PM Recorded Pressure: LV, HR=44, Condition=Condition 1 (Left Ventricle) LV 89/-4/8 03:24 PM Recorded Pressure: LV, Ao, HR=88, Condition=Condition 1 (Left Ventricle) LV 150/12/20, (Aorta) Ao 152/75/107 03:25 PM Catheter selectively placed in left ventricle [facility] 03:25 PM RCA angiography performed in multiple views. [facility] 03:25 PM Bolus angiogram of left Ventricle complete, hand injection [facility] 03:25 PM Recorded Pressure: Ao, HR=74, Condition=Condition 1 (Aorta) Ao 159/47/108 03:26 PM Catheter removed [facility] 03:26 PM 6Fr FL 4 catheter inserted over the wire DN kmavis 03:27 PM Recorded Pressure: Ao, HR=73, Condition=Condition 1 (Aorta) Ao 149/79/108 03:27 PM LCA angiography performed in multiple views. kmavis 03:27 PM HR=72 bpm, PFUH=096/90 mmhg, SpO2=97.0 %, Resp=19 B/min, EtCO2=38 mmHg, Comment=NSR 03:27 PM Coronary Dominance: right [facility] 03:28 PM Catheter removed [facility] 03:29 PM Time: 15:13LOC: 4 = Oriented but drowsy [facility] 03:29 PM Time: 15:13 Patient comfortable and pain free: Yes [facility] 03:29 PM bolus to right groin [facility] 03:30 PM Procedure completed at 15:30 10/23/2017 [facility] 03:30 PM Sign out completed: Radiation Dose 456.44 mGy, 4919.86 mGy/cm2 Fluoro Time: 1.9 Isovue 370 - 200ml contrast 100 ml given by Ermias Guzman DO. Complications: NoneCardiac Rehab Consult needed: NoConfirmed administered medications: Yes [facility] 03:31 PM Isovue 370 - 200ml,1 Bottle(s) used. [facility] 03:32 PM Did you address PAPO flow and Dominance? Yes [facility] 03:32 PM HR=75 bpm, XSIF=702/92 mmhg, CiQ2=091.0 %, Resp=13 B/min, Comment=NSR 03:32 PM Arterial sheath pulled using manual compression and V+ Pad for 15 minutes by Herbie Beard RN [facility] 03:32 PM Estimated Blood Loss: minimal [facility] 03:32 PM Post ECG NSR [facility] 03:32 PM Post Blood Pressure 161/92 [facility] 03:32 PM 15:32 Post Pulses Bilateral DP & PT 2+ [facility] 03:33 PM Information taught Cardiac Cath [facility] 03:33 PM Education needs Procedure, Plan of Care, Safe & Effective Use of Medications, and Responsibilities of Patient in Care [facility] 03:33 PM Learning barriers :None [facility] 03:33 PM Education Methods Verbal [facility] 03:33 PM Education evaluation Able to repeat information [facility] 03:33 PM Family placed in consult room. [facility] 03:33 PM Complications: None [facility] 03:33 PM Plavix, Effient or Brilinta given No [facility] 03:34 PM Report given to Sudha BLANCHARD Pt taken to 2N Room #3. 15:34 [facility] 03:37 PM Lesion found in Proximal LAD. Pre Stenosis: 30 Pre PAPO Flow: km[facility] 03:37 PM HR=71 bpm, XXCN=380/97 mmhg, SpO2=99.0 %, Resp=15 B/min, Comment=NSR 03:37 PM Lesion found in Proximal Circumflex. Pre Stenosis: 30 Pre PAOP Flow: kmavis 03:37 PM Proximal Left Anterior Descending Coronary Artery with 30% stenosis. If graft is supplying this territory, 0 % stenosis. kmavis 03:38 PM Circumflex, Obtuse Marginal, Left Posterior Descending, and Left Posterolateral Coronary Arteries with 30 % stenosis. If graft is supplying this area, 0 % stenosis [facility] 03:42 PM HR=71 bpm, UTGO=738/87 mmhg, SpO2=99.0 %, Resp=8 B/min 03:47 PM HR=70 bpm, TUKY=868/92 mmhg, SuX2=039.0 %, Resp=14 B/min 03:51 PM Site status No bleeding/hematoma - Rt Groin as reported by Herbie Beard RN at 15:51 [facility] 03:51 PM Opsite applied [facility] 03:52 PM Patient out of room: 15:52 [facility] Complications Complication None Hemodynamics Pressures Site Systolic/A Wave Diastolic/V Wave Mean LV 89 -4 8 LV 150 12 20 AO 152 75 107 AO 159 47 108 AO 149 79 108 Post Procedure Information Blood Pressure: 161/92 mmHg Rhythm: NSR Post procedural instructions were given Closure Device Time Device Success/Fail 10/23/2017 3:34:00 PM Manual Compression Successful Site Checks Time Location Status Staff Sheath In? Note 03:51 PM Rt Groin No bleeding/hematoma Herbie Beard RN Pulses Time Site Pre-Procedure Post-Procedure Note 3:32:00 PM Bilateral DP & PT 2+ Updated by Thania Hogan RN on 10/23/2017 3:52:34 PM electronically signed on 10/23/2017 3:54:04 PM with status of Final
[2017-10-23 16:13] VITALS: BP 148/79
--- NOTE | 2017-10-23 16:25 | Discharge Summary ---
Orders not resulted at time of discharge: Pending orders 10/23/17 13:33 CL Cardiac Catheterization [CL] Routine Date of Encounter: 10/23/17 Time of Encounter: 16:12 - Discharge Diagnosis (1) Abnormal stress test Priority: Primary Status: Acute (2) CAD (coronary artery disease) Priority: Primary Status: Chronic Qualifiers: Coronary Disease-Associated Artery/Lesion type: [place] artery [place] vs. transplanted heart: [place] heart Associated angina: angina presence unspecified Qualified Code(s): I25.10 - Atherosclerotic heart disease of [place] coronary artery without angina pectoris - Hospital Course Hospital course: Mr. Ocasio is a 52 year old male presenting as direct admit from stress labb after he was seen to have exercise induced VT during stress test today. He c/o dyspnea and fatigue at that time. He has a known history of CAD s/p PCI, DM, and HTN. Recommended pt be directly admitted for LHC to evaluate for ischemic cause of VT. LHC completed with no intervention. There was no complication from his procedure. Full LHC report pending. Toprl XL was increased to 100 mg daily. Out-pt f/u with electrophysiology recommended. Activity restrictions reviewed as stated above. - Time Spent with Patient Total time spent providing and/or coordinating discharge services: Greater than 30 minutes - Discharge Medications Prescriptions: Metoprolol Succinate [Toprol Xl] 100 mg PO DAILY #30 tab.er.24h Home Medications: Atorvastatin Calcium [Lipitor] 80 mg PO DAILY 03/30/16 [History] Clopidogrel [Plavix] 75 mg PO DAILY 03/30/16 [History] Gabapentin [Neurontin] 600 mg PO TID 03/30/16 [History] Isosorbide MONOnitrate (24 HR) [Imdur] 120 mg PO DAILY 03/30/16 [History] Lisinopril/Hydrochlorothiazide [Zestoretic 20-12.5 mg Tablet] 2 tab PO DAILY 01/03 [History] Nitroglycerin [Nitrostat] 0.4 mg SL Q5M PRN 03/30/16 [History] amLODIPine [Norvasc] 10 mg PO DAILY 03/30/16 [History] metFORMIN [Glucophage] 1,000 mg PO BID 03/30/16 [History] Aspirin Enteric Coated [Aspirin EC] 325 mg PO DAILY 06/02/16 [History] Amoxicillin 875 mg PO BID 02/11/17 [History] Cholecalciferol (D-3) [Vitamin D] 5,000 unit PO DAILY 02/11/17 [History] Insulin Regular U-500 [HumuLIN R U-500] 0 - 150 unit SQ BID PRN 02/11/17 [ History] Oxycodone HCl/Acetaminophen [Percocet 10-325 mg Tablet] 1 tab PO Q4H PRN [History] Indomethacin 50 mg PO BID PRN #10 capsule 10/11/17 [Rx] Metoprolol Succinate [Toprol Xl] 100 mg PO DAILY #30 tab.er.24h 10/23/17 [Rx] Allergies/Adverse Reactions: 3 Allergy/AdvReac Type Severity Reaction Status Date / Time ketoconazole AdvReac Redness of Verified 02/11/17 05:24 Skin Date of admission: 10/23/17 13:15 Primary care physician: Lashaun Connor CNP Consults: None Discharging clinician: Jesus Alberto Kerr Anticipated date of discharge: 10/23/17 Physical Examination Vital Signs, Last 4 Hours Pulse Resp BP 10/23/17 13:31 87 18 176/107 10/23/17 13:30 87 18 176/107 General: Conversant, No Apparent Distress HEENT: Atraumatic, Normocephaly, Mucus Membranes Moist Neck: No JVD, Normal carotid pulses Cardiac: Reg Rate and Rhythm, Normal S1 and S2, No Murmur Lungs: Normal Breath Sounds, No Wheeze, Rales, Rhonchi Neuro: Alert and responsive, No focal deficits noted Abdomen: Soft, Non-Tender Skin: No rashes noted on visualized skin Musculoskeletal: No Chest Wall Tenderness Extremities: No Clubbing, No Cyanosis, No Edema, Normal Pulses, Other (Dressing D/I on right femoral access site. ) - Patient Status Disposition: Home, Self-Care Condition: Good Functional capacity at discharge: independent ambulation Overall status at discharge: patient is progressing back to baseline - Discharge Instructions Follow Up With: Lashaun Connor CNP [Primary Care Provider] - Additional Instructions: RISK FACTORS: STOP SMOKING: If you smoke, STOP. Smoking or tobacco use significantly increases your risk of heart disease because nicotine causes the arteries to narrow or constrict. It also causes fats to stick to the artery. Your chances of having a heart attack are greatly increased if you continue to smoke. For more information, call the education line for smoking cessation 0-362-UQRWCAA EAT A LOW FAT/CHOLESTEROL/SODIUM DIET: This diet may help reduce your chances of having a heart attack. LIFTING: Avoid lifting anything more than 10 pounds for 5-7 days Prior to straining, laughing, sneezing and/or coughing, apply manual pressure directly over insertion site. ACTIVITY: You may walk or climb stairs as tolerated You can resume sexual activity as tolerated In general, you are encouraged to engage in a minimum of 30 minutes or more of moderate intensity physical activity, such as brisk walking, daily or at least 3 -4 times weekly BATHING Do not submerge the site into water (bath tub, hot tub, swimming pool) for 1 week. This can be a source for infection into the blood stream. You may shower after 24 hours SITE CARE: After 24 hours, you may remove the dressing and leave the site open to air. Keep the site clean and dry. Clean gently and pat dry. You can expect bruising and tenderness that gradually resolve within a week or two. Return to work as instructed per your physician Resume driving as instructed per physician Keep all scheduled follow up appointments Resume medications as instructed IMPORTANT: If prescribed a Platelet Aggregation Inhibitor such as, Plavix, Brilinta or Effient: Duration of therapy is minimum one year These medications are often used in combination with Aspirin in prevention of future heart attacks Never discontinue unless consult with your [employer] STROKE (CVA) Risk factors for a stroke are: Age, cigarette smoking, diabetes, excessive alcohol consumption, family history, high blood pressure, overweight, physical inactivity, prior stroke, heart attack, diagnosis of carotid artery stenosis or other artery disease. Warning signs: Sudden numbness or weakness of the face, arm or leg; especially on one side of the body, sudden confusion, trouble speaking or understanding, sudden trouble seeing in one or both eyes, sudden trouble walking, dizziness, loss of balance or coordination, sudden severe headache with no cause. Call 911 or go to the Emergency Room. CONGESTIVE HEART FAILURE: If you have been diagnosed with Congestive Heart Failure (CHF) and your symptoms return, make an appointment with your physician Weigh yourself daily. Notify your physician if you have a weight gain of two or more pounds in one day or five or more pounds in one week. If you experience any difficulty breathing, please call 911 BLEEDING: Although the risk of bleeding is minimal, it can happen. If you have any bleeding from the site, apply firm pressure above the puncture site for 10-15 minutes. If the bleeding does not stop, continue manual pressure and call 911 Contact your physician if: You develop a fever greater than 101 degrees Fahrenheit Your site becomes reddened or has any drainage You have an increase in pain or burning at the site or if a large knot forms at the site. If you experience chest pain, shortness of breath, dizziness, or extreme tiredness, stop the activity and rest. Please notify your physicians office if you experience any of these symptoms and they are not relieved by rest please call 911! - Diet and Activity Activity: increase activity as tolerated Diet: low fat, low cholesterol
[2017-10-23] MEDS ORDERED: Insulin LISPRO 300 UNITS/3 ML VIAL SQ SCH (16:30)
[2017-10-23] MEDS ORDERED: *HR* Heparin 5,000 UNIT/ML VIAL SQ SCH (18:00)
[2017-10-24] MEDS ORDERED: Lisinopril-HCTZ 20-12.5mg TABLET PO SCH (09:00)
[2017-10-24] MEDS ORDERED: amLODIPine 5 MG TABLET PO SCH (09:00)
[2017-10-24] MEDS ORDERED: Metoprolol XL (24 HR) Succ 50 MG TAB.ER.24H PO SCH (09:00)
[2017-10-24] MEDS ORDERED: Cholecalciferol (D-3) 1,000 UNIT TABLET PO SCH (09:00)
[2017-10-24] MEDS ORDERED: Aspirin Enteric Coated 81 MG Tablet PO SCH (09:00)
[2017-10-24] MEDS ORDERED: Isosorbide MONOnitrate (24 HR) 60 MG TAB.ER.24H PO SCH (09:00)
== END 2017-10-23 19:44 | disposition home or self-care (01) | DRG 192 ==
LOC: 2NNU
PROVIDERS: ADMIT Internal Medicine Clinical Cardiac Electrophysiology; ATTEND Internal Medicine Clinical Cardiac Electrophysiology

== ENCOUNTER 2019-07-06 22:50 | Observation (INO) ==
[2019-07-06] MEDS ORDERED: Isovue-370 500 ML BOTTLE IVP ONE (23:40)
[2019-07-06] MEDS ORDERED: Ondansetron 4 MG/2 ML VIAL IVP STA (23:40)
[2019-07-06] MEDS ORDERED: *HR* FentaNYL (PF) 100 MCG/2 ML VIAL IVP ONE (23:40)
[2019-07-06] MEDS ORDERED: 0.9 % Sodium Chloride 1,000 ML IVC STA (23:40)
[2019-07-06] MEDS ORDERED: GI Cocktail 40 ML EACH PO ONE (23:42)
[2019-07-07 00:23] LABS: Basophils # 0.1 K/mcL (0.0-0.2); Basophils % 0.5 %; Eosinophils # 0.4 K/mcL (0.0-0.6); Eosinophils % 2.9 %; Hematocrit 40.4 % (37.5-50.1); Hemoglobin 13.5 g/dL (12.9-16.9); Immature Granulocytes % 0.4 % (0-4); Lymphocytes # 2.8 K/mcL (0.6-4.6); Lymphocytes % 22.1 %; Mean Corpuscular HGB Conc 33.4 g/dL (31.6-35.5); Mean Corpuscular Hemoglobin 27.7 pg (28.0-33.3); Mean Platelet Volume 10.7 fL (9.4-12.4); Monocytes # 1.1 K/mcL (0.0-1.3); Monocytes % 8.9 %; Neutrophils # 8.2 K/mcL (1.6-8.9); Platelet Count 283 K/mcL (140-400); Red Blood Count 4.87 M/mcL (4.19-5.50); Red Cell Distribution Width 13.5 % (11.5-14.5); Segmented Neutrophils % 65.2 %; White Blood Count 12.6 K/mcL (4.3-11.1)
[2019-07-07 00:27] LABS: Bilirubin,Urine Negative (Negative); Blood,Urine Small (Negative); Clarity,Urine Cloudy (Clear); Color,Urine Yellow (Yellow); Glucose,Urine (UA) 500 mg/dL (Normal); Ketones,Urine Negative (Negative); Leukocyte Esterase,Urine Moderate (Negative); Nitrite,Urine Negative (Negative); Protein,Urine >=1000 mg/dL (Neg-Trace); Specific Gravity,Urine 1.024 (1.010-1.025); Urobilinogen,Urine Normal (Normal)
[2019-07-07 00:29] LABS: Bacteria,Urine None Seen per hpf (None-Few); Hyaline Casts,Urine None Seen per lpf (None-Few); Squamous Epithelial Cell,Urine Many per lpf (None-Few); WBC,Urine TNTC per hpf (0-3)
[2019-07-07 00:41] LABS: Alanine Aminotransferase 21 Units/L (7-52); Albumin/Globulin Ratio 0.9 (1.1-2.2); Alkaline Phosphatase 145 Units/L (34-104); Aspartate Amino Transferase 14 Units/L (13-39); BUN/Creatinine Ratio 19 (6-26); Bilirubin,Indirect 0.5 mg/dL (0.0-1.0); Bilirubin,Total 0.5 mg/dL (0.3-1.0); Blood Urea Nitrogen 37 mg/dL (6-20); Calcium 10.2 mg/dL (8.6-10.3); Carbon Dioxide 26 mEq/L (23-29); Chloride 98 mEq/L (98-107); Globulin 4.5 g/dL (2.4-3.5); Glucose 253 mg/dL (70-105); Lipase 314 Units/L (11-82); Osmolality,Calculated 295 (280-300); Potassium 3.9 mEq/L (3.5-5.1); Sodium 134 mEq/L (136-145); Total Protein 8.5 g/dL (6.4-8.9); eGFR For African Americans 44 (> 60); eGFR For Non-African Americans 37 (> 60)
[2019-07-07 00:42] LABS: Troponin I < 0.03 ng/mL (< 0.04)
[2019-07-07] MEDS ORDERED: Ringers Solution, Lactated 1,000 ML IVC SCH ×2 (04:00→06:07)
[2019-07-07 06:00] LABS: Chol/HDL Ratio 7.3 (0-4.9); Cholesterol 234 mg/dL (< 200); HDL Cholesterol 32 mg/dL (40-59); Triglycerides 453 mg/dL (< 150)
[2019-07-07] MEDS: Ringers Solution, Lactated 1,000 ML IVC SCH ×4 (06:15→22:42)
[2019-07-07] MEDS ORDERED: Naloxone 0.4 MG/ML INJ IVP PRN (06:17)
[2019-07-07] MEDS ORDERED: D5% in Water 1,000 ML IVC PRN (06:21)
[2019-07-07] MEDS ORDERED: Dextrose Gel 15 GM/37.5 ML TUBE PO PRN ×2 (06:21)
[2019-07-07] MEDS ORDERED: *HR* Dextrose 50 % in Water (Syg) 50 ML SYRINGE IVP PRN (06:21)
[2019-07-07] MEDS ORDERED: cefTRIAXone 1,000 MG in Water for inj. (sterile) 10 ML IVP ONE (06:58)
[2019-07-07 07:33] LABS: Magnesium 1.9 mg/dL (1.6-2.6); Phosphorous 3.6 mg/dL (2.7-4.5)
[2019-07-07] MEDS: *HR* Heparin 5,000 UNIT/ML VIAL SQ SCH ×2 (08:18→18:34)
[2019-07-07] MEDS ORDERED: Insulin LISPRO 300 UNITS/3 ML VIAL SQ SCH ×2 (08:29→12:00)
[2019-07-07] MEDS: Metoprolol 100 MG TABLET PO SCH (08:57)
[2019-07-07] MEDS: Gabapentin 300 MG CAPSULE PO SCH ×3 (08:57→20:36)
[2019-07-07] MEDS: amLODIPine 5 MG TABLET PO SCH (08:57)
[2019-07-07] MEDS ORDERED: Aspirin Enteric Coated 81 MG Tablet PO SCH (09:00)
[2019-07-07] MEDS ORDERED: cefTRIAXone 1,000 MG in Water for inj. (sterile) 10 ML IVP SCH (09:00)
[2019-07-07] MEDS ORDERED: Insulin DETEMIR 100 UNIT/ML X5UNITS SQ SCH (09:15)
[2019-07-07] MEDS: Fluticasone Propionate Nasal 50 MCG/SPRAY BOTTLE NS SCH (12:08)
[2019-07-07] MEDS: Insulin LISPRO 300 UNITS/3 ML VIAL SQ SCH ×3 (12:42→20:41)
[2019-07-07] MEDS: Fenofibrate 54 MG TABLET PO SCH (12:48)
[2019-07-07] MEDS: *HR* Insulin Regular U-500 500 UNIT/ML SQ SCH (17:46)
[2019-07-08] MEDS: Insulin LISPRO 300 UNITS/3 ML VIAL SQ SCH ×3 (00:29→09:04)
[2019-07-08 04:22] LABS: Basophils % 0.4 %; Eosinophils # 0.4 K/mcL (0.0-0.6); Eosinophils % 3.9 %; Immature Granulocytes % 0.4 % (0-4); Lymphocytes # 3.1 K/mcL (0.6-4.6); Mean Corpuscular HGB Conc 32.4 g/dL (31.6-35.5); Mean Corpuscular Hemoglobin 27.9 pg (28.0-33.3); Mean Corpuscular Volume 86.2 fL (83.0-100.0); Mean Platelet Volume 10.7 fL (9.4-12.4); Monocytes # 1.1 K/mcL (0.0-1.3); Monocytes % 9.4 %; Neutrophils # 6.5 K/mcL (1.6-8.9); Platelet Count 222 K/mcL (140-400); Red Blood Count 3.83 M/mcL (4.19-5.50); Red Cell Distribution Width 13.6 % (11.5-14.5); Segmented Neutrophils % 57.9 %; White Blood Count 11.1 K/mcL (4.3-11.1)
[2019-07-08 04:24] LABS: Hemoglobin 10.7 g/dL (12.9-16.9)
[2019-07-08 04:40] LABS: Calcium 8.7 mg/dL (8.6-10.3); Magnesium 2.1 mg/dL (1.6-2.6); Phosphorous 2.7 mg/dL (2.7-4.5); Potassium 3.8 mEq/L (3.5-5.1)
[2019-07-08] MEDS: *HR* Heparin 5,000 UNIT/ML VIAL SQ SCH (04:54)
[2019-07-08] MEDS: Ringers Solution, Lactated 1,000 ML IVC SCH (05:28)
[2019-07-08 07:20] VITALS: BP 138/55
[2019-07-08] MEDS ORDERED: Aspirin Enteric Coated 325 MG Tablet PO SCH (09:00)
[2019-07-08] MEDS: Metoprolol 100 MG TABLET PO SCH (09:16)
[2019-07-08] MEDS: Gabapentin 300 MG CAPSULE PO SCH (09:16)
[2019-07-08] MEDS: Fenofibrate 54 MG TABLET PO SCH (09:16)
[2019-07-08] MEDS: amLODIPine 5 MG TABLET PO SCH (09:16)
[2019-07-08] MEDS: *HR* Insulin Regular U-500 500 UNIT/ML SQ SCH (09:16)
[2019-07-08] MEDS: Fluticasone Propionate Nasal 50 MCG/SPRAY BOTTLE NS SCH (09:17)
== END 2019-07-08 11:11 | disposition home or self-care (01) ==
LOC: EMEROOARM 22:50 → 3BNU 22:50 → SUATTDRO 07-07 04:12 → 3BNU 07-07 04:48
PROVIDERS: ADMIT Internal Medicine; ATTEND Internal Medicine

== ENCOUNTER 2019-10-09 04:50 | Inpatient (IN) ==
[2019-10-09 05:52] LABS: Basophils # 0.1 K/mcL (0.0-0.2); Basophils % 0.4 %; Eosinophils # 0.4 K/mcL (0.0-0.6); Eosinophils % 2.7 %; Hematocrit 36.2 % (37.5-50.1); Immature Granulocytes % 0.6 % (0-4); Lymphocytes # 3.7 K/mcL (0.6-4.6); Lymphocytes % 26.9 %; Mean Corpuscular HGB Conc 30.4 g/dL (31.6-35.5); Mean Corpuscular Hemoglobin 27.6 pg (28.0-33.3); Mean Platelet Volume 9.8 fL (9.4-12.4); Monocytes # 1.5 K/mcL (0.0-1.3); Monocytes % 10.6 %; Neutrophils # 8.1 K/mcL (1.6-8.9); Nucleated Red Blood Cells 0.1 /100 WBC (0); Platelet Count 278 K/mcL (140-400); Red Blood Count 3.98 M/mcL (4.19-5.50); Red Cell Distribution Width 13.4 % (11.5-14.5); Segmented Neutrophils % 58.8 %; White Blood Count 13.9 K/mcL (4.3-11.1)
[2019-10-09 06:16] LABS: BUN/Creatinine Ratio 13 (6-26); Blood Urea Nitrogen 26 mg/dL (6-20); Calcium 9.2 mg/dL (8.6-10.3); Carbon Dioxide 25 mEq/L (23-29); Chloride 109 mEq/L (98-107); Glucose 64 mg/dL (70-105); Osmolality,Calculated 293 (280-300); Potassium 3.8 mEq/L (3.5-5.1); Sodium 140 mEq/L (136-145); Troponin I < 0.03 ng/mL (< 0.04); eGFR For African Americans 43 (> 60); eGFR For Non-African Americans 35 (> 60)
[2019-10-09] MEDS ORDERED: Ipratropium/Albuterol Neb 3 ML IH ONE (06:24)
[2019-10-09 07:46] LABS: Adenovirus Not Detected (Not Detect); Coronavirus 229E Not Detected (Not Detect); Coronavirus NL63 Not Detected (Not Detect); Coronavirus OC43 Not Detected (Not Detect)
[2019-10-09 07:47] LABS: Bordetella Pertussis Not Detected (Not Detect); Chlamydophila pneumoniae Not Detected (Not Detect); Coronavirus HKU1 Not Detected (Not Detect); Human Metapneumovirus Not Detected (Not Detect); Human Rhinovirus/Enterovirus Not Detected (Not Detect); Influenza A Subtype 2009 H1 Not Detected (Not Detect); Influenza B Not Detected (Not Detect); Mycoplasma pneumoniae Not Detected (Not Detect); Parainfluenza Virus 1 Not Detected (Not Detect); Parainfluenza Virus 2 Not Detected (Not Detect); Parainfluenza Virus 3 Not Detected (Not Detect); Parainfluenza Virus 4 Not Detected (Not Detect); Respiratory Syncytial Virus Not Detected (Not Detect)
[2019-10-09] MEDS ORDERED: levoFLOXacin 750 MG/150 ML 750 MG/150 ML BAG IVPB ONE (08:38)
[2019-10-09] MEDS ORDERED: Furosemide 20 MG/2 ML VIAL IVP ONE (09:07)
[2019-10-09] MEDS ORDERED: Ondansetron 4 MG/2 ML VIAL IVP PRN (09:09)
[2019-10-09] MEDS ORDERED: Perflutren Lipid Microsphere 1.3 ML in 0.9 % Sodium Chloride 8.7 ML IVP PRN (09:21)
[2019-10-09] MEDS: amLODIPine 5 MG TABLET PO SCH (10:57)
[2019-10-09] MEDS: Aspirin Enteric Coated 325 MG Tablet PO SCH (10:57)
[2019-10-09] MEDS: Metoprolol XL (24 HR) Succ 50 MG TAB.ER.24H PO SCH (10:57)
[2019-10-09 11:33] LABS: Albumin 3.3 g/dL (3.5-5.7); Albumin/Globulin Ratio 0.8 (1.1-2.2); Bilirubin,Indirect 0.4 mg/dL (0.0-1.0); Bilirubin,Total 0.4 mg/dL (0.3-1.0); Globulin 4.1 g/dL (2.4-3.5); Magnesium 1.9 mg/dL (1.6-2.6); Phosphorous 3.9 mg/dL (2.7-4.5); Total Protein 7.4 g/dL (6.4-8.9)
[2019-10-09] MEDS ORDERED: Dextrose Gel 15 GM/37.5 ML TUBE PO PRN ×2 (13:52)
[2019-10-09] MEDS ORDERED: *HR* Dextrose 50 % in Water (Vial) 50 ML VIAL IVP PRN (13:52)
[2019-10-09] MEDS ORDERED: D5% in Water 1,000 ML IVC PRN (13:52)
[2019-10-09] MEDS: Gabapentin 300 MG CAPSULE PO SCH ×2 (14:26→20:43)
[2019-10-09] MEDS: Insulin LISPRO 300 UNITS/3 ML VIAL SQ SCH ×2 (16:20→20:44)
[2019-10-09] MEDS: Furosemide 40 MG/4 ML VIAL IVP SCH (16:20)
[2019-10-09] MEDS: Ipratropium/Albuterol Neb 3 ML IH PRN ×2 (16:23→23:49)
[2019-10-09] MEDS ORDERED: Furosemide 20 MG/2 ML VIAL IVP SCH (17:00)
[2019-10-10] MEDS: Acetaminophen 325 MG TABLET PO PRN ×2 (00:03→09:31)
[2019-10-10 03:09] LABS: Hematocrit 32.4 % (37.5-50.1); Hemoglobin 10.2 g/dL (12.9-16.9); Mean Corpuscular HGB Conc 31.5 g/dL (31.6-35.5); Mean Corpuscular Hemoglobin 28.9 pg (28.0-33.3); Mean Corpuscular Volume 91.8 fL (83.0-100.0); Mean Platelet Volume 10.4 fL (9.4-12.4); Platelet Count 266 K/mcL (140-400); Red Blood Count 3.53 M/mcL (4.19-5.50); Red Cell Distribution Width 13.4 % (11.5-14.5); White Blood Count 12.8 K/mcL (4.3-11.1)
[2019-10-10 03:30] LABS: BUN/Creatinine Ratio 14 (6-26); Blood Urea Nitrogen 28 mg/dL (6-20); Calcium 8.5 mg/dL (8.6-10.3); Carbon Dioxide 21 mEq/L (23-29); Chloride 101 mEq/L (98-107); Glucose 391 mg/dL (70-105); Magnesium 1.8 mg/dL (1.6-2.6); Osmolality,Calculated 296 (280-300); Potassium 4.3 mEq/L (3.5-5.1); Sodium 132 mEq/L (136-145); Troponin I < 0.03 ng/mL (< 0.04); eGFR For African Americans 42 (> 60); eGFR For Non-African Americans 35 (> 60)
[2019-10-10] MEDS: Insulin LISPRO 300 UNITS/3 ML VIAL SQ SCH ×4 (07:53→21:16)
[2019-10-10] MEDS: Gabapentin 300 MG CAPSULE PO SCH ×3 (07:54→21:16)
[2019-10-10] MEDS: Fenofibrate 54 MG TABLET PO SCH (07:54)
[2019-10-10] MEDS: Metoprolol XL (24 HR) Succ 50 MG TAB.ER.24H PO SCH (07:54)
[2019-10-10] MEDS: Aspirin Enteric Coated 325 MG Tablet PO SCH (07:54)
[2019-10-10] MEDS: Furosemide 40 MG/4 ML VIAL IVP SCH (07:54)
[2019-10-10] MEDS: amLODIPine 5 MG TABLET PO SCH (07:54)
[2019-10-10] MEDS: levoFLOXacin 750 MG TABLET PO SCH ×2 (07:54→07:55)
[2019-10-10] MEDS ORDERED: Insulin DETEMIR 100 UNIT/ML X5UNITS SQ SCH ×2 (09:00→21:00)
[2019-10-10] MEDS ORDERED: *HR* OxyCODONE Immed Rel 5 MG TABLET PO PRN (11:20)
[2019-10-10] MEDS ORDERED: Acetaminophen 325 MG TABLET PO PRN (11:21)
[2019-10-10] MEDS: PARoxetine 20 MG TABLET PO SCH (14:48)
[2019-10-10] MEDS: Insulin DETEMIR 100 UNIT/ML X5UNITS SQ SCH (21:18)
[2019-10-11 03:22] LABS: Basophils # 0.1 K/mcL (0.0-0.2); Basophils % 0.4 %; Eosinophils # 0.5 K/mcL (0.0-0.6); Eosinophils % 4.3 %; Hematocrit 32.1 % (37.5-50.1); Hemoglobin 10.2 g/dL (12.9-16.9); Immature Granulocytes % 0.5 % (0-4); Lymphocytes # 2.3 K/mcL (0.6-4.6); Lymphocytes % 19.9 %; Mean Corpuscular HGB Conc 31.8 g/dL (31.6-35.5); Mean Corpuscular Hemoglobin 28.2 pg (28.0-33.3); Mean Corpuscular Volume 88.7 fL (83.0-100.0); Mean Platelet Volume 10.3 fL (9.4-12.4); Monocytes # 1.3 K/mcL (0.0-1.3); Monocytes % 11.2 %; Neutrophils # 7.4 K/mcL (1.6-8.9); Platelet Count 286 K/mcL (140-400); Red Blood Count 3.62 M/mcL (4.19-5.50); Red Cell Distribution Width 13.2 % (11.5-14.5); Segmented Neutrophils % 63.7 %; White Blood Count 11.6 K/mcL (4.3-11.1)
[2019-10-11 05:43] LABS: Calcium 8.9 mg/dL (8.6-10.3); Potassium 4.5 mEq/L (3.5-5.1)
[2019-10-11] MEDS: PARoxetine 20 MG TABLET PO SCH (07:44)
[2019-10-11] MEDS: Metoprolol XL (24 HR) Succ 50 MG TAB.ER.24H PO SCH (07:44)
[2019-10-11] MEDS: Aspirin Enteric Coated 325 MG Tablet PO SCH (07:44)
[2019-10-11] MEDS: Gabapentin 300 MG CAPSULE PO SCH ×3 (07:44→21:23)
[2019-10-11] MEDS: amLODIPine 5 MG TABLET PO SCH (07:45)
[2019-10-11] MEDS: Insulin LISPRO 300 UNITS/3 ML VIAL SQ SCH ×4 (07:45→21:22)
[2019-10-11] MEDS: Fenofibrate 54 MG TABLET PO SCH (07:45)
[2019-10-11] MEDS: Furosemide 40 MG TABLET PO SCH (07:45)
[2019-10-11] MEDS: Insulin DETEMIR 100 UNIT/ML X5UNITS SQ SCH ×2 (07:49→21:23)
[2019-10-11] MEDS ORDERED: Insulin LISPRO 300 UNITS/3 ML VIAL SQ ONE (20:03)
[2019-10-12 01:24] LABS: Basophils # 0.1 K/mcL (0.0-0.2); Basophils % 0.5 %; Eosinophils # 0.5 K/mcL (0.0-0.6); Eosinophils % 4.5 %; Hematocrit 31.3 % (37.5-50.1); Immature Granulocytes % 0.5 % (0-4); Lymphocytes # 2.7 K/mcL (0.6-4.6); Mean Corpuscular HGB Conc 31.9 g/dL (31.6-35.5); Mean Corpuscular Hemoglobin 28.6 pg (28.0-33.3); Mean Corpuscular Volume 89.4 fL (83.0-100.0); Mean Platelet Volume 9.9 fL (9.4-12.4); Monocytes # 1.4 K/mcL (0.0-1.3); Monocytes % 12.9 %; Neutrophils # 6.2 K/mcL (1.6-8.9); Platelet Count 303 K/mcL (140-400); Red Cell Distribution Width 13.2 % (11.5-14.5); Segmented Neutrophils % 56.6 %
[2019-10-12 01:43] LABS: Calcium 8.8 mg/dL (8.6-10.3); Potassium 4.3 mEq/L (3.5-5.1)
[2019-10-12] MEDS: Aspirin Enteric Coated 325 MG Tablet PO SCH (08:25)
[2019-10-12] MEDS: Furosemide 40 MG TABLET PO SCH (08:25)
[2019-10-12] MEDS: Gabapentin 300 MG CAPSULE PO SCH (08:25)
[2019-10-12] MEDS: Metoprolol XL (24 HR) Succ 50 MG TAB.ER.24H PO SCH (08:25)
[2019-10-12] MEDS: Fenofibrate 54 MG TABLET PO SCH (08:25)
[2019-10-12] MEDS: amLODIPine 5 MG TABLET PO SCH (08:25)
[2019-10-12] MEDS: PARoxetine 20 MG TABLET PO SCH (08:26)
[2019-10-12] MEDS: Insulin LISPRO 300 UNITS/3 ML VIAL SQ SCH ×2 (08:26→11:49)
[2019-10-12] MEDS: Insulin DETEMIR 100 UNIT/ML X5UNITS SQ SCH (08:27)
[2019-10-12] MEDS ORDERED: Azithromycin 250 MG TABLET PO ONE (08:55)
[2019-10-12] MEDS ORDERED: Cefdinir 300 MG CAPSULE PO SCH (09:00)
[2019-10-12 11:21] VITALS: BP 141/80
[2019-10-13] MEDS ORDERED: Azithromycin 250 MG TABLET PO SCH (09:00)
== END 2019-10-12 13:38 | disposition home or self-care (01) | DRG 291 ==
LOC: 2ANU 04:50 → EMEROOARM 04:50 → SUATTDRO 09:14 → 2ANU 10:17
PROVIDERS: ADMIT Internal Medicine; ATTEND Internal Medicine

== ENCOUNTER 2020-01-23 17:58 | Inpatient (IN) ==
[2020-01-23 18:54] LABS: Basophils # 0.1 K/mcL (0.0-0.2); Basophils % 0.4 %; Eosinophils # 0.1 K/mcL (0.0-0.6); Eosinophils % 0.7 %; Hematocrit 38.7 % (37.5-50.1); Hemoglobin 12.2 g/dL (12.9-16.9); Immature Granulocytes % 0.8 % (0-4); Mean Corpuscular HGB Conc 31.5 g/dL (31.6-35.5); Mean Corpuscular Hemoglobin 27.7 pg (28.0-33.3); Mean Corpuscular Volume 87.8 fL (83.0-100.0); Mean Platelet Volume 10.7 fL (9.4-12.4); Monocytes # 1.4 K/mcL (0.0-1.3); Monocytes % 7.3 %; Neutrophils # 15.8 K/mcL (1.6-8.9); Platelet Count 274 K/mcL (140-400); Red Blood Count 4.41 M/mcL (4.19-5.50); Red Cell Distribution Width 14.1 % (11.5-14.5); Segmented Neutrophils % 80.8 %; White Blood Count 19.6 K/mcL (4.3-11.1)
[2020-01-23 18:59] LABS: INR 1.1; Prothrombin Time 13.1 Seconds (9.4-12.1)
[2020-01-23 19:01] LABS: Activated Partial Thrombo Time 25.6 Seconds (26.0-36.0)
[2020-01-23 19:20] LABS: Albumin 3.5 g/dL (3.5-5.7); Albumin/Globulin Ratio 0.8 (1.1-2.2); Bilirubin,Direct 0.1 mg/dL (0.0-0.2); Bilirubin,Indirect 0.8 mg/dL (0.0-1.0); Bilirubin,Total 0.9 mg/dL (0.3-1.0); Globulin 4.5 g/dL (2.4-3.5); Magnesium 1.7 mg/dL (1.6-2.6); Phosphorous 2.9 mg/dL (2.7-4.5); Potassium 4.5 mEq/L (3.5-5.1); Troponin I 0.05 ng/mL (< 0.04)
[2020-01-23] MEDS ORDERED: Furosemide 40 MG/4 ML VIAL IVP ONE (19:44)
[2020-01-23] MEDS ORDERED: Azithromycin 500 MG in 0.9 % Sodium Chloride 250 ML IVPB ONE (19:44)
[2020-01-23] MEDS ORDERED: Dexamethasone 4 MG/ML VIAL IVP ONE (19:44)
[2020-01-23] MEDS ORDERED: cefTRIAXone 1,000 MG in 0.9 % Sodium Chloride Mini Bag 100 ML IVPB ONE (19:44)
[2020-01-23] MEDS ORDERED: Ondansetron 4 MG/2 ML VIAL IVP PRN (20:10)
[2020-01-23] MEDS ORDERED: Acetaminophen 325 MG TABLET PO PRN (20:10)
[2020-01-23] MEDS ORDERED: Naloxone 0.4 MG/ML INJ IVP PRN (20:10)
[2020-01-23] MEDS ORDERED: Dextrose Gel 15 GM/37.5 ML TUBE PO PRN ×2 (21:42)
[2020-01-23] MEDS ORDERED: *HR* Dextrose 50 % in Water (Vial) 50 ML VIAL IVP PRN (21:42)
[2020-01-23] MEDS ORDERED: D5% in Water 1,000 ML IVC PRN (21:42)
[2020-01-23] MEDS ORDERED: Insulin LISPRO 300 UNITS/3 ML VIAL SQ SCH (21:45)
[2020-01-23] MEDS ORDERED: Metoprolol XL (24 HR) Succ 50 MG TAB.ER.24H PO SCH ×2 (22:45→23:00)
[2020-01-23 23:03] LABS: Adenovirus Not Detected (Not Detect); Bordetella Pertussis Not Detected (Not Detect); Chlamydophila pneumoniae Not Detected (Not Detect); Coronavirus 229E Not Detected (Not Detect); Coronavirus HKU1 Not Detected (Not Detect); Coronavirus NL63 Not Detected (Not Detect); Coronavirus OC43 Not Detected (Not Detect); Human Metapneumovirus Not Detected (Not Detect); Human Rhinovirus/Enterovirus Not Detected (Not Detect); Influenza A Subtype 2009 H1 Not Detected (Not Detect); Influenza B Not Detected (Not Detect); Mycoplasma pneumoniae Not Detected (Not Detect); Parainfluenza Virus 1 Not Detected (Not Detect); Parainfluenza Virus 2 Not Detected (Not Detect); Parainfluenza Virus 3 Not Detected (Not Detect); Parainfluenza Virus 4 Not Detected (Not Detect); Respiratory Syncytial Virus Not Detected (Not Detect); SARS-CoV-2 Not Detected (Not Detect)
[2020-01-23] MEDS: Ipratropium 1 PUFF INHALER IH SCH (23:58)
[2020-01-24] MEDS: Ipratropium 1 PUFF INHALER IH SCH ×7 (00:02→23:29)
[2020-01-24 00:57] LABS: Basophils % 0.2 %; Hematocrit 40.2 % (37.5-50.1); Hemoglobin 12.3 g/dL (12.9-16.9); Immature Granulocytes % 0.9 % (0-4); Lymphocytes # 1.3 K/mcL (0.6-4.6); Lymphocytes % 7.9 %; Mean Corpuscular HGB Conc 30.6 g/dL (31.6-35.5); Mean Corpuscular Hemoglobin 27.2 pg (28.0-33.3); Mean Corpuscular Volume 88.7 fL (83.0-100.0); Mean Platelet Volume 10.9 fL (9.4-12.4); Monocytes # 0.6 K/mcL (0.0-1.3); Monocytes % 3.5 %; Neutrophils # 14.6 K/mcL (1.6-8.9); Platelet Count 277 K/mcL (140-400); Red Blood Count 4.53 M/mcL (4.19-5.50); Segmented Neutrophils % 87.5 %; White Blood Count 16.7 K/mcL (4.3-11.1)
[2020-01-24 01:18] LABS: Albumin 3.5 g/dL (3.5-5.7); Albumin/Globulin Ratio 0.8 (1.1-2.2); Bilirubin,Total 0.7 mg/dL (0.3-1.0); Calcium 8.5 mg/dL (8.6-10.3); Globulin 4.6 g/dL (2.4-3.5); Potassium 5.1 mEq/L (3.5-5.1); Total Protein 8.1 g/dL (6.4-8.9)
[2020-01-24] MEDS ORDERED: *HR* Dextrose 50 % in Water (Vial) 50 ML VIAL IVP PRN (01:31)
[2020-01-24] MEDS ORDERED: D5% in Water 1,000 ML IVC PRN (01:31)
[2020-01-24] MEDS ORDERED: Insulin LISPRO 300 UNITS/3 ML VIAL SQ ONE (01:31)
[2020-01-24] MEDS ORDERED: Dextrose Gel 15 GM/37.5 ML TUBE PO PRN ×2 (01:31)
[2020-01-24] MEDS ORDERED: *HR* Heparin 5,000 UNIT/ML VIAL IVP PRN ×2 (01:35)
[2020-01-24] MEDS ORDERED: Insulin Regular, Human 100 UNIT/ML SQ ONE (01:35)
[2020-01-24] MEDS ORDERED: *HR* Heparin 5,000 UNIT/ML VIAL IVP ONE (01:35)
[2020-01-24] MEDS ORDERED: Heparin 25,000UNIT/250ML 1/2NS 25,000 UNIT/250 ML IV.SOLN IVC SCH (01:45)
[2020-01-24] MEDS: MethylPREDNISolone 40 MG/ML VIAL IVP SCH ×3 (02:28→21:12)
[2020-01-24 03:16] LABS: Heparin anti-factor XA UFH 0.73 IU/mL (0.30-0.70)
[2020-01-24 03:17] LABS: INR 1.4; Prothrombin Time 15.9 Seconds (9.4-12.1)
[2020-01-24] MEDS ORDERED: Insulin LISPRO 300 UNITS/3 ML VIAL SQ SCH ×3 (03:29→07:30)
[2020-01-24] MEDS: Heparin 25,000UNIT/250ML 1/2NS 25,000 UNIT/250 ML IV.SOLN IVC SCH (04:39)
[2020-01-24] MEDS: Insulin LISPRO 300 UNITS/3 ML VIAL SQ SCH ×4 (05:14→21:13)
[2020-01-24] MEDS ORDERED: *HR* Heparin 5,000 UNIT/ML VIAL SQ SCH (06:00)
[2020-01-24] MEDS ORDERED: D5% in 0.45% NACL w KCl 20 MEQ/1,000 ML MLS IVC PRN (07:06)
[2020-01-24] MEDS ORDERED: Insulin Regular, Human 100 UNIT/ML IV PRN ×2 (07:06)
[2020-01-24] MEDS ORDERED: Perflutren Lipid Microsphere 1.3 ML in 0.9 % Sodium Chloride 8.7 ML IVP PRN (07:32)
[2020-01-24 08:03] LABS: Calcium 8.6 mg/dL (8.6-10.3); Potassium 4.4 mEq/L (3.5-5.1)
[2020-01-24] MEDS: Metoprolol XL (24 HR) Succ 50 MG TAB.ER.24H PO SCH ×3 (08:25→20:54)
[2020-01-24] MEDS: amLODIPine 5 MG TABLET PO SCH (08:27)
[2020-01-24] MEDS: cefTRIAXone 2,000 MG in 0.9 % Sodium Chloride Mini Bag 100 ML IVPB SCH (08:27)
[2020-01-24] MEDS: Aspirin Enteric Coated 325 MG Tablet PO SCH (08:27)
[2020-01-24] MEDS: Azithromycin 250 MG TABLET PO SCH (08:27)
[2020-01-24] MEDS: Cholecalciferol (D-3) 1,000 UNIT (25MCG) TABLET PO SCH (08:27)
[2020-01-24] MEDS: Fluticasone Propionate Nasal 50 MCG/SPRAY BOTTLE NS SCH (08:29)
[2020-01-24] MEDS ORDERED: PARoxetine 20 MG TABLET PO SCH (09:00)
[2020-01-24] MEDS ORDERED: Insulin Human Regular 20 UNIT in 0.9 % Sodium Chloride 10 ML IV ONE (09:05)
[2020-01-24] MEDS: Insulin Human Regular 100 UNIT in 0.9 % Sodium Chloride 100 ML IVC SCH ×2 (10:18→16:27)
[2020-01-24] MEDS: 0.45 % Sodium Chloride w/KCl 20 MEQ/1,000 ML MLS IVC SCH ×8 (10:20→23:27)
[2020-01-24 12:06] LABS: VBG HCO3 21 mEq/L (21-27); VBG PCO2 37 mmHg (41-51); VBG PH 7.36 pH Units (7.32-7.42); VBG PO2 97 mmHg (25-50)
[2020-01-24] MEDS ORDERED: SODIUM CHLORIDE 0.9% IV ONE (12:15)
[2020-01-24] MEDS ORDERED: INSULIN HUMAN REGULAR IV ONE (12:15)
[2020-01-24] MEDS ORDERED: Insulin Human Regular 5 UNIT in 0.9 % Sodium Chloride 10 ML IV ONE (12:45)
[2020-01-24 14:23] LABS: Calcium 8.6 mg/dL (8.6-10.3); Potassium 4.1 mEq/L (3.5-5.1)
[2020-01-24] MEDS: *HR* Dextrose 50 % in Water (Vial) 50 ML VIAL IVP PRN ×2 (17:43→18:16)
[2020-01-24 18:00] LABS: VBG HCO3 23 mEq/L (21-27); VBG PCO2 48 mmHg (41-51); VBG PH 7.29 pH Units (7.32-7.42); VBG PO2 89 mmHg (25-50)
[2020-01-24] MEDS: Dexamethasone 4 MG/ML VIAL IVP SCH (18:13)
[2020-01-24] MEDS: Furosemide 40 MG TABLET PO SCH (18:16)
[2020-01-24 18:29] LABS: Calcium 8.6 mg/dL (8.6-10.3); Potassium 3.7 mEq/L (3.5-5.1)
[2020-01-24] MEDS: Insulin DETEMIR 100 UNIT/ML X5UNITS SQ SCH (20:12)
[2020-01-24] MEDS: Gabapentin 300 MG CAPSULE PO SCH (20:12)
[2020-01-25] MEDS: 0.45 % Sodium Chloride w/KCl 20 MEQ/1,000 ML MLS IVC SCH ×3 (01:14→05:56)
[2020-01-25] MEDS: Ipratropium 1 PUFF INHALER IH SCH ×6 (03:20→23:19)
[2020-01-25 03:31] LABS: Basophils % 0.1 %; Hematocrit 34.3 % (37.5-50.1); Immature Granulocytes % 0.9 % (0-4); Lymphocytes # 1.4 K/mcL (0.6-4.6); Lymphocytes % 6.1 %; Mean Corpuscular HGB Conc 32.1 g/dL (31.6-35.5); Mean Corpuscular Hemoglobin 28.2 pg (28.0-33.3); Mean Corpuscular Volume 87.9 fL (83.0-100.0); Mean Platelet Volume 10.6 fL (9.4-12.4); Monocytes # 1.4 K/mcL (0.0-1.3); Neutrophils # 20.2 K/mcL (1.6-8.9); Platelet Count 280 K/mcL (140-400); Red Cell Distribution Width 13.9 % (11.5-14.5); Segmented Neutrophils % 86.9 %; White Blood Count 23.3 K/mcL (4.3-11.1)
[2020-01-25 03:39] LABS: Heparin anti-factor XA UFH 0.35 IU/mL (0.30-0.70); INR 1.2; Prothrombin Time 13.5 Seconds (9.4-12.1)
[2020-01-25 04:00] LABS: Albumin/Globulin Ratio 0.8 (1.1-2.2); Bilirubin,Total 0.4 mg/dL (0.3-1.0); Calcium 8.2 mg/dL (8.6-10.3); Phosphorous 2.5 mg/dL (2.7-4.5); Potassium 4.5 mEq/L (3.5-5.1)
[2020-01-25] MEDS: Heparin 25,000UNIT/250ML 1/2NS 25,000 UNIT/250 ML IV.SOLN IVC SCH (05:48)
[2020-01-25] MEDS: Cholecalciferol (D-3) 1,000 UNIT (25MCG) TABLET PO SCH (07:39)
[2020-01-25] MEDS: Azithromycin 250 MG TABLET PO SCH (07:39)
[2020-01-25] MEDS: Furosemide 40 MG TABLET PO SCH (07:39)
[2020-01-25] MEDS: Metoprolol XL (24 HR) Succ 50 MG TAB.ER.24H PO SCH ×2 (07:39→20:45)
[2020-01-25] MEDS: Dexamethasone 4 MG/ML VIAL IVP SCH (07:40)
[2020-01-25] MEDS: Aspirin Enteric Coated 325 MG Tablet PO SCH (07:41)
[2020-01-25] MEDS: amLODIPine 5 MG TABLET PO SCH (07:41)
[2020-01-25] MEDS: cefTRIAXone 2,000 MG in 0.9 % Sodium Chloride Mini Bag 100 ML IVPB SCH (07:41)
[2020-01-25] MEDS: Gabapentin 300 MG CAPSULE PO SCH ×2 (07:42→20:45)
[2020-01-25] MEDS: Insulin LISPRO 300 UNITS/3 ML VIAL SQ SCH ×4 (07:42→20:44)
[2020-01-25] MEDS: Fluticasone Propionate Nasal 50 MCG/SPRAY BOTTLE NS SCH (07:42)
[2020-01-25 12:13] LABS: Adenovirus Not Detected (Not Detect); Coronavirus 229E Not Detected (Not Detect); Coronavirus HKU1 Not Detected (Not Detect); Coronavirus NL63 Not Detected (Not Detect); Coronavirus OC43 Not Detected (Not Detect); Human Metapneumovirus Not Detected (Not Detect); Human Rhinovirus/Enterovirus Not Detected (Not Detect); SARS-CoV-2 Not Detected (Not Detect)
[2020-01-25 12:14] LABS: Bordetella Pertussis Not Detected (Not Detect); Chlamydophila pneumoniae Not Detected (Not Detect); Influenza A Subtype 2009 H1 Not Detected (Not Detect); Influenza B Not Detected (Not Detect); Mycoplasma pneumoniae Not Detected (Not Detect); Parainfluenza Virus 1 Not Detected (Not Detect); Parainfluenza Virus 2 Not Detected (Not Detect); Parainfluenza Virus 3 Not Detected (Not Detect); Parainfluenza Virus 4 Not Detected (Not Detect); Respiratory Syncytial Virus Not Detected (Not Detect)
[2020-01-25] MEDS ORDERED: Gabapentin 300 MG CAPSULE PO SCH (15:00)
[2020-01-25] MEDS: Pantoprazole 40 MG VIAL IVP SCH (18:27)
[2020-01-25] MEDS: Doxycycline 100 MG in 0.9 % Sodium Chloride Mini Bag 100 ML IVPB SCH (18:28)
[2020-01-25] MEDS: Lactobacillus 1 EACH CAP.SPRINK PO SCH (20:43)
[2020-01-25] MEDS: Insulin DETEMIR 100 UNIT/ML X5UNITS SQ SCH (20:44)
[2020-01-26] MEDS: Piperacillin/Tazobactam 3.375 GM in 0.9 % Sodium Chloride Mini Bag 100 ML IVPB SCH ×2 (00:19→09:18)
[2020-01-26] MEDS: Heparin 25,000UNIT/250ML 1/2NS 25,000 UNIT/250 ML IV.SOLN IVC SCH (01:03)
[2020-01-26] MEDS: Ipratropium 1 PUFF INHALER IH SCH ×3 (03:23→12:33)
[2020-01-26 05:25] LABS: Basophils % 0.2 %; Hematocrit 34.5 % (37.5-50.1); Hemoglobin 11.1 g/dL (12.9-16.9); Immature Granulocytes % 1.8 % (0-4); Lymphocytes # 1.3 K/mcL (0.6-4.6); Mean Corpuscular HGB Conc 32.2 g/dL (31.6-35.5); Mean Corpuscular Volume 87.1 fL (83.0-100.0); Mean Platelet Volume 11.2 fL (9.4-12.4); Monocytes # 1.5 K/mcL (0.0-1.3); Monocytes % 7.8 %; Neutrophils # 15.5 K/mcL (1.6-8.9); Nucleated Red Blood Cells 0.1 /100 WBC (0); Platelet Count 314 K/mcL (140-400); Red Blood Count 3.96 M/mcL (4.19-5.50); Red Cell Distribution Width 13.9 % (11.5-14.5); Segmented Neutrophils % 83.2 %; White Blood Count 18.6 K/mcL (4.3-11.1)
[2020-01-26] MEDS: Doxycycline 100 MG in 0.9 % Sodium Chloride Mini Bag 100 ML IVPB SCH (05:34)
[2020-01-26 05:35] LABS: INR 1.1; Prothrombin Time 12.5 Seconds (9.4-12.1)
[2020-01-26 05:48] LABS: Albumin 3.1 g/dL (3.5-5.7); Albumin/Globulin Ratio 0.8 (1.1-2.2); Bilirubin,Total 0.3 mg/dL (0.3-1.0); Calcium 8.4 mg/dL (8.6-10.3); Globulin 3.8 g/dL (2.4-3.5); Magnesium 2.3 mg/dL (1.6-2.6); Phosphorous 3.5 mg/dL (2.7-4.5); Potassium 4.7 mEq/L (3.5-5.1); Total Protein 6.9 g/dL (6.4-8.9)
[2020-01-26 05:49] LABS: % Iron Saturation 33 % (20-55); Iron 85 mcg/dL (65-175); Transferrin 185 mg/dL (203-362)
[2020-01-26 05:56] LABS: Thyroid Stimulating Hormone 0.665 mcIU/mL (0.340-5.600)
[2020-01-26 06:01] LABS: Ferritin 329 ng/mL (20-250)
[2020-01-26 06:07] LABS: Folate 6.9 ng/mL (3.0-16.0)
[2020-01-26] MEDS: Furosemide 40 MG TABLET PO SCH (09:17)
[2020-01-26] MEDS: Gabapentin 300 MG CAPSULE PO SCH (09:17)
[2020-01-26] MEDS: Aspirin Enteric Coated 325 MG Tablet PO SCH (09:17)
[2020-01-26] MEDS: Metoprolol XL (24 HR) Succ 50 MG TAB.ER.24H PO SCH (09:17)
[2020-01-26] MEDS: Cholecalciferol (D-3) 1,000 UNIT (25MCG) TABLET PO SCH (09:17)
[2020-01-26] MEDS: Lactobacillus 1 EACH CAP.SPRINK PO SCH (09:17)
[2020-01-26] MEDS: amLODIPine 5 MG TABLET PO SCH (09:17)
[2020-01-26] MEDS: Dexamethasone 4 MG/ML VIAL IVP SCH (09:18)
[2020-01-26] MEDS: Pantoprazole 40 MG VIAL IVP SCH (09:18)
[2020-01-26] MEDS: Insulin LISPRO 300 UNITS/3 ML VIAL SQ SCH ×2 (09:19→11:18)
[2020-01-26] MEDS: Fluticasone Propionate Nasal 50 MCG/SPRAY BOTTLE NS SCH (09:31)
[2020-01-26 11:03] VITALS: BP 160/79
[2020-01-26 11:52] LABS: Estimated Average Glucose 309 mg/dl
== END 2020-01-26 14:09 | disposition home or self-care (01) | DRG 871 ==
LOC: 2ANU 17:58 → EMEROOARM 17:58 → 2ANU 01-24 00:13 → CDU 01-24 03:11 → SUATTDRO 01-24 15:08 → 3BNU 01-25 13:43
PROVIDERS: ADMIT Internal Medicine; ATTEND Internal Medicine

== ENCOUNTER 2020-08-23 01:37 | Inpatient (IN) ==
[2020-08-23 05:13] LABS: Basophils # 0.1 K/mcL (0.0-0.2); Basophils % 0.3 %; Eosinophils # 0.3 K/mcL (0.0-0.6); Eosinophils % 1.6 %; Hematocrit 31.9 % (37.5-50.1); Hemoglobin 10.7 g/dL (12.9-16.9); Immature Granulocytes % 0.6 % (0-4); Lymphocytes # 2.4 K/mcL (0.6-4.6); Lymphocytes % 12.9 %; Mean Corpuscular HGB Conc 33.5 g/dL (31.6-35.5); Mean Corpuscular Hemoglobin 28.8 pg (28.0-33.3); Mean Corpuscular Volume 85.8 fL (83.0-100.0); Mean Platelet Volume 10.2 fL (9.4-12.4); Monocytes # 2.1 K/mcL (0.0-1.3); Monocytes % 11.5 %; Neutrophils # 13.6 K/mcL (1.6-8.9); Nucleated Red Blood Cells 0.1 /100 WBC (0); Platelet Count 307 K/mcL (140-400); Red Blood Count 3.72 M/mcL (4.19-5.50); Red Cell Distribution Width 12.4 % (11.5-14.5); Segmented Neutrophils % 73.1 %; White Blood Count 18.6 K/mcL (4.3-11.1)
[2020-08-23 05:21] LABS: INR 1.4; Prothrombin Time 16.3 Seconds (9.4-12.1)
[2020-08-23 05:23] LABS: Activated Partial Thrombo Time 25.3 Seconds (26.0-36.0)
[2020-08-23 05:34] LABS: Alanine Aminotransferase 13 Units/L (7-52); Albumin 2.7 g/dL (3.5-5.7); Albumin/Globulin Ratio 0.7 (1.1-2.2); Alkaline Phosphatase 112 Units/L (34-104); Aspartate Amino Transferase 13 Units/L (13-39); BUN/Creatinine Ratio 12 (6-26); Bilirubin,Indirect 0.5 mg/dL (0.0-1.0); Bilirubin,Total 0.5 mg/dL (0.3-1.0); Blood Urea Nitrogen 31 mg/dL (6-20); Calcium 8.5 mg/dL (8.6-10.3); Carbon Dioxide 22 mEq/L (23-29); Chloride 100 mEq/L (98-107); Globulin 4.1 g/dL (2.4-3.5); Glucose 230 mg/dL (70-105); Magnesium 1.9 mg/dL (1.6-2.6); Osmolality,Calculated 288 (280-300); Phosphorous 2.8 mg/dL (2.7-4.5); Potassium 3.8 mEq/L (3.5-5.1); Sodium 132 mEq/L (136-145); Total Protein 6.8 g/dL (6.4-8.9); Troponin I < 0.03 ng/mL (< 0.04); eGFR For African Americans 31 (> 60); eGFR For Non-African Americans 25 (> 60)
[2020-08-23] MEDS ORDERED: Piperacillin/Tazobactam 3.375 GM in 0.9 % Sodium Chloride Mini Bag 100 ML IVPB ONE (05:35)
[2020-08-23] MEDS ORDERED: Vancomycin 2,000 MG/520 ML IV.SOLN IVPB ONE (06:00)
[2020-08-23 06:22] LABS: Bilirubin,Urine Negative (Negative); Blood,Urine Moderate (Negative); Clarity,Urine Turbid (Clear); Color,Urine Yellow (Yellow); Glucose,Urine (UA) >=1000 mg/dL (Normal); Hyaline Casts,Urine Moderate per lpf (None Seen); Ketones,Urine Negative (Negative); Leukocyte Esterase,Urine Large (Negative); Mucus,Urine Few per lpf (None-Few); Nitrite,Urine Negative (Negative); Protein,Urine >=600 mg/dL (Neg-Trace); RBC,Urine 15-30 per hpf (0-3); Specific Gravity,Urine 1.023 (1.010-1.025); Squamous Epithelial Cell,Urine Few per hpf (None-Few); WBC,Urine TNTC per hpf (0-3)
[2020-08-23 09:19] LABS: C-Reactive Protein 244 mg/L (Less than 10)
[2020-08-23] MEDS ORDERED: Ondansetron 4 MG/2 ML VIAL IVP PRN (11:40)
[2020-08-23] MEDS ORDERED: Melatonin 3 MG TABLET PO PRN (11:40)
[2020-08-23] MEDS ORDERED: Naloxone 0.4 MG/ML INJ IVP PRN (11:40)
[2020-08-23] MEDS ORDERED: Acetaminophen 325 MG TABLET PO PRN (11:40)
[2020-08-23] MEDS ORDERED: *HR* OxyCODONE/APAP 10/325 TABLET PO PRN (11:42)
[2020-08-23] MEDS ORDERED: hydrALAZINE 25 MG TABLET PO PRN (11:42)
[2020-08-23] MEDS ORDERED: Dextrose Gel 15 GM/37.5 ML TUBE PO PRN ×2 (11:51)
[2020-08-23] MEDS ORDERED: *HR* Dextrose 50 % in Water (Vial) 50 ML VIAL IVP PRN (11:51)
[2020-08-23] MEDS ORDERED: D5% in Water 1,000 ML IVC PRN (11:51)
[2020-08-23] MEDS: Insulin LISPRO 300 UNITS/3 ML VIAL SUBQ SCH ×2 (12:40→16:30)
[2020-08-23] MEDS: Metoprolol XL (24 HR) Succ 50 MG TAB.ER.24H PO SCH (12:57)
[2020-08-23] MEDS ORDERED: Piperacillin/Tazobactam 3.375 GM in 0.9 % Sodium Chloride Mini Bag 100 ML IVPB SCH (14:00)
[2020-08-23] MEDS: metroNIDAZOLE 500 MG TABLET PO SCH ×2 (16:20→22:29)
[2020-08-23] MEDS: *HR* Heparin 5,000 UNIT/ML VIAL SQ SCH (16:20)
[2020-08-23] MEDS: Cefepime HCl 2,000 MG in 0.9 % Sodium Chloride Mini Bag 100 ML IVPB SCH (16:21)
[2020-08-23] MEDS ORDERED: Insulin LISPRO 300 UNITS/3 ML VIAL SUBQ SCH ×3 (18:02→21:00)
[2020-08-23] MEDS ORDERED: Insulin DETEMIR 100 UNIT/ML X5UNITS SUBQ SCH (21:00)
[2020-08-24] MEDS: *HR* Heparin 5,000 UNIT/ML VIAL SQ SCH ×3 (00:11→17:28)
[2020-08-24] MEDS ORDERED: Vancomycin 1,500 MG/265 ML IV.SOLN IVPB SCH (06:00)
[2020-08-24 07:16] LABS: Hematocrit 34.5 % (37.5-50.1); Hemoglobin 11.3 g/dL (12.9-16.9); Mean Corpuscular HGB Conc 32.8 g/dL (31.6-35.5); Mean Corpuscular Hemoglobin 28.1 pg (28.0-33.3); Mean Corpuscular Volume 85.8 fL (83.0-100.0); Platelet Count 329 K/mcL (140-400); Red Blood Count 4.02 M/mcL (4.19-5.50); Red Cell Distribution Width 12.3 % (11.5-14.5)
[2020-08-24 07:27] LABS: Calcium 9.2 mg/dL (8.6-10.3); Potassium 3.9 mEq/L (3.5-5.1)
[2020-08-24] MEDS ORDERED: Insulin LISPRO 300 UNITS/3 ML VIAL SUBQ SCH ×2 (07:47→11:30)
[2020-08-24] MEDS: Aspirin Enteric Coated 81 MG Tablet PO SCH ×2 (08:52→09:01)
[2020-08-24] MEDS: Furosemide 40 MG TABLET PO SCH ×2 (08:52→09:01)
[2020-08-24] MEDS: metroNIDAZOLE 500 MG TABLET PO SCH ×4 (08:52→20:12)
[2020-08-24] MEDS: Metoprolol XL (24 HR) Succ 50 MG TAB.ER.24H PO SCH ×2 (08:52→09:02)
[2020-08-24] MEDS: amLODIPine 5 MG TABLET PO SCH ×2 (08:52→09:01)
[2020-08-24] MEDS: Cefepime HCl 2,000 MG in 0.9 % Sodium Chloride Mini Bag 100 ML IVPB SCH ×2 (08:53→17:37)
[2020-08-24] MEDS ORDERED: *HR* FentaNYL (PF) 100 MCG/2 ML VIAL IVP PRN ×2 (10:38→16:05)
[2020-08-24] MEDS ORDERED: *HR* HYDROmorphone PF 0.5 MG/0.5 ML SYRINGE IVP PRN ×2 (10:38→16:05)
[2020-08-24] MEDS ORDERED: Ondansetron 4 MG/2 ML VIAL IVP PRN ×3 (10:38→16:05)
[2020-08-24] MEDS ORDERED: Famotidine 20 MG TABLET PO ONE (10:39)
[2020-08-24 11:10] LABS: Estimated Average Glucose 344 mg/dl; Hemoglobin A1C 13.6 %
[2020-08-24] MEDS ORDERED: *HR* Propofol 200 MG/20 ML VIAL IVP ONE ×2 (12:08→12:31)
[2020-08-24] MEDS ORDERED: *HR* Midazolam HCl 2 MG/2 ML VIAL ONE (12:08)
[2020-08-24] MEDS ORDERED: *HR* FentaNYL (PF) 100 MCG/2 ML VIAL ONE (12:08)
[2020-08-24] MEDS ORDERED: Lidocaine -MPF 2% 2 ML VIAL ONE (12:09)
[2020-08-24] MEDS ORDERED: Ondansetron 4 MG/2 ML VIAL ONE (12:10)
[2020-08-24] MEDS ORDERED: Bupivacaine/Clonidine Syringe 20 ML, Syringe LUER-LOK 1 EACH TP ONE (13:25)
[2020-08-24] MEDS ORDERED: Lacri-Lube 3.5 GM TUBE ONE (13:35)
[2020-08-24] MEDS ORDERED: EPHEDrine 50 MG/ML VIAL ONE (13:50)
[2020-08-24] MEDS ORDERED: Naloxone 0.4 MG/ML INJ IVP PRN (16:05)
[2020-08-24] MEDS ORDERED: Melatonin 3 MG TABLET PO PRN (16:05)
[2020-08-24] MEDS ORDERED: D5% in Water 1,000 ML IVC PRN (16:05)
[2020-08-24] MEDS ORDERED: *HR* OxyCODONE/APAP 10/325 TABLET PO PRN (16:05)
[2020-08-24] MEDS ORDERED: Acetaminophen 325 MG TABLET PO PRN (16:05)
[2020-08-24] MEDS ORDERED: Dextrose Gel 15 GM/37.5 ML TUBE PO PRN ×2 (16:05)
[2020-08-24] MEDS ORDERED: *HR* Dextrose 50 % in Water (Vial) 50 ML VIAL IVP PRN (16:05)
[2020-08-24] MEDS ORDERED: hydrALAZINE 25 MG TABLET PO PRN (16:05)
[2020-08-24] MEDS: Insulin LISPRO 300 UNITS/3 ML VIAL SUBQ SCH ×2 (17:38→20:13)
[2020-08-24] MEDS: Insulin DETEMIR 100 UNIT/ML X5UNITS SUBQ SCH (20:13)
[2020-08-25] MEDS: *HR* Heparin 5,000 UNIT/ML VIAL SQ SCH ×3 (00:15→16:48)
[2020-08-25] MEDS ORDERED: Vancomycin 1,500 MG/265 ML IV.SOLN IVPB SCH (06:00)
[2020-08-25] MEDS: Cefepime HCl 2,000 MG in 0.9 % Sodium Chloride Mini Bag 100 ML IVPB SCH (06:24)
[2020-08-25 06:45] LABS: Hematocrit 32.6 % (37.5-50.1); Hemoglobin 10.5 g/dL (12.9-16.9); Mean Corpuscular HGB Conc 32.2 g/dL (31.6-35.5); Mean Corpuscular Hemoglobin 28.1 pg (28.0-33.3); Mean Corpuscular Volume 87.2 fL (83.0-100.0); Mean Platelet Volume 10.4 fL (9.4-12.4); Platelet Count 316 K/mcL (140-400); Red Blood Count 3.74 M/mcL (4.19-5.50); Red Cell Distribution Width 12.3 % (11.5-14.5); White Blood Count 13.5 K/mcL (4.3-11.1)
[2020-08-25 06:54] LABS: Calcium 8.9 mg/dL (8.6-10.3)
[2020-08-25] MEDS: metroNIDAZOLE 500 MG TABLET PO SCH (09:12)
[2020-08-25] MEDS: Furosemide 40 MG TABLET PO SCH (09:12)
[2020-08-25] MEDS: Insulin LISPRO 300 UNITS/3 ML VIAL SUBQ SCH ×4 (09:13→20:32)
[2020-08-25] MEDS: Aspirin Enteric Coated 81 MG Tablet PO SCH (09:13)
[2020-08-25] MEDS: Metoprolol XL (24 HR) Succ 50 MG TAB.ER.24H PO SCH (09:13)
[2020-08-25] MEDS: amLODIPine 5 MG TABLET PO SCH (09:14)
[2020-08-25] MEDS: Ampicillin/Sulbactam 3,000 MG in 0.9 % Sodium Chloride Mini Bag 100 ML IVPB SCH (16:48)
[2020-08-25] MEDS: Insulin DETEMIR 100 UNIT/ML X5UNITS SUBQ SCH (20:32)
[2020-08-26] MEDS: *HR* Heparin 5,000 UNIT/ML VIAL SQ SCH ×3 (02:11→14:46)
[2020-08-26] MEDS: Ampicillin/Sulbactam 3,000 MG in 0.9 % Sodium Chloride Mini Bag 100 ML IVPB SCH ×4 (02:12→17:22)
[2020-08-26 05:21] LABS: Basophils # 0.1 K/mcL (0.0-0.2); Basophils % 0.6 %; Eosinophils # 0.6 K/mcL (0.0-0.6); Eosinophils % 3.7 %; Hematocrit 29.2 % (37.5-50.1); Hemoglobin 9.2 g/dL (12.9-16.9); Immature Granulocytes % 1.6 % (0-4); Lymphocytes # 2.9 K/mcL (0.6-4.6); Lymphocytes % 18.4 %; Mean Corpuscular HGB Conc 31.5 g/dL (31.6-35.5); Mean Corpuscular Hemoglobin 27.4 pg (28.0-33.3); Mean Corpuscular Volume 86.9 fL (83.0-100.0); Monocytes # 1.5 K/mcL (0.0-1.3); Monocytes % 9.2 %; Neutrophils # 10.6 K/mcL (1.6-8.9); Platelet Count 405 K/mcL (140-400); Red Blood Count 3.36 M/mcL (4.19-5.50); Red Cell Distribution Width 12.5 % (11.5-14.5); Segmented Neutrophils % 66.5 %; White Blood Count 15.8 K/mcL (4.3-11.1)
[2020-08-26 05:42] LABS: Calcium 9.1 mg/dL (8.6-10.3); Potassium 4.3 mEq/L (3.5-5.1)
[2020-08-26] MEDS: Metoprolol XL (24 HR) Succ 50 MG TAB.ER.24H PO SCH (07:48)
[2020-08-26] MEDS: amLODIPine 5 MG TABLET PO SCH (07:48)
[2020-08-26] MEDS: Aspirin Enteric Coated 81 MG Tablet PO SCH (07:48)
[2020-08-26] MEDS: Insulin LISPRO 300 UNITS/3 ML VIAL SUBQ SCH ×4 (07:48→20:41)
[2020-08-26] MEDS: Furosemide 40 MG TABLET PO SCH (07:48)
[2020-08-26] MEDS: hydrALAZINE 25 MG TABLET PO SCH ×2 (14:43→20:40)
[2020-08-26] MEDS: Insulin DETEMIR 100 UNIT/ML X5UNITS SUBQ SCH (20:40)
[2020-08-27] MEDS: *HR* Heparin 5,000 UNIT/ML VIAL SQ SCH ×4 (00:18→23:39)
[2020-08-27] MEDS: Ampicillin/Sulbactam 3,000 MG in 0.9 % Sodium Chloride Mini Bag 100 ML IVPB SCH ×5 (00:18→23:39)
[2020-08-27 06:43] LABS: Basophils # 0.1 K/mcL (0.0-0.2); Basophils % 0.6 %; Eosinophils # 0.6 K/mcL (0.0-0.6); Eosinophils % 4.1 %; Hematocrit 33.7 % (37.5-50.1); Immature Granulocytes % 2.1 % (0-4); Lymphocytes # 2.7 K/mcL (0.6-4.6); Lymphocytes % 19.2 %; Mean Corpuscular HGB Conc 32.9 g/dL (31.6-35.5); Mean Corpuscular Hemoglobin 28.5 pg (28.0-33.3); Mean Corpuscular Volume 86.4 fL (83.0-100.0); Monocytes # 1.3 K/mcL (0.0-1.3); Monocytes % 8.8 %; Neutrophils # 9.3 K/mcL (1.6-8.9); Platelet Count 402 K/mcL (140-400); Red Cell Distribution Width 12.4 % (11.5-14.5); Segmented Neutrophils % 65.2 %; White Blood Count 14.3 K/mcL (4.3-11.1)
[2020-08-27 06:44] LABS: Hemoglobin 11.1 g/dL (12.9-16.9)
[2020-08-27 07:05] LABS: Calcium 9.3 mg/dL (8.6-10.3); Potassium 4.1 mEq/L (3.5-5.1)
[2020-08-27] MEDS: amLODIPine 5 MG TABLET PO SCH (08:00)
[2020-08-27] MEDS: Furosemide 40 MG TABLET PO SCH (08:00)
[2020-08-27] MEDS: Metoprolol XL (24 HR) Succ 50 MG TAB.ER.24H PO SCH (08:00)
[2020-08-27] MEDS: Aspirin Enteric Coated 81 MG Tablet PO SCH (08:00)
[2020-08-27] MEDS: hydrALAZINE 25 MG TABLET PO SCH ×3 (08:02→20:49)
[2020-08-27] MEDS: Insulin LISPRO 300 UNITS/3 ML VIAL SUBQ SCH ×5 (08:03→22:25)
[2020-08-27] MEDS: Insulin DETEMIR 100 UNIT/ML X5UNITS SUBQ SCH (20:48)
[2020-08-28 01:19] LABS: Basophils # 0.1 K/mcL (0.0-0.2); Basophils % 0.7 %; Eosinophils # 0.5 K/mcL (0.0-0.6); Eosinophils % 3.6 %; Hematocrit 33.3 % (37.5-50.1); Immature Granulocytes % 3.3 % (0-4); Lymphocytes # 2.7 K/mcL (0.6-4.6); Mean Corpuscular Hemoglobin 28.1 pg (28.0-33.3); Mean Corpuscular Volume 85.2 fL (83.0-100.0); Monocytes # 1.6 K/mcL (0.0-1.3); Monocytes % 11.3 %; Neutrophils # 8.4 K/mcL (1.6-8.9); Platelet Count 386 K/mcL (140-400); Red Blood Count 3.91 M/mcL (4.19-5.50); Red Cell Distribution Width 12.5 % (11.5-14.5); Segmented Neutrophils % 61.1 %; White Blood Count 13.7 K/mcL (4.3-11.1)
[2020-08-28 01:39] LABS: Calcium 9.3 mg/dL (8.6-10.3); Potassium 4.2 mEq/L (3.5-5.1)
[2020-08-28] MEDS: Ampicillin/Sulbactam 3,000 MG in 0.9 % Sodium Chloride Mini Bag 100 ML IVPB SCH ×3 (05:36→17:25)
[2020-08-28] MEDS: amLODIPine 5 MG TABLET PO SCH (07:56)
[2020-08-28] MEDS: *HR* Heparin 5,000 UNIT/ML VIAL SQ SCH ×2 (07:56→17:26)
[2020-08-28] MEDS: Metoprolol XL (24 HR) Succ 50 MG TAB.ER.24H PO SCH (07:56)
[2020-08-28] MEDS: hydrALAZINE 25 MG TABLET PO SCH ×3 (07:57→21:53)
[2020-08-28] MEDS: Aspirin Enteric Coated 81 MG Tablet PO SCH (07:57)
[2020-08-28] MEDS: Furosemide 40 MG TABLET PO SCH (07:57)
[2020-08-28] MEDS: Insulin LISPRO 300 UNITS/3 ML VIAL SUBQ SCH ×4 (07:58→21:53)
[2020-08-28] MEDS: *HR* Insulin Regular U-500 500 UNIT/ML SUBQ SCH (17:26)
[2020-08-29] MEDS: *HR* Heparin 5,000 UNIT/ML VIAL SQ SCH ×2 (00:53→08:08)
[2020-08-29] MEDS: Ampicillin/Sulbactam 3,000 MG in 0.9 % Sodium Chloride Mini Bag 100 ML IVPB SCH ×2 (00:53→06:00)
[2020-08-29 05:20] LABS: Basophils # 0.1 K/mcL (0.0-0.2); Basophils % 0.7 %; Eosinophils # 0.5 K/mcL (0.0-0.6); Eosinophils % 3.6 %; Hematocrit 33.9 % (37.5-50.1); Hemoglobin 10.9 g/dL (12.9-16.9); Immature Granulocytes % 3.3 % (0-4); Lymphocytes # 2.9 K/mcL (0.6-4.6); Lymphocytes % 21.8 %; Mean Corpuscular HGB Conc 32.2 g/dL (31.6-35.5); Mean Corpuscular Hemoglobin 27.5 pg (28.0-33.3); Mean Corpuscular Volume 85.6 fL (83.0-100.0); Mean Platelet Volume 9.6 fL (9.4-12.4); Monocytes # 1.4 K/mcL (0.0-1.3); Monocytes % 10.4 %; Platelet Count 413 K/mcL (140-400); Red Blood Count 3.96 M/mcL (4.19-5.50); Red Cell Distribution Width 12.5 % (11.5-14.5); Segmented Neutrophils % 60.2 %; White Blood Count 13.2 K/mcL (4.3-11.1)
[2020-08-29 05:40] LABS: Calcium 9.3 mg/dL (8.6-10.3); Potassium 3.9 mEq/L (3.5-5.1)
[2020-08-29 07:38] VITALS: PULSE 67
[2020-08-29] MEDS: amLODIPine 5 MG TABLET PO SCH (08:08)
[2020-08-29] MEDS: Furosemide 40 MG TABLET PO SCH (08:08)
[2020-08-29] MEDS: Aspirin Enteric Coated 81 MG Tablet PO SCH (08:08)
[2020-08-29] MEDS: hydrALAZINE 25 MG TABLET PO SCH (08:09)
[2020-08-29] MEDS: *HR* Insulin Regular U-500 500 UNIT/ML SUBQ SCH (08:09)
[2020-08-29] MEDS: Metoprolol XL (24 HR) Succ 50 MG TAB.ER.24H PO SCH (08:09)
[2020-08-29] MEDS: Insulin LISPRO 300 UNITS/3 ML VIAL SUBQ SCH ×2 (08:10→11:17)
[2020-08-29 10:45] VITALS: BP 118/67; TEMP 98.6; O2SAT 96
== END 2020-08-29 12:33 | disposition home health service (06) | DRG 854 ==
LOC: EMEROOARM 01:37 → 2ANU 01:37 → SUATTDRO 06:50 → 2ANU 06:51
PROVIDERS: ADMIT Internal Medicine; ATTEND Internal Medicine

== ENCOUNTER 2021-11-19 00:01 | Inpatient (IN) ==
[2021-11-19 01:12] LABS: Basophils # 0.1 K/mcL (0.0-0.2); Basophils % 0.4 %; Eosinophils # 0.3 K/mcL (0.0-0.6); Hematocrit 37.2 % (37.5-50.1); Hemoglobin 11.9 g/dL (12.9-16.9); Immature Granulocytes % 0.3 % (0-4); Lymphocytes # 2.5 K/mcL (0.6-4.6); Lymphocytes % 17.4 %; Mean Corpuscular Hemoglobin 28.2 pg (28.0-33.3); Mean Corpuscular Volume 88.2 fL (83.0-100.0); Mean Platelet Volume 10.3 fL (9.4-12.4); Monocytes # 1.8 K/mcL (0.0-1.3); Monocytes % 12.7 %; Neutrophils # 9.6 K/mcL (1.6-8.9); Platelet Count 208 K/mcL (140-400); Red Blood Count 4.22 M/mcL (4.19-5.50); Red Cell Distribution Width 12.8 % (11.5-14.5); Segmented Neutrophils % 67.2 %; White Blood Count 14.2 K/mcL (4.3-11.1)
[2021-11-19 01:33] LABS: Albumin 3.3 g/dL (3.5-5.7); Albumin/Globulin Ratio 0.8 (1.1-2.2); Bilirubin,Direct 0.1 mg/dL (0.0-0.2); Bilirubin,Indirect 0.4 mg/dL (0.0-1.0); Bilirubin,Total 0.5 mg/dL (0.3-1.0); Calcium 9.1 mg/dL (8.6-10.3); Globulin 4.3 g/dL (2.4-3.5); Potassium 3.8 mEq/L (3.5-5.1); Total Protein 7.6 g/dL (6.4-8.9)
[2021-11-19] MEDS ORDERED: Piperacillin/Tazobactam 3.375 GM in 0.9 % Sodium Chloride Mini Bag 100 ML IVPB ONE (06:40)
[2021-11-19] MEDS ORDERED: Vancomycin 1,500 MG/265 ML IV.SOLN IVPB ONE (07:00)
[2021-11-19] MEDS ORDERED: D5% in Water 1,000 ML IVC PRN ×2 (07:53→19:03)
[2021-11-19] MEDS ORDERED: Dextrose Gel 15 GM/37.5 ML TUBE PO PRN ×4 (07:53→19:03)
[2021-11-19] MEDS ORDERED: *HR* Dextrose 50 % in Water (Syg) 50 ML SYRINGE IVP PRN ×2 (07:53→19:03)
[2021-11-19] MEDS ORDERED: Naloxone 0.4 MG/ML INJ IVP PRN ×2 (09:07→19:03)
[2021-11-19] MEDS ORDERED: Ondansetron 4 MG/2 ML VIAL IVP PRN ×4 (09:07→19:03)
[2021-11-19] MEDS ORDERED: *HR* HYDROcodone/Acet 5/325 mg TABLET PO PRN ×2 (09:07→19:03)
[2021-11-19] MEDS ORDERED: Acetaminophen 325 MG TABLET PO PRN ×2 (09:07→19:03)
[2021-11-19] MEDS ORDERED: Melatonin 3 MG TABLET PO PRN ×2 (09:07→19:03)
[2021-11-19] MEDS ORDERED: *HR* HYDROmorphone PF 0.5 MG/0.5 ML SYRINGE IVP PRN ×2 (15:51→19:03)
[2021-11-19] MEDS ORDERED: *HR* FentaNYL (PF) 100 MCG/2 ML VIAL IVP PRN ×2 (15:51→19:03)
[2021-11-19] MEDS ORDERED: *HR* OxyCODONE Immed Rel 5 MG TABLET PO PRN ×2 (15:51→19:03)
[2021-11-19] MEDS ORDERED: Bupivacaine-MPF 0.25% 10 ML VIAL ONE (17:40)
[2021-11-19] MEDS ORDERED: *HR* Heparin 5,000 UNIT/ML VIAL SQ SCH (18:00)
[2021-11-19] MEDS ORDERED: Piperacillin/Tazobactam 3.375 GM in 0.9 % Sodium Chloride Mini Bag 100 ML IVPB SCH (18:00)
[2021-11-20 03:42] LABS: A.calcoaceticus-baumannii cplx Not Detected (Not Detect); Bacteroides fragilis by PCR Not Detected (Not Detect); Candida albicans by PCR Not Detected (Not Detect); Candida auris by PCR Not Detected (Not Detect); Candida glabrata by PCR Not Detected (Not Detect); Candida krusei by PCR Not Detected (Not Detect); Candida parapsilosis by PCR Not Detected (Not Detect); Candida tropicalis by PCR Not Detected (Not Detect); Crypto. neoformans/gattii PCR Not Detected (Not Detect); Enterobacter cloacae Cmplx PCR Not Detected (Not Detect); Enterobacterales by PCR Not Detected (Not Detect); Enterococcus faecalis by PCR Not Detected (Not Detect); Enterococcus faecium by PCR Not Detected (Not Detect); Escherichia coli by PCR Not Detected (Not Detect); Klebs. pneumoniae group by PCR Not Detected (Not Detect); Klebsiella aerogenes by PCR Not Detected (Not Detect); Klebsiella oxytoca by PCR Not Detected (Not Detect); Proteus by PCR Not Detected (Not Detect); Pseudomonas aeruginosa by PCR Not Detected (Not Detect); Salmonella species by PCR Not Detected (Not Detect); Serratia marcescens by PCR Not Detected (Not Detect); Staph epidermidis by PCR Not Detected (Not Detect); Staph lugdunensis by PCR Not Detected (Not Detect); Staphylococcus aureus by PCR Not Detected (Not Detect); Staphylococcus by PCR Not Detected (Not Detect); Stenotrophomonas maltophilia Not Detected (Not Detect); Streptococcus agalactiae(B)PCR Not Detected (Not Detect); Streptococcus by PCR DETECTED (Not Detect); Streptococcus pneumoniae PCR Not Detected (Not Detect); Streptococcus pyogenes (A) PCR Not Detected (Not Detect)
[2021-11-20] MEDS: *HR* Heparin 5,000 UNIT/ML VIAL SQ SCH ×2 (05:27→17:14)
[2021-11-20] MEDS ORDERED: Piperacillin/Tazobactam 3.375 GM in 0.9 % Sodium Chloride Mini Bag 100 ML IVPB SCH (06:00)
[2021-11-20] MEDS ORDERED: D5% in Water 1,000 ML IVC PRN (08:17)
[2021-11-20 08:58] LABS: Hemoglobin 11.2 g/dL (12.9-16.9); Mean Corpuscular HGB Conc 32.9 g/dL (31.6-35.5); Mean Corpuscular Hemoglobin 28.6 pg (28.0-33.3); Mean Corpuscular Volume 86.7 fL (83.0-100.0); Mean Platelet Volume 10.3 fL (9.4-12.4); Platelet Count 217 K/mcL (140-400); Red Blood Count 3.92 M/mcL (4.19-5.50); Red Cell Distribution Width 12.8 % (11.5-14.5); White Blood Count 10.2 K/mcL (4.3-11.1)
[2021-11-20] MEDS ORDERED: Insulin DETEMIR 100 UNIT/ML X5UNITS SUBQ SCH (09:00)
[2021-11-20 09:17] LABS: Calcium 8.8 mg/dL (8.6-10.3); Potassium 4.2 mEq/L (3.5-5.1)
[2021-11-20] MEDS: amLODIPine 5 MG TABLET PO SCH (10:04)
[2021-11-20] MEDS: Metoprolol XL (24 HR) Succ 50 MG TAB.ER.24H PO SCH (10:04)
[2021-11-20] MEDS: Aspirin Enteric Coated 325 MG Tablet PO SCH (10:04)
[2021-11-20] MEDS: Gabapentin 300 MG CAPSULE PO SCH ×3 (10:05→21:16)
[2021-11-20] MEDS ORDERED: Vancomycin 1,500 MG/265 ML IV.SOLN IVPB ONE (10:41)
[2021-11-20] MEDS: Insulin LISPRO 300 UNITS/3 ML VIAL SUBQ SCH ×3 (12:02→17:19)
[2021-11-20] MEDS ORDERED: Insulin Human Regular 7 UNIT in 0.9 % Sodium Chloride 10 ML IV ONE (13:26)
[2021-11-20] MEDS: metroNIDAZOLE 500 MG TABLET PO SCH ×2 (15:38→21:16)
[2021-11-20] MEDS: Cefepime HCl 2,000 MG in 0.9 % Sodium Chloride 10 ML IVP SCH (17:14)
[2021-11-20] MEDS: Insulin DETEMIR 100 UNIT/ML X5UNITS SUBQ SCH (21:16)
[2021-11-21 04:11] LABS: Magnesium 1.8 mg/dL (1.6-2.6); Phosphorous 3.6 mg/dL (2.7-4.5)
[2021-11-21 04:31] LABS: Calcium 8.4 mg/dL (8.6-10.3); Potassium 4.2 mEq/L (3.5-5.1)
[2021-11-21] MEDS ORDERED: Insulin Human Regular 10 UNIT in 0.9 % Sodium Chloride 10 ML IV ONE ×2 (04:34→20:10)
[2021-11-21] MEDS ORDERED: Insulin DETEMIR 100 UNIT/ML X5UNITS SUBQ ONE (04:34)
[2021-11-21] MEDS: Insulin DETEMIR 100 UNIT/ML X5UNITS SUBQ SCH (05:05)
[2021-11-21] MEDS: Cefepime HCl 2,000 MG in 0.9 % Sodium Chloride 10 ML IVP SCH ×2 (05:06→17:23)
[2021-11-21] MEDS: *HR* Heparin 5,000 UNIT/ML VIAL SQ SCH ×2 (05:07→17:23)
[2021-11-21] MEDS: Aspirin Enteric Coated 325 MG Tablet PO SCH (08:45)
[2021-11-21] MEDS: Gabapentin 300 MG CAPSULE PO SCH ×3 (08:46→20:52)
[2021-11-21] MEDS: metroNIDAZOLE 500 MG TABLET PO SCH ×3 (08:46→20:52)
[2021-11-21] MEDS: amLODIPine 5 MG TABLET PO SCH (08:47)
[2021-11-21] MEDS: Metoprolol XL (24 HR) Succ 50 MG TAB.ER.24H PO SCH (08:47)
[2021-11-21] MEDS: Insulin LISPRO 300 UNITS/3 ML VIAL SUBQ SCH ×6 (08:50→17:22)
[2021-11-21] MEDS ORDERED: Vancomycin 1,500 MG/265 ML IV.SOLN IVPB ONE (13:32)
[2021-11-21] MEDS ORDERED: Insulin DETEMIR 100 UNIT/ML X5UNITS SUBQ SCH (21:00)
[2021-11-22 04:23] LABS: Basophils # 0.1 K/mcL (0.0-0.2); Eosinophils # 0.5 K/mcL (0.0-0.6); Eosinophils % 5.3 %; Hematocrit 32.1 % (37.5-50.1); Hemoglobin 10.6 g/dL (12.9-16.9); Lymphocytes # 2.6 K/mcL (0.6-4.6); Lymphocytes % 28.5 %; Mean Corpuscular Volume 87.9 fL (83.0-100.0); Mean Platelet Volume 10.3 fL (9.4-12.4); Monocytes # 1.1 K/mcL (0.0-1.3); Monocytes % 12.2 %; Neutrophils # 4.7 K/mcL (1.6-8.9); Platelet Count 234 K/mcL (140-400); Red Blood Count 3.65 M/mcL (4.19-5.50); Red Cell Distribution Width 12.7 % (11.5-14.5); White Blood Count 9.3 K/mcL (4.3-11.1)
[2021-11-22 04:26] LABS: Estimated Average Glucose 315 mg/dl; Hemoglobin A1C 12.6 %
[2021-11-22 04:42] LABS: Calcium 8.6 mg/dL (8.6-10.3); Potassium 4.6 mEq/L (3.5-5.1)
[2021-11-22] MEDS: *HR* Heparin 5,000 UNIT/ML VIAL SQ SCH ×2 (06:00→17:17)
[2021-11-22] MEDS: Cefepime HCl 2,000 MG in 0.9 % Sodium Chloride 10 ML IVP SCH ×2 (06:00→17:17)
[2021-11-22] MEDS: Metoprolol XL (24 HR) Succ 50 MG TAB.ER.24H PO SCH (08:52)
[2021-11-22] MEDS: Aspirin Enteric Coated 325 MG Tablet PO SCH (08:52)
[2021-11-22] MEDS: amLODIPine 5 MG TABLET PO SCH (08:52)
[2021-11-22] MEDS: Gabapentin 300 MG CAPSULE PO SCH ×3 (08:53→20:49)
[2021-11-22] MEDS: metroNIDAZOLE 500 MG TABLET PO SCH ×3 (08:53→20:48)
[2021-11-22] MEDS: Insulin LISPRO 300 UNITS/3 ML VIAL SUBQ SCH ×6 (08:55→17:19)
[2021-11-22] MEDS: Insulin DETEMIR 100 UNIT/ML X5UNITS SUBQ SCH ×2 (08:57→20:49)
[2021-11-22 23:16] VITALS: TEMP 97.8
[2021-11-23 02:30] LABS: Basophils # 0.1 K/mcL (0.0-0.2); Basophils % 0.8 %; Eosinophils # 0.5 K/mcL (0.0-0.6); Eosinophils % 4.6 %; Hematocrit 32.7 % (37.5-50.1); Hemoglobin 10.5 g/dL (12.9-16.9); Immature Granulocytes % 2.1 % (0-4); Lymphocytes # 2.7 K/mcL (0.6-4.6); Lymphocytes % 23.8 %; Mean Corpuscular HGB Conc 32.1 g/dL (31.6-35.5); Mean Corpuscular Hemoglobin 28.2 pg (28.0-33.3); Mean Corpuscular Volume 87.9 fL (83.0-100.0); Mean Platelet Volume 10.3 fL (9.4-12.4); Monocytes # 1.1 K/mcL (0.0-1.3); Monocytes % 9.6 %; Neutrophils # 6.6 K/mcL (1.6-8.9); Platelet Count 287 K/mcL (140-400); Red Blood Count 3.72 M/mcL (4.19-5.50); Red Cell Distribution Width 12.7 % (11.5-14.5); Segmented Neutrophils % 59.1 %; White Blood Count 11.2 K/mcL (4.3-11.1)
[2021-11-23 02:51] LABS: Calcium 8.8 mg/dL (8.6-10.3); Potassium 4.8 mEq/L (3.5-5.1)
[2021-11-23 04:10] VITALS: BP 159/83; PULSE 66; O2SAT 94
[2021-11-23] MEDS: Cefepime HCl 2,000 MG in 0.9 % Sodium Chloride 10 ML IVP SCH (05:48)
[2021-11-23] MEDS: *HR* Heparin 5,000 UNIT/ML VIAL SQ SCH (05:49)
[2021-11-23] MEDS: Aspirin Enteric Coated 325 MG Tablet PO SCH (09:03)
[2021-11-23] MEDS: Gabapentin 300 MG CAPSULE PO SCH (09:03)
[2021-11-23] MEDS: metroNIDAZOLE 500 MG TABLET PO SCH (09:03)
[2021-11-23] MEDS: Metoprolol XL (24 HR) Succ 50 MG TAB.ER.24H PO SCH (09:03)
[2021-11-23] MEDS: amLODIPine 5 MG TABLET PO SCH (09:04)
[2021-11-23] MEDS: Insulin LISPRO 300 UNITS/3 ML VIAL SUBQ SCH ×2 (09:06→09:07)
[2021-11-23] MEDS: Insulin DETEMIR 100 UNIT/ML X5UNITS SUBQ SCH (09:18)
== END 2021-11-23 13:20 | disposition home or self-care (01) | DRG 853 ==
LOC: EMEROOARM 00:01 → 3NENU 00:01 → SUATTDRO 09:07
PROVIDERS: ADMIT Internal Medicine; ATTEND Internal Medicine